=== PATIENT | female | born 1945 | race Caucasian/White ===

== ENCOUNTER 2018-11-18 11:56 | Inpatient (IN) | payer MEDICARE, BC ==
[~2018-11-18 11:56] MED LIST: ISOVUE-370 76%-LOCM 1 ML ONE
--- NOTE | 2018-11-18 12:52 | RAD ---
Chest one view HISTORY: Dyspnea. COMPARISON: 03/31/2007. FINDINGS: Cardiac silhouette is magnified by projection and upper limits of normal in size. Pulmonary vasculature also upper limits of normal. No lobar consolidation or evidence of pneumothorax. 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 IMPRESSION: No active cardiopulmonary abnormalities are demonstrated.
[2018-11-18 13:59] LABS: #Eosinphils 0.2 thou/uL (0.0-0.7); #Lymphocytes 1.1 thou/uL (1.20-3.40); #Monocytes 0.6 thou/uL (0.11-0.59); %Basophils 0.2 % (0.0-1.0); %Eosinophils 1.4 % (0.0-10.0); %Lymphocytes 9.9 % (21.0-51.0); %Monocytes 5.5 % (0.0-10.0); Hemoglobin 9.5 g/dL (12.0-16.0); Mean Corpuscular HGB CONC 31.9 g/dL (32.0-36.0); Mean Corpuscular Hemoglobin 31.8 pg (27.0-31.0); Mean Corpuscular Volume 99.4 fL (78.0-98.0); Mean Platelet Volume 6.8 fL (7.4-10.4); Platelet Count 244 thou/uL (130-400); Red Blood Cell (RBC) Count 2.99 mill/uL (4.20-5.40); White Blood Cell (WBC) Count 10.8 thou/uL (4.8-10.8)
[2018-11-18 14:16] LABS: ALT (SGPT) Less than 7 U/L (8-55); AST (SGOT) 9 U/L (5-34); Albumin 3.2 g/dL (3.4-4.8); Alkaline Phosphatase 128 U/L (40-150); Anion Gap 16 mmol/L (10-20); BUN (Urea Nitrogen) 53 mg/dL (9.8-20.1); Bilirubin, Total 0.6 mg/dL (0.2-1.2); Calc. Creatinine Clearance 0 mL/min (70-130); Calcium 8.3 mg/dL (7.8-10.44); Carbon Dioxide 21 mmol/L (23-31); Chloride 106 mmol/L (98-107); Estimated GFR-MDRD 7; Globulin 2.7 g/dL (2.4-3.5); Glucose 97 mg/dL (83-110); Lipase 45 U/L (8-78); Potassium 3.7 mmol/L (3.5-5.1); Protein, Total 5.9 g/dL (6.0-8.3); Sodium 139 mmol/L (136-145)
[2018-11-18] MEDS ORDERED: diphenhydrAMINE 50 MG/ML VIAL ONE (14:32)
[2018-11-18] MEDS ORDERED: Famotidine/PF 20 mg/2ml Vial ONE (14:32)
[2018-11-18] MEDS ORDERED: methylPREDNISolone Sod Succ/PF 125 MG/2 ML VIAL ONE (14:32)
--- NOTE | 2018-11-18 16:14 | CT ---
CT PULMONARY ANGIOGRAM WITH IV CONTRAST AND 3-D POSTPROCESSING: HISTORY:Shortness of breath, chest pain FINDINGS: There is good contrast opacification of the pulmonary arterial vasculature with filling defects in th e lower lobe branches, right greater than left consistent with pulmonary embolism.. The thoracic aorta is well opacified without aneurysm or dissection. No left pleural or pericardial effusions are seen. There is a small right pleural effusion. No pneumothoraces or lung nodules are noted. There are scattered patchy groundglass infiltrates bilat erally. There are degenerative changes in the spine. Upper abdominal tomograms demonstrate free fluid in the upper abdomen consistent with ascites. IMPRESSION: Pulmonary embolism. Discussed over the telephone with ER physician Dr. Neo Powers at 4:08 PM..
[2018-11-18] MEDS ORDERED: Heparin 1,000 UNITS/ML VIAL ONE ×2 (18:30→18:33)
[2018-11-18] MEDS ORDERED: Heparin 25,000 units/D5W 500 ML ONE (18:30)
[2018-11-18 19:21] LABS: Troponin I 0.018 ng/mL (< 0.028)
[2018-11-18 19:39] VITALS: BMI 39.0
[2018-11-18] MEDS ORDERED: Heparin 25,000 units/D5W 500 ML IV SCH (19:45)
[2018-11-18 20:47] LABS: Troponin I 0.016 ng/mL (< 0.028)
[2018-11-18] MEDS ORDERED: Ondansetron PF 4 MG/2 ML Vial IVP PRN (21:22)
[2018-11-18] MEDS ORDERED: Ondansetron ODT 4 MG TAB PO PRN (21:22)
[2018-11-18] MEDS ORDERED: Acetaminophen 650 MG Suppository PR PRN (21:22)
[2018-11-18] MEDS ORDERED: HYDROcodone/Acetaminophen 5/325 mg Tablet PO PRN (22:13)
[2018-11-18] MEDS ORDERED: Gabapentin 300 MG CAP PO SCH (22:15)
[2018-11-18] MEDS ORDERED: Zolpidem Tartrate 5 MG TAB PO SCH (22:15)
[2018-11-18] MEDS ORDERED: Carvedilol 3.125 MG TAB PO SCH (22:15)
[2018-11-18] MEDS ORDERED: HYDROcodone/Acetaminophen 10/325 mg Tablet PO SCH (23:00)
--- NOTE | 2018-11-19 00:20 | HP ---
PRIMARY CARE DOCTOR: Dr. Levi Quach CODE STATUS: Full code. TIME OF EVALUATION: 08:10 p.m. CHIEF COMPLAINT: Shortness of breath associated with chest pain. HISTORY OF PRESENT ILLNESS: This is a 73-year-old female patient with past medical history of hypertension, end-stage renal disease, who came to the hospital after having chest pain, shortness of breath, they were reported as moderate to severe with no clear triggers. No alleviating factors. The shortness of breath was exertional, improved with resting. The patient was found to have a pulmonary embolism, receiving treatment with heparin for it. REVIEW OF SYSTEMS: CONSTITUTIONAL: No fever, chills, or generalized weakness. RESPIRATORY: The patient has cough. No sputum production or shortness of breath. CARDIOVASCULAR: Chest pain. No palpitations. GASTROINTESTINAL: No nausea. No vomiting, diarrhea, or abdominal pain. TIPPLE BOSS: No dizziness, headache, or feeling lightheaded. GENITOURINARY: No burning on urination. EXTREMITIES: No leg swelling. All other systems were reviewed and negative except for the findings mentioned above. PAST MEDICAL HISTORY: As mentioned in the HPI. PAST SURGICAL HISTORY: Bypass surgery, bladder surgery, appendectomy, hysterectomy, fistula of the right upper arm, and peritoneal dialysis catheter in the left lower quadrant. PSYCH HISTORY: Anxiety and depression. SOCIAL HISTORY: No alcohol. No drugs. No smoking history. FAMILY HISTORY: Reviewed and noncontributory for current presentation. KNOWN ALLERGIES: IVP dye and codeine. REPORTED MEDICATIONS: 1. Calcium carbonate. 2. Coreg. 3. Gabapentin. 4. Zolpidem. 5. Crapo. 6. Duloxetine. 7. Magnesium oxide. 8. Docusate sodium. PHYSICAL EXAMINATION: VITAL SIGNS: On presentation; blood pressure 155/52 with heart rate 76, respiratory rate was 20, temperature 98.4. Pain was 5. Oxygen saturation 98% on room air. GENERAL APPEARANCE: The patient is alert, oriented, not in acute distress. HEENT: Eyes, normal conjunctivae. Moist oral mucosa. Anicteric. NECK: No JVD. RESPIRATORY: Bilateral air entry. No rales. No wheezes. Symmetric expansion. CARDIOVASCULAR: Normal rate, regular rhythm. No murmurs. No gallops. No edema. ABDOMEN: Soft. Normal bowel sounds. The patient has left lower quadrant peritoneal catheter. MUSCULOSKELETAL: Baseline range of motion and strength. No tenderness. SKIN: Warm and intact. No pallor. No rash. No redness. Peripheral pulses are present. Capillary refill seems to be intact. NEUROLOGIC: No evidence of any new focal weakness. Baseline speech. Cranial nerves seems to be intact. PSYCHIATRIC: The patient is in good mood. No anxiety. Optimal judgment. DIAGNOSTIC DATA: EKG was reviewed. The patient has normal sinus rhythm with a rate of 76, W[place] 176, QRS 118, QT corrected 443. Chest x-ray was reviewed. The patient has no active cardiopulmonary abnormalities. CT angio was reviewed. The patient has pulmonary embolism noted in the lower lobe branches. LABORATORY DATA: Labs were reviewed. The patient has white count 10.8, hemoglobin 9.5, MCV 99.4, and platelet count 244. PTT 36.7. Chemistry; sodium 139, potassium 3.7, chloride 106, carbon dioxide 21, anion gap 16, BUN 53, and creatinine 5.90, GFR , glucose 97, and calcium 9.3. LFTs were negative. Troponin was negative x3. Beta-natriuretic peptide was normal. Lipase 45. ASSESSMENT AND PLAN: The patient will be placed in the hospital with the following medical problems: 1. Pulmonary embolism. The patient receiving heparin, as of now, it has been stable. We will continue to monitor. 2. End-stage renal disease, on hemodialysis. The patient has been seen by Dr. Cam. The patient is to receive peritoneal dialysis overnight. 3. Chronic macrocytic anemia, uncontrolled hypertension, current blood pressure 155/52 up to we will reconcile home medications. We will monitor. 4. Deep venous thrombosis prophylaxis, the patient is on heparin. Job ID: [id number]
[2018-11-19 00:49] LABS: PTT 217.7 SEC (22.9-36.1)
[2018-11-19] MEDS ORDERED: Prevnar 13-Val Conj/PF 0.5 ML SYRINGE IM ONE (01:15)
[2018-11-19 03:25] LABS: #Eosinphils 0.1 thou/uL (0.0-0.7); #Lymphocytes 1.5 thou/uL (1.20-3.40); #Monocytes 0.6 thou/uL (0.11-0.59); %Basophils 0.4 % (0.0-1.0); %Eosinophils 1.3 % (0.0-10.0); %Lymphocytes 13.7 % (21.0-51.0); %Monocytes 5.1 % (0.0-10.0); %Neutrophils 79.6 % (42.0-75.0); Hemoglobin 9.4 g/dL (12.0-16.0); Mean Corpuscular Hemoglobin 31.9 pg (27.0-31.0); Mean Corpuscular Volume 99.7 fL (78.0-98.0); Mean Platelet Volume 6.8 fL (7.4-10.4); Platelet Count 249 thou/uL (130-400); RBC Distribution Width 12.1 % (11.5-14.5); Red Blood Cell (RBC) Count 2.93 mill/uL (4.20-5.40); White Blood Cell (WBC) Count 11.3 thou/uL (4.8-10.8)
[2018-11-19 03:46] LABS: Anion Gap 16 mmol/L (10-20); BUN (Urea Nitrogen) 44 mg/dL (9.8-20.1); Calc. Creatinine Clearance 14 mL/min (70-130); Calcium 8.7 mg/dL (7.8-10.44); Carbon Dioxide 21 mmol/L (23-31); Chloride 105 mmol/L (98-107); Estimated GFR-MDRD 7; Glucose 122 mg/dL (83-110); Potassium 3.5 mmol/L (3.5-5.1); Sodium 138 mmol/L (136-145)
[2018-11-19] MEDS ORDERED: Heparin 10,000 UNITS/ 10 ML VIAL SLOW IVP SCH (07:30)
[2018-11-19] MEDS ORDERED: Loratadine 10 MG TAB PO PRN (07:48)
[2018-11-19] MEDS ORDERED: Senokot S 8.6-50 MG TAB PO PRN (07:48)
[2018-11-19] MEDS ORDERED: hydrALAZINE 20 MG/ML VIAL SLOW IVP PRN (07:48)
[2018-11-19] MEDS ORDERED: Cepastat Lozenges 1 LOZ PO PRN (07:48)
[2018-11-19] MEDS ORDERED: Diabetic Tussin 200 MG/10 ML UDCUP PO PRN (07:48)
[2018-11-19] MEDS ORDERED: Eucerin (Mineral Oil/Petrolatum,White) 30 gm Jar TOP PRN (07:48)
[2018-11-19] MEDS ORDERED: Sodium Chloride 0.65% Nasal 44 ML BOT EA NARE PRN (07:48)
[2018-11-19] MEDS ORDERED: Loperamide HCl 2 MG CAP PO PRN (07:48)
[2018-11-19] MEDS ORDERED: Bisacodyl 10 MG SUPP PR PRN (07:48)
[2018-11-19] MEDS ORDERED: Artificial Tears 18 DROP/0.9 ML EA EYE PRN (07:48)
[2018-11-19 09:51] LABS: Hemoglobin 10.6 g/dL (12.0-16.0); Platelet Count 250 thou/uL (130-400)
[2018-11-19 09:52] LABS: INR-International Normal Ratio 1.3; Prothrombin Time 16.2 SEC (12.0-14.7)
[2018-11-19] MEDS: Docusate 100 MG CAP PO SCH (09:52)
[2018-11-19] MEDS: DULoxetine 30 MG CAP PO SCH (09:52)
[2018-11-19] MEDS: Carvedilol 3.125 MG TAB PO SCH ×2 (09:52→18:00)
[2018-11-19] MEDS: Cyanocobalamin (Vitamin B-12) 1,000 MCG TAB PO SCH (09:53)
[2018-11-19] MEDS: Acetaminophen 325 MG TAB PO PRN (09:53)
[2018-11-19 09:54] LABS: PTT 108.1 SEC (22.9-36.1)
--- NOTE | 2018-11-19 10:07 | ULT ---
EXAM: Bilateral lower extremity venous Doppler US HISTORY: Pulmonary embolism FINDINGS: Grayscale, color-flow, Doppler evaluation, spectral analysis of the bilateral lower extremities venou s structures is performed with 2-D imaging. The bilateral common femoral, superficial femoral, popliteal, posterior tibial, proximal greater saphenous and profunda femoral veins are imaged. There is normal luminal compressibility, flow, and augmentation in the visualized deep venous structu res of the bilateral lower extremities. IMPRESSION: No evidence of a deep vein thrombosis in either lower extremity.
--- NOTE | 2018-11-19 10:24 | PDOC.PN ---
- Subjective Encounter Start Date: 11/19/18 Encounter Start Time: 10:00 -: old records requested/rev Patient seen and examined. No new complaints. No overnight events - Objective Resuscitation Status - Order Detail: 11/18/18 21:22 Resuscitation Status Routine Resuscitation Status: FULL: Full Resuscitation MAR Reviewed: Yes Vital Signs & Weight: Vital Signs (12 hours) Temp 11/19/18 07:13 98.4 F 11/19/18 04:35 98.3 F 11/19/18 00:06 98.3 F Weight Weight 213 lb 8 oz Most Recent Monitor Data Heart Rate from ECG 80 NIBP 149/69 NIBP BP-Mean 95 Respiration from ECG 23 SpO2 97 I&O: 11/18/18 11/19/18 11/20/18 06:59 06:59 06:59 Intake Total 720 Output Total 750 Balance -30 Result Diagrams: 11/19/18 09:15 11/19/18 03:15 Radiology Reviewed by me: Yes (CTA, US leg reviewed) EKG Reviewed by me: Yes (NSR) Phys Exam - Physical Examination Constitutional: NAD HEENT: PERRLA, moist MMs, sclera anicteric Neck: no JVD, supple Respiratory: no wheezing, no rales, no rhonchi Cardiovascular: RRR, no significant murmur, no rub Gastrointestinal: soft, non-tender, no distention, positive bowel sounds obesity+, PD catheter+ Musculoskeletal: no edema, pulses present right UE clotted AVF Neurological: non-focal, normal sensation, moves all 4 limbs Psychiatric: normal affect, A&O x 3 Skin: no rash, normal turgor Dx/Plan (1) Pulmonary embolism Code(s): I26.99 - OTHER PULMONARY EMBOLISM WITHOUT ACUTE COR PULMONALE Status : Acute (2) Anemia of renal disease Code(s): N18.9 - CHRONIC KIDNEY DISEASE, UNSPECIFIED; D63.1 - ANEMIA IN CHRONIC KIDNEY DISEASE Status: Chronic Comment: with macrocytosis (3) Anxiety and depression Code(s): F41.9 - ANXIETY DISORDER, UNSPECIFIED; F32.9 - MAJOR DEPRESSIVE DISORDER, SINGLE EPISODE, UNSPECIFIED Status: Chronic (4) GERD (gastroesophageal reflux disease) Code(s): K21.9 - GASTRO-ESOPHAGEAL REFLUX DISEASE WITHOUT ESOPHAGITIS Status: Chronic (5) Hypertension Code(s): I10 - ESSENTIAL (PRIMARY) HYPERTENSION Status: Chronic (6) Obesity (BMI 30-39.9) Code(s): E66.9 - OBESITY, UNSPECIFIED Status: Chronic (7) ESRD on peritoneal dialysis Code(s): N18.6 - END STAGE RENAL DISEASE; Z99.2 - DEPENDENCE ON RENAL DIALYSIS Status: Chronic - Plan cont current plan of care, plan discussed w/ family * continue heparin drip as per protocol * warfarin added * will monitor INR daily * medication reviewed as below * symptomatic treatment * nephrology consulted for PD * discussed with * pulmonary recommendation appreciated. Review of Systems - Review of Systems ENT: negative: Ear Pain, Ear Discharge, Nose Pain, Nose Discharge, Nose Congestion, Mouth Pain, Mouth Swelling, Throat Pain, Throat Swelling, Other Respiratory: negative: Cough, Dry, Shortness of Breath, Hemoptysis, SOB with Excertion, Pleuritic Pain, Sputum, Wheezing Cardiovascular: negative: chest pain, palpitations, orthopnea, paroxysmal nocturnal dyspnea, edema, light headedness, other Gastrointestinal: negative: Nausea, Vomiting, Abdominal Pain, Diarrhea, Constipation, Melena, Hematochezia, Other Genitourinary: negative: Dysuria, Frequency, Incontinence, Hematuria, Retention , Other Musculoskeletal: negative: Neck Pain, Shoulder Pain, Arm Pain, Back Pain, Hand Pain, Leg Pain, Foot Pain, Other Skin: negative: Rash, Lesions, Chuy, Bruising, Other - Medications/Allergies Allergies/Adverse Reactions: Allergies Allergy/AdvReac Type Severity Reaction Status Date / Time IVP DYE Allergy Uncoded 05/04/14 17:19 Sensitive to Codeine Allergy Uncoded 05/04/14 17:19 Medications: Current Medications Acetaminophen (Tylenol) 650 mg PO Q4H PRN PRN Reason: Headache/Fever/Mild Pain (1-3) Last Admin: 11/19/18 09:53 Dose: 650 mg Hydrocodone Bitart/Acetaminophen ([place] 10/325) 1 tab PO HS PRN PRN Reason: Moderate Pain (4-6) Artificial Tears (Tears Naturale) 2 drop EA EYE PRN PRN PRN Reason: Dry Eyes Bisacodyl (Dulcolax) 10 mg [place] DAILYPRN PRN PRN Reason: Constipation Carvedilol (Coreg) 3.125 mg PO BID-[facility] Last Admin: 11/19/18 09:52 Dose: 3.125 mg Cholecalciferol (Vitamin D3) 4,000 units PO DAILY [facility] Last Admin: 11/19/18 09:52 Dose: 4,000 units Cyanocobalamin (Vitamin B-12) 1,000 mcg PO DAILY [facility] Last Admin: 11/19/18 09:53 Dose: 1,000 mcg Docusate Sodium (Colace) 100 mg PO DAILY [facility] Last Admin: 11/19/18 09:52 Dose: 100 mg Duloxetine HCl (Cymbalta) 30 mg PO DAILY [facility] Last Admin: 11/19/18 09:52 Dose: 30 mg Gabapentin (Neurontin) 300 mg PO HS [facility] Guaifenesin (Robitussin Sf) 200 mg PO Q4H PRN PRN Reason: Cough Heparin Sodium (Porcine) (Heparin 1,000 Units/Ml (10 Ml)) 0 units SLOW IVP ASDIR [facility]; Protocol Hydralazine HCl (Apresoline) 10 mg SLOW IVP Q4H PRN PRN Reason: SBP > 180 and HR < 70 Heparin Sodium/Dextrose (Heparin 25,000 Units/D5w 500 Ml) 500 mls @ 0 mls/hr IVPB INF [facility]; Protocol Loperamide HCl (Imodium) 2 mg PO PRN PRN PRN Reason: Diarrhea/Loose Stools Loratadine (Claritin) 10 mg PO DAILYPRN PRN PRN Reason: Sinus Symptoms Mineral Oil/White Petrolatum (Eucerin Cream) 0 gm TOP BIDPRN PRN PRN Reason: Dry Skin Ondansetron HCl (Zofran Odt) 4 mg PO Q6H PRN PRN Reason: Nausea/Vomiting Ondansetron HCl (Zofran) 4 mg IVP Q6H PRN PRN Reason: Nausea/Vomiting Senna/Docusate Sodium (Senokot S) 2 tab PO BID PRN PRN Reason: Constipation Sodium Chloride (Flush - Normal Saline) 10 ml IVF Q12HR [facility] Last Admin: 11/19/18 09:53 Dose: 10 ml Sodium Chloride (Flush - Normal Saline) 10 ml IVF PRN PRN PRN Reason: Saline Flush Sodium Chloride ([place] Nasal [place] 0.65%) 0 ml EA NARE QIDPRN PRN PRN Reason: Nasal Congestion Throat Lozenges (Cepastat Lozenges) 1 teresa PO Q2H PRN PRN Reason: Sore Throat Warfarin Sodium (Coumadin) 5 mg PO 1700 JUAN CARLOS Zolpidem Tartrate (Ambien) 10 mg PO HS PRN PRN Reason: Insomnia
--- NOTE | 2018-11-19 15:06 | CON ---
DATE OF CONSULTATION: 11/19/2018 CONSULTING PHYSICIAN: [facility]. REASON FOR CONSULTATION: Pulmonary emboli. HISTORY OF PRESENT ILLNESS: A pleasant 73-year-old female, who came in last night with chest pain and shortness of breath of one day duration. She was found to have small bilateral lower lobe pulmonary emboli on CT pulmonary angiogram. She has been started on heparin drip. Current time, she feels okay and has no acute complaints. PAST MEDICAL HISTORY: 1. End-stage renal disease, currently on peritoneal dialysis, but has previously been on hemodialysis. 2. Coronary artery disease. 3. Gastroesophageal reflux. 4. Anemia. 5. Arthritis. 6. Herniated disc. PAST SURGICAL HISTORY: Appendectomy, cholecystectomy, intestinal bypass, cholecystectomy, appendectomy, hysterectomy with unilateral salpingo-oophorectomy. FAMILY MEDICAL HISTORY: Father is , mother is , unknown cause. SOCIAL HISTORY: Remote history of smoking in the past, not currently. Does not consume alcohol. ALLERGIES: . MEDICATIONS: Prior to admission, 1. Hydrocodone 10/325 one tablet nightly. 2. Docusate 100 mg daily. 3. Magnesium 250 mg daily. 4. Vitamin B12 one tablet daily. 5. Duloxetine 30 mg daily. 6. Vitamin D3 two tablets daily. 7. Nexium 40 mg daily. 8. Coreg, unknown dose b.i.d. 9. Gabapentin, unknown dose nightly. 10. Ambien 10 mg at bedtime. REVIEW OF SYSTEMS: She has had no fever, chills, nausea, vomiting. No hematemesis. No hematochezia. No hematuria. No dysuria. Remaining 12-point review of systems negative. PHYSICAL EXAMINATION: VITAL SIGNS: Temperature 98.4, pulse 80, blood pressure 146/69, O2 saturation 97% on room air. GENERAL: She is awake and alert, and in no distress. HEENT: Pupils react. Sclerae anicteric. Oropharynx clear. NECK: No bruits. No JVD. LUNGS: Clear without wheezing. CARDIAC: S1, S2 regular without audible murmur. ABDOMEN: Soft, nontender. Dialysis catheter noted. EXTREMITIES: No clubbing, cyanosis, or edema. LABORATORY DATA: White blood cell count 11.3, hematocrit 29.2, and platelet count 249. PTT 98.6. Sodium 138, potassium 3.5, chloride 105, CO2 of 21, BUN 44, creatinine 5.7, glucose 122. I reviewed her CT films personally and agree with the radiologist's diagnosis. ASSESSMENT: 1. Pulmonary embolism. 2. End-stage renal disease, requiring peritoneal dialysis. RECOMMENDATION: With her history of renal failure, I would recommend anticoagulating her with heparin drip, bridging her until she had a therapeutic INR of 2.0 to 2.5 on warfarin therapy. Her warfarin can start tonight. The above encompassed 70 minutes time, of that time, greater 50% was spent with the patient and/or the patient's unit in the hospital. Job ID: [id number]
[2018-11-19] MEDS: Warfarin Sodium 5 MG TAB PO SCH (18:01)
[2018-11-19] MEDS ORDERED: Zolpidem Tartrate 5 MG TAB PO PRN (20:00)
[2018-11-19] MEDS: Gabapentin 300 MG CAP PO SCH (20:49)
[2018-11-19] MEDS: HYDROcodone/Acetaminophen 10/325 mg Tablet PO PRN (22:38)
[2018-11-19] MEDS: Zolpidem Tartrate 5 MG TAB PO PRN (22:39)
[2018-11-20 05:23] LABS: INR-International Normal Ratio 1.4; Prothrombin Time 16.9 SEC (12.0-14.7)
[2018-11-20 05:33] LABS: PTT 213.3 SEC (22.9-36.1)
--- NOTE | 2018-11-20 08:36 | PRG ---
DATE OF SERVICE: 11/20/2018 SUBJECTIVE: Ms. Tanner feels well, has no complaints. OBJECTIVE: VITAL SIGNS: Temperature 98.1, pulse 74, blood pressure 133/55, O2 saturation 98%. HEENT: Unremarkable. NECK: No JVD. CHEST: Clear. CARDIAC: S1 and S2. Regular. ABDOMEN: Soft. EXTREMITIES: Right upper arm dialysis fistula noted. LABORATORY DATA: INR is 1.4, PTT 213. ASSESSMENT: Small pulmonary embolism. It sounds like her AV fistula had been manipulated last week in an attempt to open it back up, and I wonder if some of the clot got dislodged and traveled into the pulmonary circulation. In any event, her ultrasound of the lower extremities and her echo are both negative. PLAN: She will be transferred out to the telemetry floor. She will continue with heparin drip. We are continuing the heparin drip until her warfarin achieves an INR of 2 to 2.5. Job ID: [id number]
[2018-11-20] MEDS: Heparin 25,000 units/D5W 500 ML IVPB SCH (08:48)
[2018-11-20] MEDS: DULoxetine 30 MG CAP PO SCH (09:01)
[2018-11-20] MEDS: Docusate 100 MG CAP PO SCH (09:01)
[2018-11-20] MEDS: Carvedilol 3.125 MG TAB PO SCH ×2 (09:01→17:58)
[2018-11-20] MEDS: Cyanocobalamin (Vitamin B-12) 1,000 MCG TAB PO SCH (09:01)
--- NOTE | 2018-11-20 13:06 | PDOC.PN ---
- Subjective Encounter Start Date: 11/20/18 Encounter Start Time: 10:45 Patient seen and examined. No new complaints. No overnight events - Objective Resuscitation Status - Order Detail: 11/18/18 21:22 Resuscitation Status Routine Resuscitation Status: FULL: Full Resuscitation MAR Reviewed: Yes Vital Signs & Weight: Vital Signs (12 hours) Temp Pulse Ox 11/20/18 11:03 97.7 F 11/20/18 07:52 98 11/20/18 07:39 98.1 F 11/20/18 03:37 98.4 F Weight Weight 213 lb 8 oz Most Recent Monitor Data Heart Rate from ECG 73 NIBP 129/77 NIBP BP-Mean 94 Respiration from ECG 14 SpO2 95 I&O: 11/19/18 11/20/18 11/21/18 06:59 06:59 06:59 Intake Total 720 578 Output Total 750 760 Balance -30 -182 Result Diagrams: 11/19/18 09:15 11/19/18 03:15 EKG Reviewed by me: Yes Phys Exam - Physical Examination Constitutional: NAD HEENT: PERRLA, moist MMs, sclera anicteric Neck: no JVD, supple Respiratory: no wheezing, no rales, no rhonchi Cardiovascular: RRR, no significant murmur, no rub Gastrointestinal: soft, non-tender, no distention, positive bowel sounds PD catheter+ Musculoskeletal: no edema Neurological: non-focal, normal sensation Lymphatic: no nodes Psychiatric: normal affect, A&O x 3 Skin: no rash, normal turgor Dx/Plan (1) Pulmonary embolism Code(s): I26.99 - OTHER PULMONARY EMBOLISM WITHOUT ACUTE COR PULMONALE Status : Acute (2) Anemia of renal disease Code(s): N18.9 - CHRONIC KIDNEY DISEASE, UNSPECIFIED; D63.1 - ANEMIA IN CHRONIC KIDNEY DISEASE Status: Chronic Comment: with macrocytosis (3) Anxiety and depression Code(s): F41.9 - ANXIETY DISORDER, UNSPECIFIED; F32.9 - MAJOR DEPRESSIVE DISORDER, SINGLE EPISODE, UNSPECIFIED Status: Chronic (4) GERD (gastroesophageal reflux disease) Code(s): K21.9 - GASTRO-ESOPHAGEAL REFLUX DISEASE WITHOUT ESOPHAGITIS Status: Chronic (5) Hypertension Code(s): I10 - ESSENTIAL (PRIMARY) HYPERTENSION Status: Chronic (6) Obesity (BMI 30-39.9) Code(s): E66.9 - OBESITY, UNSPECIFIED Status: Chronic (7) ESRD on peritoneal dialysis Code(s): N18.6 - END STAGE RENAL DISEASE; Z99.2 - DEPENDENCE ON RENAL DIALYSIS Status: Chronic - Plan cont current plan of care, plan discussed w/ family * continue heparin drip as per protocol * continue warfarin and monitor INR [facility] PD as per nephrology * medication reviewed as below * symptomatic treatment. Review of Systems - Review of Systems ENT: negative: Ear Pain, Ear Discharge, Nose Pain, Nose Discharge, Nose Congestion, Mouth Pain, Mouth Swelling, Throat Pain, Throat Swelling, Other Respiratory: negative: Cough, Dry, Shortness of Breath, Hemoptysis, SOB with Excertion, Pleuritic Pain, Sputum, Wheezing Cardiovascular: negative: chest pain, palpitations, orthopnea, paroxysmal nocturnal dyspnea, edema, light headedness, other Gastrointestinal: negative: Nausea, Vomiting, Abdominal Pain, Diarrhea, Constipation, Melena, Hematochezia, Other Genitourinary: negative: Dysuria, Frequency, Incontinence, Hematuria, Retention , Other Musculoskeletal: negative: Neck Pain, Shoulder Pain, Arm Pain, Back Pain, Hand Pain, Leg Pain, Foot Pain, Other - Medications/Allergies Allergies/Adverse Reactions: Allergies Allergy/AdvReac Type Severity Reaction Status Date / Time IVP DYE Allergy Uncoded 05/04/14 17:19 Sensitive to Codeine Allergy Uncoded 05/04/14 17:19 Medications: Current Medications Acetaminophen (Tylenol) 650 mg PO Q4H PRN PRN Reason: Headache/Fever/Mild Pain (1-3) Last Admin: 11/19/18 09:53 Dose: 650 mg Hydrocodone Bitart/Acetaminophen ([place] 10/325) 1 tab PO HS PRN PRN Reason: Moderate Pain (4-6) Last Admin: 11/19/18 22:38 Dose: 1 tab Artificial Tears (Tears Naturale) 2 drop EA EYE PRN PRN PRN Reason: Dry Eyes Bisacodyl (Dulcolax) 10 mg [place] DAILYPRN PRN PRN Reason: Constipation Carvedilol (Coreg) 3.125 mg PO BID-[facility] Last Admin: 11/20/18 09:01 Dose: 3.125 mg Cholecalciferol (Vitamin D3) 4,000 units PO DAILY [facility] Last Admin: 11/20/18 09:01 Dose: 4,000 units Cyanocobalamin (Vitamin B-12) 1,000 mcg PO DAILY [facility] Last Admin: 11/20/18 09:01 Dose: 1,000 mcg Docusate Sodium (Colace) 100 mg PO DAILY [facility] Last Admin: 11/20/18 09:01 Dose: 100 mg Duloxetine HCl (Cymbalta) 30 mg PO DAILY [facility] Last Admin: 11/20/18 09:01 Dose: 30 mg Gabapentin (Neurontin) 300 mg PO HS [facility] Last Admin: 11/19/18 20:49 Dose: 300 mg Guaifenesin (Robitussin Sf) 200 mg PO Q4H PRN PRN Reason: Cough Heparin Sodium (Porcine) (Heparin 1,000 Units/Ml (10 Ml)) 0 units SLOW IVP ASDIR [facility]; Protocol Hydralazine HCl (Apresoline) 10 mg SLOW IVP Q4H PRN PRN Reason: SBP > 180 and HR < 70 Heparin Sodium/Dextrose (Heparin 25,000 Units/D5w 500 Ml) 500 mls @ 0 mls/hr IVPB INF [facility]; Protocol Last Admin: 11/20/18 08:48 Dose: 500 mls Loperamide HCl (Imodium) 2 mg PO PRN PRN PRN Reason: Diarrhea/Loose Stools Loratadine (Claritin) 10 mg PO DAILYPRN PRN PRN Reason: Sinus Symptoms Mineral Oil/White Petrolatum (Eucerin Cream) 0 gm TOP BIDPRN PRN PRN Reason: Dry Skin Ondansetron HCl (Zofran Odt) 4 mg PO Q6H PRN PRN Reason: Nausea/Vomiting Last Admin: 11/19/18 11:02 Dose: 4 mg Ondansetron HCl (Zofran) 4 mg IVP Q6H PRN PRN Reason: Nausea/Vomiting Senna/Docusate Sodium (Senokot S) 2 tab PO BID PRN PRN Reason: Constipation Sodium Chloride (Flush - Normal Saline) 10 ml IVF Q12HR [facility] Last Admin: 11/20/18 09:01 Dose: 10 ml Sodium Chloride (Flush - Normal Saline) 10 ml IVF PRN PRN PRN Reason: Saline Flush Sodium Chloride ([place] Nasal [place] 0.65%) 0 ml EA NARE QIDPRN PRN PRN Reason: Nasal Congestion Throat Lozenges (Cepastat Lozenges) 1 teresa PO Q2H PRN PRN Reason: Sore Throat Warfarin Sodium (Coumadin) 5 mg PO 1700 JUAN CARLOS Last Admin: 11/19/18 18:01 Dose: 5 mg Zolpidem Tartrate (Ambien) 10 mg PO HS PRN PRN Reason: Insomnia Last Admin: 11/19/18 22:39 Dose: 10 mg
[2018-11-20] MEDS: Warfarin Sodium 5 MG TAB PO SCH (17:58)
[2018-11-20] MEDS: Zolpidem Tartrate 5 MG TAB PO PRN (21:21)
[2018-11-20] MEDS: HYDROcodone/Acetaminophen 10/325 mg Tablet PO PRN (21:21)
[2018-11-20] MEDS: Gabapentin 300 MG CAP PO SCH (21:21)
[2018-11-20 22:23] LABS: PTT 120.1 SEC (22.9-36.1)
[2018-11-21] MEDS: Heparin 25,000 units/D5W 500 ML IVPB SCH (05:33)
[2018-11-21 06:22] LABS: Hemoglobin 9.9 g/dL (12.0-16.0); Platelet Count 246 thou/uL (130-400)
[2018-11-21 06:28] LABS: INR-International Normal Ratio 2.2; Prothrombin Time 24.3 SEC (12.0-14.7)
[2018-11-21 06:44] LABS: PTT Greater than 250.0 SEC (22.9-36.1)
[2018-11-21] MEDS: DULoxetine 30 MG CAP PO SCH (08:50)
[2018-11-21] MEDS: Cyanocobalamin (Vitamin B-12) 1,000 MCG TAB PO SCH (08:50)
[2018-11-21] MEDS: Carvedilol 3.125 MG TAB PO SCH ×2 (08:50→17:00)
[2018-11-21] MEDS: Docusate 100 MG CAP PO SCH (08:51)
[2018-11-21 09:07] LABS: PTT 155.3 SEC (22.9-36.1)
--- NOTE | 2018-11-21 10:08 | PDOC.PN ---
- Subjective Encounter Start Date: 11/21/18 Encounter Start Time: 07:30 Patient seen and examined. No new complaints. No overnight events - Objective Resuscitation Status - Order Detail: 11/18/18 21:22 Resuscitation Status Routine Resuscitation Status: FULL: Full Resuscitation MAR Reviewed: Yes Vital Signs & Weight: Vital Signs (12 hours) Temp Pulse Resp BP Pulse Ox 11/21/18 03:55 97.6 F 68 22 H 155/67 H 93 L 11/20/18 23:20 75 132/60 Weight Weight 213 lb 8 oz Most Recent Monitor Data Heart Rate from ECG 77 NIBP 162/63 NIBP BP-Mean 96 Respiration from ECG 17 SpO2 95 I&O: 11/20/18 11/21/18 11/22/18 06:59 06:59 06:59 Intake Total 578 243 Output Total 760 100 Balance -182 143 Result Diagrams: 11/21/18 06:14 11/19/18 03:15 EKG Reviewed by me: Yes Phys Exam - Physical Examination Constitutional: NAD HEENT: PERRLA, moist MMs, sclera anicteric Neck: no JVD, supple Respiratory: no wheezing, no rales, no rhonchi Cardiovascular: RRR, no significant murmur, no rub Gastrointestinal: soft, non-tender, no distention, positive bowel sounds PD catheter+ Musculoskeletal: no edema, pulses present Neurological: non-focal, normal sensation, moves all 4 limbs Psychiatric: normal affect, A&O x 3 Skin: no rash, normal turgor Dx/Plan (1) Pulmonary embolism Code(s): I26.99 - OTHER PULMONARY EMBOLISM WITHOUT ACUTE COR PULMONALE Status : Acute (2) Anemia of renal disease Code(s): N18.9 - CHRONIC KIDNEY DISEASE, UNSPECIFIED; D63.1 - ANEMIA IN CHRONIC KIDNEY DISEASE Status: Chronic Comment: with macrocytosis (3) Anxiety and depression Code(s): F41.9 - ANXIETY DISORDER, UNSPECIFIED; F32.9 - MAJOR DEPRESSIVE DISORDER, SINGLE EPISODE, UNSPECIFIED Status: Chronic (4) GERD (gastroesophageal reflux disease) Code(s): K21.9 - GASTRO-ESOPHAGEAL REFLUX DISEASE WITHOUT ESOPHAGITIS Status: Chronic (5) Hypertension Code(s): I10 - ESSENTIAL (PRIMARY) HYPERTENSION Status: Chronic (6) Obesity (BMI 30-39.9) Code(s): E66.9 - OBESITY, UNSPECIFIED Status: Chronic (7) ESRD on peritoneal dialysis Code(s): N18.6 - END STAGE RENAL DISEASE; Z99.2 - DEPENDENCE ON RENAL DIALYSIS Status: Chronic - Plan cont current plan of care, PT/OT * Her INR is above 2, today will DC heparin drip * medication reviewed as below * symptomatic treatment * consult PT/OT. * continue warfarin * expecting discharge soon Review of Systems - Review of Systems ENT: negative: Ear Pain, Ear Discharge, Nose Pain, Nose Discharge, Nose Congestion, Mouth Pain, Mouth Swelling, Throat Pain, Throat Swelling, Other Respiratory: negative: Cough, Dry, Shortness of Breath, Hemoptysis, SOB with Excertion, Pleuritic Pain, Sputum, Wheezing Cardiovascular: negative: chest pain, palpitations, orthopnea, paroxysmal nocturnal dyspnea, edema, light headedness, other Gastrointestinal: negative: Nausea, Vomiting, Abdominal Pain, Diarrhea, Constipation, Melena, Hematochezia, Other Genitourinary: negative: Dysuria, Frequency, Incontinence, Hematuria, Retention , Other Musculoskeletal: negative: Neck Pain, Shoulder Pain, Arm Pain, Back Pain, Hand Pain, Leg Pain, Foot Pain, Other Skin: negative: Rash, Lesions, Chuy, Bruising, Other - Medications/Allergies Allergies/Adverse Reactions: Allergies Allergy/AdvReac Type Severity Reaction Status Date / Time IVP DYE Allergy Uncoded 05/04/14 17:19 Sensitive to Codeine Allergy Uncoded 05/04/14 17:19 Medications: Current Medications Acetaminophen (Tylenol) 650 mg PO Q4H PRN PRN Reason: Headache/Fever/Mild Pain (1-3) Last Admin: 11/19/18 09:53 Dose: 650 mg Hydrocodone Bitart/Acetaminophen ([place] 10/325) 1 tab PO HS PRN PRN Reason: Moderate Pain (4-6) Last Admin: 11/20/18 21:21 Dose: 1 tab Artificial Tears (Tears Naturale) 2 drop EA EYE PRN PRN PRN Reason: Dry Eyes Bisacodyl (Dulcolax) 10 mg [place] DAILYPRN PRN PRN Reason: Constipation Carvedilol (Coreg) 3.125 mg PO BID-[facility] Last Admin: 11/21/18 08:50 Dose: 3.125 mg Cholecalciferol (Vitamin D3) 4,000 units PO DAILY [facility] Last Admin: 11/21/18 08:50 Dose: 4,000 units Cyanocobalamin (Vitamin B-12) 1,000 mcg PO DAILY [facility] Last Admin: 11/21/18 08:50 Dose: 1,000 mcg Docusate Sodium (Colace) 100 mg PO DAILY [facility] Last Admin: 11/21/18 08:51 Dose: Not Given Duloxetine HCl (Cymbalta) 30 mg PO DAILY [facility] Last Admin: 11/21/18 08:50 Dose: 30 mg Gabapentin (Neurontin) 300 mg PO HS [facility] Last Admin: 11/20/18 21:21 Dose: 300 mg Guaifenesin (Robitussin Sf) 200 mg PO Q4H PRN PRN Reason: Cough Heparin Sodium (Porcine) (Heparin 1,000 Units/Ml (10 Ml)) 0 units SLOW IVP ASDIR [facility]; Protocol Hydralazine HCl (Apresoline) 10 mg SLOW IVP Q4H PRN PRN Reason: SBP > 180 and HR < 70 Loperamide HCl (Imodium) 2 mg PO PRN PRN PRN Reason: Diarrhea/Loose Stools Loratadine (Claritin) 10 mg PO DAILYPRN PRN PRN Reason: Sinus Symptoms Mineral Oil/White Petrolatum (Eucerin Cream) 0 gm TOP BIDPRN PRN PRN Reason: Dry Skin Ondansetron HCl (Zofran Odt) 4 mg PO Q6H PRN PRN Reason: Nausea/Vomiting Last Admin: 11/19/18 11:02 Dose: 4 mg Ondansetron HCl (Zofran) 4 mg IVP Q6H PRN PRN Reason: Nausea/Vomiting Senna/Docusate Sodium (Senokot S) 2 tab PO BID PRN PRN Reason: Constipation Sodium Chloride (Flush - Normal Saline) 10 ml IVF Q12HR [facility] Last Admin: 11/21/18 08:51 Dose: 10 ml Sodium Chloride (Flush - Normal Saline) 10 ml IVF PRN PRN PRN Reason: Saline Flush Sodium Chloride ([place] Nasal [place] 0.65%) 0 ml EA NARE QIDPRN PRN PRN Reason: Nasal Congestion Throat Lozenges (Cepastat Lozenges) 1 teresa PO Q2H PRN PRN Reason: Sore Throat Warfarin Sodium (Coumadin) 5 mg PO 1700 [facility] Last Admin: 11/20/18 17:58 Dose: 5 mg Zolpidem Tartrate (Ambien) 10 mg PO HS PRN PRN Reason: Insomnia Last Admin: 11/20/18 21:21 Dose: 10 mg
--- NOTE | 2018-11-21 16:50 | PRG ---
DATE OF SERVICE: 11/21/2018 SERVICE: Pulmonary Medicine. INTERVAL HISTORY: The patient is doing fine from respiratory standpoint. Breathing comfortably. She got up out of bed and walked to the bathroom back and had a little twinge of discomfort in her chest, but nothing like what brought her to the hospital. Denies any cough, sputum production, fevers, or chills. She has a very difficult stick. Otherwise, there has been no interval change to her condition. PHYSICAL EXAMINATION: VITAL SIGNS: Afebrile, pulse 79, blood pressure 135/63, respirations 18, and saturation 95% on room air. GENERAL: The patient is awake and alert, in no apparent distress. LUNGS: Decent air entry without any prolonged expiratory phase or wheezing present. HEART: Normal rate and regular. ABDOMEN: Soft, nontender, nondistended. Bowel sounds are positive. MUSCULOSKELETAL: No cyanosis or clubbing. No pitting in the bilateral lower extremities. NEUROLOGIC: Grossly nonfocal. LABORATORY DATA: Hemoglobin 9.5. PTT 155, creatinine 5.57. Basic metabolic profile is otherwise unremarkable. IMAGING: Echocardiogram previously showed normal ejection fraction, mild MR. ASSESSMENT: 1. Acute pulmonary embolism, small. 2. End-stage renal disease. DISCUSSION AND PLAN: We will continue her anticoagulation. She will remain in the hospital until the INR is stable off drips. If she is therapeutic tomorrow, she can be considered for transition out of the hospital provided that she has very close followup with the [facility]. Dose of Coumadin has been adjusted downward, which is perfectly reasonable. Job ID: [id number] MTDD
[2018-11-21] MEDS ORDERED: Warfarin Sodium 2.5 MG TAB PO SCH (17:00)
[2018-11-21] MEDS: HYDROcodone/Acetaminophen 10/325 mg Tablet PO PRN (20:59)
[2018-11-21] MEDS: Zolpidem Tartrate 5 MG TAB PO PRN (20:59)
[2018-11-21] MEDS: Gabapentin 300 MG CAP PO SCH (20:59)
[2018-11-22 05:33] LABS: INR-International Normal Ratio 3.6; Prothrombin Time 35.7 SEC (12.0-14.7)
[2018-11-22 08:43] LABS: #Eosinphils 0.2 thou/uL (0.0-0.7); #Lymphocytes 1.5 thou/uL (1.20-3.40); #Monocytes 0.4 thou/uL (0.11-0.59); #Neutrophils 7.4 thou/uL (1.40-6.50); %Basophils 0.5 % (0.0-1.0); %Eosinophils 1.9 % (0.0-10.0); %Lymphocytes 15.6 % (21.0-51.0); %Monocytes 3.9 % (0.0-10.0); %Neutrophils 78.1 % (42.0-75.0); Hemoglobin 9.8 g/dL (12.0-16.0); Mean Corpuscular HGB CONC 31.6 g/dL (32.0-36.0); Mean Corpuscular Hemoglobin 31.5 pg (27.0-31.0); Mean Corpuscular Volume 99.7 fL (78.0-98.0); Mean Platelet Volume 6.8 fL (7.4-10.4); Platelet Count 267 thou/uL (130-400); RBC Distribution Width 12.1 % (11.5-14.5); White Blood Cell (WBC) Count 9.5 thou/uL (4.8-10.8)
[2018-11-22 08:55] LABS: ALT (SGPT) Less than 7 U/L (8-55); AST (SGOT) 9 U/L (5-34); Albumin 2.9 g/dL (3.4-4.8); Alkaline Phosphatase 116 U/L (40-150); Anion Gap 15 mmol/L (10-20); BUN (Urea Nitrogen) 40 mg/dL (9.8-20.1); Bilirubin, Total 0.4 mg/dL (0.2-1.2); Calc. Creatinine Clearance 14 mL/min (70-130); Calcium 8.8 mg/dL (7.8-10.44); Carbon Dioxide 22 mmol/L (23-31); Chloride 106 mmol/L (98-107); Estimated GFR-MDRD 8; Globulin 3.6 g/dL (2.4-3.5); Glucose 131 mg/dL (83-110); Potassium 3.2 mmol/L (3.5-5.1); Protein, Total 6.5 g/dL (6.0-8.3); Sodium 140 mmol/L (136-145)
[2018-11-22] MEDS: Carvedilol 3.125 MG TAB PO SCH ×2 (08:59→17:17)
[2018-11-22] MEDS: DULoxetine 30 MG CAP PO SCH (09:00)
[2018-11-22] MEDS: Cyanocobalamin (Vitamin B-12) 1,000 MCG TAB PO SCH (09:01)
[2018-11-22] MEDS: Docusate 100 MG CAP PO SCH (09:01)
--- NOTE | 2018-11-22 09:46 | PDOC.PN ---
- Subjective Encounter Start Date: 11/22/18 Encounter Start Time: 07:20 today her INR is high, no new problem, Patient seen and examined. last night she was short of breath and after duoneb she felt better - Objective Resuscitation Status - Order Detail: 11/18/18 21:22 Resuscitation Status Routine Resuscitation Status: FULL: Full Resuscitation MAR Reviewed: Yes Vital Signs & Weight: Vital Signs (12 hours) Temp Pulse Resp BP Pulse Ox 11/22/18 04:00 92 L 11/22/18 03:56 72 16 99 11/22/18 03:14 97.4 F L 77 162/70 H 92 L Weight Weight 213 lb 8 oz Most Recent Monitor Data Heart Rate from ECG 77 NIBP 162/63 NIBP BP-Mean 96 Respiration from ECG 17 SpO2 95 I&O: 11/21/18 11/22/18 11/23/18 06:59 06:59 06:59 Intake Total 243 240 Output Total 100 500 Balance 143 -260 Result Diagrams: 11/22/18 08:25 11/22/18 08:25 EKG Reviewed by me: Yes Phys Exam - Physical Examination Constitutional: NAD HEENT: PERRLA, moist MMs, sclera anicteric Neck: no JVD, supple Respiratory: no wheezing, no rales, no rhonchi Cardiovascular: RRR, no significant murmur, no rub Gastrointestinal: soft, non-tender, no distention, positive bowel sounds obesity+ Musculoskeletal: no edema, pulses present Neurological: non-focal, normal sensation Dx/Plan (1) Pulmonary embolism Code(s): I26.99 - OTHER PULMONARY EMBOLISM WITHOUT ACUTE COR PULMONALE Status : Acute (2) Anemia of renal disease Code(s): N18.9 - CHRONIC KIDNEY DISEASE, UNSPECIFIED; D63.1 - ANEMIA IN CHRONIC KIDNEY DISEASE Status: Chronic Comment: with macrocytosis (3) Anxiety and depression Code(s): F41.9 - ANXIETY DISORDER, UNSPECIFIED; F32.9 - MAJOR DEPRESSIVE DISORDER, SINGLE EPISODE, UNSPECIFIED Status: Chronic (4) GERD (gastroesophageal reflux disease) Code(s): K21.9 - GASTRO-ESOPHAGEAL REFLUX DISEASE WITHOUT ESOPHAGITIS Status: Chronic (5) Hypertension Code(s): I10 - ESSENTIAL (PRIMARY) HYPERTENSION Status: Chronic (6) Obesity (BMI 30-39.9) Code(s): E66.9 - OBESITY, UNSPECIFIED Status: Chronic (7) ESRD on peritoneal dialysis Code(s): N18.6 - END STAGE RENAL DISEASE; Z99.2 - DEPENDENCE ON RENAL DIALYSIS Status: Chronic - Plan cont current plan of care, PT/OT * hold warfarin today * repeat labs tomorrow and adjust warfarin dose * dc tele * transfer to medical * continue PT/OT * expecting discharge tomorrow * continue PD. Review of Systems - Review of Systems ENT: negative: Ear Pain, Ear Discharge, Nose Pain, Nose Discharge, Nose Congestion, Mouth Pain, Mouth Swelling, Throat Pain, Throat Swelling, Other Respiratory: negative: Cough, Dry, Shortness of Breath, Hemoptysis, SOB with Excertion, Pleuritic Pain, Sputum, Wheezing Cardiovascular: negative: chest pain, palpitations, orthopnea, paroxysmal nocturnal dyspnea, edema, light headedness, other Gastrointestinal: negative: Nausea, Vomiting, Abdominal Pain, Diarrhea, Constipation, Melena, Hematochezia, Other Genitourinary: negative: Dysuria, Frequency, Incontinence, Hematuria, Retention , Other Musculoskeletal: negative: Neck Pain, Shoulder Pain, Arm Pain, Back Pain, Hand Pain, Leg Pain, Foot Pain, Other - Medications/Allergies Allergies/Adverse Reactions: Allergies Allergy/AdvReac Type Severity Reaction Status Date / Time IVP DYE Allergy Uncoded 05/04/14 17:19 Sensitive to Codeine Allergy Uncoded 05/04/14 17:19 Medications: Current Medications Acetaminophen (Tylenol) 650 mg PO Q4H PRN PRN Reason: Headache/Fever/Mild Pain (1-3) Last Admin: 11/19/18 09:53 Dose: 650 mg Hydrocodone Bitart/Acetaminophen ([place] 10/325) 1 tab PO HS PRN PRN Reason: Moderate Pain (4-6) Last Admin: 11/21/18 20:59 Dose: 1 tab Albuterol/Ipratropium (Duoneb) 3 ml NEB Q6H PRN PRN Reason: SOB &/or Wheezing Last Admin: 11/22/18 03:56 Dose: 3 ml Artificial Tears (Tears Naturale) 2 drop EA EYE PRN PRN PRN Reason: Dry Eyes Bisacodyl (Dulcolax) 10 mg [place] DAILYPRN PRN PRN Reason: Constipation Carvedilol (Coreg) 3.125 mg PO BID-[facility] Last Admin: 11/22/18 08:59 Dose: 3.125 mg Cholecalciferol (Vitamin D3) 4,000 units PO DAILY [facility] Last Admin: 11/22/18 09:01 Dose: 4,000 units Cyanocobalamin (Vitamin B-12) 1,000 mcg PO DAILY [facility] Last Admin: 11/22/18 09:01 Dose: 1,000 mcg Docusate Sodium (Colace) 100 mg PO DAILY [facility] Last Admin: 11/22/18 09:01 Dose: 100 mg Duloxetine HCl (Cymbalta) 30 mg PO DAILY [facility] Last Admin: 11/22/18 09:00 Dose: 30 mg Gabapentin (Neurontin) 300 mg PO [facility] Last Admin: 11/21/18 20:59 Dose: 300 mg Guaifenesin (Robitussin Sf) 200 mg PO Q4H PRN PRN Reason: Cough Hydralazine HCl (Apresoline) 10 mg SLOW IVP Q4H PRN PRN Reason: SBP > 180 and HR < 70 Loperamide HCl (Imodium) 2 mg PO PRN PRN PRN Reason: Diarrhea/Loose Stools Loratadine (Claritin) 10 mg PO DAILYPRN PRN PRN Reason: Sinus Symptoms Mineral Oil/White Petrolatum (Eucerin Cream) 0 gm TOP BIDPRN PRN PRN Reason: Dry Skin Ondansetron HCl (Zofran Odt) 4 mg PO Q6H PRN PRN Reason: Nausea/Vomiting Last Admin: 11/19/18 11:02 Dose: 4 mg Ondansetron HCl (Zofran) 4 mg IVP Q6H PRN PRN Reason: Nausea/Vomiting Senna/Docusate Sodium (Senokot S) 2 tab PO BID PRN PRN Reason: Constipation Sodium Chloride (Flush - Normal Saline) 10 ml IVF Q12HR [facility] Last Admin: 11/22/18 09:01 Dose: 10 ml Sodium Chloride (Flush - Normal Saline) 10 ml IVF PRN PRN PRN Reason: Saline Flush Sodium Chloride ([place] Nasal [place] 0.65%) 0 ml EA NARE QIDPRN PRN PRN Reason: Nasal Congestion Throat Lozenges (Cepastat Lozenges) 1 teresa PO Q2H PRN PRN Reason: Sore Throat Zolpidem Tartrate (Ambien) 10 mg PO HS PRN PRN Reason: Insomnia Last Admin: 11/21/18 20:59 Dose: 10 mg
--- NOTE | 2018-11-22 15:07 | PRG ---
DATE OF SERVICE: 11/22/2018 SERVICE: Pulmonary Medicine. INTERVAL HISTORY: The patient is doing fine from respiratory standpoint. She is breathing very comfortably. She has no complaints of chest pain, fevers, cough, nausea, or vomiting. Otherwise, she is in her usual state of health. She had one episode of wheezing in the middle of the night. She took nebulizer medication and took care of it. PHYSICAL EXAMINATION: VITAL SIGNS: Afebrile, pulse 80, blood pressure 177/69, respirations 16, and saturation 96% on room air. GENERAL: The patient is awake and alert, in no apparent distress. LUNGS: Decent air entry with no prolonged expiratory phase or wheezing. HEART: Normal rate and regular. ABDOMEN: Soft, nontender, and nondistended. Bowel sounds are positive. MUSCULOSKELETAL: No cyanosis or clubbing. No pitting in the bilateral lower extremities. NEUROLOGIC: Grossly nonfocal. LABORATORY DATA: WBC 9.5, hemoglobin 9.8 and stable, and platelets 267,000. INR is 3.6. Creatinine 5.44, BUN 40, and potassium 3.2. ASSESSMENT: 1. Acute pulmonary embolism, small. 2. End-stage renal disease, status post recent manipulation of clotted fistula. DISCUSSION AND PLAN: Once the patient's blood is at the right thinness, she will be stable for transition home. Agree with holding Coumadin for one night. We will likely need to restart a lower dose tomorrow if her INR is stable or slightly downtrending. Job ID: [id number]
[2018-11-22] MEDS: Potassium Chloride 20 MEQ TAB PO SCH ×2 (15:50→20:09)
[2018-11-22] MEDS: Gabapentin 300 MG CAP PO SCH (20:09)
[2018-11-22] MEDS: HYDROcodone/Acetaminophen 10/325 mg Tablet PO PRN (22:16)
[2018-11-22] MEDS: Zolpidem Tartrate 5 MG TAB PO PRN (22:17)
--- NOTE | 2018-11-23 01:07 | PRG ---
DATE OF SERVICE: 11/23/2018 IMPRESSION: 1. End-stage renal disease, on peritoneal dialysis. 2. Pulmonary embolism. 3. Coagulopathy. PLAN: We will continue with peritoneal dialysis Job ID: [id number]
[2018-11-23 06:14] LABS: Prothrombin Time 40.8 SEC (12.0-14.7)
[2018-11-23 06:17] LABS: INR-International Normal Ratio 4.3
[2018-11-23 08:12] LABS: Hemoglobin 10.3 g/dL (12.0-16.0); Platelet Count 311 thou/uL (130-400)
[2018-11-23] MEDS: Cyanocobalamin (Vitamin B-12) 1,000 MCG TAB PO SCH (08:41)
[2018-11-23] MEDS: DULoxetine 30 MG CAP PO SCH (08:41)
[2018-11-23] MEDS: Carvedilol 3.125 MG TAB PO SCH ×2 (08:41→16:17)
[2018-11-23] MEDS: Docusate 100 MG CAP PO SCH (08:41)
--- NOTE | 2018-11-23 11:46 | PRG ---
DATE OF SERVICE: 11/23/2018 SUBJECTIVE: This morning, she says she is feeling better. Less short of breath. No complaints. She is walking in the [place]. OBJECTIVE: VITAL SIGNS: Saturations are 98% on room air, respiratory rate 20, temperature 98, pulse 73, and blood pressure 138/72. CHEST: No wheezing or crackles. CARDIAC: Normal S1 and S2. No gallops. ABDOMEN: No masses. LABORATORY DATA: ASSESSMENT: Small pulmonary embolism, morbid obesity, prolonged PT and INR. PLAN: Adjust INR. Home in the next several days. Job ID: [id number]
--- NOTE | 2018-11-23 14:52 | PDOC.PN ---
- Subjective Encounter Start Date: 11/23/18 Encounter Start Time: 12:30 Subjective: pt up in bed no complains - Objective Resuscitation Status - Order Detail: 11/18/18 21:22 Resuscitation Status Routine Resuscitation Status: FULL: Full Resuscitation Vital Signs & Weight: Vital Signs (12 hours) Temp Pulse Resp BP BP Pulse Ox 11/23/18 11:24 98.4 F 73 20 138/72 95 11/23/18 08:38 95 11/23/18 07:35 98.5 F 76 20 128/76 93 L 11/23/18 05:00 98.8 F 79 18 127/69 95 Weight Weight 213 lb 8 oz Most Recent Monitor Data Heart Rate from ECG 77 NIBP 162/63 NIBP BP-Mean 96 Respiration from ECG 17 SpO2 95 I&O: 11/22/18 11/23/18 11/24/18 06:59 06:59 06:59 Intake Total 240 1600 Output Total 500 3 Balance -260 1597 Result Diagrams: 11/23/18 07:55 11/22/18 08:25 Phys Exam - Physical Examination Neck: no nodes, no JVD, supple, full ROM Respiratory: no wheezing, no rales, no rhonchi, wheezing present, clear to auscultation bilateral Cardiovascular: RRR, no significant murmur, no rub, gallop, irregular Gastrointestinal: soft, non-tender, no distention, positive bowel sounds Dx/Plan (1) Pulmonary embolism Code(s): I26.99 - OTHER PULMONARY EMBOLISM WITHOUT ACUTE COR PULMONALE Status : Acute (2) ESRD on peritoneal dialysis Code(s): N18.6 - END STAGE RENAL DISEASE; Z99.2 - DEPENDENCE ON RENAL DIALYSIS Status: Chronic (3) GERD (gastroesophageal reflux disease) Code(s): K21.9 - GASTRO-ESOPHAGEAL REFLUX DISEASE WITHOUT ESOPHAGITIS Status: Chronic (4) Hypertension Code(s): I10 - ESSENTIAL (PRIMARY) HYPERTENSION Status: Chronic (5) Obesity (BMI 30-39.9) Code(s): E66.9 - OBESITY, UNSPECIFIED Status: Chronic - Plan pt on coumadin, will hold today's dose due to elevated inr -: pharmacy consulted for coumadin. pt will need coumadin clinic set up -: possible discharge in am * . Review of Systems - Review of Systems Respiratory: negative: Cough, Dry, Shortness of Breath, Hemoptysis, SOB with Excertion, Pleuritic Pain, Sputum, Wheezing Cardiovascular: negative: chest pain, palpitations, orthopnea, paroxysmal nocturnal dyspnea, edema, light headedness, other Gastrointestinal: negative: Nausea, Vomiting, Abdominal Pain, Diarrhea, Constipation, Melena, Hematochezia, Other - Medications/Allergies Allergies/Adverse Reactions: Allergies Allergy/AdvReac Type Severity Reaction Status Date / Time IVP DYE Allergy Uncoded 05/04/14 17:19 Sensitive to Codeine Allergy Uncoded 05/04/14 17:19 Medications: Current Medications Acetaminophen (Tylenol) 650 mg PO Q4H PRN PRN Reason: Headache/Fever/Mild Pain (1-3) Last Admin: 11/19/18 09:53 Dose: 650 mg Hydrocodone Bitart/Acetaminophen ([place] 10/325) 1 tab PO HS PRN PRN Reason: Moderate Pain (4-6) Last Admin: 11/22/18 22:16 Dose: 1 tab Albuterol/Ipratropium (Duoneb) 3 ml NEB Q6H PRN PRN Reason: SOB &/or Wheezing Last Admin: 11/22/18 03:56 Dose: 3 ml Artificial Tears (Tears Naturale) 2 drop EA EYE PRN PRN PRN Reason: Dry Eyes Bisacodyl (Dulcolax) 10 mg [place] DAILYPRN PRN PRN Reason: Constipation Carvedilol (Coreg) 3.125 mg PO BID-[facility] Last Admin: 11/23/18 08:41 Dose: 3.125 mg Cholecalciferol (Vitamin D3) 4,000 units PO DAILY [facility] Last Admin: 11/23/18 08:42 Dose: 4,000 units Cyanocobalamin (Vitamin B-12) 1,000 mcg PO DAILY [facility] Last Admin: 11/23/18 08:41 Dose: 1,000 mcg Docusate Sodium (Colace) 100 mg PO DAILY [facility] Last Admin: 11/23/18 08:41 Dose: 100 mg Duloxetine HCl (Cymbalta) 30 mg PO DAILY [facility] Last Admin: 11/23/18 08:41 Dose: 30 mg Gabapentin (Neurontin) 300 mg PO [facility] Last Admin: 11/22/18 20:09 Dose: 300 mg Guaifenesin (Robitussin Sf) 200 mg PO Q4H PRN PRN Reason: Cough Hydralazine HCl (Apresoline) 10 mg SLOW IVP Q4H PRN PRN Reason: SBP > 180 and HR < 70 Loperamide HCl (Imodium) 2 mg PO PRN PRN PRN Reason: Diarrhea/Loose Stools Loratadine (Claritin) 10 mg PO DAILYPRN PRN PRN Reason: Sinus Symptoms Mineral Oil/White Petrolatum (Eucerin Cream) 0 gm TOP BIDPRN PRN PRN Reason: Dry Skin Miscellaneous Medication (Pharmacy To Dose) 1 each PO ONE PRN PRN Reason: Pharmacy to dose Ondansetron HCl (Zofran Odt) 4 mg PO Q6H PRN PRN Reason: Nausea/Vomiting Last Admin: 11/19/18 11:02 Dose: 4 mg Ondansetron HCl (Zofran) 4 mg IVP Q6H PRN PRN Reason: Nausea/Vomiting Pantoprazole Sodium (Protonix) 40 mg PO DAILY [facility] Last Admin: 11/23/18 08:41 Dose: 40 mg Senna/Docusate Sodium (Senokot S) 2 tab PO BID PRN PRN Reason: Constipation Sodium Chloride (Flush - Normal Saline) 10 ml IVF Q12HR [facility] Last Admin: 11/23/18 08:42 Dose: Not Given Sodium Chloride (Flush - Normal Saline) 10 ml IVF PRN PRN PRN Reason: Saline Flush Sodium Chloride ([place] Nasal [place] 0.65%) 0 ml EA NARE QIDPRN PRN PRN Reason: Nasal Congestion Throat Lozenges (Cepastat Lozenges) 1 teresa PO Q2H PRN PRN Reason: Sore Throat Zolpidem Tartrate (Ambien) 10 mg PO HS PRN PRN Reason: Insomnia Last Admin: 11/22/18 22:17 Dose: 10 mg
[2018-11-23] MEDS ORDERED: Warfarin Sodium 2.5 MG TAB PO SCH (17:00)
--- NOTE | 2018-11-23 18:56 | PRG ---
DATE OF SERVICE: 11/23/2018 SUBJECTIVE: The patient is seen and examined with no new complaint. Noted with the following vital signs. OBJECTIVE: VITAL SIGNS: Afebrile, temperature 98.3, pulse 77, respiratory rate of 20, O2 sat of 94%, and blood pressure 136/73. HEENT: Unremarkable. CARDIOVASCULAR: First and second heart sounds were heard. RESPIRATORY SYSTEM: Clear to auscultation. DIGESTIVE SYSTEM: Revealed a benign abdomen with positive bowel sounds. EXTREMITIES: No peripheral edema. SKIN: No new gross rash. LYMPHATICS: No peripheral lymphadenopathy. LABORATORY INVESTIGATION: Significant for INR of 4.3. IMPRESSION: 1. Pulmonary embolism/deep venous thrombosis. 2. Coagulopathy. INR in the context of sensitivity to Coumadin. 3. End-stage renal disease, on dialysis. PLAN: 1. The patient to continue with daily peritoneal dialysis. 2. Further management including this for planning by the primary team. Job ID: [id number]
[2018-11-23] MEDS ORDERED: Dicyclomine 10 MG CAP PO SCH (19:45)
[2018-11-23] MEDS: Gabapentin 300 MG CAP PO SCH (20:55)
[2018-11-23] MEDS: Zolpidem Tartrate 5 MG TAB PO PRN (22:11)
[2018-11-23] MEDS: HYDROcodone/Acetaminophen 10/325 mg Tablet PO PRN (22:11)
[2018-11-24 06:29] LABS: INR-International Normal Ratio 3.2; Prothrombin Time 32.5 SEC (12.0-14.7)
[2018-11-24 06:30] LABS: #Eosinphils 0.2 thou/uL (0.0-0.7); #Lymphocytes 2.4 thou/uL (1.20-3.40); #Monocytes 0.8 thou/uL (0.11-0.59); #Neutrophils 9.2 thou/uL (1.40-6.50); %Basophils 0.3 % (0.0-1.0); %Eosinophils 1.3 % (0.0-10.0); %Lymphocytes 19.2 % (21.0-51.0); %Monocytes 6.2 % (0.0-10.0); %Neutrophils 73.1 % (42.0-75.0); Hemoglobin 9.9 g/dL (12.0-16.0); Mean Corpuscular HGB CONC 31.8 g/dL (32.0-36.0); Mean Corpuscular Hemoglobin 31.9 pg (27.0-31.0); Mean Platelet Volume 7.7 fL (7.4-10.4); Platelet Count 253 thou/uL (130-400); RBC Distribution Width 12.2 % (11.5-14.5); White Blood Cell (WBC) Count 12.7 thou/uL (4.8-10.8)
[2018-11-24 06:57] LABS: Anion Gap 17 mmol/L (10-20); BUN (Urea Nitrogen) 47 mg/dL (9.8-20.1); Calc. Creatinine Clearance 15 mL/min (70-130); Calcium 8.8 mg/dL (7.8-10.44); Carbon Dioxide 17 mmol/L (23-31); Chloride 106 mmol/L (98-107); Estimated GFR-MDRD 8; Glucose 65 mg/dL (83-110); Potassium 4.3 mmol/L (3.5-5.1); Sodium 136 mmol/L (136-145)
[2018-11-24] MEDS: Carvedilol 3.125 MG TAB PO SCH (08:03)
[2018-11-24] MEDS: Docusate 100 MG CAP PO SCH (08:03)
[2018-11-24] MEDS: Cyanocobalamin (Vitamin B-12) 1,000 MCG TAB PO SCH (08:05)
[2018-11-24] MEDS: DULoxetine 30 MG CAP PO SCH (08:05)
[2018-11-24 08:07] VITALS: BP 148/76; TEMP 97.8
--- NOTE | 2018-11-24 09:18 | PRG ---
DATE OF SERVICE: 11/24/2018 SUBJECTIVE: The patient is doing relatively well. All things considered. OBJECTIVE: VITAL SIGNS: On exam, temperature is 97.8, pulse 82, respirations 20, O2 saturation 98%, and blood pressure 148/76. HEENT: Unremarkable. NECK: No JVD. LUNGS: Clear. CARDIAC: S1 and S2, regular. ABDOMEN: Soft. EXTREMITIES: No edema. LABORATORY DATA: White blood cell count 12.7, hematocrit 31, and platelet count 253. INR is 3.2. Sodium of 136, potassium 4.3, chloride 106, CO2 of 17, BUN 47, creatinine 5.3, and glucose 65. ASSESSMENT: 1. Pulmonary emboli. 2. Chronic renal failure. PLAN: The patient's Coumadin is being adjusted. She is probably at the point when she can go home, when she can get close followup for PT/INR. She is asked to see me in the office in the future regarding sleep apnea. Job ID: [id number]
--- NOTE | 2018-11-24 11:19 | PDOC.PN ---
- Subjective Encounter Start Date: 11/24/18 Encounter Start Time: 09:35 -: old records requested/rev Patient seen and examined. No new complaints. No overnight events - Objective Resuscitation Status - Order Detail: 11/18/18 21:22 Resuscitation Status Routine Resuscitation Status: FULL: Full Resuscitation MAR Reviewed: Yes Vital Signs & Weight: Vital Signs (12 hours) Temp Pulse Resp BP BP Pulse Ox 11/24/18 08:00 97.8 F 82 20 148/76 H 98 11/24/18 04:00 98.2 F 75 18 109/66 97 11/24/18 00:00 98.6 F 80 18 106/66 95 Weight Weight 213 lb 8 oz Most Recent Monitor Data Heart Rate from ECG 77 NIBP 162/63 NIBP BP-Mean 96 Respiration from ECG 17 SpO2 95 I&O: 11/23/18 11/24/18 11/25/18 06:59 06:59 06:59 Intake Total 1600 1700 Output Total 3 Balance 1597 1700 Result Diagrams: 11/24/18 05:28 11/24/18 05:28 Phys Exam - Physical Examination Constitutional: NAD HEENT: PERRLA, moist MMs, sclera anicteric Neck: no JVD, supple Respiratory: no wheezing, no rales, no rhonchi Cardiovascular: RRR, no significant murmur, no rub Gastrointestinal: soft, non-tender, no distention, positive bowel sounds Musculoskeletal: no edema, pulses present Neurological: non-focal, normal sensation Lymphatic: no nodes Psychiatric: normal affect, A&O x 3 Skin: no rash, normal turgor Dx/Plan (1) Pulmonary embolism Code(s): I26.99 - OTHER PULMONARY EMBOLISM WITHOUT ACUTE COR PULMONALE Status : Acute (2) Anemia of renal disease Code(s): N18.9 - CHRONIC KIDNEY DISEASE, UNSPECIFIED; D63.1 - ANEMIA IN CHRONIC KIDNEY DISEASE Status: Chronic Comment: with macrocytosis (3) Anxiety and depression Code(s): F41.9 - ANXIETY DISORDER, UNSPECIFIED; F32.9 - MAJOR DEPRESSIVE DISORDER, SINGLE EPISODE, UNSPECIFIED Status: Chronic (4) GERD (gastroesophageal reflux disease) Code(s): K21.9 - GASTRO-ESOPHAGEAL REFLUX DISEASE WITHOUT ESOPHAGITIS Status: Chronic (5) Hypertension Code(s): I10 - ESSENTIAL (PRIMARY) HYPERTENSION Status: Chronic (6) Obesity (BMI 30-39.9) Code(s): E66.9 - OBESITY, UNSPECIFIED Status: Chronic (7) ESRD on peritoneal dialysis Code(s): N18.6 - END STAGE RENAL DISEASE; Z99.2 - DEPENDENCE ON RENAL DIALYSIS Status: Chronic - Plan cont current plan of care * medication reviewed as below * symptomatic treatment * see discharge summery. Review of Systems - Review of Systems ENT: negative: Ear Pain, Ear Discharge, Nose Pain, Nose Discharge, Nose Congestion, Mouth Pain, Mouth Swelling, Throat Pain, Throat Swelling, Other Respiratory: negative: Cough, Dry, Shortness of Breath, Hemoptysis, SOB with Excertion, Pleuritic Pain, Sputum, Wheezing Cardiovascular: negative: chest pain, palpitations, orthopnea, paroxysmal nocturnal dyspnea, edema, light headedness, other Gastrointestinal: negative: Nausea, Vomiting, Abdominal Pain, Diarrhea, Constipation, Melena, Hematochezia, Other Genitourinary: negative: Dysuria, Frequency, Incontinence, Hematuria, Retention , Other Musculoskeletal: negative: Neck Pain, Shoulder Pain, Arm Pain, Back Pain, Hand Pain, Leg Pain, Foot Pain, Other - Medications/Allergies Allergies/Adverse Reactions: Allergies Allergy/AdvReac Type Severity Reaction Status Date / Time IVP DYE Allergy Uncoded 05/04/14 17:19 Sensitive to Codeine Allergy Uncoded 05/04/14 17:19 Medications: Current Medications Acetaminophen (Tylenol) 650 mg PO Q4H PRN PRN Reason: Headache/Fever/Mild Pain (1-3) Last Admin: 11/19/18 09:53 Dose: 650 mg Hydrocodone Bitart/Acetaminophen ([place] 10/325) 1 tab PO HS PRN PRN Reason: Moderate Pain (4-6) Last Admin: 11/23/18 22:11 Dose: 1 tab Albuterol/Ipratropium (Duoneb) 3 ml NEB Q6H PRN PRN Reason: SOB &/or Wheezing Last Admin: 11/22/18 03:56 Dose: 3 ml Artificial Tears (Tears Naturale) 2 drop EA EYE PRN PRN PRN Reason: Dry Eyes Bisacodyl (Dulcolax) 10 mg SD DAILYPRN PRN PRN Reason: Constipation Carvedilol (Coreg) 3.125 mg PO BID-[facility] Last Admin: 11/24/18 08:03 Dose: 3.125 mg Cholecalciferol (Vitamin D3) 4,000 units PO DAILY [facility] Last Admin: 11/24/18 08:03 Dose: 4,000 units Cyanocobalamin (Vitamin B-12) 1,000 mcg PO DAILY [facility] Last Admin: 11/24/18 08:05 Dose: 1,000 mcg Docusate Sodium (Colace) 100 mg PO DAILY [facility] Last Admin: 11/24/18 08:03 Dose: 100 mg Duloxetine HCl (Cymbalta) 30 mg PO DAILY [facility] Last Admin: 11/24/18 08:05 Dose: 30 mg Gabapentin (Neurontin) 300 mg PO [facility] Last Admin: 11/23/18 20:55 Dose: 300 mg Guaifenesin (Robitussin Sf) 200 mg PO Q4H PRN PRN Reason: Cough Hydralazine HCl (Apresoline) 10 mg SLOW IVP Q4H PRN PRN Reason: SBP > 180 and HR < 70 Loperamide HCl (Imodium) 2 mg PO PRN PRN PRN Reason: Diarrhea/Loose Stools Loratadine (Claritin) 10 mg PO DAILYPRN PRN PRN Reason: Sinus Symptoms Mineral Oil/White Petrolatum (Eucerin Cream) 0 gm TOP BIDPRN PRN PRN Reason: Dry Skin Miscellaneous Medication (Pharmacy To Dose) 1 each PO .COUMADIN PRN PRN Reason: LABS Ondansetron HCl (Zofran Odt) 4 mg PO Q6H PRN PRN Reason: Nausea/Vomiting Last Admin: 11/19/18 11:02 Dose: 4 mg Ondansetron HCl (Zofran) 4 mg IVP Q6H PRN PRN Reason: Nausea/Vomiting Pantoprazole Sodium (Protonix) 40 mg PO DAILY [facility] Last Admin: 11/24/18 08:05 Dose: 40 mg Senna/Docusate Sodium (Senokot S) 2 tab PO BID PRN PRN Reason: Constipation Sodium Chloride (Flush - Normal Saline) 10 ml IVF Q12HR [facility] Last Admin: 11/24/18 08:17 Dose: Not Given Sodium Chloride (Flush - Normal Saline) 10 ml IVF PRN PRN PRN Reason: Saline Flush Sodium Chloride ([place] Nasal [place] 0.65%) 0 ml EA NARE QIDPRN PRN PRN Reason: Nasal Congestion Throat Lozenges (Cepastat Lozenges) 1 teresa PO Q2H PRN PRN Reason: Sore Throat Warfarin Sodium (Coumadin) 2.5 mg PO 1700 JUAN CARLOS Zolpidem Tartrate (Ambien) 10 mg PO HS PRN PRN Reason: Insomnia Last Admin: 11/23/18 22:11 Dose: 10 mg
[2018-11-24] MEDS: Acetaminophen 325 MG TAB PO PRN (11:45)
--- NOTE | 2018-11-24 13:19 | DIS ---
DATE OF ADMISSION: 11/18/2018 DATE OF DISCHARGE: 11/24/2018 PRIMARY CARE PHYSICIAN: Dr. Levi Quach. DISCHARGE DISPOSITION: Home. PRIMARY DISCHARGE DIAGNOSIS: Pulmonary embolism. SECONDARY DISCHARGE DIAGNOSES: Obesity with BMI 39, hypertension, gastroesophageal reflux disease, end-stage renal disease on peritoneal dialysis, anxiety and depression, anemia of renal disease. PRIMARY PROCEDURE/OPERATION: Peritoneal dialysis. RADIOLOGICAL INVESTIGATION: Chest x-ray, CT angiography, ultrasound lower extremity, echocardiography. SIGNIFICANT LABORATORY DATA: Hemoglobin 9.9, INR 3.2, creatinine 5.26. DISCHARGE MEDICATIONS: 1. Coreg 3.125 mg b.i.d. 2. Vitamin D3 4000 units p.o. daily. 3. Vitamin B12 1000 mcg p.o. daily. 4. Colace 100 mg daily. 5. Cymbalta 30 mg daily. 6. Nexium 40 mg daily. 7. Gabapentin 300 mg p.o. at bedtime and 100 mg daily. 8. Henrietta 10 one tablet p.o. at bedtime. 9. Magnesium 250 mg p.o. daily. 10. Ambien 10 mg p.o. at bedtime. 11. Warfarin 1.25 mg p.o. daily. The patient is advised to start warfarin on November 26. CONTRAINDICATION: None. CODE STATUS: Full code. INPATIENT DIRECTOR INDUSTRIAL RELATIONS: Dr. Pena was following while in hospital. Dr. Cam was following while in hospital. TEST RESULT PENDING ON DISCHARGE: None. ALLERGIES: CODEINE. DISCHARGE PLAN: Posthospital, the patient will follow up with primary care physician in one week. The patient will follow up with the Coumadin Clinic. HOSPITAL COURSE: A 73-year-old female, who was admitted by Dr. Martinez. Please see his H and P for further details. The patient was admitted for bilateral pulmonary embolism, which was diagnosed based on CT angiography. The patient was treated with heparin drip as well as warfarin. The patient's INR became rapidly fast improvement and her maximum INR was 4.3 even with warfarin 5 mg p.o. daily, we reduced the dose of warfarin to 2.5 mg and on discharge, we reduced to 1.25 mg. When INR was therapeutic at that time, heparin drip was discontinued and the patient was kept on warfarin only. Necessary patient education about warfarin was given. Coumadin diet discussed with the patient. The patient is stable, ambulatory, tolerating p.o. well. We are providing Coumadin Clinic followup. She will follow up with Dr. Pena for rule out sleep apnea. She will continue her peritoneal dialysis. The patient is overall medically stable for discharge today. The patient is seen and examined at bedside today. Please see my progress note from today for further detail. Job ID: [id number]
--- NOTE | 2018-11-24 18:12 | PRG ---
DATE OF SERVICE: SUBJECTIVE: The patient is noted with the following vital signs. OBJECTIVE: VITAL SIGNS: Afebrile, temperature 97.8, pulse 82, respiratory rate of 20, O2 saturation of 98% with blood pressure of 148/76. HEENT: Unremarkable. CARDIOVASCULAR SYSTEM: First and second heart sounds were heard. RESPIRATORY SYSTEM: Clear to auscultation. DIGESTIVE SYSTEM: Benign abdomen. Positive bowel sounds. EXTREMITIES: No peripheral edema. SKIN: No new gross rash. LYMPHATICS: No peripheral lymphadenopathy. IMPRESSION: 1. End-stage renal disease, on peritoneal dialysis. 2. Hypertension. PLAN: 1. The patient is doing very well on current peritoneal dialysis regimen. 2. In terms of anticoagulation, the patient likely to need a very much lower dose of Coumadin because of how sensitive this patient is to this medication. Job ID: [id number]
== END 2018-11-24 17:19 | disposition home or self-care (01) | DRG 175 ==
LOC: ERS 11:56 → IMCU/EMU 19:31 → 2NO 11-20 18:32 → T4-A 11-22 13:22
PROVIDERS: ADMIT Internal Medicine; ATTEND Internal Medicine
PROC: 3E1M39Z Irrigation of Peritoneal Cavity using Dialysate, Percutaneous Approach (ICD-10-PCS; principal; 2018-11-21)
DX: I26.99 Other pulmonary embolism without acute cor pulmonale (principal); N18.6 End stage renal disease; D68.9 Coagulation defect, unspecified; I12.0 Hypertensive chronic kidney disease with stage 5 chronic kidney disease or end stage renal disease; F41.9 Anxiety disorder, unspecified; F32.9 Major depressive disorder, single episode, unspecified; D53.9 Nutritional anemia, unspecified; I25.10 Atherosclerotic heart disease of native coronary artery without angina pectoris; K21.9 Gastro-esophageal reflux disease without esophagitis; M19.90 Unspecified osteoarthritis, unspecified site; E66.01 Morbid (severe) obesity due to excess calories; D63.1 Anemia in chronic kidney disease; Z90.710 Acquired absence of both cervix and uterus; Z87.891 Personal history of nicotine dependence; Z90.49 Acquired absence of other specified parts of digestive tract; Z91.041 Radiographic dye allergy status; Z88.5 Allergy status to narcotic agent; Z99.2 Dependence on renal dialysis; Z68.39 Body mass index [BMI] 39.0-39.9, adult
CPT/HCPCS: 36415; 71045; 71275; 80048; 80053; 83690; 83880; 84484; 85014; 85018; 85025; 85049; 85610; 85730; 90945; 93005; 93306; 93970; 94640; 96374; 96375; G0257; J1200; J1644; J2930; J7620; Q0162; Q9966; S0028

== ENCOUNTER 2018-12-20 09:33 | Emergency (ER) | payer MEDICARE, BC ==
--- NOTE | 2018-12-20 10:08 | RAD ---
EXAM: Portable chest PROVIDED CLINICAL HISTORY: Chest pain COMPARISON: 11/18/2018 FINDINGS: Evaluation is limited by patient body habitus. Cardiac and mediastinal silhouette is within normal li mits. No focal consolidation, pleural fluid or pneumothorax evident. IMPRESSION: No evidence for an acute cardiopulmonary process.
[2018-12-20 10:11] LABS: #Basophils 0.1 thou/uL (0.0-0.2); #Eosinphils 0.3 thou/uL (0.0-0.7); #Lymphocytes 1.7 thou/uL (1.20-3.40); #Monocytes 0.4 thou/uL (0.11-0.59); #Neutrophils 8.3 thou/uL (1.40-6.50); %Basophils 0.7 % (0.0-1.0); %Eosinophils 2.8 % (0.0-10.0); %Lymphocytes 15.4 % (21.0-51.0); %Monocytes 3.6 % (0.0-10.0); %Neutrophils 77.5 % (42.0-75.0); Hemoglobin 9.8 g/dL (12.0-16.0); Mean Corpuscular HGB CONC 31.8 g/dL (32.0-36.0); Mean Corpuscular Hemoglobin 31.5 pg (27.0-31.0); Mean Corpuscular Volume 99.1 fL (78.0-98.0); Mean Platelet Volume 7.4 fL (7.4-10.4); Platelet Count 209 thou/uL (130-400); RBC Distribution Width 12.4 % (11.5-14.5); Red Blood Cell (RBC) Count 3.09 mill/uL (4.20-5.40); White Blood Cell (WBC) Count 10.7 thou/uL (4.8-10.8)
[2018-12-20 10:19] LABS: INR-International Normal Ratio 1.6; PTT 27.6 SEC (22.9-36.1); Prothrombin Time 18.7 SEC (12.0-14.7)
[2018-12-20 10:37] LABS: ALT (SGPT) 9 U/L (8-55); AST (SGOT) 16 U/L (5-34); Albumin 3.5 g/dL (3.4-4.8); Alkaline Phosphatase 168 U/L (40-150); Anion Gap 21 mmol/L (10-20); BUN (Urea Nitrogen) 43 mg/dL (9.8-20.1); Bilirubin, Total 0.6 mg/dL (0.2-1.2); Calc. Creatinine Clearance 0 mL/min (70-130); Calcium 8.3 mg/dL (7.8-10.44); Carbon Dioxide 17 mmol/L (23-31); Chloride 106 mmol/L (98-107); Estimated GFR-MDRD 8; Globulin 3.9 g/dL (2.4-3.5); Glucose 102 mg/dL (83-110); Protein, Total 7.4 g/dL (6.0-8.3); Sodium 140 mmol/L (136-145)
[2018-12-20] MEDS ORDERED: ISOVUE-370 76%-LOCM 1 ML ONE (10:51)
[2018-12-20 11:04] LABS: CKMB 1.4 ng/mL (0-6.6)
--- NOTE | 2018-12-20 11:17 | CT ---
CT ANGIOGRAM THORAX WITH IV CONTRAST AND 3-D RECONSTRUCTIONS CLINICAL INDICATION: Shortness of breath. COMPARISON: 11/18/2018 FINDINGS: Pulmonary arteries: A few very small filling defects are seen within distal right lower lobe segmenta l as well as involving subsegmental right lower lobe pulmonary arteries compatible with pulmonary emboli. No additional filling defects are seen.. The overall burden of pulmonary emboli in right lowe r lobe pulmonary arteries has improved from the prior exam. Aorta: Minimal vascular calcifications are seen. The thoracic aorta is normal in caliber without evid ence of an aortic dissection. Vascular calcifications are also seen in the coronary arteries. Lungs: Minimal scattered nonspecific groundglass densities are seen probably related to volume loss. No consolidation or pleural fluid is identified. There is a nodular parenchymal density at the medial right lung base measuring 11 mm. This was not seen on the prior exam, but there was focal patc hy density noted in this region in addition to a right pleural effusion. Findings could be related to residual volume loss, but a pulmonary nodule is not entirely excluded. There is also minimal patch y density at the posterior right lateral costophrenic angle. Calcified granuloma is seen in the left lower lobe. Mediastinum: Calcified mediastinal lymph nodes are seen. There are no enlarged lymph nodes seen by CT size criteria. Thyroid gland: A 1.7 cm hypodense lesion is seen in the right lobe of the thyroid gland in the region of the thyroid isthmus. A partially calcified nodule in the right lobe of thyroid gland is also present. Osseous structures: Degenerative changes are seen in the spine. Chest wall: No abnormality visualized. Upper abdomen: Small amount of intraperitoneal free fluid is again seen adjacent to the liver. The ga llbladder is not visualized likely related to prior cholecystectomy. Calcified granulomata are seen in the liver and spleen. IMPRESSION: 1. Small pulmonary emboli seen within a distal right lower lobe segmental pulmonary artery as well as a proximal right lower lobe subsegmental pulmonary artery. However, the overall burden of pulmonary emboli in the right lower lobe have improved from prior study. 2. Approximately 11 mm nodular density at the medial right lung base. A definite discrete nodule was not seen this region on prior CT exam, but there was evidence of a right pleural effusion which has since resolved, and patchy parenchymal densities were seen in this region on the prior exam. Follow-u p evaluation is recommended in 6 months. 3. Nodule right lobe of the thyroid gland. Nonemergent thyroid ultrasound is recommended. 4. Small amount of ascites. 5. Above findings discussed with Dr. Guerra in the emergency department on 12/20/2018 1113 hours.
--- NOTE | 2018-12-25 09:29 | EKG ---
Test Reason : SOB Blood Pressure : / mmHG Vent. Rate : 072 BPM Atrial Rate : 072 BPM P-R Int : 178 ms QRS Dur : 104 ms QT Int : 408 ms P-R-T Axes : 011 -23 054 degrees QTc Int : 446 ms Normal sinus rhythm Anterior infarct , age undetermined Abnormal ECG Confirmed by NATALIE COHN, AUTUMN ([id number]), acquisitions editor RAYA TEAGUE ([id number]) on 12/25/2018 9:29:15 AM Referred By: Confirmed By:AUTUMN ESTRADA MD
== END 2018-12-20 12:15 | disposition home or self-care (01) ==
LOC: ERS 09:33
DX: I26.99 Other pulmonary embolism without acute cor pulmonale (principal); I13.2 Hypertensive heart and chronic kidney disease with heart failure and with stage 5 chronic kidney disease, or end stage renal disease; N18.6 End stage renal disease; F41.9 Anxiety disorder, unspecified; F32.9 Major depressive disorder, single episode, unspecified; Z99.2 Dependence on renal dialysis; Z79.899 Other long term (current) drug therapy
CPT/HCPCS: 71045; 71275; 80053; 82553; 84484; 85025; 85610; 85730; 93005; 94760; Q9966

== ENCOUNTER 2019-01-13 12:51 | Observation (INO) | payer MEDICARE, BC ==
--- NOTE | 2019-01-13 14:14 | CT ---
CT OF THE BRAIN 01/13/19 COMPARISON: 01/11/17 HISTORY: Fall this morning and hit head on a wall. The patient is on Coumadin. TECHNIQUE: Multiple contiguous axial images were obtained in a CT of the brain without contrast. FINDINGS: There are scattered stable hypodensities in the subcortical and periventricular white matter likely s econdary to small vessel ischemic disease. No large confluent infarction is seen. There is no evidenc e of hydrocephalus, intracranial hemorrhage or extra-axial fluid collection. The calvarium and overlying soft tissues are unremarkable. The visualized paranasal sinuses and mast oid air cells are well aerated. IMPRESSION: No evidence of acute intracranial abnormality. POS: [facility]
[2019-01-13 14:56] LABS: #Basophils 0.1 thou/uL (0.0-0.2); #Eosinphils 0.2 thou/uL (0.0-0.7); #Lymphocytes 1.4 thou/uL (1.20-3.40); #Monocytes 0.4 thou/uL (0.11-0.59); #Neutrophils 6.1 thou/uL (1.40-6.50); %Eosinophils 2.8 % (0.0-10.0); %Lymphocytes 16.7 % (21.0-51.0); %Monocytes 5.2 % (0.0-10.0); %Neutrophils 74.3 % (42.0-75.0); Hemoglobin 9.9 g/dL (12.0-16.0); Mean Corpuscular HGB CONC 31.4 g/dL (32.0-36.0); Mean Corpuscular Hemoglobin 31.5 pg (27.0-31.0); Mean Platelet Volume 7.4 fL (7.4-10.4); Platelet Count 223 thou/uL (130-400); RBC Distribution Width 12.3 % (11.5-14.5); Red Blood Cell (RBC) Count 3.14 mill/uL (4.20-5.40); White Blood Cell (WBC) Count 8.2 thou/uL (4.8-10.8)
--- NOTE | 2019-01-13 15:12 | CT ---
CT Cervical Spine WO Con Indication: Fall with neck pain COMPARISON: None. FINDINGS: Acute fracture/subluxation: None. Spinal alignment: No acute malalignment. Craniocervical junction: Within normal limits. Vertebral body heights: Maintained. Cervical spine degenerative change: There is moderate disc degenerative and facet osteoarthritic aguilera ge. Lung apices: Clear. There is prominent heterogeneity of the thyroid gland. There is a large 1.9 cm hypodense nodule withi n the right thyroid isthmus. There is a calcified 1.2 cm nodule within the lower pole right thyroid gland. Given the patient's age thyroid ultrasound is recommended. IMPRESSION: 1. No acute fracture or subluxation is demonstrated. 2. Heterogeneous thyroid nodules. Given the patient's age, further evaluation with a nonemergent thyr oid ultrasound is recommended.
[2019-01-13 15:19] LABS: ALT (SGPT) 9 U/L (8-55); AST (SGOT) 17 U/L (5-34); Albumin 3.5 g/dL (3.4-4.8); Alkaline Phosphatase 180 U/L (40-150); Anion Gap 13 mmol/L (10-20); BUN (Urea Nitrogen) 45 mg/dL (9.8-20.1); Bilirubin, Total 0.6 mg/dL (0.2-1.2); Calc. Creatinine Clearance 0 mL/min (70-130); Calcium 8.5 mg/dL (7.8-10.44); Carbon Dioxide 21 mmol/L (23-31); Chloride 105 mmol/L (98-107); Estimated GFR-MDRD 8; Globulin 3.6 g/dL (2.4-3.5); Glucose 78 mg/dL (83-110); Potassium 4.2 mmol/L (3.5-5.1); Protein, Total 7.1 g/dL (6.0-8.3); Sodium 135 mmol/L (136-145)
[2019-01-13] MEDS ORDERED: Meclizine HCl 25 MG TAB ONE (17:03)
[2019-01-13 18:00] LABS: INR-International Normal Ratio 1.8; PTT 41.8 SEC (22.9-36.1); Prothrombin Time 20.8 SEC (12.0-14.7)
[2019-01-13 18:34] LABS: Thyroid Stimulating Hormone 1.3426 uIU/mL (0.35-4.94)
[2019-01-13 19:56] LABS: Free T4 (Free Thyroxine) 0.66 ng/dL (0.70-1.48)
[2019-01-13] MEDS ORDERED: Ondansetron ODT 4 MG TAB SL PRN (22:04)
[2019-01-13] MEDS ORDERED: Ondansetron PF 4 MG/2 ML Vial IVP PRN (22:04)
[2019-01-13] MEDS ORDERED: HYDROcodone/Acetaminophen 5/325 mg Tablet PO PRN ×2 (22:04)
[2019-01-13] MEDS ORDERED: Acetaminophen 325 MG TAB PO PRN (22:04)
[2019-01-13] MEDS ORDERED: Meclizine HCl 25 MG TAB PO PRN (22:05)
[2019-01-13 22:28] VITALS: BMI 40.1
[2019-01-13] MEDS ORDERED: hydrALAZINE 20 MG/ML VIAL SLOW IVP PRN (22:43)
[2019-01-13] MEDS ORDERED: Labetalol HCl 100 MG/20 ML VIAL SLOW IVP PRN (22:43)
[2019-01-13] MEDS ORDERED: Zolpidem Tartrate 5 MG TAB PO SCH (22:45)
[2019-01-13] MEDS ORDERED: Carvedilol 6.25 MG TAB PO SCH (22:45)
[2019-01-13] MEDS ORDERED: HYDROcodone/Acetaminophen 10/325 mg Tablet PO SCH (22:45)
[2019-01-13] MEDS ORDERED: Gabapentin 300 MG CAP PO SCH (22:45)
--- NOTE | 2019-01-13 23:21 | CT ---
Exam: CT brain PROVIDED CLINICAL HISTORY: Head injury COMPARISON: 01/13/2019 1:58 PM FINDINGS: The ventricular system is normal in size and morphology. No evidence for intracranial hemorrhage or mass effect. The extracranial soft tissues and osseous structures demonstrate no evidence for an acute abnormality. Chronic microvascular ischemic changes are redemonstrated. IMPRESSION: No evidence for intracranial hemorrhage or mass effect.
[2019-01-14] MEDS ORDERED: Labetalol HCl 100 MG/20 ML VIAL SLOW IVP PRN (01:18)
[2019-01-14] MEDS ORDERED: Acetaminophen 500 MG TAB PO PRN (01:18)
[2019-01-14] MEDS ORDERED: Ondansetron PF 4 MG/2 ML Vial IVP PRN (01:18)
[2019-01-14] MEDS ORDERED: Ondansetron ODT 4 MG TAB PO PRN (01:18)
[2019-01-14] MEDS ORDERED: hydrALAZINE 20 MG/ML VIAL SLOW IVP PRN (01:18)
--- NOTE | 2019-01-14 02:41 | HP ---
PRIMARY CARE PROVIDER: Dr. Levi Quach. PRIMARY METAL FURNITURE ASSEMBLY SUPERVISOR: Dorina Gomez MD CHIEF COMPLAINT: Fall. HISTORY OF PRESENT ILLNESS: This is a 73-year-old female, who initially presented to the emergency department after apparently sustaining a fall at home after getting off the toilet in her home. The patient states she stood up and lost her balance, striking her head on the wall next to the toilet. The patient did not lose consciousness or blackout. The patient initially thought she had a head laceration, however, no specific injury was noted. The patient was following up with her regular Coumadin clinic visit as she is on chronic Coumadin for recent diagnosis of pulmonary embolus. The patient told the nursing personnel that she had sustained a fall in the [place] hours on 01/13/2019, at which point, they directed her to seek medical attention in the emergency room. The patient denied any visual disturbance or unilateral weakness, difficulty with speech. The patient does admit to using a cane for ambulation at home. Initial evaluation in the emergency room including CT imaging of the brain showed no acute intracranial hemorrhage. CT of the cervical spine was also performed showing no evidence of acute fracture or dislocation. PAST MEDICAL HISTORY: 1. Pulmonary embolus on chronic anticoagulation with Coumadin. 2. End-stage renal disease with peritoneal dialysis. 3. Obesity. 4. Hypertension. 5. Gastroesophageal reflux disease. 6. Anemia secondary to chronic kidney disease. 7. Anxiety/depression. PAST SURGICAL HISTORY: 1. Status post coronary artery bypass grafting. 2. Status post bladder suspension. 3. Status post appendectomy. 4. Status post hysterectomy. 5. Status post right upper extremity AV fistula placement. 6. Status post peritoneal dialysis catheter placement in the left lower quadrant. CURRENT MEDICATIONS: 1. Carvedilol 6.25 mg p.o. b.i.d. 2. Docusate 100 mg p.o. daily. 3. Cymbalta 30 mg p.o. daily. 4. Nexium 40 mg p.o. daily. 5. Neurontin 300 mg p.o. at bedtime. 6. Gabapentin 100 mg p.o. daily. 7. Somers 10/325 mg one tablet p.o. at bedtime. 8. Magnesium 250 mg p.o. daily. 9. Ambien 10 mg p.o. at bedtime. 10. Coumadin 1.25 mg p.o. daily. ALLERGIES: TO CONTRAST DYE. FAMILY HISTORY: No inheritable diseases per patient report. SOCIAL HISTORY: Resides near [place], [place], with her . No current alcohol, tobacco, or illicit drug use. Ambulates with the use of a cane. REVIEW OF SYSTEMS: CONSTITUTIONAL: Negative for weight loss or gain, ability to conduct usual activities. SKIN: Negative for rash, itching. EYES: Negative for double vision, pain. ENT/MOUTH: Negative for nose bleeding, neck stiffness, pain, tenderness. CARDIOVASCULAR: Negative for palpitations, dyspnea on exertion, orthopnea. RESPIRATORY: Negative for shortness of breath, wheezing, cough, hemoptysis, fever or night sweats. GASTROINTESTINAL: Negative for poor appetite, abdominal pain, heartburn, nausea, vomiting, constipation, or diarrhea. GENITOURINARY: Negative for urgency, frequency, dysuria, nocturia. MUSCULOSKELETAL: Negative for pain, swelling. NEUROLOGIC/PSYCHIATRIC: Negative for anxiety, depression. ALLERGY/IMMUNOLOGIC: Negative for skin rash, bleeding tendency. Otherwise negative except as stated per HPI. PHYSICAL EXAMINATION: VITAL SIGNS: On admission, blood pressure 193/82, pulse 75, respiratory rate 20, temperature 97.8 degrees Fahrenheit, O2 saturation 94% on room air. GENERAL APPEARANCE: This is a 73-year-old female, alert and oriented x3, pleasant, responsive, in no acute distress. HEENT: Pupils are equal, round, reactive to light and accommodation. Extraocular muscles are intact. No scleral icterus. No conjunctival injection. Nares are patent. OP is clear. Scalp atraumatic. NECK: Supple. No cervical adenopathy. No thyromegaly. No carotid bruits. No JVD appreciated. Cervical spine with full active and passive range of motion. CHEST: Lungs are clear to auscultation bilaterally. CARDIOVASCULAR: S1-S2 without noted murmur, rub, or gallop. ABDOMEN: Obese, soft, nontender, and nondistended. Bowel sounds are positive in all 4 quadrants. No hepatosplenomegaly. No abdominal bruits. No rebound or guarding appreciated. EXTREMITIES: Warm and dry with fair turgor. No clubbing, cyanosis, or asymmetric edema appreciated. Pulses palpable distally at the dorsalis pedis, posterior tibial, and popliteal arteries bilaterally. Capillary refill less than 2 seconds. NEUROLOGIC: Cranial nerves 2 through 12 are grossly intact. No focal or lateralizing signs appreciated. PERTINENT LAB AND X-RAY FINDINGS: Sodium 135, potassium 4.2, chloride 105, CO2 of 21, BUN 45, creatinine 5.34, estimated GFR of 8, glucose 78, calcium 8.5, alkaline phosphatase 180. Troponin I negative x1. TSH 1.34, free T4 of 0.66. CBC showed a white blood cell count 8.2, hemoglobin 10, hematocrit 31, MCV 100, platelet count 223. PT 20.8, INR 1.8, PTT 41.8. CT of the brain without contrast dated 01/13/2019, showed no acute intracranial process. CT of the cervical spine dated 01/13/2019, showed no acute fracture dislocation. EKG dated 01/13/2019 by my interpretation shows sinus mechanism with heart rates in the 60s. Attenuated R-waves noted in the precordial leads. Left axis deviation noted. No acute ST-T wave changes appreciated. ASSESSMENT AND PLAN: 1. Closed head injury, status post mechanical fall. The patient will be observed on the telemetry unit. The patient with mechanical fall with scalp contusion. We will continue supportive management. No current evidence of acute intracranial process with CT of the brain negative x2. 2. Chronic anticoagulation, stable currently. Repeat PT/INR in the a.m. Resume Coumadin 1.25 mg p.o. daily. 3. End-stage renal disease with peritoneal dialysis. Continue regular maintenance peritoneal dialysis. No evidence of acute volume overload. 4. Pulmonary embolus with chronic anticoagulation with Coumadin, stable currently. No evidence of acute decompensation or hypoxemia. 5. Hypertension. Resume home blood pressure regimen and monitor clinical response. 6. Prophylaxis. SCDs while in bed. PT evaluation in the a.m. Pepcid 20 mg p.o. b.i.d. 7. Code status is full. Surrogate medical decision maker is the patient's spouse. Job ID: [id number]
[2019-01-14 05:22] LABS: INR-International Normal Ratio 1.8
[2019-01-14 05:38] LABS: Anion Gap 14 mmol/L (10-20); BUN (Urea Nitrogen) 46 mg/dL (9.8-20.1); Calc. Creatinine Clearance 15 mL/min (70-130); Calcium 8.5 mg/dL (7.8-10.44); Carbon Dioxide 21 mmol/L (23-31); Chloride 105 mmol/L (98-107); Estimated GFR-MDRD 8; Glucose 77 mg/dL (83-110); Potassium 3.9 mmol/L (3.5-5.1); Sodium 136 mmol/L (136-145)
[2019-01-14 05:51] LABS: Eosinophils 3 % (0-10); Hemoglobin 8.9 g/dL (12.0-16.0); Hypochromia SLIGHT = 6-15 cells (100X) (0-5/hpf); Lymphocytes 22 % (21-51); MDiff Complete? YES; Mean Corpuscular HGB CONC 30.2 g/dL (32.0-36.0); Mean Corpuscular Hemoglobin 30.6 pg (27.0-31.0); Mean Platelet Volume 7.3 fL (7.4-10.4); Monocytes 1 % (0-10); Neutrophil 74 % (42-75); Platelet Count 219 thou/uL (130-400); Platelet Morphology Comment Appears Adequate; Red Blood Cell (RBC) Count 2.89 mill/uL (4.20-5.40); White Blood Cell (WBC) Count 7.8 thou/uL (4.8-10.8)
[2019-01-14] MEDS ORDERED: Famotidine 20 MG TAB PO SCH ×2 (09:00)
[2019-01-14] MEDS ORDERED: Docusate 100 MG CAP PO SCH (09:00)
[2019-01-14] MEDS ORDERED: Gabapentin 100 MG CAP PO SCH (09:00)
[2019-01-14] MEDS ORDERED: Carvedilol 6.25 MG TAB PO SCH (09:00)
[2019-01-14] MEDS ORDERED: DULoxetine 30 MG CAP PO SCH (09:00)
[2019-01-14] MEDS ORDERED: Magnesium Oxide 250 MG TAB PO SCH (09:00)
[2019-01-14 12:42] VITALS: BP 149/69; TEMP 98.3
[2019-01-14] MEDS ORDERED: Warfarin Sodium 1.25 MG HALF.TAB PO SCH (17:00)
[2019-01-14] MEDS ORDERED: HYDROcodone/Acetaminophen 10/325 mg Tablet PO SCH (21:00)
[2019-01-14] MEDS ORDERED: Zolpidem Tartrate 5 MG TAB PO SCH (21:00)
[2019-01-14] MEDS ORDERED: Gabapentin 300 MG CAP PO SCH (21:00)
== END 2019-01-14 14:54 | disposition home or self-care (01) ==
LOC: ERS 12:51 → 2SW 18:16
PROVIDERS: ADMIT Internal Medicine; ATTEND Internal Medicine
DX: S09.8XXA Other specified injuries of head, initial encounter (principal); I12.0 Hypertensive chronic kidney disease with stage 5 chronic kidney disease or end stage renal disease; N18.6 End stage renal disease; D63.1 Anemia in chronic kidney disease; K21.9 Gastro-esophageal reflux disease without esophagitis; F41.9 Anxiety disorder, unspecified; F32.9 Major depressive disorder, single episode, unspecified; E04.2 Nontoxic multinodular goiter; E66.9 Obesity, unspecified; Z68.41 Body mass index [BMI] 40.0-44.9, adult; Z86.711 Personal history of pulmonary embolism; Z79.01 Long term (current) use of anticoagulants; Z79.899 Other long term (current) drug therapy; Z91.041 Radiographic dye allergy status; Z99.2 Dependence on renal dialysis; Z95.1 Presence of aortocoronary bypass graft; Z98.890 Other specified postprocedural states; W01.198A Fall on same level from slipping, tripping and stumbling with subsequent striking against other object, initial encounter; Y92.002 Bathroom of unspecified non-institutional (private) residence as the place of occurrence of the external cause
CPT/HCPCS: 70450; 72125; 80048; 84439; 84484; 85007; 85027; 85610 ×3; 85730; 93005; 97139; 99285; G0378; G0463; 36415; 80053; 84443; 85025; 99211; J8597

== ENCOUNTER 2019-02-18 17:09 | Emergency (ER) | payer MEDICARE, BC ==
--- NOTE | 2019-02-18 17:49 | RAD ---
Chest AP view INDICATION: Shortness of breath COMPARISON: November 18, 2018 FINDINGS: Lungs:The lungs are clear Cardiac silhouette:The cardiomediastinal silhouette appears within normal limits. Pulmonary vasculature:Normal Pleural spaces:No pleural effusion or pneumothorax is demonstrated. Upper abdomen:No abnormality seen. Osseous structures: No acute osseous abnormality. Additional findings:None. IMPRESSION: No acute cardiopulmonary abnormality.
[2019-02-18 17:50] LABS: Hemoglobin 10.9 g/dL (12.0-16.0); Mean Corpuscular HGB CONC 31.3 g/dL (32.0-36.0); Mean Corpuscular Hemoglobin 31.2 pg (27.0-31.0); Mean Corpuscular Volume 99.7 fL (78.0-98.0); Mean Platelet Volume 7.6 fL (7.4-10.4); Platelet Count 204 thou/uL (130-400); RBC Distribution Width 12.3 % (11.5-14.5); Red Blood Cell (RBC) Count 3.49 mill/uL (4.20-5.40); White Blood Cell (WBC) Count 7.9 thou/uL (4.8-10.8)
[2019-02-18 18:03] LABS: ALT (SGPT) 7 U/L (8-55); AST (SGOT) 8 U/L (5-34); Albumin 3.3 g/dL (3.4-4.8); Alkaline Phosphatase 154 U/L (40-150); Anion Gap 18 mmol/L (10-20); BUN (Urea Nitrogen) 57 mg/dL (9.8-20.1); Bilirubin, Total 0.5 mg/dL (0.2-1.2); Calc. Creatinine Clearance 0 mL/min (70-130); Carbon Dioxide 16 mmol/L (23-31); Chloride 109 mmol/L (98-107); Estimated GFR-MDRD 6; Globulin 3.2 g/dL (2.4-3.5); Glucose 72 mg/dL (83-110); Potassium 3.9 mmol/L (3.5-5.1); Protein, Total 6.5 g/dL (6.0-8.3); Sodium 139 mmol/L (136-145)
[2019-02-18 18:04] LABS: Band 3 % (5-11); Eosinophils 1 % (0-10); Lymphocytes 25 % (21-51); MDiff Complete? YES; Monocytes 1 % (0-10); Neutrophil 70 % (42-75); Platelet Morphology Comment Appears Adequate; Polychromasia SLIGHT = 2-3 cells (100X) (0-2/hpf)
[2019-02-18 21:18] LABS: D-Dimer Test 0.61 *mcg/mL (0.27-0.43)
[2019-02-18 21:22] LABS: PTT 23.4 SEC (22.9-36.1); Prothrombin Time 22.2 SEC (12.0-14.7)
--- NOTE | 2019-02-18 21:38 | CT ---
CTA Angio Chest W WO Con 02/18/2019 12:00 AM Indication: Shortness of breath with history of pulmonary embolus Technique: Multiple CTA images were obtained of the thorax with IV contrast. 3D reformatted images were constructed from the raw data. Comparison: Prior CT PE examination dated December 20, 2018 Findings: Pulmonary arteries: No central or segmental pulmonary embolus is evident. Heart and Great Vessels: Normal appearing. Lungs:There are hazy groundglass opacity seen throughout both lungs which are is similar to the prior exam. The sub-4 mm pulmonary nodule within the left upper lobe is stable. There is a calcified granuloma in the left lower lobe which is stable. The nodular opacity seen within the posterior media l right lower lobe on the prior examination was likely related to rounded atelectasis. Pleural space: Clear. Upper Abdomen: Calcified granuloma within the spleen. Adrenal glands are normal appearing. The gallb ladder surgically absent. Osseous Structures: There is scattered degenerative and osteoarthritic change present. No acute frac ture or subluxation demonstrated. Impression: 1. No central or segmental pulmonary embolus. Resolution of the partially occlusive thrombus seen wi thin the segmental pulmonary vasculature of the right lower lobe on the prior exam. 2. Nonspecific hazy groundglass opacity seen within both lungs can be related to subsegmental volume loss; however, entities such as a infectious or inflammatory pneumonitis cannot be entirely excluded. Pulmonary edema could have a similar appearance. 3. Small nodular density previously seen within the posterior medial right lower lobe likely reflect ed rounded atelectasis. 4. Findings of prior granulomatous disease
--- NOTE | 2019-02-20 11:07 | EKG ---
Test Reason : Blood Pressure : / mmHG Vent. Rate : 073 BPM Atrial Rate : 073 BPM P-R Int : 170 ms QRS Dur : 108 ms QT Int : 390 ms P-R-T Axes : 008 -26 050 degrees QTc Int : 429 ms Normal sinus rhythm Anterior infarct , age undetermined Abnormal ECG Confirmed by KALEY MCCARTY ([id number]), editor book RAYA TEAGUE ([id number]) on 02/20/2019 11:07:10 AM Referred By: Confirmed By:KALEY MCCARTY
== END 2019-02-18 23:24 | disposition home or self-care (01) ==
LOC: ERS 17:09
DX: R06.00 Dyspnea, unspecified (principal); I12.0 Hypertensive chronic kidney disease with stage 5 chronic kidney disease or end stage renal disease; N18.6 End stage renal disease; F32.9 Major depressive disorder, single episode, unspecified; F41.9 Anxiety disorder, unspecified; Z79.899 Other long term (current) drug therapy; Z79.01 Long term (current) use of anticoagulants; Z79.891 Long term (current) use of opiate analgesic
CPT/HCPCS: 36415; 71045; 71275; 80053; 83880; 84484; 85025; 85379; 85610; 85730; 93005; 94760; Q9966

== ENCOUNTER 2019-02-27 18:47 | Emergency (ER) | payer MEDICARE, BC ==
--- NOTE | 2019-02-27 19:31 | CT ---
BRAIN CT WITHOUT IV CONTRAST: 02/27/19 HISTORY: Injury following a mechanical fall. Patient on Coumadin. No focal mass or midline shift. No intra or extra-axial hemorrhage. Sinuses and mastoids are clear. IMPRESSION: No significant acute process. No mass or bleed. POS: RRE
--- NOTE | 2019-02-27 19:46 | CT ---
FACIAL BONE CT SCAN WITHOUT IV CONTRAST: 02/27/19 HISTORY: Pain of nasal bridge following a fall. FINDINGS: There is some cortical irregularity involving the right side of the anterior maxillary spine which co uld represent a fracture. The nasal bone appears intact. The remainder of the face appears intact. IMPRESSION: Minimal irregularity of the right side of the anterior maxillary spine, evidence for a minimal nondis placed chip type fracture. POS: RRE
--- NOTE | 2019-02-27 19:47 | CT ---
CT CERVICAL SPINE WITH CORONAL AND SAGITTAL REFORMATIONS AND NO IV CONTRAST: 02/27/19 HISTORY: Fall. Neck pain. COMPARISON: 01/13/19. FINDINGS/IMPRESSION: Multilevel degenerative changes are again seen. No acute fracture, subluxation or facet malalignment is identified. Heterogeneity of the thyroid gland with multiple lesions are again seen. POS: DISHA
[2019-02-27] MEDS ORDERED: HYDROcodone/Acetaminophen 10/325 mg Tablet ONE (20:17)
[2019-02-27] MEDS ORDERED: Adacel (T-DAP) 0.5 ML SYRINGE ONE (20:17)
== END 2019-02-27 20:51 | disposition home or self-care (01) ==
LOC: ERS 18:47
DX: S01.81XA Laceration without foreign body of other part of head, initial encounter (principal); I12.0 Hypertensive chronic kidney disease with stage 5 chronic kidney disease or end stage renal disease; N18.6 End stage renal disease; F41.9 Anxiety disorder, unspecified; F32.9 Major depressive disorder, single episode, unspecified; Z79.899 Other long term (current) drug therapy; W22.8XXA Striking against or struck by other objects, initial encounter
CPT/HCPCS: 12011; 70450; 70486; 72125; 90471; 90715

== ENCOUNTER 2019-03-07 10:25 | Inpatient (IN) | payer MEDICARE, BC ==
[2019-03-07 11:28] LABS: Bilirubin Negative (Negative); Blood, Urine 1+ (Negative); Clarity Clear (Clear); Glucose, Urine (Dipstick) Normal (Negative); Leukocyte Negative Leu/uL (Negative); Nitrite Negative (Negative); Protein, Urine (Dipstick) 70 mg/dL (Neg-Trace); RBC/HPF 0-3 HPF (0-3); Urobilinogen Normal mg/dL (Less than 2); WBC/HPF 0-3 HPF (0-3)
[2019-03-07 11:36] LABS: Bacteria/HPF None Seen HPF (None Seen)
--- NOTE | 2019-03-07 12:14 | RAD ---
CHEST 1 VIEW: HISTORY: Fever. COMPARISON: Radiograph 02/18/2019. FINDINGS: Heart size is enlarged. Moderate edema. Small effusions. No pneumothorax. No acute osseous abnorm ality. There appears to be a granuloma of the left lung base. IMPRESSION: Cardiomegaly and moderate volume overload. POS: HOME
[2019-03-07 12:27] LABS: ALT (SGPT) 7 U/L (8-55); AST (SGOT) 9 U/L (5-34); Alkaline Phosphatase 114 U/L (40-150); Anion Gap 15 mmol/L (10-20); BUN (Urea Nitrogen) 40 mg/dL (9.8-20.1); Bilirubin, Total 0.4 mg/dL (0.2-1.2); Calc. Creatinine Clearance 0 mL/min (70-130); Calcium 7.4 mg/dL (7.8-10.44); Carbon Dioxide 21 mmol/L (23-31); Chloride 106 mmol/L (98-107); Estimated GFR-MDRD 7; Globulin 3.4 g/dL (2.4-3.5); Glucose 102 mg/dL (83-110); Lipase 20 U/L (8-78); Potassium 3.6 mmol/L (3.5-5.1); Protein, Total 6.4 g/dL (6.0-8.3); Sodium 138 mmol/L (136-145)
[2019-03-07 12:28] LABS: #Eosinphils 0.1 thou/uL (0.0-0.7); #Monocytes 0.4 thou/uL (0.11-0.59); #Neutrophils 6.5 thou/uL (1.40-6.50); %Basophils 0.5 % (0.0-1.0); %Eosinophils 1.7 % (0.0-10.0); %Lymphocytes 12.6 % (21.0-51.0); %Monocytes 5.1 % (0.0-10.0); %Neutrophils 80.2 % (42.0-75.0); Hemoglobin 9.1 g/dL (12.0-16.0); Mean Corpuscular Hemoglobin 31.4 pg (27.0-31.0); Mean Corpuscular Volume 98.1 fL (78.0-98.0); Mean Platelet Volume 7.7 fL (7.4-10.4); Platelet Count 191 thou/uL (130-400); RBC Distribution Width 12.1 % (11.5-14.5); White Blood Cell (WBC) Count 8.1 thou/uL (4.8-10.8)
[2019-03-07] MEDS ORDERED: cefTRIAXone\\ROCEPHIN 2 GM VIAL ONE (13:38)
[2019-03-07] MEDS ORDERED: Sodium Chloride 0.9% 100 ML ONE (13:38)
[2019-03-07] MEDS ORDERED: Sodium Chloride 0.9% 1,000 ML IV SCH (16:11)
[2019-03-07] MEDS ORDERED: Ondansetron ODT 4 MG TAB SL PRN (16:11)
[2019-03-07] MEDS ORDERED: Ondansetron PF 4 MG/2 ML Vial IVP PRN (16:11)
[2019-03-07] MEDS ORDERED: Morphine 4 MG/ML VIAL SLOW IVP PRN (16:12)
[2019-03-07 16:23] VITALS: BMI 39.9
[2019-03-07] MEDS ORDERED: EPOETIN ALFA-EPBX (ESRD) 10,000 UNIT/ML VIAL SC SCH (18:00)
[2019-03-07] MEDS ORDERED: Acetaminophen 325 MG TAB PO PRN (18:22)
[2019-03-07] MEDS ORDERED: traMADol HCl 50 MG TAB PO PRN (18:22)
[2019-03-07] MEDS ORDERED: HYDROcodone/Acetaminophen 5/325 mg Tablet PO PRN (18:25)
[2019-03-07] MEDS ORDERED: Calcium Carbonate 500 MG ChewTAB PO PRN (18:26)
[2019-03-07] MEDS ORDERED: Labetalol HCl 100 MG/20 ML VIAL SLOW IVP PRN (18:28)
[2019-03-07] MEDS ORDERED: PERIT DIALYSIS NO 6 FS SCH (18:45)
[2019-03-07] MEDS ORDERED: DEX FS SCH (18:45)
[2019-03-07] MEDS ORDERED: HEPARIN FS SCH (18:45)
[2019-03-07] MEDS ORDERED: Vancomycin HCl 1 GM in Premix Bag 1 BAG IVPB SCH (19:15)
[2019-03-07] MEDS ORDERED: Cefepime 1 GM, Admixture Fee 1 EACH in Sodium Chloride 0.9% 100 ML IVPB SCH (19:15)
--- NOTE | 2019-03-07 20:26 | CON ---
DATE OF CONSULTATION: CONSULTING PHYSICIAN: Dorina Gomez MD REQUESTING PHYSICIAN: ER physician and Dr. Campos. REASON FOR CONSULTATION: 1. Need for maintenance renal replacement therapy. 2. Spontaneous bacterial peritonitis. PLAN: 1. The patient is to be dialyzed today with 1.5% dialysate using peritonitis protocol, vancomycin base. 2. Followup peritoneal fluid culture as well as the urine culture that was done at the Urgent Care sometime last Friday. 3. Further management will be dependent on the clinical course. HISTORY OF PRESENT ILLNESS: History is that of 73-year-old female patient with end-stage renal disease, on peritoneal dialysis, who presented here with cloudy peritoneal fluid as well as 3 to 4 days history of pelvic discomfort, which the patient was being treated for urinary tract infection in Urgent Care. The patient already received ceftriaxone at the Urgent Care. The patient, however, notices cloudy effluent today necessitating presentation to the ER. The patient described abdominal discomfort, more of pelvic discomfort. Temperature of slightly above 100 noted. PAST MEDICAL HISTORY: Significant for end-stage renal disease on peritoneal dialysis, hypertension, pulmonary embolism, reflux disease, anxiety disorder, depression, and anemia of chronic kidney disease. MEDICATIONS: Reviewed as documented on [employer]. ALLERGIES: CONTRAST DYE. FAMILY HISTORY: Not significantly related to present illness. SOCIAL HISTORY: . No alcohol. No tobacco. No illicit drug use. REVIEW OF SYSTEMS: As documented in the body of the history. All other systems were reviewed and found not to be significantly related to presenting illness. LABORATORY INVESTIGATION: Pretty much unremarkable except hemoglobin of 9.1. Chemistry showed a creatinine of 5.93. PHYSICAL EXAMINATION: GENERAL: The patient was found not to be in any obvious distress, noted with the following vital signs. VITAL SIGNS: Afebrile, temperature 97.3, pulse 74, respiratory rate of 17, and blood pressure of 174/77. HEENT: Unremarkable. CARDIOVASCULAR SYSTEM: First and second heart sounds were heard. RESPIRATORY: Clear to auscultation. DIGESTIVE SYSTEM: Revealed a benign abdomen with positive bowel sounds. EXTREMITIES: No peripheral edema. SKIN: No new gross rash. LYMPHATICS: No peripheral lymphadenopathy. SUMMARY: A 73-year-old female patient with end-stage renal disease, on peritoneal dialysis, who presented here with evidence of peritonitis. Thank you for this consultation. We will follow with you. Job ID: [id number]
[2019-03-07] MEDS ORDERED: Carvedilol 3.125 MG TAB PO SCH (21:00)
[2019-03-07] MEDS: Zolpidem Tartrate 5 MG TAB PO SCH (21:57)
[2019-03-07] MEDS: HYDROcodone/Acetaminophen 10/325 mg Tablet PO SCH (21:57)
[2019-03-07] MEDS: Gabapentin 300 MG CAP PO SCH (21:59)
--- NOTE | 2019-03-07 23:39 | HP ---
PRIMARY CARE PHYSICIAN: Dr. Levi Quach. PRIMARY INSURANCE CLAIM AUDITOR: Dr. Cam. CHIEF COMPLAINT: Fever with abdominal discomfort of 3 days' duration. HISTORY OF PRESENT ILLNESS: The patient is a 73-year-old female with end-stage renal disease, on peritoneal dialysis, presented to the emergency room with above complaints. Over the last 4 to 5 days, the patient developed gradual worsening abdominal discomfort, mainly in the lower quadrant, associated with fever. She felt nauseous, however, denies any vomiting. Her maximum temperature was up to 102 degree Fahrenheit. The pain was moderate in intensity, mainly in the lower quadrant without any diarrhea or constipation. She had urinary urgency without any gross hematuria. She also noticed that her peritoneal dialysate fluid was cloudy. She was seen at the Urgent Care three days ago and was diagnosed with suspected UTI. Urine culture was obtained. She received intramuscularly ceftriaxone and was discharged home. Her symptom continued to worsen, for which she presented to the emergency room. PAST MEDICAL HISTORY: 1. End-stage renal disease, on peritoneal dialysis. 2. History of pulmonary embolism, on chronic anticoagulation. 3. Obesity with a BMI of 39.9. 4. Hypertension. 5. Gastroesophageal reflux disease. 6. Anemia secondary to chronic kidney disease. 7. Anxiety. 8. Depression. 9. Coronary artery disease. PAST SURGICAL HISTORY: 1. Peritoneal dialysis catheter placement. 2. Coronary artery bypass grafting. 3. Bladder suspension. 4. Appendectomy. 5. Hysterectomy. 6. Dialysis access. ALLERGIES: NO KNOWN DRUG ALLERGIES. CURRENT HOME MEDICATIONS: 1. Carvedilol 6.25 mg b.i.d. 2. Colace 100 mg daily. 3. Cymbalta 30 mg daily. 4. Nexium 40 mg daily. 5. Iron sulfate 142 mg daily. 6. Gabapentin 300 mg at bedtime and 100 mg daily. 7. [place] as needed. 8. Magnesium 250 mg daily. 9. Ambien 10 mg at bedtime. 10. Coumadin 1.5 mg every day except for 2.5 mg once a week. SOCIAL HISTORY: The patient currently lives at home. She denies current use of tobacco, alcohol, or drug use. She is full code and makes her own decision with the help of her family. FAMILY HISTORY: Negative for heart disease. REVIEW OF SYSTEMS: All other review of systems reviewed and were found negative. PHYSICAL EXAMINATION: VITAL SIGNS: Showed temperature 97.6, pulse rate of 71, respirations of 18, blood pressure of 156/73, and O2 saturation 97% on room air. GENERAL: A 73-year-old female in no significant distress. HEENT: Head, atraumatic and normocephalic. Sclerae anicteric. Moist mucous membranes. No oral lesion. NECK: Supple. No JVD appreciated. No carotid bruit. LUNGS: Clear to auscultation bilaterally. No wheezing, rales, or rhonchi. HEART: S1 and S2 present. Regular rate and rhythm. No rubs or gallops appreciated. ABDOMEN: Soft. There is mild generalized tenderness mainly in the lower quadrant. No rebound or guarding. No costovertebral angle tenderness. EXTREMITIES: 1+ edema in bilateral lower extremities. No calf tenderness. SKIN: Warm and dry. LYMPH NODES: No palpable lymph nodes in the neck. PERIPHERAL VASCULAR: Radial pulses are palpable bilaterally. MUSCULOSKELETAL: No joint swelling or tenderness. LABORATORY FINDINGS: WBC 8.1 with 80.2% neutrophil, hemoglobin 9.1, and hematocrit 28.4. Sodium 138, potassium 3.6, chloride 106, bicarb 21, BUN 40, and creatinine 5.93. Urinalysis was negative for wbc and bacteria. Recent urine cultures were negative. Dialysate fluid; Gram stain was negative. Cultures are pending. IMAGING STUDIES: Chest x-ray by my review was negative for infiltrate. It showed moderate volume overload. IMPRESSION: 1. Peritoneal dialysis catheter associated peritonitis. 2. Recent urinary tract infection. Cultures are negative so far. 3. History of pulmonary embolism, on anticoagulation. 4. End-stage renal disease, on peritoneal dialysis. 5. Hypertension. 6. Coronary artery disease. 7. Obesity with a BMI of 39.9. 8. Chronic anemia secondary to renal insufficiency. 9. Chronic insomnia. 10. Chronic pain syndrome. 11. Suspected sleep apnea. 12. Anxiety. PLAN: The patient will be monitored on the medical floor. We will start her on gentamicin and vancomycin through the peritoneal dialysis catheter per protocol. We will resume her home medications including carvedilol, Cymbalta, gabapentin, ferrous sulfate, as well as pain medications. We will check PT/INR. Resume warfarin in a.m. based on the INR. We will recheck labs in a.m. Plan of care was discussed with the patient in detail. She stated understanding. Nephrology will be consulted. Job ID: [id number]
[2019-03-07 23:58] LABS: RBC Count-Automated (BF) 0 /cumm; WBC/Nucleated-Auto (BF) 576 uL
[2019-03-08] LABS: BF Color Colorless; Body Fluid Source Peritoneal Fluid; Clarity Clear (Clear); Tube # EDTA
[2019-03-08 00:24] LABS: BF Segmented Neutrophils 42 %; Cell Count Non Hematic 51 %; Lymphocytes 7 %
[2019-03-08 06:58] LABS: #Eosinphils 0.2 thou/uL (0.0-0.7); #Lymphocytes 1.7 thou/uL (1.20-3.40); #Monocytes 0.5 thou/uL (0.11-0.59); #Neutrophils 5.2 thou/uL (1.40-6.50); %Basophils 0.5 % (0.0-1.0); %Eosinophils 2.8 % (0.0-10.0); %Lymphocytes 22.6 % (21.0-51.0); %Monocytes 6.5 % (0.0-10.0); %Neutrophils 67.7 % (42.0-75.0); Hemoglobin 8.6 g/dL (12.0-16.0); Mean Corpuscular HGB CONC 31.5 g/dL (32.0-36.0); Mean Corpuscular Hemoglobin 30.8 pg (27.0-31.0); Mean Corpuscular Volume 97.7 fL (78.0-98.0); Mean Platelet Volume 7.4 fL (7.4-10.4); Platelet Count 208 thou/uL (130-400); RBC Distribution Width 12.3 % (11.5-14.5); Red Blood Cell (RBC) Count 2.79 mill/uL (4.20-5.40); White Blood Cell (WBC) Count 7.6 thou/uL (4.8-10.8)
[2019-03-08 07:18] LABS: Anion Gap 14 mmol/L (10-20); BUN (Urea Nitrogen) 39 mg/dL (9.8-20.1); Calc. Creatinine Clearance 14 mL/min (70-130); Calcium 7.5 mg/dL (7.8-10.44); Carbon Dioxide 21 mmol/L (23-31); Chloride 109 mmol/L (98-107); Estimated GFR-MDRD 8; Glucose 85 mg/dL (83-110); Potassium 3.3 mmol/L (3.5-5.1); Sodium 141 mmol/L (136-145)
[2019-03-08 07:22] LABS: INR-International Normal Ratio 2.8
[2019-03-08] MEDS ORDERED: Ferrous Sulfate 325 MG TAB PO SCH (09:00)
[2019-03-08] MEDS ORDERED: Cefepime 1 GM, Admixture Fee 1 EACH in Sodium Chloride 0.9% 100 ML IVPB SCH (09:00)
[2019-03-08] MEDS: Carvedilol 6.25 MG TAB PO SCH ×2 (09:58→16:05)
[2019-03-08] MEDS: Saccharomyces boulardii 250 MG CAP PO SCH (09:58)
[2019-03-08] MEDS: DULoxetine 30 MG CAP PO SCH (09:58)
[2019-03-08] MEDS: Magnesium Oxide 250 MG TAB PO SCH (09:58)
[2019-03-08] MEDS: Gabapentin 100 MG CAP PO SCH (09:59)
[2019-03-08] MEDS ORDERED: Vancomycin HCl 1 GM in Premix Bag 1 BAG IVPB SCH ×2 (10:00→20:00)
[2019-03-08] MEDS: Folic Acid 1 MG TAB PO SCH (10:00)
[2019-03-08] MEDS: Docusate 100 MG CAP PO SCH (10:00)
[2019-03-08] MEDS ORDERED: Potassium Chloride 10 MEQ TAB PO SCH (10:15)
--- NOTE | 2019-03-08 12:17 | RAD ---
Exam: Chest one view HISTORY:Shortness of breath Comparison: 02/18/2019, 03/07/2019 FINDINGS: Cardiac silhouette:Cardiomegaly Aorta: Unremarkable Pulmonary vessels: Normal Costophrenic angles: Clear LUNGS: No masses or consolidation. Pneumothorax: None Osseous abnormalities: None IMPRESSION: Cardiomegaly, without evidence of volume overload or congestive heart failure.
--- NOTE | 2019-03-08 15:24 | EKG ---
Test Reason : C/O SOB A7 CHEST SHAQ Blood Pressure : / mmHG Vent. Rate : 068 BPM Atrial Rate : 068 BPM P-R Int : 196 ms QRS Dur : 110 ms QT Int : 428 ms P-R-T Axes : 079 -16 059 degrees QTc Int : 455 ms Normal sinus rhythm Cannot rule out Anterior infarct (cited on or before 01-FEB-2014) Abnormal ECG When compared with ECG of 18-FEB-2019 17:17, Serial changes of Anterior infarct Present Confirmed by DR. Main ROCHA ([id number]) on 03/08/2019 3:23:58 PM Referred By: MENA Confirmed By:DR. Main ROCHA
[2019-03-08] MEDS ORDERED: Warfarin Sodium 1.25 MG HALF.TAB PO SCH (17:00)
--- NOTE | 2019-03-08 19:35 | PDOC.HOSPP ---
- Subjective Encounter Date: 03/08/19 Encounter Time: 11:15 Subjective: Patient seen and examined for Peritonitis. SOB +. No CP/palpitations or syncope. No new complaints. No overnight events - Objective Vital Signs & Weight: Vital Signs (12 hours) Temp Pulse Resp BP BP Pulse Ox 03/08/19 18:17 64 18 96 03/08/19 16:05 146/73 H 03/08/19 15:46 97.5 F L 70 18 146/73 H 100 03/08/19 11:45 97.9 F 67 17 146/73 H 98 03/08/19 09:58 136/53 L 03/08/19 08:00 99 03/08/19 07:43 97.6 F 73 18 136/63 97 Weight Admit Weight 218 lb Weight 218 lb Result Diagrams: 03/08/19 06:16 03/08/19 06:16 Additional Labs: Microbiology 03/07/19 11:52 Venous blood - Neck Blood Culture - Preliminary Specimen has been received and culture in progress. No Growth to date. 03/07/19 11:25 Venous blood - Neck Blood Culture - Preliminary Coagulase Neg Staphylococcus Radiology Reviewed by me: Yes (Stat CXR - no significant volume overload) Hospitalist ROS - Review of Systems Respiratory: reports: shortness of breath, SOB with excertion. denies: cough, dry, hemoptysis, pleuritic pain, sputum, wheezing, other Cardiovascular: denies: chest pain, palpitations, orthopnea, paroxysmal noc. dyspnea, edema, light headedness, other Gastrointestinal: denies: nausea, vomitting, abdominal pain, diarrhea, constipation, melena, hematochezia, other - Medication Medications: Active Medications Generic Name Dose Route Start Last Admin Trade Name Freq PRN Reason Stop Dose Admin Hydrocodone Bitart/Acetaminophen 2 tab 03/07/19 21:00 03/07/19 21:57 [place] 10/325 PO 2 tab HS JUAN CARLOS Administration Albuterol/Ipratropium 3 ml 03/08/19 14:30 03/08/19 18:17 Duoneb NEB 3 ml [id number] JUAN CARLOS Administration Carvedilol 6.25 mg 03/08/19 08:00 03/08/19 16:05 Coreg PO 6.25 mg [id number] JUAN CARLOS Administration Docusate Sodium 100 mg 03/08/19 09:00 03/08/19 10:00 Colace PO 100 mg DAILY JUAN CARLOS Administration Duloxetine HCl 30 mg 03/08/19 09:00 03/08/19 09:58 Cymbalta PO 30 mg DAILY JUAN CARLOS Administration Epoetin Ramon-epbx 10,000 unit 03/07/19 18:00 03/07/19 22:32 Retacrit SC 10,000 unit Q7D JUAN CARLOS Administration Ferrous Sulfate 325 mg 03/08/19 09:00 03/08/19 09:59 Feosol PO 325 mg DAILY JUAN CARLOS Administration Folic Acid 1 mg 03/08/19 09:00 03/08/19 10:00 Folvite PO 1 mg DAILY JUAN CARLOS Administration Gabapentin 100 mg 03/08/19 09:00 03/08/19 09:59 Neurontin PO 100 mg DAILY JUAN CARLOS Administration Gabapentin 300 mg 03/07/19 21:00 03/07/19 21:59 Neurontin PO 300 mg HS JUAN CARLOS Administration Magnesium Oxide 250 mg 03/08/19 09:00 03/08/19 09:58 Magnesium Oxide PO 250 mg DAILY JUAN CARLOS Administration Pantoprazole Sodium 40 mg 03/08/19 09:00 03/08/19 09:59 Protonix PO 40 mg DAILY JUAN CARLOS Administration Saccharomyces Boulardii 250 mg 03/08/19 09:00 03/08/19 09:58 Florastor PO 250 mg DAILY JUAN CARLOS Administration Warfarin Sodium 1.25 mg 03/08/19 17:00 03/08/19 16:05 Coumadin PO 1.25 mg 1700 JUAN CARLOS Administration Zolpidem Tartrate 10 mg 03/07/19 21:00 03/07/19 21:57 Ambien PO 10 mg HS JUAN CARLOS Administration - Exam General Appearance: awake alert (Minimal resp distress) Neck: supple, no JVD Heart: RRR, no murmur, no gallops, no rubs Respiratory: CTAB, no wheezes, no ronchi, rales (scatered at bases) Gastrointestinal: soft, non-tender, non-distended, normal bowel sounds Extremities: 1+ LE edema Neurological: no new deficit Psychiatric: normal affect, A&O x 3 Hosp A/P - Plan DVT proph w/SCDs IMPRESSION: 1. Peritoneal dialysis catheter associated peritonitis/GPC bacteremia 2. Recent urinary tract infection. Cultures are negative. 3. History of pulmonary embolism, on anticoagulation. INR 2.8 4. End-stage renal disease, on peritoneal dialysis. 5. Hypertension. 6. Coronary artery disease. 7. Obesity with a BMI of 39.9. 8. Chronic anemia secondary to renal insufficiency. 9. Chronic insomnia. 10. Chronic pain syndrome. 11. Suspected sleep apnea. 12. Anxiety. PLAN: Cont IV Vancomycin Monitor Vancomycin trough Add Nebs Stat CXR reviewed Add fluid restriction Cont other meds as above AM labs INR in AM
[2019-03-08] MEDS: Gabapentin 300 MG CAP PO SCH (20:49)
[2019-03-08] MEDS: HYDROcodone/Acetaminophen 10/325 mg Tablet PO SCH (20:53)
[2019-03-08] MEDS: Zolpidem Tartrate 5 MG TAB PO SCH (20:55)
[2019-03-09 05:15] LABS: #Basophils 0.1 thou/uL (0.0-0.2); #Eosinphils 0.3 thou/uL (0.0-0.7); #Lymphocytes 1.5 thou/uL (1.20-3.40); #Monocytes 0.5 thou/uL (0.11-0.59); #Neutrophils 4.6 thou/uL (1.40-6.50); %Basophils 0.8 % (0.0-1.0); %Lymphocytes 21.3 % (21.0-51.0); %Monocytes 7.1 % (0.0-10.0); %Neutrophils 66.8 % (42.0-75.0); Hemoglobin 9.3 g/dL (12.0-16.0); Mean Corpuscular HGB CONC 31.7 g/dL (32.0-36.0); Mean Corpuscular Hemoglobin 31.2 pg (27.0-31.0); Mean Corpuscular Volume 98.4 fL (78.0-98.0); Mean Platelet Volume 7.4 fL (7.4-10.4); Platelet Count 236 thou/uL (130-400); RBC Distribution Width 12.3 % (11.5-14.5); Red Blood Cell (RBC) Count 2.98 mill/uL (4.20-5.40); White Blood Cell (WBC) Count 6.9 thou/uL (4.8-10.8)
[2019-03-09 05:16] LABS: INR-International Normal Ratio 2.5; Prothrombin Time 26.4 SEC (12.0-14.7)
[2019-03-09 05:27] LABS: Anion Gap 15 mmol/L (10-20); BUN (Urea Nitrogen) 35 mg/dL (9.8-20.1); Calc. Creatinine Clearance 16 mL/min (70-130); Calcium 7.7 mg/dL (7.8-10.44); Carbon Dioxide 21 mmol/L (23-31); Chloride 107 mmol/L (98-107); Estimated GFR-MDRD 8; Glucose 85 mg/dL (83-110); Potassium 3.6 mmol/L (3.5-5.1); Sodium 139 mmol/L (136-145)
[2019-03-09] MEDS: Docusate 100 MG CAP PO SCH (08:34)
[2019-03-09] MEDS: DULoxetine 30 MG CAP PO SCH (08:34)
[2019-03-09] MEDS: Magnesium Oxide 250 MG TAB PO SCH (08:34)
[2019-03-09] MEDS: Carvedilol 6.25 MG TAB PO SCH (08:34)
[2019-03-09] MEDS: Saccharomyces boulardii 250 MG CAP PO SCH (08:34)
[2019-03-09] MEDS: Gabapentin 100 MG CAP PO SCH (08:35)
[2019-03-09] MEDS: Folic Acid 1 MG TAB PO SCH (08:35)
[2019-03-09 09:51] LABS: Vancomycin, Random 24.7 ug/mL (See Comment)
--- NOTE | 2019-03-09 09:55 | PRG ---
DATE OF SERVICE: 03/08/2019 SUBJECTIVE: The patient is seen and examined, some shortness of breath, noted with the following vital signs. OBJECTIVE: Vital Signs: Afebrile, temperature 97.5, pulse 70, blood pressure 146/73, respiratory rate of 18, O2 saturation 100%. HEENT: Unremarkable. CARDIOVASCULAR: First and second heart sounds were heard. RESPIRATORY: Revealed few crackles. DIGESTIVE: Revealed benign abdomen with positive bowel sounds. EXTREMITIES: No peripheral edema. SKIN: No new gross rash. LYMPHATICS: No peripheral lymphadenopathy. LABORATORY INVESTIGATION: Showed a white count of 7.6, hemoglobin 8.6, platelet count 208,000. Chemistry showed a potassium of 3.3, bicarb of 21, BUN of 39 with creatinine of 5.57. IMPRESSION: 1. End-stage renal disease, on peritoneal dialysis. 2. Possible spontaneous bacterial peritonitis. 3. Recent treatment for urinary tract infection. 4. Anemia of chronic kidney disease. PLAN: 1. Chest x-ray to be done to evaluate for potential pulmonary congestion. 2. Will carry out peritoneal dialysis exchange with a higher concentration of dialysate. 3. . 4. We will adjust peritoneal dialysis using 2.5% as opposed to 1.5% that was used . 5. Further management to be dependent on the clinical course. Job ID: [id number]
[2019-03-09] MEDS ORDERED: HOLD VANCOMYCIN FOR LEVEL >20 FS SCH (10:00)
[2019-03-09] MEDS ORDERED: Vancomycin HCl 1.25 GM in Sodium Chloride 0.9% 250 ML 250 ML IVPB SCH (10:00)
[2019-03-09] MEDS ORDERED: Vancomycin HCl 500 MG in Sodium Chloride 0.9% 100 ML IVPB SCH (10:00)
[2019-03-09] MEDS ORDERED: Vancomycin HCl 750 MG in Sodium Chloride 0.9% 250 ML 250 ML IVPB SCH (10:00)
[2019-03-09] MEDS ORDERED: Vancomycin HCl 1 GM in Premix Bag 1 BAG IVPB SCH (10:00)
[2019-03-09 15:09] VITALS: BP 137/83; TEMP 97.2
--- NOTE | 2019-03-10 08:35 | DIS ---
DATE OF ADMISSION: 03/07/2019 DATE OF DISCHARGE: 03/09/2019 DISCHARGE DISPOSITION: Home. FOLLOWUP: Follow up with [facility] in 1 week Follow up with Nephrology, Dr. Cam as scheduled. The patient was seen and examined on the day of discharge. Denies any new complaints. No chest pain, shortness of breath, palpitations, or abdominal discomfort reported. DISCHARGE MEDICATIONS: Same as admission medications. Antibiotics have been discontinued per Nephrology recommendation. BRIEF HOSPITAL COURSE: The patient is a 73-year-old female with end-stage renal disease, on peritoneal dialysis, presented to the hospital with fever along with abdominal discomfort of 3 days duration. The patient was seen at [facility] recently and underwent urine culture. Please refer to the history and physical for further details. The patient was admitted to the hospital with a diagnosis of suspected peritoneal dialysis catheter associated peritonitis. She was started on IV vancomycin. Peritoneal dialysis fluid culture has remained negative at 48 hours. Blood culture 1 of 2 showed coagulase-negative staphylococci MRSE, probably a contaminant per Nephrology. Antibiotics have been discontinued per Nephrology recommendation. Cultures from recent UTI has been negative. She has remained afebrile during this hospital stay. SIGNIFICANT LABORATORY DATA: INR 2.5 on the day of discharge. Potassium 3.3. Hemoglobin 9.3. FINAL DIAGNOSES: 1. Suspected peritoneal dialysis catheter associated peritonitis. Antibiotics discontinued per Nephrology recommendation. 2. One of two gram-positive cocci bacteremia (methicillin-resistant Staphylococcus epidermidis) probably contamination per Nephrology. 3. Recent urinary tract infection. Cultures have been negative. 4. History of pulmonary embolism, on anticoagulation. 5. End-stage renal disease, on peritoneal dialysis. 6. Hypertension. 7. Coronary artery disease. 8. Obesity with a body mass index of 39.9. 9. Chronic anemia secondary to renal insufficiency. 10. Chronic pain syndrome. 11. Suspected sleep apnea. A sleep study as outpatient is recommended. 12. Chronic insomnia. 13. Anxiety. Job ID: [id number]
--- NOTE | 2019-03-10 17:55 | PRG ---
DATE OF SERVICE: 03/09/2019 OBJECTIVE: VITAL SIGNS: The patient was seen and examined, noted with the following vital signs; afebrile, temperature 97.2, pulse 68, respiratory rate of 16, O2 saturation of 100%, with blood pressure 137/83. HEENT: Unremarkable. CARDIOVASCULAR: First and second sounds were heard. RESPIRATORY: Clear to auscultation. DIGESTIVE: Revealed a benign abdomen with positive bowel sounds. EXTREMITIES: No peripheral edema. SKIN: No new gross rash. LYMPHATICS: No peripheral lymphadenopathy. IMPRESSION: 1. End-stage renal disease, on peritoneal dialysis. 2. Possible urinary tract infection. 3. Query peritonitis, mostly unlikely. PLAN: 1. From the renal standpoint, the patient is due for discharge. 2. Further management to be dependent on the clinical course. Job ID: [id number]
== END 2019-03-09 15:45 | disposition home or self-care (01) | DRG 391 ==
LOC: ERS 10:25 → T4-A 14:28
PROVIDERS: ADMIT Internal Medicine; ATTEND Internal Medicine
PROC: 3E1M39Z Irrigation of Peritoneal Cavity using Dialysate, Percutaneous Approach (ICD-10-PCS; principal; 2019-03-07)
DX: R10.30 Lower abdominal pain, unspecified (principal); N18.6 End stage renal disease; I12.0 Hypertensive chronic kidney disease with stage 5 chronic kidney disease or end stage renal disease; E66.9 Obesity, unspecified; K21.9 Gastro-esophageal reflux disease without esophagitis; D63.1 Anemia in chronic kidney disease; F41.9 Anxiety disorder, unspecified; F32.9 Major depressive disorder, single episode, unspecified; I25.10 Atherosclerotic heart disease of native coronary artery without angina pectoris; G89.4 Chronic pain syndrome; R39.15 Urgency of urination; F51.04 Psychophysiologic insomnia; R50.9 Fever, unspecified; Z68.39 Body mass index [BMI] 39.0-39.9, adult; Z99.2 Dependence on renal dialysis; Z86.711 Personal history of pulmonary embolism; Z79.01 Long term (current) use of anticoagulants; Z90.49 Acquired absence of other specified parts of digestive tract; Z90.710 Acquired absence of both cervix and uterus; Z95.1 Presence of aortocoronary bypass graft; Z79.899 Other long term (current) drug therapy; Z87.440 Personal history of urinary (tract) infections
CPT/HCPCS: 36415; 51701; 71045; 80048; 80053; 80202; 81003; 81015; 83605; 83690; 85025; 85060; 85610; 87040; 87070; 87086; 87149; 87205; 89051; 90945; 93005; 93010; 94640; 96365; 96367; A4353; G0257; J0692; J0696; J1580; J3370; J3490; J7050; J7620; Q5105

== ENCOUNTER 2019-08-27 11:07 | Observation (INO) | payer MEDICARE, BC ==
--- NOTE | 2019-08-27 12:03 | RAD ---
Portable frontal chest radiograph: 08/27/2019 COMPARISON: 03/08/2019 HISTORY: Epigastric pain radiating to the left chest and left arm FINDINGS: No pneumothorax or pleural fluid. No focal consolidation or alveolar edema. Heart and media stinal contours are stable. IMPRESSION: Stable appearance of the chest.
[2019-08-27 12:10] LABS: ALT (SGPT) 8 U/L (8-55); AST (SGOT) 12 U/L (5-34); Alkaline Phosphatase 130 U/L (40-110); Anion Gap 17 mmol/L (10-20); BUN (Urea Nitrogen) 39 mg/dL (9.8-20.1); Bilirubin, Total 0.5 mg/dL (0.2-1.2); CK (CPK) 47 U/L (29-168); Calc. Creatinine Clearance 0 mL/min (70-130); Calcium 7.9 mg/dL (7.8-10.44); Carbon Dioxide 18 mmol/L (23-31); Chloride 111 mmol/L (98-107); Estimated GFR-MDRD 7; Globulin 3.1 g/dL (2.4-3.5); Glucose 117 mg/dL (83-110); Lipase 34 U/L (8-78); Protein, Total 6.1 g/dL (6.0-8.3); Sodium 142 mmol/L (136-145)
[2019-08-27 12:19] LABS: #Eosinphils 0.2 thou/uL (0.0-0.7); #Lymphocytes 1.4 thou/uL (1.20-3.40); #Monocytes 0.4 thou/uL (0.11-0.59); %Basophils 0.5 % (0.0-1.0); %Eosinophils 2.7 % (0.0-10.0); %Lymphocytes 19.8 % (21.0-51.0); %Monocytes 6.2 % (0.0-10.0); %Neutrophils 70.8 % (42.0-75.0); Hemoglobin 11.1 g/dL (12.0-16.0); Mean Corpuscular HGB CONC 31.8 g/dL (32.0-36.0); Mean Corpuscular Hemoglobin 31.8 pg (27.0-31.0); Mean Platelet Volume 7.5 fL (7.4-10.4); Platelet Count 168 thou/uL (130-400); RBC Distribution Width 14.2 % (11.5-14.5)
[2019-08-27] MEDS ORDERED: Nitroglycerin 0.4 MG TAB 1 EACH ONE (12:36)
[2019-08-27] MEDS ORDERED: Aspirin Chewable 81 MG TAB ONE (12:37)
[2019-08-27] MEDS ORDERED: Sodium Chloride 0.65% Nasal 44 ML BOT EA NARE PRN (14:16)
[2019-08-27] MEDS ORDERED: Zolpidem Tartrate 5 MG TAB PO PRN (14:16)
[2019-08-27] MEDS ORDERED: Senokot S 8.6-50 MG TAB PO PRN (14:16)
[2019-08-27] MEDS ORDERED: Loratadine 10 MG TAB PO PRN (14:16)
[2019-08-27] MEDS ORDERED: Ondansetron PF 4 MG/2 ML Vial IVP PRN (14:16)
[2019-08-27] MEDS ORDERED: Calcium Carbonate 500 MG ChewTAB PO PRN (14:16)
[2019-08-27] MEDS ORDERED: Artificial Tears 18 DROP/0.9 ML EA EYE PRN (14:16)
[2019-08-27] MEDS ORDERED: hydrALAZINE 20 MG/ML VIAL SLOW IVP PRN (14:16)
[2019-08-27] MEDS ORDERED: Diabetic Tussin 200 MG/10 ML UDCUP PO PRN (14:16)
[2019-08-27] MEDS ORDERED: Ondansetron ODT 4 MG TAB PO PRN (14:16)
[2019-08-27] MEDS ORDERED: Bisacodyl 10 MG SUPP PR PRN (14:16)
[2019-08-27] MEDS ORDERED: Acetaminophen 325 MG TAB PO PRN (14:16)
[2019-08-27] MEDS ORDERED: Cepastat Lozenges 1 LOZ PO PRN (14:16)
[2019-08-27] MEDS ORDERED: Loperamide HCl 2 MG CAP PO PRN (14:16)
[2019-08-27] MEDS ORDERED: HYDROcodone/Acetaminophen 5/325 mg Tablet PO PRN (14:16)
--- NOTE | 2019-08-27 14:16 | RAD ---
ABDOMEN ONE VIEW: 08/27/19 HISTORY: Epigastric pain. COMPARISON: None. FINDINGS: Catheter projects over the pelvis. No dilated air filled loops of large or small bowel. Mild dextrosc oliosis of the lumbar spine. Moderate degenerative disease both SI joints and pubic symphysis. IMPRESSION: No evidence for bowel obstruction. POS: TPC
[2019-08-27] MEDS ORDERED: Nitroglycerin 2% Ointment 1 INCH/1 GM Packet TOP SCH (14:30)
[2019-08-27 15:09] VITALS: BMI 38.7
--- NOTE | 2019-08-27 15:26 | HP ---
PRIMARY CARE PHYSICIAN: Dr. Levi Quach. REASON FOR ADMISSION: Chest pain. HISTORY OF PRESENT ILLNESS: A 74-year-old female, who has underlying history of morbid obesity as well as ESRD, on peritoneal dialysis, who presented to emergency room with complaint of chest discomfort. The patient reports that she gets chest discomfort underneath of left breast, which radiates across the chest, associated with some nausea. The patient reports that whenever she eats lot of food, at that time her pain gets worse. She also reports that pain also gets worse with climbing. She denies any associated diaphoresis or vomiting, but sometimes she feels nausea and mild dyspnea. The patient denies any orthopnea, PND, or leg swelling. The patient denies any recent travel or sick exposure. The patient denies any relation of chest pain with respiration, but she reports that whenever she moves her chest, at that time she gets discomfort. The patient is following Dr. Rodriguez at [facility] and the patient had several years ago stress test and cardiac catheterization, which was normal. Per patient, her pain is constant without any relief. There is no specific relieving factor. She did not have any syncope or palpitation. REVIEW OF SYSTEMS: CONSTITUTIONAL: Negative for weight loss or gain, ability to conduct usual activities. SKIN: Negative for rash, itching. EYES: Negative for double vision, pain. ENT/MOUTH: Negative for nose bleeding, neck stiffness, pain, tenderness. CARDIOVASCULAR: Negative for palpitations, dyspnea on exertion, orthopnea. RESPIRATORY: Negative for shortness of breath, wheezing, cough, hemoptysis, fever or night sweats. GASTROINTESTINAL: Negative for poor appetite, abdominal pain, heartburn, nausea, vomiting, constipation, or diarrhea. GENITOURINARY: Negative for urgency, frequency, dysuria, nocturia. MUSCULOSKELETAL: Negative for pain, swelling. NEUROLOGIC/PSYCHIATRIC: Negative for anxiety, depression. ALLERGY/IMMUNOLOGIC: Negative for skin rash, bleeding tendency. Please see my HPI for pertinent positives and negatives. All other review of systems reviewed and negative except as mentioned in HPI. PAST MEDICAL HISTORY: ESRD, on peritoneal dialysis; macrocytic anemia; morbid obesity with BMI 30 to 40; hypertension; chronic anticoagulation history; history of pulmonary embolism; history of AV fistula malfunction. PAST SURGICAL HISTORY: Cholecystectomy, intestinal bypass surgery, bladder surgery, appendicectomy, hysterectomy, fistula in right upper extremity, peritoneal dialysis. SOCIAL HISTORY: The patient is . Her is present at bedside in the emergency room. No history of tobacco, alcohol, or illicit drug abuse. FAMILY HISTORY: Brother from heart attack and father also had heart attack. EMERGENCY ROOM COURSE: The patient is given aspirin and nitroglycerin. CURRENT HOME MEDICATIONS: 1. Coreg 12.5 mg twice daily. 2. Calcium with vitamin D 1 tablet daily. 3. Gabapentin 300 mg at bedtime, 100 mg in the morning. 4. Ambien 10 mg at bedtime. 5. Cymbalta 30 mg daily. 6. Magnesium 250 mg three times daily. 7. Colace 100 mg daily. 8. Wendell p.r.n. basis. ALLERGIES: NO KNOWN DRUG ALLERGY. PHYSICAL EXAMINATION: VITAL SIGNS: Currently blood pressure 143/50, pulse 69, respiratory rate 18, temperature 98.6, saturation 97% on room air. Weight 96.2 kg. GENERAL: The patient is currently alert, awake, no obvious acute distress. HEENT: Head normocephalic, atraumatic. NECK: Supple. No JVD. No meningeal signs of irritation. LUNGS: Clear to auscultation without any rhonchi or rales. CARDIAC: S1 and S2 regular. Soft systolic murmur noted. No gallop. No rub. ABDOMEN: Morbid obesity limiting examination. Peritoneal dialysis catheter noted. No peritoneal sign. BACK: Unremarkable. No CVA tenderness. EXTREMITIES: Upper extremities, passive movement of all joints are normal. Lower extremities, no edema. Good distal pulsation. SKIN: No skin rash. HEMATOLOGIC: No lymphadenopathy. PSYCHIATRIC: Normal affect. SIGNIFICANT LABORATORY DATA: EKG showing normal sinus rhythm without any acute ischemic changes. Abdomen x-ray showing no evidence of bowel obstruction. WBC is 7.0, hemoglobin 11.1, platelet 168. BMP: Sodium 142, potassium 4.0, chloride 111, carbon dioxide 18, BUN 39, creatinine 6.14, glucose 117, calcium 7.9. LFT: AST 12, ALT 8, alkaline phosphatase 130, albumin 3.0. Lipase 34. Troponin 0.010. ASSESSMENT AND PLAN: 1. Chest pain. The patient's chest pain description is atypical. The patient has several risk factors for coronary artery disease. The patient will need serial cardiac enzyme to rule out acute coronary syndrome. We will perform pharmacological stress test tomorrow for diagnostic reason. Meanwhile continue with aspirin 81 mg p.o. daily, nitroglycerin patch q.8 hourly. We will check lipid profile for risk stratification tomorrow. 2. Endstage renal disease, on peritoneal dialysis. We will consult Nephrology for peritoneal dialysis while in hospital. 3. Macrocytic anemia/anemia of renal disease. Continue Nephro-Nikole one tablet p.o. daily. 4. Gastroesophageal reflux disease. We will continue Pepcid 20 mg p.o. daily. 5. Chronic low back pain. Continue gabapentin as per home dosage. 6. Anxiety and depression. Continue Cymbalta as per home dosage. 7. Deep venous thrombosis prophylaxis not needed because the patient is already on chronic anticoagulation therapy. 8. Gastrointestinal prophylaxis, Pepcid 20 mg p.o. daily. CODE STATUS: The patient is full code. The patient's is surrogate decision maker. DISPOSITION PLAN: Based on clinical course and stress test result likely within 24 hours. Plan of care discussed with the patient and her at bedside in the emergency room. Job ID: [id number]
[2019-08-27 16:01] LABS: Troponin I 0.016 ng/mL (< 0.028)
--- NOTE | 2019-08-27 17:07 | CON ---
DATE OF CONSULTATION: CONSULTING PHYSICIAN: Dorina Gomez MD REQUESTING PHYSICIAN: Meredith Abbott MD REASON FOR CONSULTATION: Need for maintenance of peritoneal dialysis. IMPRESSION: 1. End-stage renal disease, on peritoneal dialysis. 2. Chest pain, query cause. PLAN: The patient to be initiated on peritoneal dialysis tonight according to schedule and prescriptions. HISTORY OF PRESENT ILLNESS: History is that of 74-year-old female patient with end-stage renal disease and peritoneal dialysis dependent, who presented here with chest pain concerning for coronary syndrome. She has now been admitted and Renal consulted to participate in the management because of the need for maintenance renal replacement therapy. PAST MEDICAL HISTORY: Significant for end-stage renal disease, obesity, hypertension, and history of pulmonary embolism. MEDICATIONS: Reviewed as documented on [employer]. SOCIAL HISTORY: . No alcohol. No tobacco. No illicit drug use. REVIEW OF SYSTEMS: As documented in the body of the history. All the other systems were reviewed and found not to be significantly related to presenting illness. PHYSICAL EXAMINATION: GENERAL: The patient was found not to be in any obvious distress. Noted with the following vital signs. VITAL SIGNS: Afebrile, temperature 97.8, pulse 64, respiratory rate of 16, and O2 saturation of 98% with blood pressure 193/83. HEENT: Unremarkable. CARDIOVASCULAR SYSTEM: First and second heart sounds were heard. RESPIRATORY SYSTEM: Clear to auscultation. DIGESTIVE: Revealed a benign abdomen. Positive bowel sounds. EXTREMITIES: No peripheral edema. SKIN: No new gross rash. LYMPHATICS: No peripheral lymphadenopathy. SUMMARY: A 74-year-old female patient, who presented here with chest pain. Thank you for this consultation. We will follow with you. Job ID: [id number]
[2019-08-27 18:53] LABS: Troponin I 0.037 ng/mL (< 0.028)
[2019-08-27] MEDS: Nitroglycerin 2% Ointment 1 INCH/1 GM Packet TOP SCH (20:08)
[2019-08-27] MEDS: Carvedilol 3.125 MG TAB PO SCH (21:31)
[2019-08-27] MEDS: Zolpidem Tartrate 5 MG TAB PO SCH (21:32)
[2019-08-27] MEDS: HYDROcodone/Acetaminophen 10/325 mg Tablet PO SCH (21:32)
[2019-08-27] MEDS: Gabapentin 300 MG CAP PO SCH (21:32)
[2019-08-28 05:22] LABS: Anion Gap 16 mmol/L (10-20); BUN (Urea Nitrogen) 41 mg/dL (9.8-20.1); Calc. Creatinine Clearance 13 mL/min (70-130); Calcium 8.2 mg/dL (7.8-10.44); Carbon Dioxide 19 mmol/L (23-31); Cardiac Risk 3.2 (Less than 4.5); Chloride 110 mmol/L (98-107); Cholesterol 149 mg/dl (< 200 Desired); Estimated GFR-MDRD 7; Glucose 88 mg/dL (83-110); HDL Cholesterol 47 mg/dL (>60 Neg Risk); LDL Cholesterol, Calculated 82 mg/dL; Potassium 4.2 mmol/L (3.5-5.1); Sodium 141 mmol/L (136-145); Triglycerides 101 mg/dL (Less than 150)
[2019-08-28 05:25] LABS: Troponin I 0.016 ng/mL (< 0.028)
[2019-08-28] MEDS: Nitroglycerin 2% Ointment 1 INCH/1 GM Packet TOP SCH (05:36)
[2019-08-28 06:39] LABS: #Eosinphils 0.2 thou/uL (0.0-0.7); #Lymphocytes 1.6 thou/uL (1.20-3.40); #Monocytes 0.5 thou/uL (0.11-0.59); #Neutrophils 4.6 thou/uL (1.40-6.50); %Basophils 0.4 % (0.0-1.0); %Lymphocytes 22.6 % (21.0-51.0); %Monocytes 7.4 % (0.0-10.0); %Neutrophils 66.5 % (42.0-75.0); Band 1 % (5-11); Eosinophils 1 % (0-10); Hemoglobin 10.5 g/dL (12.0-16.0); Hypochromia SLIGHT = 6-15 cells (100X) (0-5/hpf); Lymphocytes 20 % (21-51); MDiff Complete? YES; Mean Corpuscular HGB CONC 31.5 g/dL (32.0-36.0); Mean Corpuscular Hemoglobin 31.1 pg (27.0-31.0); Mean Corpuscular Volume 98.6 fL (78.0-98.0); Mean Platelet Volume 8.7 fL (7.4-10.4); Monocytes 9 % (0-10); Neutrophil 68 % (42-75); Platelet Count 114 thou/uL (130-400); Platelet Morphology Comment Appears Decreased; RBC Distribution Width 14.1 % (11.5-14.5); Reactive Lymphocytes 1 % (0-10); Red Blood Cell (RBC) Count 3.38 mill/uL (4.20-5.40); White Blood Cell (WBC) Count 6.9 thou/uL (4.8-10.8)
[2019-08-28] MEDS ORDERED: Labetalol HCl 100 MG/20 ML VIAL SLOW IVP PRN ×2 (08:58→11:53)
[2019-08-28] MEDS ORDERED: ADENOSINE 60 MG/20 ML VIAL ONE (09:26)
[2019-08-28] MEDS: Aspirin Chewable 81 MG TAB PO SCH (11:11)
[2019-08-28] MEDS: Carvedilol 3.125 MG TAB PO SCH ×2 (11:12→16:27)
[2019-08-28] MEDS: Gabapentin 300 MG CAP PO SCH ×2 (11:12→20:53)
[2019-08-28] MEDS: Folic Acid/Vit B Comp W-C PO SCH (11:12)
[2019-08-28] MEDS: Famotidine 20 MG TAB PO SCH (11:12)
[2019-08-28] MEDS ORDERED: Carvedilol 3.125 MG TAB PO PRN (11:48)
[2019-08-28] MEDS ORDERED: Polyethylene Glycol 3350 17 GM Packet PO PRN (11:48)
--- NOTE | 2019-08-28 12:10 | PRG ---
DATE OF SERVICE: 08/28/2019 SUBJECTIVE: A 74-year-old female with end-stage renal disease on hemodialysis, morbid obesity, and hypertension, presented to the emergency room yesterday with chest discomfort. She denies any chest discomfort at this time. No nausea, vomiting, or shortness of breath reported. REVIEW OF SYSTEMS: All other review of systems reviewed and were found negative. MEDICATIONS: Current medications were reviewed. OBJECTIVE: VITAL SIGNS: Temperature 97.6, pulse of 69, respirations 20, blood pressure 158/70, O2 saturation 98% on room air. Telemetry monitoring by my review showed sinus rhythm. GENERAL: A 74-year-old female, in no apparent distress. LUNGS: Clear to auscultation bilaterally. No wheezing, rales, or rhonchi. HEART: S1 and S2 present. Regular rate and rhythm. No rubs or gallops. ABDOMEN: Soft, bowel sounds present. EXTREMITIES: No edema or calf tenderness. NEUROLOGIC: Grossly nonfocal. LABORATORY FINDINGS: Troponin of 0.037, repeat troponin 0.016. Creatinine 5.99 with BUN 41. Hemoglobin 10.5 with hematocrit 33.3. IMAGING STUDIES: Chest x-ray by my review was negative for infiltrate or edema. Telemetry monitoring by my review as discussed above. IMPRESSION: 1. Chest discomfort, rule out acute coronary syndrome. 2. Obesity with a BMI of 38.8. 3. Gastroesophageal reflux disease. 4. End-stage renal disease, on peritoneal dialysis. 5. Chronic anemia due to renal insufficiency. 6. Anxiety. 7. Depression, mild stable. 8. History of pulmonary embolism, completed anticoagulation. 9. Hypertension. 10. Coronary artery disease. 11. Suspected sleep apnea, sleep study as outpatient is recommended. PLAN: We will continue aspirin along with carvedilol for now. Stress test is pending at this time. Sleep study as outpatient is recommended. Blood pressure at this time is in 180s systolic. We will add p.r.n. antihypertensives as needed. Nephrology managing the peritoneal dialysis. DISPOSITION: The patient will need resting images for stress test tomorrow. The patient can be discharged if the stress test is negative in the a.m. Job ID: [id number]
[2019-08-28] MEDS ORDERED: Nitroglycerin 2% Ointment 1 INCH/1 GM Packet TOP SCH (18:15)
[2019-08-28] MEDS: Zolpidem Tartrate 5 MG TAB PO SCH (20:53)
[2019-08-28] MEDS: HYDROcodone/Acetaminophen 10/325 mg Tablet PO SCH (20:53)
--- NOTE | 2019-08-29 06:58 | PRG ---
DATE OF SERVICE: 08/29/2019 SUBJECTIVE: The patient was seen and examined, noted to be hemodynamically stable. OBJECTIVE: HEENT: Unremarkable. CARDIOVASCULAR SYSTEM: First and second heart sounds were heard. RESPIRATORY SYSTEM: Clear to auscultation. DIGESTIVE SYSTEM: Revealed a benign abdomen. IMPRESSION: 1. End-stage renal disease, on peritoneal dialysis. 2. . PLAN: 1. Continue with peritoneal dialysis. 2. Further management will be dependent on the clinical course. Job ID: [id number]
[2019-08-29 08:10] VITALS: TEMP 98.4
[2019-08-29] MEDS: Famotidine 20 MG TAB PO SCH (10:04)
[2019-08-29] MEDS: Aspirin Chewable 81 MG TAB PO SCH (10:04)
[2019-08-29] MEDS: Gabapentin 300 MG CAP PO SCH (10:04)
[2019-08-29] MEDS: Folic Acid/Vit B Comp W-C PO SCH (10:04)
[2019-08-29] MEDS: Carvedilol 3.125 MG TAB PO SCH (10:05)
--- NOTE | 2019-08-29 10:42 | NM ---
NM Cardiac Stress W EF WF History: Chest pain Comparison: Radiograph prior day for reference Findings: Stress and rest performed after the intravenous administration of 28.2 and 28.2 mCi technet ium 99m sestamibi, respectively. No reversible ischemia. Normal wall motion. The calculated ejection fraction is 61%. Impression: 1. No evidence for reversible ischemia. 2. Normal wall motion and ejection fraction.
[2019-08-29] MEDS ORDERED: Amlodipine 5 MG TAB PO SCH (11:00)
[2019-08-29 12:53] VITALS: BP 155/70
--- NOTE | 2019-08-29 14:55 | DIS ---
DATE OF ADMISSION: 08/27/2019 DATE OF DISCHARGE: 08/29/2019 DISCHARGE DISPOSITION: Home. FOLLOWUP: Follow up with primary care physician, Dr. Levi Quach in 1 week. ALLERGIES: NO KNOWN DRUG ALLERGIES. DISCHARGE MEDICATIONS: Amlodipine 5 mg daily. All other home medications were left unchanged. The patient was seen and examined on the day of discharge. The patient denies any new complaints. No new chest pain, shortness of breath, or palpitations reported. BRIEF HOSPITAL COURSE: The patient is a 74-year-old female with end-stage renal disease, on peritoneal dialysis, hypertension, presented to the emergency room with chest discomfort. Please refer to the history and physical for further details. The patient was admitted to the hospital with a diagnosis of chest discomfort, rule out acute coronary syndrome. Serial troponins were negative. She underwent a Cardiolite stress test that was negative for reversible ischemia. She is chest pain free at this time. Due to elevated blood pressure, amlodipine was added. She appears stable for discharge. FINAL DIAGNOSES: 1. Chest discomfort, acute coronary syndrome ruled out. 2. End-stage renal disease, on peritoneal dialysis. 3. Gastroesophageal reflux disease. 4. Obesity with a body mass index of 38.8. 5. Chronic anemia due to renal insufficiency. 6. Anxiety. 7. History of pulmonary embolism. Completed anticoagulation. 8. Depression, mild, stable. 9. Hypertension. 10. Suspected sleep apnea. A sleep study as outpatient is recommended. 11. Coronary artery disease. Job ID: [id number]
== END 2019-08-29 13:20 | disposition home or self-care (01) ==
LOC: ERS 11:07 → ERHOLD 13:07 → 2SW 15:03
PROVIDERS: ADMIT Internal Medicine; ATTEND Internal Medicine
DX: R07.89 Other chest pain (principal); I12.0 Hypertensive chronic kidney disease with stage 5 chronic kidney disease or end stage renal disease; N18.6 End stage renal disease; D63.1 Anemia in chronic kidney disease; K21.9 Gastro-esophageal reflux disease without esophagitis; G89.29 Other chronic pain; M54.5 Low back pain; F41.9 Anxiety disorder, unspecified; F32.9 Major depressive disorder, single episode, unspecified; I25.10 Atherosclerotic heart disease of native coronary artery without angina pectoris; E66.01 Morbid (severe) obesity due to excess calories; Z68.38 Body mass index [BMI] 38.0-38.9, adult; Z86.711 Personal history of pulmonary embolism; Z99.2 Dependence on renal dialysis; Z79.899 Other long term (current) drug therapy
CPT/HCPCS: 71045; 74018; 78452; 80048; 80053; 80061; 82550; 83690; 84484 ×3; 85025 ×2; 93005; 93017; 94760 ×2; 96374; 96375; 99285; A9500; G0378 ×4; 36415; 90945; G0257; J0153; J0360

== ENCOUNTER 2019-09-13 15:19 | Emergency (ER) | payer MEDICARE, BC ==
--- NOTE | 2019-09-13 16:27 | CT ---
CT BRAIN WITHOUT CONTRAST: History: Fall, hit head on coffee table. Patient has been on Eliquis for one month. No loss of consci ousness. Left supraorbital swelling. Comparison: 02-27-19 FINDINGS: No evidence of acute infarct, hemorrhage, midline shift, or abnormal extraaxial fluid collections are seen. The ventricular size is appropriate and the basilar cisterns patent. Changes of chronic small vessel ischemic disease are again seen. The bony calvarium is intact. The visualized paranasal sinuse s and mastoid air cells are well aerated. Soft tissue contusion is seen on the left frontal scalp. IMPRESSION: No CT evidence of acute intracranial process. POS: [facility]
--- NOTE | 2019-09-13 18:46 | RAD ---
LEFT SHOULDER THREE VIEWS: History: Fall FINDINGS: Deformity of the humeral head along the superior lateral margin may represent old Hill-Sachs deformit y. No evidence of dislocation. AC joint is normally aligned. IMPRESSION: Deformity of the humeral head, possibly old Hill-Sachs deformity. Acute fracture not excluded. POS: [facility]
== END 2019-09-13 19:15 | disposition home or self-care (01) ==
LOC: ERS 15:19
DX: S01.81XA Laceration without foreign body of other part of head, initial encounter (principal); I12.0 Hypertensive chronic kidney disease with stage 5 chronic kidney disease or end stage renal disease; N18.6 End stage renal disease; W18.30XA Fall on same level, unspecified, initial encounter
CPT/HCPCS: 70450

== ENCOUNTER 2020-07-03 12:29 | Emergency (ER) | payer MEDICARE, BC ==
[~2020-07-03 12:29] MED LIST changes: -ISOVUE-370 76%-LOCM 1 ML ONE; +Iopamidol 370 76% 100 ML VIAL ONE
[2020-07-03 15:19] LABS: #Basophils 0.1 thou/uL (0.0-0.2); #Eosinphils 0.1 thou/uL (0.0-0.7); #Lymphocytes 1.1 thou/uL (1.20-3.40); #Monocytes 0.3 thou/uL (0.11-0.59); #Neutrophils 5.4 thou/uL (1.40-6.50); %Basophils 0.8 % (0.0-1.0); %Eosinophils 1.1 % (0.0-10.0); %Lymphocytes 16.2 % (21.0-51.0); %Monocytes 4.9 % (0.0-10.0); Hemoglobin 9.3 g/dL (12.0-16.0); Mean Corpuscular HGB CONC 30.2 g/dL (32.0-36.0); Mean Corpuscular Hemoglobin 30.7 pg (27.0-31.0); Mean Platelet Volume 4.8 fL (7.4-10.4); Platelet Count 155 thou/uL (130-400); RBC Distribution Width 13.1 % (11.5-14.5); Red Blood Cell (RBC) Count 3.03 mill/uL (4.20-5.40); White Blood Cell (WBC) Count 6.9 thou/uL (4.8-10.8)
[2020-07-03 15:28] LABS: ALT (SGPT) 8 U/L (8-55); AST (SGOT) 10 U/L (5-34); Alkaline Phosphatase 124 U/L (40-110); Anion Gap 20 mmol/L (10-20); BUN (Urea Nitrogen) 63 mg/dL (9.8-20.1); Bilirubin, Total 0.6 mg/dL (0.2-1.2); Calc. Creatinine Clearance 0 mL/min (70-130); Calcium 7.8 mg/dL (7.8-10.44); Carbon Dioxide 18 mmol/L (23-31); Chloride 107 mmol/L (98-107); Glucose 99 mg/dL (83-110); Lipase 38 U/L (8-78); Potassium 4.6 mmol/L (3.5-5.1); Sodium 140 mmol/L (136-145)
[2020-07-03] MEDS ORDERED: Ondansetron PF 4 MG/2 ML Vial ONE (17:22)
[2020-07-03] MEDS ORDERED: Morphine 4 MG/ML VIAL ONE (17:23)
--- NOTE | 2020-07-03 18:25 | RAD ---
Exam: Chest one view HISTORY:Pain. Fall. Comparison: 08/27/2019 FINDINGS: Cardiac silhouette:Upper normal cardiac silhouette Aorta: Unremarkable Pulmonary vessels: Normal Costophrenic angles: Clear LUNGS: No masses or consolidation. Pneumothorax: None Osseous abnormalities: None IMPRESSION: No acute cardiopulmonary process.
[2020-07-03 18:36] LABS: Bacteria/HPF None Seen HPF (None Seen); Bilirubin Negative (Negative); Blood, Urine 1+ (Negative); Clarity Clear (Clear); Glucose, Urine (Dipstick) 30 mg/dL (Negative); Ketone, Urine Negative (Negative); Leukocyte Negative Leu/uL (Negative); Nitrite Negative (Negative); Protein, Urine (Dipstick) 30 mg/dL (Neg-Trace); RBC/HPF 0-3 HPF (0-3); Specific Gravity, Urine 1.009 (1.002-1.036); Squamous Epithelial 0-3 HPF (0-3); Urobilinogen Normal mg/dL (Less than 2); WBC/HPF 0-3 HPF (0-3); pH, Urine 6.5 (5.0-9.0)
--- NOTE | 2020-07-03 19:03 | CT ---
CT CERVICAL SPINE: Date: 07-03-2020 PROVIDED CLINICAL HISTORY: Compressive weakness. FINDINGS: Comparison 02-27-2019. There is no evidence for fracture or traumatic subluxation. Cervical degenerative changes are redemon strated, with calcified disc herniation at C5-6 producing stable central canal stenosis. Areas of for aminal narrowing are also noted, which do not appear significantly changed with respect to prior. No prevertebral soft tissue swelling apparent. The visualized lung apices appear clear. IMPRESSION: Cervical degenerative changes without evidence for fracture or traumatic subluxation. POS: [facility]
--- NOTE | 2020-07-03 19:11 | CT ---
CT ABDOMEN AND PELVIS WITH IV CONTRAST LIMITED CT LUMBAR SPINE: Date: 07-03-2020 PROVIDED CLINICAL HISTORY: Weakness, abdominal pain status post fall. FINDINGS: There is a small right sided pleural effusion. There is free intraperitoneal fluid presumably on the basis of peritoneal dialysis, with a peritoneal dialysis catheter noted coiled within the pelvis. The solid abdominal organs demonstrate no evidence for traumatic abnormality. There is no bowel dilat ation, inflammatory fat stranding, free air or lymph node enlargement apparent. Sagittal and coronal lumbar spine reconstructions demonstrates degenerative change with anterolisthes is of L4 on L5. There is no evidence for fracture. There is multilevel severe foraminal narrowing on the basis of broad disc bulges and bilateral facet arthritis. IMPRESSION: No evidence for traumatic abnormality. POS: [facility]
[2020-07-04 02:07] LABS: SARS-CoV-2 MS2 Positive; SARS-CoV-2 N Gene Negative; SARS-CoV-2 S Gene Negative; SARS-CoV-2 by NAA Not Detected (NotDetected); SARS-CoV-2 orf1ab Negative
== END 2020-07-03 20:21 | disposition home or self-care (01) ==
LOC: ERS 12:29
DX: I12.0 Hypertensive chronic kidney disease with stage 5 chronic kidney disease or end stage renal disease (principal); N18.6 End stage renal disease; N39.0 Urinary tract infection, site not specified; Z79.899 Other long term (current) drug therapy; Z20.822 Contact with and (suspected) exposure to COVID-19
CPT/HCPCS: 51701; 71045; 72125; 74177; 80053; 83690; 85025; 87086; 96374; 96375; 99285; U0003; 36415; 81003; 81015; 87635; J2270; J2405; Q9967

== ENCOUNTER 2020-07-05 09:29 | Inpatient (IN) | payer MEDICARE, BC ==
[2020-07-05] MEDS ORDERED: Norepinephrine 4 MG/4 ML VIAL ONE (10:39)
[2020-07-05] MEDS ORDERED: Cefepime 2 GM VIAL ONE (10:49)
[2020-07-05 11:00] LABS: Bilirubin Negative (Negative); Blood, Urine Negative (Negative); Clarity Turbid (Clear); Glucose, Urine (Dipstick) Normal (Negative); Ketone, Urine Negative (Negative); Leukocyte Negative Leu/uL (Negative); Nitrite Negative (Negative); Protein, Urine (Dipstick) 100 mg/dL (Neg-Trace); RBC/HPF 0-3 HPF (0-3); Specific Gravity, Urine 1.023 (1.002-1.036); Urobilinogen Normal mg/dL (Less than 2)
[2020-07-05 11:01] LABS: Bacteria/HPF 1+ HPF (None Seen)
[2020-07-05 11:04] LABS: Hemoglobin 9.6 g/dL (12.0-16.0); Mean Corpuscular HGB CONC 29.1 g/dL (32.0-36.0); Mean Corpuscular Hemoglobin 30.1 pg (27.0-31.0); Platelet Count 134 thou/uL (130-400); RBC Distribution Width 12.8 % (11.5-14.5); Red Blood Cell (RBC) Count 3.19 mill/uL (4.20-5.40); White Blood Cell (WBC) Count 7.4 thou/uL (4.8-10.8)
[2020-07-05 11:05] LABS: #Eosinphils 0.1 thou/uL (0.0-0.7); #Lymphocytes 0.5 thou/uL (1.20-3.40); #Monocytes 0.2 thou/uL (0.11-0.59); #Neutrophils 6.6 thou/uL (1.40-6.50); %Basophils 0.2 % (0.0-1.0); %Eosinophils 0.8 % (0.0-10.0); %Monocytes 3.3 % (0.0-10.0); %Neutrophils 88.7 % (42.0-75.0)
--- NOTE | 2020-07-05 11:10 | RAD ---
PORTABLE CHEST: HISTORY: Right-sided flank pain. Fell out of bed. Sepsis and COVID exposure. COMPARISON: 07/03/2020 study. FINDINGS: Heart size is enlarged. Mediastinal structures appear unremarkable. Lungs are clear of any infiltra tive process. No signs of failure. IMPRESSION: Mild cardiomegaly. POS: [facility]
[2020-07-05] MEDS ORDERED: Fentanyl 100 MCG/2 ML VIAL ONE (11:27)
[2020-07-05 11:34] LABS: Hypochromia SLIGHT = 6-15 cells (100X) (0-5/hpf); Polychromasia SLIGHT = 2-3 cells (100X) (0-2/hpf)
[2020-07-05 11:35] LABS: ALT (SGPT) Less than 7 U/L (8-55); AST (SGOT) 10 U/L (5-34); Albumin 2.9 g/dL (3.4-4.8); Alkaline Phosphatase 119 U/L (40-110); Anion Gap 19 mmol/L (10-20); BUN (Urea Nitrogen) 66 mg/dL (9.8-20.1); Bilirubin, Total 0.5 mg/dL (0.2-1.2); Calc. Creatinine Clearance 0 mL/min (70-130); Calcium 7.7 mg/dL (7.8-10.44); Carbon Dioxide 16 mmol/L (23-31); Chloride 108 mmol/L (98-107); Globulin 3.4 g/dL (2.4-3.5); Glucose 95 mg/dL (83-110); Potassium 5.4 mmol/L (3.5-5.1); Protein, Total 6.3 g/dL (6.0-8.3); Sodium 138 mmol/L (136-145)
[2020-07-05 11:47] LABS: CKMB 2.4 ng/mL (0-6.6)
[2020-07-05 13:37] LABS: SARS-CoV-2 NAA Rapid Test Not Detected (NotDetected)
[2020-07-05] MEDS ORDERED: Acetaminophen 325 MG/10.15 ML UDCUP PO PRN (14:40)
[2020-07-05] MEDS ORDERED: Norepinephrine 8 MG/0.9% NS 250 ML IVPB PRN (14:40)
[2020-07-05 14:46] LABS: Troponin I 0.153 ng/mL (< 0.028)
--- NOTE | 2020-07-05 15:44 | HP ---
CHIEF COMPLAINT: Generalized weakness. HISTORY OF PRESENT ILLNESS: The patient is a 75-year-old female with past medical history of end-stage renal disease, on peritoneal dialysis; hypertension; and pulmonary emboli; who was brought to the emergency department today by her family due to complaints of generalized weakness over the past 3 to 4 days. The patient was not able to eat or drink due to lack of appetite. She fell multiple times at home. In the ED, the patient was found to be in a state of shock, which did not respond to 2 L of IV fluids. She was subsequently placed on vasopressors. The patient is alert and oriented. She stated that she feels generally weak, but otherwise has no specific complaints. She denies fever, chills, nausea, vomiting, chest pain, cough, shortness of breath, abdominal pain, or change in her bowel habit. Her COVID-19 test in the ER was negative. PAST MEDICAL HISTORY: As noted above. SURGICAL HISTORY: Cholecystectomy, appendectomy, hysterectomy, and AV fistula placement. SOCIAL HISTORY: The patient lives at home with her family. Denies alcohol use, illicit drug use, or smoking. REVIEW OF SYSTEMS: Negative except as noted in HPI. FAMILY HISTORY: Noncontributory for the current presentation. PHYSICAL EXAMINATION: GENERAL: The patient is alert and oriented x3. HEENT: Head is normocephalic and atraumatic. Extraocular muscles are intact. NECK: Supple. CHEST: Auscultation reveals fine crackles bilaterally. CARDIOVASCULAR: Showed normal S1 and S2 with regular rate and rhythm. No murmurs, rubs, or gallops. ABDOMEN: Soft, nontender, nondistended. NEUROLOGIC: Nonfocal. PERTINENT LABORATORY DATA: CBC was largely unremarkable with the exception of hemoglobin of 9.6. BMP showed elevated BUN and creatinine as expected that the patient has history of end-stage renal disease. Potassium level was elevated at 5.4. Initial troponin was 0.135. ASSESSMENT: 1. Septic shock. 2. End-stage renal disease, on peritoneal dialysis. 3. Hyperkalemia. 4. Troponin leak. PLAN: The patient will be admitted to intensive care unit. We will start broad-spectrum antibiotics of vancomycin and Zosyn with pharmacy to dose and monitor. Cultures of the blood and peritoneal fluid were obtained. Consult the patient's third steel pourer. Continue Levophed and titrate for MAP greater than 65. Troponin elevation is likely due to history of renal failure in addition to demand ischemia from septic shock state. Job ID: [id number]
[2020-07-05 17:13] LABS: Troponin I 0.179 ng/mL (< 0.028)
[2020-07-05] MEDS ORDERED: Piperacillin/Tazobactam 3.375 GM in Sodium Chloride 0.9% 100 ML IVPB SCH (18:00)
--- NOTE | 2020-07-05 18:46 | CON ---
DATE OF CONSULTATION: REASON FOR CONSULTATION: Need for maintenance hemodialysis. IMPRESSION: 1. End-stage renal disease, on peritoneal dialysis. 2. Mild hyperkalemia. 3. Sepsis, possibly of urinary tract origin. PLAN: 1. The patient to be placed back on her regular maintenance peritoneal dialysis. 2. Renally adjust medication. Please reduce the heparin subcu to b.i.d. 3. Further management to be dependent on the clinical course. HISTORY OF PRESENT ILLNESS: History is that of 75-year-old female patient with end-stage renal disease, peritoneal dialysis dependent, who has not been feeling well for several days now, feeling weak and presented today and noted to be in septic shock, possibly of urinary source of origin. As a result of the need for maintenance dialysis, decision has been taken to involve Renal in the management of this case. PAST MEDICAL HISTORY: Significant for end-stage renal disease, hypertension, pulmonary embolism in the past, DVT. MEDICATIONS: Reviewed and as documented on [employer]. SOCIAL HISTORY: . No alcohol. No tobacco. No illicit drug use. FAMILY HISTORY: Nonsignificantly related to present illness. REVIEW OF SYSTEMS: As documented in the body of the history. All other systems were reviewed and found not to be significantly related to present illness. LABORATORY INVESTIGATION: Showed a hemoglobin of 9.6. Chemistry showed a potassium of 5.4, BUN of 63 with creatinine of 8.7. responded somewhat to IV fluid resuscitation with blood pressure systolic in the one teens. PHYSICAL EXAMINATION: HEENT EXAMINATION: Unremarkable. CARDIOVASCULAR SYSTEM: First and second heart sounds were heard. RESPIRATORY SYSTEM: Clear to auscultation. DIGESTIVE SYSTEM: Revealed a benign abdomen. Positive bowel sounds. EXTREMITIES: No peripheral edema. SKIN EXAMINATION: No new gross rash. LYMPHATICS: No peripheral lymphadenopathy. SUMMARY: A 75-year-old female patient with end-stage renal disease, peritoneal dialysis dependent, who presented with signs and symptoms suggestive of sepsis due to urinary source of origin. Thank you for this consultation. We will follow with you. Job ID: [id number]
[2020-07-05] MEDS ORDERED: HYDROmorphone 0.5 MG/0.5 ML SYRINGE SLOW IVP PRN (20:12)
[2020-07-05] MEDS ORDERED: Norepinephrine 8 MG in Dextrose 5% in Water 242 ML IVPB PRN (20:15)
[2020-07-05] MEDS: Heparin 5,000 UNITS/ML VIAL SC SCH (20:56)
[2020-07-05] MEDS ORDERED: HOLD VANCOMYCIN FOR LEVEL >20 IVP SCH (21:00)
[2020-07-05] MEDS ORDERED: Vancomycin HCl 750 MG in Sodium Chloride 0.9% 250 ML 250 ML IVPB SCH (21:00)
[2020-07-05] MEDS ORDERED: Vancomycin HCl 1.25 GM in Sodium Chloride 0.9% 250 ML 250 ML IVPB SCH (21:00)
[2020-07-05] MEDS ORDERED: Vancomycin 1 GM in Premix Bag 1 BAG IVPB SCH (21:00)
[2020-07-05] MEDS ORDERED: Vancomycin HCl 1.5 GM in Sodium Chloride 0.9% 250 ML 300 ML IVPB SCH (21:00)
[2020-07-05] MEDS ORDERED: Heparin 5,000 UNITS/ML VIAL SC SCH (21:00)
[2020-07-05] MEDS: Piperacillin/Tazobactam 2.25 GM in Sodium Chloride 0.9% 100 ML IVPB SCH (22:07)
[2020-07-06 04:56] LABS: Band 3 % (5-11); Eosinophils 3 % (0-10); Hemoglobin 8.8 g/dL (12.0-16.0); Lymphocytes 6 % (21-51); MDiff Complete? YES; Macrocytosis SLIGHT = 6-15 cells (100X) (0-5/hpf); Mean Corpuscular HGB CONC 30.9 g/dL (32.0-36.0); Mean Corpuscular Hemoglobin 31.9 pg (27.0-31.0); Mean Platelet Volume 7.6 fL (7.4-10.4); Metamyelocyte 1 % (0-0); Monocytes 7 % (0-10); Neutrophil 79 % (42-75); Platelet Count 186 thou/uL (130-400); RBC Distribution Width 12.8 % (11.5-14.5); Red Blood Cell (RBC) Count 2.74 mill/uL (4.20-5.40); White Blood Cell (WBC) Count 12.5 thou/uL (4.8-10.8)
[2020-07-06 05:23] LABS: HBSAg Index 0.17 S/CO (0-0.99); Hep B Surf Ag Non-Reactive S/CO (NonReactive)
[2020-07-06 05:46] LABS: Albumin 2.8 g/dL (3.4-4.8); Anion Gap 17 mmol/L (10-20); BUN (Urea Nitrogen) 69 mg/dL (9.8-20.1); BUN/Creatinine Ratio 7.57; Calc. Creatinine Clearance 9 mL/min (70-130); Carbon Dioxide 20 mmol/L (23-31); Chloride 106 mmol/L (98-107); Glucose 107 mg/dL (83-110); Potassium 4.8 mmol/L (3.5-5.1); Sodium 138 mmol/L (136-145)
[2020-07-06 05:53] LABS: Phosphorus 9.5 mg/dL (2.3-4.7)
--- NOTE | 2020-07-06 08:17 | CON ---
DATE OF CONSULTATION: 07/06/2020 This is 75 minutes of time. Of that time, greater than 50% spent with the patient and/or the patient's unit in the hospital. REASON FOR CONSULTATION: Hypotension. HISTORY OF PRESENT ILLNESS: Ms. Tanner is a 75-year-old female, who presented to the emergency room yesterday with generalized weakness. She is very weak at the current time, cannot give history reliably. She quickly falls back to sleep. Apparently, she has been sick for the last 3-4 days. She is a peritoneal dialysis patient. I am not quite sure what the source of her infection is at this time. She is currently on Levophed through a right femoral central line. PAST MEDICAL HISTORY: 1. End-stage renal disease, requiring peritoneal dialysis. 2. Coronary artery disease. 3. Gastroesophageal reflux. 4. Anemia. 5. Arthritis. 6. Herniated disk. 7. Pulmonary embolism. 8. DVT-currently not on anticoagulation therapy that I can find. PAST SURGICAL HISTORY: 1. Appendectomy. 2. Cholecystectomy. 3. Gastrointestinal bypass. 4. Cholecystectomy. 5. Hysterectomy. 6. Unilateral salpingo-oophorectomy. SOCIAL HISTORY: Nonsmoker. Does not consume alcohol. Does not use illicit drugs. FAMILY MEDICAL HISTORY: Unremarkable. MEDICATIONS: Prior to admission, 1. Calcium carbonate 600 mg t.i.d. 2. Neurontin 100 mg daily. 3. Coreg 12.5 mg b.i.d. 4. Docusate 100 mg daily. 5. Cymbalta 30 mg daily. 6. Hydrocodone 10/325 two tablets nightly. 7. Omeprazole 10 mg daily. 8. Magnesium 3 tablets daily. 9. Zolpidem 10 mg nightly. Of note, she was on no anticoagulation at the time of admission. Current inpatient medications were reviewed. She has been placed on, 1. Heparin 5000 units b.i.d. subcu. 2. Zosyn. 3. Vancomycin. 4. Norepinephrine. REVIEW OF SYSTEMS: Difficult to obtain because the patient is obtunded. PHYSICAL EXAMINATION: VITAL SIGNS: Heart rate 71, blood pressure 120/37, O2 saturation 98%, respiratory rate 16, and temperature 97. GENERAL: She is lying in bed quiet, in no distress. HEENT: Unremarkable. NECK: No adenopathy, JVD, or bruits. LUNGS: Clear to auscultation. No wheezing or rhonchi. CARDIOVASCULAR: S1 and S2 regular with a soft 2/6 holosystolic murmur. ABDOMEN: Mildly tender to deep palpation. Peritoneal dialysis catheter noted in the left-sided abdomen. EXTREMITIES: Right femoral central line noted. No clubbing, cyanosis, or edema. LABORATORY DATA: COVID test negative. White blood cell count 12.5, hemoglobin 8.8, hematocrit 28.3, platelet count 186, 79% neutrophils, 3% bands. Sodium 138, potassium 4.8, chloride 106, CO2 of 20, BUN 69, creatinine 9.1, glucose 7.57. 24-hour culture results were negative. Gram stain of the peritoneal fluid showed moderate white blood cells, but no organisms. ASSESSMENT: 1. Presumed septic shock. 2. Need to assess for other potential causes of hypotension since its adrenal insufficiency. 3. End-stage renal disease, requiring peritoneal hemodialysis. 4. History of pulmonary embolism/deep venous thrombosis. PLAN: 1. I will check procalcitonin level. 2. Check cortisol level. 3. Wean Levophed as tolerated. 4. Continue antibiotics. Job ID: [id number]
[2020-07-06] MEDS: Piperacillin/Tazobactam 2.25 GM in Sodium Chloride 0.9% 100 ML IVPB SCH ×2 (10:11→20:58)
[2020-07-06] MEDS: Heparin 5,000 UNITS/ML VIAL SC SCH ×2 (10:11→20:59)
[2020-07-06] MEDS: Pantoprazole 40 MG VIAL IVP SCH (11:12)
--- NOTE | 2020-07-06 16:36 | PDOC.HOSPP ---
- Subjective Encounter Date: 07/06/20 Subjective: Patient is generally nonverbal and appears to be somewhat encephalopathic. Unable to give me any history. - Objective Vital Signs & Weight: Vital Signs (12 hours) Temp Pulse Ox 07/06/20 11:00 99.1 F 07/06/20 07:45 96 07/06/20 07:00 97.4 F L Weight Weight 231 lb 0.711 oz Most Recent Monitor Data Heart Rate from ECG 80 NIBP 117/98 NIBP BP-Mean 104 Respiration from ECG 14 SpO2 97 I&O: 07/05/20 07/06/20 07/07/20 06:59 06:59 06:59 Intake Total 177 Balance 177 Result Diagrams: 07/06/20 04:18 07/06/20 04:18 Hospitalist ROS - Medication Medications: Active Medications Generic Name Dose Route Start Last Admin Trade Name Freq PRN Reason Stop Dose Admin Heparin Sodium (Porcine) 5,000 units 07/05/20 21:00 07/06/20 10:11 Heparin 5,000 Units/Ml Vial SC 5,000 units BID JUAN CARLOS Administration Hydromorphone HCl 0.25 mg 07/05/20 20:12 07/05/20 20:56 Hydromorphone 0.5 Mg/0.5 Ml Syringe SLOW IVP 07/06/20 20:13 0.25 mg ONE PRN Administration Pain Norepinephrine Bitartrate 8 mg 250 mls @ 0 mls/hr 07/05/20 20:15 07/05/20 20:41 / Dextrose/Water IVPB 250 mls INF PRN Administration TO MAINTAIN MAP > 65 Protocol Titrate Piperacillin Sod/Tazobactam 100 mls @ 200 mls/hr 07/05/20 21:00 07/06/20 10:11 Sod 2.25 gm/ Sodium Chloride IVPB 100 mls Q12HR JUAN CARLOS Administration Pantoprazole Sodium 40 mg 07/06/20 09:00 07/06/20 11:12 Pantoprazole 40 Mg Vial IVP 40 mg DAILY JUAN CARLOS Administration Sodium Chloride 10 ml 07/05/20 21:00 07/06/20 10:12 Flush - Normal Saline 10 Ml Syringe IVF 10 ml Q12HR JUAN CARLOS Administration - Exam General Appearance: ill appearing General - other findings: Encephalopathic. Morbidly obese. Heart: RRR, no murmur, no gallops, no rubs, normal peripheral pulses Respiratory: CTAB, no wheezes, no rales, no ronchi, normal chest expansion, no tachypnea, normal percussion Gastrointestinal: soft, non-tender, non-distended, normal bowel sounds, no palpable masses, no bruit Gastrointestinal - other findings: Obese abdomen. Peritoneal catheter in place. Appears healthy. Extremities: no cyanosis, no clubbing, no edema Skin: normal turgor Hosp A/P (1) Hypotension Status: Acute (2) History of pulmonary embolus (PE) Code(s): Z86.711 - PERSONAL HISTORY OF PULMONARY EMBOLISM Status: Acute (3) Morbid obesity with BMI of 40.0-44.9, adult Code(s): E66.01 - MORBID (SEVERE) OBESITY DUE TO EXCESS CALORIES; Z68.41 - BODY MASS INDEX [BMI]40.0-44.9, ADULT Status: Acute (4) Anemia of renal disease Code(s): N18.9 - CHRONIC KIDNEY DISEASE, UNSPECIFIED; D63.1 - ANEMIA IN CHRONIC KIDNEY DISEASE Status: Chronic (5) Anxiety and depression Code(s): F41.9 - ANXIETY DISORDER, UNSPECIFIED; F32.9 - MAJOR DEPRESSIVE DISORDER, SINGLE EPISODE, UNSPECIFIED Status: Chronic (6) ESRD on peritoneal dialysis Code(s): N18.6 - END STAGE RENAL DISEASE; Z99.2 - DEPENDENCE ON RENAL DIALYSIS Status: Chronic (7) Hypertension Code(s): I10 - ESSENTIAL (PRIMARY) HYPERTENSION Status: Chronic (8) Encephalopathy Code(s): G93.40 - ENCEPHALOPATHY, UNSPECIFIED Status: Acute (9) Myocardial infarction type 2 Code(s): I21.A1 - MYOCARDIAL INFARCTION TYPE 2 Status: Acute (10) Hyperkalemia Code(s): E87.5 - HYPERKALEMIA Status: Acute - Plan Patient is a 75-year-old female with a history of end-stage renal disease on peritoneal dialysis. She presented to the emergency department with several days of progressive weakness and falls. Apparently she had poor p.o. intake as well. She was found to be hypotensive. In the emergency department she received fluid resuscitation with some mild initial response but subsequent recurrent hypotension requiring pressors. Patient was started on Levophed and admitted to the ICU. Hypotension: Initially concerning for sepsis although there is no specific site of infection identified. Empirically started on IV antibiotics. Her procalcitonin is normal making sepsis less likely. Her cortisol level is normal. At this point the source of her hypotension is still somewhat unclear. Sepsis: Again patient initially felt to have septic shock. Today she does have mild leukocytosis. She was started empirically on vancomycin and Zosyn. Peritoneal fluid has been sent for culture. Does not appear to initially represent significant peritoneal infection based on Gram stain of the fluid. With a low procalcitonin sepsis is less likely. Continue antibiotics and follow-up on cultures to fruition. Encephalopathy: Patient is very encephalopathic on exam today. She is lethargic and not able to communicate. We will check an ammonia level. Obtain head CT. End-stage renal disease on peritoneal dialysis: Patient has been seen in consultation by her sports trainer. Continue peritoneal dialysis. NSTEMI type II: Secondary to hypotensive injury. 75-year-old with end-stage renal disease these numbers are not significantly concerning. Hyperkalemia: Resolved with fluid resuscitation given in the ER. DVT prophylaxis: Heparin twice daily. PUD prophylaxis: IV pantoprazole.
--- NOTE | 2020-07-06 17:39 | PRG ---
DATE OF SERVICE: 07/06/2020 OBJECTIVE: VITAL SIGNS: The patient has been noted with the following vital signs; blood pressure 170/98, pulse 80, respiratory rate of 14, O2 saturation 97%, afebrile. HEENT EXAMINATION: Unremarkable. CARDIOVASCULAR SYSTEM: First and second heart sounds were heard. RESPIRATORY SYSTEM: Clear to auscultation. DIGESTIVE SYSTEM: Benign abdomen. Positive bowel sounds. EXTREMITIES: No peripheral edema. SKIN EXAMINATION: No new gross rash. LYMPHATICS: No peripheral lymphadenopathy. LABORATORY INVESTIGATION: Showed a hemoglobin of 8.8, white count 2.5. Chemistry showed a creatinine of 9.11 with BUN of 69. IMPRESSION: 1. End-stage renal disease, on hemodialysis. 2. Sepsis in the context of possible urinary tract infection. 3. Obesity. 4. Anemia of chronic kidney disease. PLAN: 1. Continue current prescription using 1.5% of peritoneal fluid. 2. Antibiotic treatment for the infection. 3. Further management to be dependent on the clinical course. Job ID: [id number]
[2020-07-07 04:54] LABS: ALT (SGPT) Less than 7 U/L (8-55); AST (SGOT) 8 U/L (5-34); Albumin 2.5 g/dL (3.4-4.8); Alkaline Phosphatase 90 U/L (40-110); Anion Gap 18 mmol/L (10-20); BUN (Urea Nitrogen) 62 mg/dL (9.8-20.1); BUN/Creatinine Ratio 6.92; Bilirubin, Total 0.5 mg/dL (0.2-1.2); Calc. Creatinine Clearance 9 mL/min (70-130); Calcium 7.4 mg/dL (7.8-10.44); Carbon Dioxide 21 mmol/L (23-31); Chloride 106 mmol/L (98-107); Glucose 91 mg/dL (83-110); Phosphorus 8.5 mg/dL (2.3-4.7); Potassium 4.6 mmol/L (3.5-5.1); Protein, Total 5.5 g/dL (6.0-8.3); Sodium 140 mmol/L (136-145)
[2020-07-07 05:13] LABS: Band 2 % (5-11); Eosinophils 6 % (0-10); Hemoglobin 7.8 g/dL (12.0-16.0); Lymphocytes 9 % (21-51); MDiff Complete? YES; Mean Corpuscular HGB CONC 31.1 g/dL (32.0-36.0); Mean Corpuscular Hemoglobin 31.4 pg (27.0-31.0); Mean Platelet Volume 7.6 fL (7.4-10.4); Monocytes 3 % (0-10); Neutrophil 78 % (42-75); Platelet Count 139 thou/uL (130-400); Platelet Morphology Comment Appears Adequate; RBC Distribution Width 12.6 % (11.5-14.5); Red Blood Cell (RBC) Count 2.47 mill/uL (4.20-5.40); White Blood Cell (WBC) Count 8.7 thou/uL (4.8-10.8)
[2020-07-07] MEDS ORDERED: Cosyntropin 250 MCG VIAL SLOW IVP SCH (07:30)
--- NOTE | 2020-07-07 09:09 | PRG ---
DATE OF SERVICE: 07/07/2020 SUBJECTIVE: Ms. Tanner remains in the ICU. She was on a low-dose Levophed drip. We have just turned that off to see how she does. OBJECTIVE: VITAL SIGNS: Temperature 98.9, pulse 78, blood pressure currently 120/49, O2 saturation 97%. HEENT: Unremarkable. NECK: No adenopathy or JVD. LUNGS: Clear anteriorly. CARDIAC: S1, S2. Regular. ABDOMEN: Soft. EXTREMITIES: No edema. DIAGNOSTIC STUDIES: Cultures are growing out coag-negative staph out of one bottle, which I would probably consider a contaminant. LABORATORY DATA: White blood cell count 8.7, hematocrit 25, platelet count 139. Sodium 140, potassium 4.6, chloride 106, CO2 of 21, BUN 62, creatinine 8.9, glucose 91. Procalcitonin was 0.3. Cortisol 12.4. ASSESSMENT: Hypotension-etiology undetermined. Her procalcitonin and other labs do not really support a diagnosis of septic shock. Adrenal insufficiency is definitely in the differential as the patient would have an inappropriately low cortisol level if sepsis was truly present. The other considerations the patient could be volume depleted from peritoneal dialysis. The last explanation would be possible cardiac issues if nothing else would be found. RECOMMENDATIONS: 1. We will do an ACTH stim test today. 2. Start some midodrine in hopes of getting her off the Levophed. 3. If she can keep an appropriate blood pressure off the Levophed then she can be transferred to the floor later today. Job ID: [id number]
[2020-07-07] MEDS: Heparin 5,000 UNITS/ML VIAL SC SCH ×2 (09:43→21:31)
[2020-07-07] MEDS: Acetaminophen 500 MG TAB PO PRN (09:43)
[2020-07-07] MEDS: Piperacillin/Tazobactam 2.25 GM in Sodium Chloride 0.9% 100 ML IVPB SCH ×2 (09:44→21:31)
[2020-07-07] MEDS: Midodrine HCl 5 MG TAB PO SCH ×3 (09:44→21:30)
[2020-07-07] MEDS: Pantoprazole 40 MG VIAL IVP SCH (09:44)
--- NOTE | 2020-07-07 10:15 | CT ---
NONCONTRAST CT HEAD: Date: 07/07/2020 HISTORY: Encephalopathy. Follow-up evaluation. COMPARISON: 09/13/2019. FINDINGS: Low attenuation area in the inferior right basal ganglia is again seen, probably related to dilated p erivascular space or possibly related to remote lacunar infarction. There is no evidence of an acute cortical infarction, hemorrhage, mass effect, or midline shrift. Mild attenuation is seen in the darrin ventricular and subcortical white matter, which is overall nonspecific, likely attributable to mild c hronic small vessel ischemic changes. Ventricular system is normal in size, shape, and position. Visualized paranasal sinuses and mastoid air cells are clear. Calvarial structures have a normal appearance. There has been interval resolution of the left anterior frontal scalp hematoma. CT of the head is otherwise stable when compared to prior exam. IMPRESSION: No acute intracranial abnormality is demonstrated. POS: [facility]
[2020-07-07] MEDS ORDERED: Gabapentin 100 MG CAP PO SCH (12:00)
[2020-07-07] MEDS ORDERED: Morphine 2 MG/ML VIAL SLOW IVP SCH (13:45)
[2020-07-07 14:17] LABS: Vancomycin, Random 15.3 ug/mL (See Comment)
[2020-07-07] MEDS: rOPINIRole HCl 0.25 MG TAB PO SCH ×2 (14:54→21:30)
--- NOTE | 2020-07-07 15:54 | PDOC.HOSPP ---
- Subjective Encounter Date: 07/07/20 Subjective: She was much more awake today. She was reporting abdominal pain. Initially resumed her p.o. meds but on exam patient was reporting more significant lower abdominal pain. She indicated this had not been a problem prior to her admission. She was already weaned off the Levophed at the time of my exam. - Objective Vital Signs & Weight: Vital Signs (12 hours) Temp Pulse Ox 07/07/20 14:00 97 07/07/20 08:00 97 07/07/20 07:53 97 07/07/20 04:00 98.9 F Weight Weight 225 lb 1.471 oz Most Recent Monitor Data Heart Rate from ECG 72 NIBP 143/59 NIBP BP-Mean 87 Respiration from ECG 18 SpO2 96 I&O: 07/06/20 07/07/20 07/08/20 06:59 06:59 06:59 Intake Total 177 129.4 137.1 Output Total 250 1200 Balance 177 -120.6 -1062.9 Result Diagrams: 07/07/20 04:00 07/07/20 03:30 Hospitalist ROS - Medication Medications: Active Medications Generic Name Dose Route Start Last Admin Trade Name Freq PRN Reason Stop Dose Admin Acetaminophen 1,000 mg 07/05/20 20:13 07/07/20 09:43 Acetaminophen 500 Mg Tab PO 1,000 mg Q4H PRN Administration Headache/Fever or Pain Heparin Sodium (Porcine) 5,000 units 07/05/20 21:00 07/07/20 09:43 Heparin 5,000 Units/Ml Vial SC 5,000 units BID JUAN CARLOS Administration Norepinephrine Bitartrate 8 mg 250 mls @ 0 mls/hr 07/05/20 20:15 07/05/20 20:41 / Dextrose/Water IVPB 250 mls INF PRN Administration TO MAINTAIN MAP > 65 Protocol Titrate Piperacillin Sod/Tazobactam 100 mls @ 200 mls/hr 07/05/20 21:00 07/07/20 09:44 Sod 2.25 gm/ Sodium Chloride IVPB 100 mls Q12HR JUAN CARLOS Administration Vancomycin HCl 750 mg/ Sodium 250 mls @ 250 mls/hr 07/05/20 21:00 07/07/20 15:45 Chloride IVPB 250 mls WILLCALL JUAN CARLOS Administration Midodrine 5 mg 07/07/20 09:00 07/07/20 14:54 Midodrine Hcl 5 Mg Tab PO 5 mg TID JUAN CARLOS Administration Morphine Sulfate 1 mg 07/07/20 13:45 07/07/20 13:45 Morphine 2 Mg/Ml Vial SLOW IVP 07/07/20 16:00 1 mg NOW JUAN CARLOS Administration Ropinirole HCl 0.25 mg 07/07/20 15:00 07/07/20 14:54 Ropinirole Hcl 0.25 Mg Tab PO 0.25 mg TID JUAN CARLOS Administration Sodium Chloride 10 ml 07/05/20 21:00 07/07/20 10:02 Flush - Normal Saline 10 Ml Syringe IVF 10 ml Q12HR JUAN CARLOS Administration - Exam General Appearance: NAD, awake alert Heart: RRR, no murmur, no gallops, no rubs, normal peripheral pulses Respiratory: CTAB, no wheezes, no rales, no ronchi, normal chest expansion, no tachypnea, normal percussion Gastrointestinal: soft, non-distended, normal bowel sounds, tender to palpation (Across lower abdomen and pelvis) Gastrointestinal - other findings: Obese abdomen. Peritoneal dialysis catheter in place Extremities: no cyanosis, no clubbing, no edema Skin: normal turgor Musculoskeletal: normal tone Psychiatric: normal affect, normal behavior Hosp A/P (1) Hypotension Status: Acute (2) History of pulmonary embolus (PE) Code(s): Z86.711 - PERSONAL HISTORY OF PULMONARY EMBOLISM Status: Acute (3) Morbid obesity with BMI of 40.0-44.9, adult Code(s): E66.01 - MORBID (SEVERE) OBESITY DUE TO EXCESS CALORIES; Z68.41 - BODY MASS INDEX [BMI]40.0-44.9, ADULT Status: Acute (4) Anemia of renal disease Code(s): N18.9 - CHRONIC KIDNEY DISEASE, UNSPECIFIED; D63.1 - ANEMIA IN CHRONIC KIDNEY DISEASE Status: Chronic (5) Anxiety and depression Code(s): F41.9 - ANXIETY DISORDER, UNSPECIFIED; F32.9 - MAJOR DEPRESSIVE DISORDER, SINGLE EPISODE, UNSPECIFIED Status: Chronic (6) ESRD on peritoneal dialysis Code(s): N18.6 - END STAGE RENAL DISEASE; Z99.2 - DEPENDENCE ON RENAL DIALYSIS Status: Chronic (7) Hypertension Code(s): I10 - ESSENTIAL (PRIMARY) HYPERTENSION Status: Chronic (8) Encephalopathy Code(s): G93.40 - ENCEPHALOPATHY, UNSPECIFIED Status: Acute (9) Myocardial infarction type 2 Code(s): I21.A1 - MYOCARDIAL INFARCTION TYPE 2 Status: Acute (10) Hyperkalemia Code(s): E87.5 - HYPERKALEMIA Status: Acute (11) Abdominal pain Code(s): R10.9 - UNSPECIFIED ABDOMINAL PAIN Status: Acute (12) Urinary retention Code(s): R33.9 - RETENTION OF URINE, UNSPECIFIED Status: Acute - Plan Patient is a 75-year-old female with a history of end-stage renal disease on peritoneal dialysis. She presented to the emergency department with several days of progressive weakness and falls. Apparently she had poor p.o. intake as well. She was found to be hypotensive. In the emergency department she received fluid resuscitation with some mild initial response but subsequent recurrent hypotension requiring pressors. Patient was started on Levophed and admitted to the ICU. Hypotension: Initially concerning for sepsis although there is no specific site of infection identified. Empirically started on IV antibiotics. Her procalcitonin is normal making sepsis less likely. Her cortisol level is normal. At this point the source of her hypotension is still somewhat unclear. It has significantly improved as of 07/07/2020. She is off of the pressors. Sepsis: Again patient initially felt to have septic shock. Today she does have mild leukocytosis. She was started empirically on vancomycin and Zosyn. Peritoneal fluid has been sent for culture. Does not appear to initially represent significant peritoneal infection based on Gram stain of the fluid. With a low procalcitonin sepsis is less likely. Continue antibiotics and follow-up on cultures to fruition. Encephalopathy: Patient is very encephalopathic on exam today. She is lethargic and not able to communicate. Ammonia level was normal. CT head did not show any significant acute findings. Encephalopathy appeared to be substantially improved by 07/07/2020. Confirmed by the patient's . Abdominal pain: Lower abdomen and pelvis. Likely secondary to distended bladder. Continue to monitor after Bledsoe placed. Urinary retention: Bladder scans in light of her lower abdominal pain. Over 1 L found and 1200 cc evacuated with placement of Bledsoe catheter. We will leave the Bledsoe catheter in place for time. End-stage renal disease on peritoneal dialysis: Patient has been seen in consultation by her women's studies professor. Continue peritoneal dialysis. NSTEMI type II: Secondary to hypotensive injury. 75-year-old with end-stage renal disease these numbers are not significantly concerning. Hyperkalemia: Resolved with fluid resuscitation given in the ER. DVT prophylaxis: Heparin twice daily. PUD prophylaxis: IV pantoprazole.
[2020-07-07] MEDS: Gabapentin 300 MG CAP PO SCH (21:30)
[2020-07-08 06:14] LABS: Hemoglobin 7.5 g/dL (12.0-16.0); Mean Corpuscular HGB CONC 31.6 g/dL (32.0-36.0); Mean Corpuscular Hemoglobin 31.6 pg (27.0-31.0); Mean Corpuscular Volume 99.9 fL (78.0-98.0); Mean Platelet Volume 7.6 fL (7.4-10.4); Platelet Count 152 thou/uL (130-400); RBC Distribution Width 12.8 % (11.5-14.5); Red Blood Cell (RBC) Count 2.38 mill/uL (4.20-5.40); White Blood Cell (WBC) Count 9.1 thou/uL (4.8-10.8)
[2020-07-08 06:15] LABS: Eosinophils 9 % (0-10); Lymphocytes 10 % (21-51); MDiff Complete? YES; Monocytes 5 % (0-10); Neutrophil 76 % (42-75); Platelet Morphology Comment Appears Decreased; RBC Morphology Normal
[2020-07-08 06:18] LABS: Albumin 2.7 g/dL (3.4-4.8); Anion Gap 18 mmol/L (10-20); BUN (Urea Nitrogen) 60 mg/dL (9.8-20.1); BUN/Creatinine Ratio 6.66; Calc. Creatinine Clearance 9 mL/min (70-130); Carbon Dioxide 21 mmol/L (23-31); Chloride 106 mmol/L (98-107); Glucose 104 mg/dL (83-110); Phosphorus 8.1 mg/dL (2.3-4.7); Potassium 3.8 mmol/L (3.5-5.1); Sodium 141 mmol/L (136-145)
[2020-07-08] MEDS: Midodrine HCl 5 MG TAB PO SCH (09:00)
[2020-07-08] MEDS ORDERED: Pantoprazole 40 MG GRANULES PACKET PER TUBE SCH (09:00)
[2020-07-08] MEDS ORDERED: Gabapentin 100 MG CAP PO SCH (09:00)
[2020-07-08] MEDS: Piperacillin/Tazobactam 2.25 GM in Sodium Chloride 0.9% 100 ML IVPB SCH ×2 (10:20→20:21)
[2020-07-08] MEDS: rOPINIRole HCl 0.25 MG TAB PO SCH ×3 (10:21→20:21)
[2020-07-08] MEDS: Heparin 5,000 UNITS/ML VIAL SC SCH ×2 (10:21→20:21)
[2020-07-08] MEDS: Vancomycin HCl 25 MG/ML Oral PO SCH ×2 (14:15→22:37)
--- NOTE | 2020-07-08 19:12 | PDOC.HOSPP ---
- Subjective Encounter Date: 07/08/20 Encounter Time: 18:45 Subjective: f/u for sepsis/C. diff + receiving Zosyn/Vancomycin. Feels better overall. Ambulated in room today. - Objective Vital Signs & Weight: Vital Signs (12 hours) Temp Pulse Resp BP Pulse Ox 07/08/20 17:40 70 158/68 H 07/08/20 12:34 98.4 F 72 20 163/70 H 98 07/08/20 09:14 97.9 F 71 20 166/70 H 99 Weight Weight 228 lb 8 oz Most Recent Monitor Data Heart Rate from ECG 72 NIBP 143/59 NIBP BP-Mean 87 Respiration from ECG 18 SpO2 96 I&O: 07/07/20 07/08/20 07/09/20 06:59 06:59 06:59 Intake Total 129.4 727.1 Output Total 250 2300 Balance -120.6 -1572.9 Result Diagrams: 07/08/20 05:37 07/08/20 05:37 Additional Labs: Microbiology 07/07/20 23:40 Stool - Loose C. difficile GDH Antigen & Toxins - Final 07/07/20 23:40 Stool - Loose Clostridioides difficile Toxins A&B (PCR) - Final 07/05/20 10:49 Venous blood - Left Arm Blood Culture - Final Coagulase Neg Staphylococcus 07/05/20 10:15 Urine Straight Catheter Urine Culture - Final NO GROWTH AT 48 HOURS 07/05/20 12:26 Peritoneal Fluid Culture - Pending Body Fluid Culture - Preliminary 07/05/20 10:53 Venous blood - Left Hand Blood Culture - Preliminary NO GROWTH AT 48 HOURS Laboratory Tests 07/05/20 07/06/20 07/06/20 12:24 04:18 04:18 WBC 12.5 H Hgb 8.8 L Neutrophils % (Manual) 79 H Hep Bs Antigen Non-Reactive Influenza A RNA INAAT Not Detected Influenza B RNA INAAT Not Detected SARS-CoV-2 Rap RNA(RT-PCR) Not Detected 07/07/20 07/08/20 04:00 05:37 WBC 8.7 Hgb 7.8 L Neutrophils % (Manual) 78 H 76 H Hep Bs Antigen Influenza A RNA INAAT Influenza B RNA INAAT SARS-CoV-2 Rap RNA(RT-PCR) Radiology Reviewed by me: Yes (CT brain - no acute process) Hospitalist ROS - Medication Medications: Active Medications Generic Name Dose Route Start Last Admin Trade Name Freq PRN Reason Stop Dose Admin Acetaminophen 1,000 mg 07/05/20 20:13 07/07/20 09:43 Acetaminophen 500 Mg Tab PO 1,000 mg Q4H PRN Administration Headache/Fever or Pain Gabapentin 300 mg 07/07/20 21:00 07/07/20 21:30 Gabapentin 300 Mg Cap PO 300 mg HS JUAN CARLOS Administration Heparin Sodium (Porcine) 5,000 units 07/05/20 21:00 07/08/20 10:21 Heparin 5,000 Units/Ml Vial SC 5,000 units BID JUAN CARLOS Administration Norepinephrine Bitartrate 8 mg 250 mls @ 0 mls/hr 07/05/20 20:15 07/05/20 20:41 / Dextrose/Water IVPB 250 mls INF PRN Administration TO MAINTAIN MAP > 65 Protocol Titrate Piperacillin Sod/Tazobactam 100 mls @ 200 mls/hr 07/05/20 21:00 07/08/20 10:20 Sod 2.25 gm/ Sodium Chloride IVPB 100 mls Q12HR JUAN CARLOS Administration Vancomycin HCl 750 mg/ Sodium 250 mls @ 250 mls/hr 07/05/20 21:00 07/07/20 15:45 Chloride IVPB 250 mls WILLCALL JUAN CARLOS Administration Ropinirole HCl 0.25 mg 07/07/20 15:00 07/08/20 16:39 Ropinirole Hcl 0.25 Mg Tab PO 0.25 mg TID JUAN CARLOS Administration Sodium Chloride 10 ml 07/05/20 21:00 07/08/20 10:21 Flush - Normal Saline 10 Ml Syringe IVF 10 ml Q12HR JUAN CARLOS Administration Vancomycin HCl 125 mg 07/08/20 14:00 07/08/20 14:15 Vancomycin Hcl 25 Mg/Ml Oral PO 125 mg Q8HR JUAN CARLOS Administration - Exam General Appearance: NAD, awake alert Eye: PERRL, anicteric sclera ENT: normocephalic atraumatic, no oropharyngeal lesions Neck: supple, symmetric, no JVD, no thyromegaly, no lymphadenopathy Heart: RRR, no gallops, no rubs, normal peripheral pulses Heart - other findings: S1, S2 Respiratory: CTAB, no wheezes, no rales, no ronchi, normal chest expansion, no tachypnea Gastrointestinal: soft, non-distended, normal bowel sounds, no palpable masses Gastrointestinal - other findings: mild TTP in lower quadrants Extremities: no cyanosis, no clubbing, no edema Skin: normal turgor, no lesions Neurological: cranial nerve grossly intact, no new deficit Musculoskeletal: normal tone, generalized weakness Psychiatric: normal affect, A&O x 3 Hosp A/P (1) Sepsis Code(s): A41.9 - SEPSIS, UNSPECIFIED ORGANISM Status: Acute Plan: Likely due to C. difficile, start Vancomycin 125mg po q8h (2) Acute metabolic encephalopathy Code(s): G93.41 - METABOLIC ENCEPHALOPATHY Status: Acute Plan: Secondary to #1, resolving (3) Clostridium difficile diarrhea Code(s): A04.72 - ENTEROCOLITIS D/T CLOSTRIDIUM DIFFICILE, NOT SPCF RECUR Status: Acute Plan: Start Vancomycin 125m po TID, start Florastor 250mg daily (4) ESRD on peritoneal dialysis Code(s): N18.6 - END STAGE RENAL DISEASE; Z99.2 - DEPENDENCE ON RENAL DIALYSIS Status: Chronic Plan: PD per Renal service (5) Anemia of renal disease Code(s): N18.9 - CHRONIC KIDNEY DISEASE, UNSPECIFIED; D63.1 - ANEMIA IN CHRONIC KIDNEY DISEASE Status: Chronic Plan: Monitor H/H trend, no active blood loss noted, serial H/H - Plan plan discussed w/ family, continue antibiotics, PT/OT, social media intern, out of bed/ambulate, DVT proph w/SCDs Stable overall Continue Vancomycin/Zosyn another 24h then d/c Start Vancomycin 125mg po TID Start Florastor 250mg po daily OOB with PT PD per Nephrology AM lab: BMP, CBC Likely home in 24h
--- NOTE | 2020-07-08 19:48 | PRG ---
DATE OF SERVICE: 07/08/2020 SUBJECTIVE: The patient was seen, continued to maintain sustained clinical improvement. OBJECTIVE: VITAL SIGNS: Afebrile, temperature 98.4, pulse 72, respiratory rate of 20, O2 saturation are 98%, with blood pressure 163/70. HEENT: Unremarkable. CARDIOVASCULAR SYSTEM: First and second heart sounds were heard. RESPIRATORY SYSTEM: Clear to auscultation. DIGESTIVE SYSTEM: Revealed a benign abdomen with positive bowel sounds. EXTREMITIES: No peripheral edema. SKIN: No new gross rash. LYMPHATICS: No peripheral lymphadenopathy. IMPRESSION: 1. End-stage renal disease, on peritoneal dialysis. 2. Hypertension. 3. Sepsis, which is much improved. 4. Clostridium difficile colitis. 5. Obstructive uropathy of Bledsoe catheter. PLAN: 1. We will work towards removing the Bledsoe catheter in this patient, now the patient is much more ambulatory. I do believe that the patient will be able to control her bladder better and be able to empty her bladder. 2. Further management to be dependent on the clinical course. Job ID: [id number]
--- NOTE | 2020-07-08 19:55 | PRG ---
DATE OF SERVICE: 07/07/2020 SUBJECTIVE: The patient is much improved, transferred out of ICU, doing well on the floor, hemodynamically stable. OBJECTIVE: HEENT: Unremarkable. CARDIOVASCULAR: First and second heart sounds were heard. RESPIRATORY: Clear to auscultation. DIGESTIVE: Revealed a benign abdomen. EXTREMITIES: No peripheral edema. SKIN: No new gross rash. LYMPHATICS: No peripheral lymphadenopathy. IMPRESSION: 1. End-stage renal disease, on peritoneal dialysis. 2. Obstructive uropathy, now with Bledsoe catheter, query cause. 3. Sepsis in the context of urinary tract infection, much improved. PLAN: 1. We will continue with peritoneal dialysis, now under the hemodynamics improved. We will increase the concentration of the peritoneal fluid. 2. Further management will be dependent on the clinical course. Job ID: [id number]
[2020-07-08] MEDS: Gabapentin 300 MG CAP PO SCH (20:21)
[2020-07-08] MEDS ORDERED: Melatonin 3 MG TAB PO PRN (22:03)
[2020-07-08] MEDS: Ondansetron 2MG/ML MDV 4 MG in Sodium Chloride 0.9% 50 ML IVPB SCH (22:36)
[2020-07-08] MEDS ORDERED: HYDROcodone/Acetaminophen 10/325 mg Tablet PO SCH (22:45)
[2020-07-09] MEDS: Ondansetron 2MG/ML MDV 4 MG in Sodium Chloride 0.9% 50 ML IVPB SCH ×4 (04:59→20:08)
[2020-07-09] MEDS: Vancomycin HCl 25 MG/ML Oral PO SCH ×3 (05:48→20:11)
[2020-07-09 06:29] LABS: Band 2 % (5-11); Eosinophils 6 % (0-10); Hemoglobin 7.6 g/dL (12.0-16.0); Lymphocytes 7 % (21-51); MDiff Complete? YES; Mean Corpuscular HGB CONC 30.8 g/dL (32.0-36.0); Mean Corpuscular Hemoglobin 31.4 pg (27.0-31.0); Mean Platelet Volume 7.8 fL (7.4-10.4); Monocytes 3 % (0-10); Neutrophil 82 % (42-75); Platelet Count 143 thou/uL (130-400); Platelet Morphology Comment Appears Adequate; RBC Distribution Width 12.8 % (11.5-14.5); Red Blood Cell (RBC) Count 2.41 mill/uL (4.20-5.40); White Blood Cell (WBC) Count 8.8 thou/uL (4.8-10.8)
[2020-07-09 08:14] LABS: Anion Gap 18 mmol/L (10-20); BUN (Urea Nitrogen) 58 mg/dL (9.8-20.1); Calc. Creatinine Clearance 9 mL/min (70-130); Carbon Dioxide 22 mmol/L (23-31); Chloride 105 mmol/L (98-107); Glucose 109 mg/dL (83-110); Sodium 141 mmol/L (136-145)
[2020-07-09] MEDS: Saccharomyces boulardii 250 MG CAP PO SCH (09:50)
[2020-07-09] MEDS: Piperacillin/Tazobactam 2.25 GM in Sodium Chloride 0.9% 100 ML IVPB SCH ×2 (09:50→20:09)
[2020-07-09] MEDS: rOPINIRole HCl 0.25 MG TAB PO SCH ×3 (09:50→20:10)
[2020-07-09] MEDS: Heparin 5,000 UNITS/ML VIAL SC SCH ×2 (09:50→20:08)
--- NOTE | 2020-07-09 12:15 | PDOC.HOSPP ---
- Subjective Encounter Date: 07/09/20 Encounter Time: 12:00 Subjective: f/u for sepsis/C. diff+ on po Vancomycin. Had several episodes of emesis last pm requiring Zofran. Tolerating small amount of po intake today. Less diarrhea. - Objective Vital Signs & Weight: Vital Signs (12 hours) Temp Pulse Resp BP Pulse Ox 07/09/20 08:00 98 F 81 18 183/74 H 100 Weight Weight 235 lb 11.2 oz Most Recent Monitor Data Heart Rate from ECG 72 NIBP 143/59 NIBP BP-Mean 87 Respiration from ECG 18 SpO2 96 I&O: 07/08/20 07/09/20 07/10/20 06:59 06:59 06:59 Intake Total 727.1 750 Output Total 2300 600 Balance -1572.9 150 Result Diagrams: 07/09/20 05:50 07/09/20 07:39 Additional Labs: Microbiology 07/07/20 23:40 Stool - Loose C. difficile GDH Antigen & Toxins - Final 07/07/20 23:40 Stool - Loose Clostridioides difficile Toxins A&B (PCR) - Final 07/05/20 10:49 Venous blood - Left Arm Blood Culture - Final Coagulase Neg Staphylococcus 07/05/20 10:15 Urine Straight Catheter Urine Culture - Final NO GROWTH AT 48 HOURS 07/05/20 12:26 Peritoneal Fluid Culture - Pending Body Fluid Culture - Preliminary 07/05/20 10:53 Venous blood - Left Hand Blood Culture - Preliminary NO GROWTH AT 48 HOURS Laboratory Tests 07/05/20 07/06/20 07/06/20 12:24 04:18 04:18 WBC 12.5 H Hgb 8.8 L Neutrophils % (Manual) 79 H Hep Bs Antigen Non-Reactive Influenza A RNA INAAT Not Detected Influenza B RNA INAAT Not Detected SARS-CoV-2 Rap RNA(RT-PCR) Not Detected 07/07/20 07/08/20 04:00 05:37 WBC 8.7 Hgb 7.8 L 7.5 L Neutrophils % (Manual) 78 H 76 H Hep Bs Antigen Influenza A RNA INAAT Influenza B RNA INAAT SARS-CoV-2 Rap RNA(RT-PCR) Hospitalist ROS - Medication Medications: Active Medications Generic Name Dose Route Start Last Admin Trade Name Freq PRN Reason Stop Dose Admin Acetaminophen 1,000 mg 07/05/20 20:13 07/07/20 09:43 Acetaminophen 500 Mg Tab PO 1,000 mg Q4H PRN Administration Headache/Fever or Pain Gabapentin 300 mg 07/07/20 21:00 07/08/20 20:21 Gabapentin 300 Mg Cap PO 300 mg HS JUAN CARLOS Administration Heparin Sodium (Porcine) 5,000 units 07/05/20 21:00 07/09/20 09:50 Heparin 5,000 Units/Ml Vial SC 5,000 units BID JUAN CARLOS Administration Norepinephrine Bitartrate 8 mg 250 mls @ 0 mls/hr 07/05/20 20:15 07/05/20 20:41 / Dextrose/Water IVPB 250 mls INF PRN Administration TO MAINTAIN MAP > 65 Protocol Titrate Piperacillin Sod/Tazobactam 100 mls @ 200 mls/hr 07/05/20 21:00 07/09/20 09:50 Sod 2.25 gm/ Sodium Chloride IVPB 100 mls Q12HR JUAN CARLOS Administration Vancomycin HCl 750 mg/ Sodium 250 mls @ 250 mls/hr 07/05/20 21:00 07/07/20 15:45 Chloride IVPB 250 mls WILLCALL JUAN CARLOS Administration Ondansetron HCl 4 mg/ Sodium 52 mls @ 200 mls/hr 07/08/20 22:30 07/09/20 11:56 Chloride IVPB 52 mls Q6H JUAN CARLOS Administration Melatonin 3 mg 07/08/20 22:03 07/08/20 22:38 Melatonin 3 Mg Tab PO 3 mg HS PRN Administration Insomnia Pantoprazole Sodium 40 mg 07/09/20 09:00 07/09/20 09:50 Pantoprazole 40 Mg Tab PO 40 mg DAILY JUAN CARLOS Administration Saccharomyces Boulardii 250 mg 07/09/20 09:00 07/09/20 09:50 Saccharomyces Boulardii 250 Mg Cap PO 250 mg DAILY JUAN CARLOS Administration Sodium Chloride 10 ml 07/05/20 21:00 07/09/20 09:51 Flush - Normal Saline 10 Ml Syringe IVF 10 ml Q12HR JUAN CARLOS Administration Vancomycin HCl 125 mg 07/08/20 14:00 07/09/20 05:48 Vancomycin Hcl 25 Mg/Ml Oral PO 125 mg Q8HR JUAN CARLOS Administration - Exam General Appearance: NAD, awake alert Eye: PERRL, anicteric sclera ENT: normocephalic atraumatic, no oropharyngeal lesions Neck: supple, symmetric, no JVD, no thyromegaly, no lymphadenopathy Heart: RRR, no gallops, no rubs, normal peripheral pulses Heart - other findings: S1, S2 Respiratory: CTAB, no wheezes, no rales, no ronchi, normal chest expansion, no tachypnea Gastrointestinal: soft, non-tender, non-distended, normal bowel sounds, no palpable masses, no guarding, no rigidity Extremities: no cyanosis, no clubbing, no edema Skin: normal turgor, no lesions Neurological: cranial nerve grossly intact, no new deficit Musculoskeletal: normal tone, generalized weakness Psychiatric: normal affect, A&O x 3 Hosp A/P (1) Sepsis Code(s): A41.9 - SEPSIS, UNSPECIFIED ORGANISM Status: Acute Plan: Appears to be related to GI source and likely C. difficile, continue Vancomycin po and monitor clinical response (2) Acute metabolic encephalopathy Code(s): G93.41 - METABOLIC ENCEPHALOPATHY Status: Acute Plan: Improved, continue supportive mgmt as outlined above (3) Clostridium difficile diarrhea Code(s): A04.72 - ENTEROCOLITIS D/T CLOSTRIDIUM DIFFICILE, NOT SPCF RECUR Status: Acute Plan: Continue Vancomycin 125mg po q8h, Florastor 250mg po daily (4) ESRD on peritoneal dialysis Code(s): N18.6 - END STAGE RENAL DISEASE; Z99.2 - DEPENDENCE ON RENAL DIALYSIS Status: Chronic (5) Anemia of renal disease Code(s): N18.9 - CHRONIC KIDNEY DISEASE, UNSPECIFIED; D63.1 - ANEMIA IN CHRONIC KIDNEY DISEASE Status: Chronic Plan: Trending downward, check stool guaiac, serial H/H, may need PRBC's - Plan plan discussed w/ family, continue antibiotics, PT/OT, social security assessor, out of bed/ambulate, DVT proph w/SCDs Stable overall Continue Vancomycin/Zosyn another 24h then d/c Continue Vancomycin 125mg po TID Continue Florastor 250mg po daily OOB with PT PD per Nephrology Check stool guaiac AM lab: BMP, CBC Likely home in 24h
[2020-07-09 15:15] LABS: Hemoglobin 7.3 g/dL (12.0-16.0)
[2020-07-09] MEDS: Gabapentin 300 MG CAP PO SCH (20:10)
[2020-07-09] MEDS: HYDROcodone/Acetaminophen 10/325 mg Tablet PO SCH (20:10)
[2020-07-09] MEDS: Carvedilol 6.25 MG TAB PO SCH (20:10)
[2020-07-09] MEDS ORDERED: Non-Formulary Item 1 EACH (Carvedilol [Coreg] 12.5 MG Tab) PO SCH (21:00)
[2020-07-09] MEDS ORDERED: Zolpidem Tartrate 5 MG TAB PO SCH (21:00)
[2020-07-10] MEDS: Ondansetron 2MG/ML MDV 4 MG in Sodium Chloride 0.9% 50 ML IVPB SCH (04:48)
[2020-07-10] MEDS: Vancomycin HCl 25 MG/ML Oral PO SCH ×3 (04:51→21:04)
[2020-07-10 06:33] LABS: Anion Gap 17 mmol/L (10-20); BUN (Urea Nitrogen) 61 mg/dL (9.8-20.1); Calc. Creatinine Clearance 9 mL/min (70-130); Calcium 7.6 mg/dL (7.8-10.44); Carbon Dioxide 21 mmol/L (23-31); Chloride 105 mmol/L (98-107); Glucose 87 mg/dL (83-110); Potassium 4.1 mmol/L (3.5-5.1); Sodium 139 mmol/L (136-145)
[2020-07-10 06:44] LABS: Hemoglobin 6.4 g/dL (12.0-16.0); Mean Corpuscular HGB CONC 31.1 g/dL (32.0-36.0); Mean Corpuscular Hemoglobin 31.6 pg (27.0-31.0); Mean Platelet Volume 7.5 fL (7.4-10.4); Platelet Count 108 thou/uL (130-400); RBC Distribution Width 12.7 % (11.5-14.5); Red Blood Cell (RBC) Count 2.01 mill/uL (4.20-5.40)
[2020-07-10 06:45] LABS: Band 3 % (5-11); Eosinophils 1 % (0-10); Hypochromia SLIGHT = 6-15 cells (100X) (0-5/hpf); Lymphocytes 10 % (21-51); MDiff Complete? YES; Macrocytosis SLIGHT = 6-15 cells (100X) (0-5/hpf); Monocytes 15 % (0-10); Neutrophil 62 % (42-75); Platelet Morphology Comment Appears Decreased; Reactive Lymphocytes 9 % (0-10)
[2020-07-10] MEDS: rOPINIRole HCl 0.25 MG TAB PO SCH ×3 (09:09→19:54)
[2020-07-10] MEDS: DULoxetine 30 MG CAP PO SCH (09:09)
[2020-07-10] MEDS: Carvedilol 6.25 MG TAB PO SCH ×2 (09:09→19:55)
[2020-07-10] MEDS: Docusate 100 MG CAP PO SCH (09:09)
[2020-07-10] MEDS: Saccharomyces boulardii 250 MG CAP PO SCH (09:10)
[2020-07-10] MEDS: Heparin 5,000 UNITS/ML VIAL SC SCH (09:10)
[2020-07-10] MEDS: Piperacillin/Tazobactam 2.25 GM in Sodium Chloride 0.9% 100 ML IVPB SCH (09:10)
--- NOTE | 2020-07-10 09:43 | PDOC.HOSPP ---
- Subjective Encounter Date: 07/10/20 Encounter Time: 09:30 Subjective: f/u for ESRD on PD, C. diff diarrhea receiving po Vancomycin. Nursing reported low Hgb 6.4 down from 7.3 the day prior. No N/V and loose stool improved. - Objective Vital Signs & Weight: Vital Signs (12 hours) Temp Pulse Resp BP Pulse Ox 07/10/20 05:30 64 20 128/60 99 07/09/20 23:59 98.7 F Weight Weight 231 lb 11.2 oz Most Recent Monitor Data Heart Rate from ECG 72 NIBP 143/59 NIBP BP-Mean 87 Respiration from ECG 18 SpO2 96 I&O: 07/09/20 07/10/20 07/11/20 06:59 06:59 06:59 Intake Total 750 500 Output Total 600 900 Balance 150 -400 Result Diagrams: 07/10/20 06:01 07/10/20 06:01 Additional Labs: Microbiology 07/09/20 15:35 Stool - Loose - Final 07/07/20 23:40 Stool - Loose C. difficile GDH Antigen & Toxins - Final 07/07/20 23:40 Stool - Loose Clostridioides difficile Toxins A&B (PCR) - Fin al 07/05/20 10:49 Venous blood - Left Arm Blood Culture - Final Coagulase Neg Staphylococcus 07/05/20 10:15 Urine Straight Catheter Urine Culture - Final NO GROWTH AT 48 HOURS 07/05/20 12:26 Peritoneal Fluid Culture - Pending Body Fluid Culture - Preliminary 07/05/20 10:53 Venous blood - Left Hand Blood Culture - Preliminary NO GROWTH AT 48 HOURS Laboratory Tests 07/05/20 07/06/20 07/06/20 12:24 04:18 04:18 WBC 12.5 H Hgb 8.8 L Plt Count Neutrophils % (Manual) 79 H Hep Bs Antigen Non-Reactive Influenza A RNA INAAT Not Detected Influenza B RNA INAAT Not Detected SARS-CoV-2 Rap RNA(RT-PCR) Not Detected 07/07/20 07/08/20 07/09/20 04:00 05:37 05:50 WBC 8.7 Hgb 7.8 L 7.5 L Plt Count 143 Neutrophils % (Manual) 78 H 76 H Hep Bs Antigen Influenza A RNA INAAT Influenza B RNA INAAT SARS-CoV-2 Rap RNA(RT-PCR) 07/09/20 15:05 WBC Hgb 7.3 L Plt Count Neutrophils % (Manual) Hep Bs Antigen Influenza A RNA INAAT Influenza B RNA INAAT SARS-CoV-2 Rap RNA(RT-PCR) Hospitalist ROS - Medication Medications: Active Medications Generic Name Dose Route Start Last Admin Trade Name Freq PRN Reason Stop Dose Admin Acetaminophen 1,000 mg 07/05/20 20:13 07/07/20 09:43 Acetaminophen 500 Mg Tab PO 1,000 mg Q4H PRN Administration Headache/Fever or Pain Hydrocodone Bitart/Acetaminophen 2 tab 07/09/20 21:00 07/09/20 20:10 Hydrocodone/Acetaminophen 10/325 Mg Tablet PO Not Given HS JUAN CARLOS Carvedilol 12.5 mg 07/09/20 21:00 07/10/20 09:09 Carvedilol 6.25 Mg Tab PO 12.5 mg BID JUAN CARLOS Administration Docusate Sodium 100 mg 07/10/20 09:00 07/10/20 09:09 Docusate 100 Mg Cap PO 100 mg DAILY JUAN CARLOS Administration Duloxetine HCl 30 mg 07/10/20 09:00 07/10/20 09:09 Duloxetine 30 Mg Cap PO 30 mg DAILY JUAN CARLOS Administration Gabapentin 300 mg 07/07/20 21:00 07/09/20 20:10 Gabapentin 300 Mg Cap PO 300 mg HS JUAN CARLOS Administration Norepinephrine Bitartrate 8 mg 250 mls @ 0 mls/hr 07/05/20 20:15 07/05/20 20:41 / Dextrose/Water IVPB 250 mls INF PRN Administration TO MAINTAIN MAP > 65 Protocol Titrate Ondansetron HCl 4 mg/ Sodium 52 mls @ 200 mls/hr 07/08/20 22:30 07/10/20 04:48 Chloride IVPB 52 mls Q6H JUAN CARLOS Administration Melatonin 3 mg 07/08/20 22:03 07/08/20 22:38 Melatonin 3 Mg Tab PO 3 mg HS PRN Administration Insomnia Pantoprazole Sodium 40 mg 07/09/20 09:00 07/10/20 09:09 Pantoprazole 40 Mg Tab PO 40 mg DAILY JUAN CARLOS Administration Ropinirole HCl 0.25 mg 07/09/20 15:00 07/10/20 09:09 Ropinirole Hcl 0.25 Mg Tab PO 0.25 mg TID JUAN CARLOS Administration Saccharomyces Boulardii 250 mg 07/09/20 09:00 07/10/20 09:10 Saccharomyces Boulardii 250 Mg Cap PO 250 mg DAILY JUAN CARLOS Administration Sodium Chloride 10 ml 07/05/20 21:00 07/10/20 09:10 Flush - Normal Saline 10 Ml Syringe IVF 10 ml Q12HR JUAN CARLOS Administration Vancomycin HCl 125 mg 07/08/20 14:00 07/10/20 04:51 Vancomycin Hcl 25 Mg/Ml Oral PO 125 mg Q8HR JUAN CARLOS Administration - Exam General - other findings: somnolent, answers questions slowly Eye: PERRL, anicteric sclera ENT: normocephalic atraumatic, no oropharyngeal lesions Neck: supple, symmetric, no JVD, no thyromegaly Heart: RRR, no gallops, no rubs, normal peripheral pulses Heart - other findings: S1, S2 Respiratory: CTAB, no wheezes, no rales, no ronchi, normal chest expansion Gastrointestinal: soft, non-tender, non-distended, normal bowel sounds, no palpable masses Gastrointestinal - other findings: obese Extremities: no cyanosis, no clubbing, no edema Skin: normal turgor, no lesions Neurological: cranial nerve grossly intact, no new deficit Musculoskeletal: normal tone, generalized weakness Psychiatric: somnolent, lethargic Hosp A/P (1) Anemia of renal disease Code(s): N18.9 - CHRONIC KIDNEY DISEASE, UNSPECIFIED; D63.1 - ANEMIA IN CHRONIC KIDNEY DISEASE Status: Chronic Plan: Hemoglobin trending down, stool guaiac negative x 1, T&C for 1u PRBC's and transfuse today, continue Protonix, d/c Heparin SC, check Iron/B12/Folate levels (2) Acute metabolic encephalopathy Code(s): G93.41 - METABOLIC ENCEPHALOPATHY Status: Acute Plan: Suspect iatrogenic, limit sedation/narcotic medications (3) Clostridium difficile diarrhea Code(s): A04.72 - ENTEROCOLITIS D/T CLOSTRIDIUM DIFFICILE, NOT SPCF RECUR Status: Acute Plan: Continue Vancomycin po, Florastor (4) ESRD on peritoneal dialysis Code(s): N18.6 - END STAGE RENAL DISEASE; Z99.2 - DEPENDENCE ON RENAL DIALYSIS Status: Chronic Plan: PD per Nephrology (5) Sepsis Code(s): A41.9 - SEPSIS, UNSPECIFIED ORGANISM Status: Acute Plan: ? source, no identifiable organism, d/c Vanc/Zosyn - Plan PT/OT, social studies department chair, out of bed/ambulate, DVT proph w/SCDs Stable overall D/C Vanc/Zosyn Continue Vancomycin 125mg po TID Continue Florastor 250mg po daily OOB with PT PD per Nephrology T&C for 1u PRBC's D/C Heparin AM lab: BMP, CBC, Iron, B12/Folate/Ferritin/Retic count
[2020-07-10 10:15] LABS: Vancomycin, Random 15.4 ug/mL (See Comment)
--- NOTE | 2020-07-10 17:59 | PRG ---
DATE OF SERVICE: 07/10/2020 OBJECTIVE: VITAL SIGNS: The patient noted with the following vital signs. Afebrile, temperature 97.8, pulse , blood pressure 111/49. HEENT EXAMINATION: Unremarkable. CARDIOVASCULAR SYSTEM: First and second heart sounds were heard. RESPIRATORY SYSTEM: Clear to auscultation. DIGESTIVE SYSTEM: Revealed a benign abdomen with positive bowel sounds. EXTREMITIES: No peripheral edema. SKIN EXAMINATION: No new gross rash. LYMPHATICS: No peripheral lymphadenopathy. IMPRESSION: 1. End-stage renal disease, on peritoneal dialysis. 2. Sepsis in the context of urinary tract infection, much improved. 3. Anemia of chronic kidney disease. 4. Clostridium difficile colitis. PLAN: 1. We will initiate erythropoiesis stimulating agent. 2. We will continue with current peritoneal dialysis regimen. 3. Further management to be dependent on the clinical course. Job ID: [id number]
[2020-07-10] MEDS ORDERED: EPOETIN ALFA-EPBX (ESRD) 10,000 UNIT/ML VIAL SC SCH (18:00)
[2020-07-10] MEDS: Gabapentin 300 MG CAP PO SCH (19:53)
[2020-07-10] MEDS: HYDROcodone/Acetaminophen 10/325 mg Tablet PO SCH (19:53)
[2020-07-10] MEDS: Ondansetron PF 4 MG/2 ML Vial IVP PRN (19:55)
[2020-07-11] MEDS: Ondansetron PF 4 MG/2 ML Vial IVP PRN ×3 (05:05→19:57)
[2020-07-11] MEDS: Vancomycin HCl 25 MG/ML Oral PO SCH ×3 (05:57→21:38)
[2020-07-11 06:20] LABS: Reticulocyte Count 2.5 % (0.5-1.5)
[2020-07-11 06:31] LABS: Band 4 % (5-11); Eosinophils 3 % (0-10); Hemoglobin 8.2 g/dL (12.0-16.0); Hypochromia SLIGHT = 6-15 cells (100X) (0-5/hpf); Lymphocytes 9 % (21-51); MDiff Complete? YES; Mean Corpuscular HGB CONC 31.9 g/dL (32.0-36.0); Mean Corpuscular Hemoglobin 31.9 pg (27.0-31.0); Mean Corpuscular Volume 99.9 fL (78.0-98.0); Mean Platelet Volume 7.9 fL (7.4-10.4); Monocytes 10 % (0-10); Neutrophil 74 % (42-75); Platelet Count 104 thou/uL (130-400); Platelet Morphology Comment Appears Decreased; RBC Distribution Width 13.3 % (11.5-14.5); Red Blood Cell (RBC) Count 2.59 mill/uL (4.20-5.40); White Blood Cell (WBC) Count 6.3 thou/uL (4.8-10.8)
[2020-07-11 06:45] LABS: Anion Gap 16 mmol/L (10-20); BUN (Urea Nitrogen) 53 mg/dL (9.8-20.1); Calc. Creatinine Clearance 9 mL/min (70-130); Calcium 7.8 mg/dL (7.8-10.44); Carbon Dioxide 22 mmol/L (23-31); Chloride 101 mmol/L (98-107); Glucose 106 mg/dL (83-110); Iron 138 ug/dL (50-170); Potassium 3.7 mmol/L (3.5-5.1); Sodium 135 mmol/L (136-145)
[2020-07-11 07:03] LABS: Ferritin 1107.18 ng/mL (10-291)
[2020-07-11] MEDS: Docusate 100 MG CAP PO SCH (08:53)
[2020-07-11] MEDS: rOPINIRole HCl 0.25 MG TAB PO SCH ×3 (08:53→20:02)
[2020-07-11] MEDS: Saccharomyces boulardii 250 MG CAP PO SCH (08:53)
[2020-07-11] MEDS: DULoxetine 30 MG CAP PO SCH (08:53)
[2020-07-11] MEDS: Carvedilol 6.25 MG TAB PO SCH ×2 (08:53→19:57)
--- NOTE | 2020-07-11 15:45 | PDOC.HOSPP ---
- Subjective Encounter Date: 07/11/20 Encounter Time: 15:30 Subjective: f/u general weakness/C. diff +/ESRD on PD. Still remains sleepy but denies recurrent diarrhea. - Objective Vital Signs & Weight: Vital Signs (12 hours) Temp Pulse Resp BP Pulse Ox 07/11/20 09:00 96 07/11/20 08:51 97.6 F 63 18 106/55 L 96 07/11/20 04:48 100 Weight Weight 228 lb 8 oz Most Recent Monitor Data Heart Rate from ECG 72 NIBP 143/59 NIBP BP-Mean 87 Respiration from ECG 18 SpO2 96 I&O: 07/10/20 07/11/20 07/12/20 06:59 06:59 06:59 Intake Total 500 50 Output Total 900 126 Balance -400 -76 Result Diagrams: 07/11/20 06:03 07/11/20 06:03 Additional Labs: Microbiology 07/09/20 15:35 Stool - Loose - Final 07/07/20 23:40 Stool - Loose C. difficile GDH Antigen & Toxins - Final 07/07/20 23:40 Stool - Loose Clostridioides difficile Toxins A&B (PCR) - Final 07/05/20 10:49 Venous blood - Left Arm Blood Culture - Final Coagulase Neg Staphylococcus 07/05/20 10:15 Urine Straight Catheter Urine Culture - Final NO GROWTH AT 48 HOURS 07/05/20 12:26 Peritoneal Fluid Culture - Pending Body Fluid Culture - Preliminary 07/05/20 10:53 Venous blood - Left Hand Blood Culture - Preliminary NO GROWTH AT 48 HOURS Laboratory Tests 07/05/20 07/06/20 07/06/20 12:24 04:18 04:18 WBC 12.5 H Hgb 8.8 L Plt Count Neutrophils % (Manual) 79 H Retic Count Hep Bs Antigen Non-Reactive Influenza A RNA INAAT Not Detected Influenza B RNA INAAT Not Detected SARS-CoV-2 Rap RNA(RT-PCR) Not Detected 07/07/20 07/08/20 07/09/20 04:00 05:37 05:50 WBC 8.7 Hgb 7.8 L 7.5 L Plt Count 143 Neutrophils % (Manual) 78 H 76 H Retic Count Hep Bs Antigen Influenza A RNA INAAT Influenza B RNA INAAT SARS-CoV-2 Rap RNA(RT-PCR) 07/09/20 07/10/20 07/11/20 15:05 06:01 06:03 WBC Hgb 7.3 L 6.4 L Plt Count Neutrophils % (Manual) Retic Count 2.5 H Hep Bs Antigen Influenza A RNA INAAT Influenza B RNA INAAT SARS-CoV-2 Rap RNA(RT-PCR) Hospitalist ROS - Medication Medications: Active Medications Generic Name Dose Route Start Last Admin Trade Name Freq PRN Reason Stop Dose Admin Acetaminophen 1,000 mg 07/05/20 20:13 07/07/20 09:43 Acetaminophen 500 Mg Tab PO 1,000 mg Q4H PRN Administration Headache/Fever or Pain Hydrocodone Bitart/Acetaminophen 2 tab 07/09/20 21:00 07/10/20 19:53 Hydrocodone/Acetaminophen 10/325 Mg Tablet PO Not Given HS JUAN CARLOS Carvedilol 12.5 mg 07/09/20 21:00 07/11/20 08:53 Carvedilol 6.25 Mg Tab PO 12.5 mg BID JUAN CARLOS Administration Docusate Sodium 100 mg 07/10/20 09:00 07/11/20 08:53 Docusate 100 Mg Cap PO 100 mg DAILY JUAN CARLOS Administration Duloxetine HCl 30 mg 07/10/20 09:00 07/11/20 08:53 Duloxetine 30 Mg Cap PO 30 mg DAILY JUAN CARLOS Administration Epoetin Ramon-epbx 10,000 unit 07/10/20 18:00 07/10/20 18:25 Epoetin Ramon-Epbx (Esrd) 10,000 Unit/Ml Vial SC 10,000 unit Q7D JUAN CARLOS Administration Gabapentin 300 mg 07/07/20 21:00 07/10/20 19:53 Gabapentin 300 Mg Cap PO Not Given HS JUAN CARLOS Melatonin 3 mg 07/08/20 22:03 07/08/20 22:38 Melatonin 3 Mg Tab PO 3 mg HS PRN Administration Insomnia Ondansetron HCl 4 mg 07/10/20 09:48 07/11/20 12:55 Ondansetron Pf 4 Mg/2 Ml Vial IVP 4 mg Q6H PRN Administration Nausea/Vomiting Pantoprazole Sodium 40 mg 07/09/20 09:00 07/11/20 08:53 Pantoprazole 40 Mg Tab PO 40 mg DAILY JUAN CARLOS Administration Ropinirole HCl 0.25 mg 07/09/20 15:00 07/11/20 14:17 Ropinirole Hcl 0.25 Mg Tab PO 0.25 mg TID JUAN CARLOS Administration Saccharomyces Boulardii 250 mg 07/09/20 09:00 07/11/20 08:53 Saccharomyces Boulardii 250 Mg Cap PO 250 mg DAILY JUAN CARLOS Administration Sodium Chloride 10 ml 07/05/20 21:00 07/11/20 08:53 Flush - Normal Saline 10 Ml Syringe IVF 10 ml Q12HR JUAN CARLOS Administration Vancomycin HCl 125 mg 07/08/20 14:00 07/11/20 14:17 Vancomycin Hcl 25 Mg/Ml Oral PO 125 mg Q8HR JUAN CARLOS Administration - Exam General Appearance: NAD General - other findings: somnolent, answers questions slowly Eye: PERRL, anicteric sclera ENT: normocephalic atraumatic, no oropharyngeal lesions Neck: supple, symmetric, no JVD, no thyromegaly, no lymphadenopathy Heart: RRR, no gallops, no rubs, normal peripheral pulses Heart - other findings: S1, S2 Respiratory: CTAB, no wheezes, no rales, no ronchi, normal chest expansion Gastrointestinal: soft, non-tender, non-distended, normal bowel sounds, no palpable masses Extremities: no cyanosis, no clubbing, no edema Skin: normal turgor Neurological: cranial nerve grossly intact, no new deficit Musculoskeletal: normal tone, generalized weakness Psychiatric: A&O x 3, somnolent Hosp A/P (1) Anemia of renal disease Code(s): N18.9 - CHRONIC KIDNEY DISEASE, UNSPECIFIED; D63.1 - ANEMIA IN CHRONIC KIDNEY DISEASE Status: Chronic Plan: s/p 1u PRBC's, continue Epo, Folic acid 1mg daily (2) Acute metabolic encephalopathy Code(s): G93.41 - METABOLIC ENCEPHALOPATHY Status: Acute Plan: Likely multifactorial, limit sedation/narcotics, ?Uremia (3) Clostridium difficile diarrhea Code(s): A04.72 - ENTEROCOLITIS D/T CLOSTRIDIUM DIFFICILE, NOT SPCF RECUR Status: Acute Plan: Continue Vancomycin (4) ESRD on peritoneal dialysis Code(s): N18.6 - END STAGE RENAL DISEASE; Z99.2 - DEPENDENCE ON RENAL DIALYSIS Status: Chronic Plan: PD per Renal service (5) Sepsis Code(s): A41.9 - SEPSIS, UNSPECIFIED ORGANISM Status: Acute - Plan plan discussed w/ family, PT/OT, director social service, out of bed/ambulate, DVT proph w/SCDs Stable overall D/C Vanc/Zosyn Continue Vancomycin 125mg po TID Continue Florastor 250mg po daily OOB with PT PD per Nephrology, ? need for HD s/p 1u PRBC's D/C Heparin AM lab: CBC ? Home in 24h
--- NOTE | 2020-07-11 18:47 | PRG ---
DATE OF SERVICE: 07/11/2020 SUBJECTIVE: The patient noted with the following vital signs. OBJECTIVE: VITAL SIGNS: Afebrile, temperature 97.6, pulse 63, respiratory rate of 18, O2 saturations of 96%, and blood pressure 106/55. GENERAL: The patient seems to be feeling better. HEENT: Unremarkable. CARDIOVASCULAR SYSTEM: First and second heart sounds were heard. RESPIRATORY SYSTEM: Clear to auscultation. DIGESTIVE SYSTEM: Revealed a benign abdomen. EXTREMITIES: No peripheral edema. SKIN: No new gross rash. LYMPHATICS: No peripheral lymphadenopathy. IMPRESSION: 1. End-stage renal disease, on peritoneal dialysis. 2. Clostridium difficile colitis. 3. Urinary tract infection leading to sepsis, improved. PLAN: 1. The patient to continue with current renal replacement therapy. 2. Erythropoiesis-stimulating agent. 3. Further management will be dependent on the clinical course. Job ID: [id number]
[2020-07-11] MEDS: HYDROcodone/Acetaminophen 10/325 mg Tablet PO SCH (20:01)
[2020-07-11] MEDS: Gabapentin 300 MG CAP PO SCH (20:01)
[2020-07-12] MEDS: Ondansetron PF 4 MG/2 ML Vial IVP PRN ×2 (05:13→21:06)
[2020-07-12] MEDS: Vancomycin HCl 25 MG/ML Oral PO SCH ×3 (06:05→21:06)
[2020-07-12 06:09] LABS: Hemoglobin 8.4 g/dL (12.0-16.0); Mean Corpuscular HGB CONC 31.7 g/dL (32.0-36.0); Mean Corpuscular Hemoglobin 32.3 pg (27.0-31.0); Platelet Count 102 thou/uL (130-400); RBC Distribution Width 13.4 % (11.5-14.5); Red Blood Cell (RBC) Count 2.59 mill/uL (4.20-5.40); White Blood Cell (WBC) Count 7.3 thou/uL (4.8-10.8)
[2020-07-12 06:40] LABS: Band 4 % (5-11); Eosinophils 2 % (0-10); Hypochromia SLIGHT = 6-15 cells (100X) (0-5/hpf); Lymphocytes 14 % (21-51); MDiff Complete? YES; Macrocytosis SLIGHT = 6-15 cells (100X) (0-5/hpf); Monocytes 4 % (0-10); Neutrophil 76 % (42-75)
[2020-07-12] MEDS: Carvedilol 6.25 MG TAB PO SCH ×2 (11:50→21:06)
[2020-07-12] MEDS: Docusate 100 MG CAP PO SCH (11:50)
[2020-07-12] MEDS: DULoxetine 30 MG CAP PO SCH (11:51)
[2020-07-12] MEDS: Folic Acid 1 MG TAB PO SCH (11:51)
[2020-07-12] MEDS: Saccharomyces boulardii 250 MG CAP PO SCH (11:51)
[2020-07-12 12:28] LABS: Actual Bicarbonate (HCO3a) 22.6 mEq/L (22-28); Base Excess (BEa) -6.9 mEq/L (-2.0 to +3.0); Calcium, Ionized (arterial) 1.07 mmol/L (1.12-1.30); Hemoglobin (Hb) 8.4 g/dL (12.0-16.0); O2 Tension (PaO2), arterial 132.4 mmHg (> 70.0); Potassium - ABG Lab 3.83 mmol/L (3.70-5.30)
[2020-07-12 12:32] LABS: pH, Arterial 7.12 (7.35-7.45)
[2020-07-12 12:33] LABS: CO2 Tension 71.4 mmHg (35.0-45.0); Puncture Site LRA
--- NOTE | 2020-07-12 12:51 | PDOC.HOSPP ---
- Subjective Encounter Date: 07/12/20 Encounter Time: 12:30 Subjective: f/u AMS/gen weakness/C. diff diarrhea. Nursing reports somnolent this am and all sedating meds were held. Blood gas showing CO2 retention. - Objective Vital Signs & Weight: Vital Signs (12 hours) Temp Pulse Resp BP Pulse Ox 07/12/20 08:00 98.6 F 70 20 119/53 L 98 Weight Weight 7.958 oz Most Recent Monitor Data Heart Rate from ECG 72 NIBP 143/59 NIBP BP-Mean 87 Respiration from ECG 18 SpO2 96 I&O: 07/11/20 07/12/20 07/13/20 06:59 06:59 06:59 Intake Total 50 Output Total 126 125 Balance -76 -125 Result Diagrams: 07/12/20 05:03 07/11/20 06:03 Additional Labs: Microbiology 07/09/20 15:35 Stool - Loose - Final 07/07/20 23:40 Stool - Loose C. difficile GDH Antigen & Toxins - Final 07/07/20 23:40 Stool - Loose Clostridioides difficile Toxins A&B (PCR) - Final 07/05/20 10:49 Venous blood - Left Arm Blood Culture - Final Coagulase Neg Staphylococcus 07/05/20 10:15 Urine Straight Catheter Urine Culture - Final NO GROWTH AT 48 HOURS 07/05/20 12:26 Peritoneal Fluid Culture - Pending Body Fluid Culture - Preliminary 07/05/20 10:53 Venous blood - Left Hand Blood Culture - Preliminary NO GROWTH AT 48 HOURS Laboratory Tests 07/05/20 07/06/20 07/06/20 12:24 04:18 04:18 WBC 12.5 H Hgb 8.8 L Plt Count Neutrophils % (Manual) 79 H Retic Count Hep Bs Antigen Non-Reactive Influenza A RNA INAAT Not Detected Influenza B RNA INAAT Not Detected SARS-CoV-2 Rap RNA(RT-PCR) Not Detected 07/07/20 07/08/20 07/09/20 04:00 05:37 05:50 WBC 8.7 Hgb 7.8 L 7.5 L Plt Count 143 Neutrophils % (Manual) 78 H 76 H Retic Count Hep Bs Antigen Influenza A RNA INAAT Influenza B RNA INAAT SARS-CoV-2 Rap RNA(RT-PCR) 07/09/20 07/10/20 07/11/20 15:05 06:01 06:03 WBC Hgb 7.3 L 6.4 L Plt Count Neutrophils % (Manual) Retic Count 2.5 H Hep Bs Antigen Influenza A RNA INAAT Influenza B RNA INAAT SARS-CoV-2 Rap RNA(RT-PCR) Hospitalist ROS - Medication Medications: Active Medications Generic Name Dose Route Start Last Admin Trade Name Freq PRN Reason Stop Dose Admin Acetaminophen 1,000 mg 07/05/20 20:13 07/07/20 09:43 Acetaminophen 500 Mg Tab PO 1,000 mg Q4H PRN Administration Headache/Fever or Pain Carvedilol 12.5 mg 07/09/20 21:00 07/12/20 11:50 Carvedilol 6.25 Mg Tab PO Not Given BID [facility] Docusate Sodium 100 mg 07/10/20 09:00 07/12/20 11:50 Docusate 100 Mg Cap PO Not Given DAILY [facility] Duloxetine HCl 30 mg 07/10/20 09:00 07/12/20 11:51 Duloxetine 30 Mg Cap PO Not Given DAILY [facility] Epoetin Ramon-epbx 10,000 unit 07/10/20 18:00 07/10/20 18:25 Epoetin Ramon-Epbx (Esrd) 10,000 Unit/Ml Vial SC 10,000 unit Q7D JUAN CARLOS Administration Folic Acid 1 mg 07/12/20 09:00 07/12/20 11:51 Folic Acid 1 Mg Tab PO Not Given DAILY [facility] Ondansetron HCl 4 mg 07/10/20 09:48 07/12/20 05:13 Ondansetron Pf 4 Mg/2 Ml Vial IVP 4 mg Q6H PRN Administration Nausea/Vomiting Pantoprazole Sodium 40 mg 07/09/20 09:00 07/12/20 11:51 Pantoprazole 40 Mg Tab PO Not Given DAILY JUAN CARLOS Saccharomyces Boulardii 250 mg 07/09/20 09:00 07/12/20 11:51 Saccharomyces Boulardii 250 Mg Cap PO Not Given DAILY JUAN CARLOS Sodium Chloride 10 ml 07/05/20 21:00 07/11/20 20:01 Flush - Normal Saline 10 Ml Syringe IVF 10 ml Q12HR JUAN CARLOS Administration Vancomycin HCl 125 mg 07/08/20 14:00 07/12/20 06:05 Vancomycin Hcl 25 Mg/Ml Oral PO 125 mg Q8HR JUAN CARLOS Administration - Exam General - other findings: opens eyes to direct questions, falls asleep quickly Eye: PERRL, anicteric sclera ENT: normocephalic atraumatic, no oropharyngeal lesions Neck: supple, symmetric, no JVD, no thyromegaly, no lymphadenopathy Heart: RRR, no gallops, no rubs, normal peripheral pulses Heart - other findings: S1, S2 Respiratory: no wheezes, no rales, no ronchi Respiratory - other findings: diminished in bases Gastrointestinal: soft, non-tender, non-distended, normal bowel sounds, no palpable masses Extremities: no cyanosis, no clubbing, no edema Skin: normal turgor Neurological: cranial nerve grossly intact Musculoskeletal: generalized weakness Psychiatric: oriented to person, somnolent, lethargic Hosp A/P (1) Acute metabolic encephalopathy Code(s): G93.41 - METABOLIC ENCEPHALOPATHY Status: Acute Plan: Persistent, component of hypercapnia, start trial of BiPAP NIMV (2) Anemia of renal disease Code(s): N18.9 - CHRONIC KIDNEY DISEASE, UNSPECIFIED; D63.1 - ANEMIA IN CHRONIC KIDNEY DISEASE Status: Chronic Plan: s/p 1u PRBC's, serial H/H (3) Clostridium difficile diarrhea Code(s): A04.72 - ENTEROCOLITIS D/T CLOSTRIDIUM DIFFICILE, NOT SPCF RECUR Status: Acute Plan: Continue Vancomycin 125mg po TID, Florastor (4) ESRD on peritoneal dialysis Code(s): N18.6 - END STAGE RENAL DISEASE; Z99.2 - DEPENDENCE ON RENAL DIALYSIS Status: Chronic Plan: PD per Renal service (5) Sepsis Code(s): A41.9 - SEPSIS, UNSPECIFIED ORGANISM Status: Acute - Plan continue antibiotics, PT/OT, social secretary, respiratory therapy, DVT proph w/SCDs Continue Vancomycin 125mg po TID Continue Florastor 250mg po daily OOB with PT PD per Nephrology, ? need for HD s/p 1u PRBC's D/C Heparin CM for SNF/Rehab options AM lab: CBC, BMP, Mg++, PO3, Ammonia, TSH
--- NOTE | 2020-07-12 16:56 | PRG ---
DATE OF SERVICE: 07/12/2020 SUBJECTIVE: I spoke with the nurse after I was told the patient was being transferred to the [facility] for noninvasive ventilation. She has become progressively somnolent over the last 24 hours. ABG was drawn showing hypercapnia with pH of 7.12, pCO2 of 71, PO2 of 132, however, AA gradient is only 22. Some of her medications have been. She was taking [place]. This is in line with a baseline creatinine of about 9. OBJECTIVE: VITAL SIGNS: Currently, she is on BiPAP. She is awake. She is only taking tidal volumes of about 200 mL, temperature 98.6, respirations in the low 20s, O2 saturation 96%, blood pressure 119/53. GENERAL: She appears in no distress. HEENT: Unremarkable. NECK: No JVD. LUNGS: Clear. CARDIAC: S1 and S2. Regular. ABDOMEN: Slightly protuberant. EXTREMITIES: No edema. LABORATORY DATA: I reviewed her labs. ASSESSMENT: 1. Clostridium difficile colitis. 2. Hypoventilation, which I think is likely secondary to the use of narcotics, duloxetine, gabapentin and Requip in the face of chronic renal failure. 3. Chronic renal failure requiring peritoneal dialysis. PLAN: I will withhold any sedating medications. Noninvasive ventilation overnight, hopefully able to come off that by tomorrow. Job ID: [id number]
--- NOTE | 2020-07-12 17:54 | PRG ---
DATE OF SERVICE: 07/12/2020 SUBJECTIVE: The patient is noted to be in and out of somnolence. OBJECTIVE: VITAL SIGNS: Afebrile, temperature 98.6, pulse 70, respiratory rate of 22, O2 saturations of 99%, blood pressure 119/53. HEENT: Unremarkable. CARDIOVASCULAR SYSTEM: First and second heart sounds were heard. RESPIRATORY SYSTEM: Clear to auscultation. DIGESTIVE SYSTEM: Benign abdomen. EXTREMITIES: No peripheral edema. SKIN: No new gross rash. LYMPHATICS: No peripheral lymphadenopathy. IMPRESSION: 1. End-stage renal disease, on peritoneal dialysis. 2. Morbid obesity. 3. Altered mental status, query cause. 4. Rule out carbon dioxide narcosis. PLAN: 1. ABG to evaluate the pCO2 of this patient. 2. Discontinue all potentially sedative medications as these medications which compounded effect of body habitus this patient to sleep apnea resulting in carbon dioxide narcosis and this to be evaluated with ABG. 3. Further management to be dependent on the clinical course. Job ID: [id number]
[2020-07-12] MEDS: Acetaminophen 500 MG TAB PO PRN (21:05)
[2020-07-13 05:58] LABS: Hemoglobin 7.2 g/dL (12.0-16.0); Mean Corpuscular HGB CONC 31.5 g/dL (32.0-36.0); Mean Corpuscular Hemoglobin 31.7 pg (27.0-31.0); Mean Platelet Volume 8.3 fL (7.4-10.4); Platelet Count 105 thou/uL (130-400); RBC Distribution Width 13.2 % (11.5-14.5); Red Blood Cell (RBC) Count 2.26 mill/uL (4.20-5.40); White Blood Cell (WBC) Count 5.9 thou/uL (4.8-10.8)
[2020-07-13] MEDS: Ondansetron PF 4 MG/2 ML Vial IVP PRN ×3 (06:04→20:25)
[2020-07-13 06:05] LABS: Band 1 % (5-11); Eosinophils 4 % (0-10); Hypochromia SLIGHT = 6-15 cells (100X) (0-5/hpf); Lymphocytes 14 % (21-51); MDiff Complete? YES; Monocytes 7 % (0-10); Neutrophil 74 % (42-75); Platelet Morphology Comment Appears Decreased
[2020-07-13] MEDS: Vancomycin HCl 25 MG/ML Oral PO SCH ×3 (06:08→21:28)
[2020-07-13 06:22] LABS: Anion Gap 17 mmol/L (10-20); BUN (Urea Nitrogen) 53 mg/dL (9.8-20.1); Calc. Creatinine Clearance 0 mL/min (70-130); Calcium 7.4 mg/dL (7.8-10.44); Carbon Dioxide 21 mmol/L (23-31); Chloride 102 mmol/L (98-107); Glucose 106 mg/dL (83-110); Magnesium 1.8 mg/dL (1.6-2.6); Phosphorus 8.8 mg/dL (2.3-4.7); Potassium 3.3 mmol/L (3.5-5.1); Sodium 137 mmol/L (136-145)
[2020-07-13] MEDS: Carvedilol 6.25 MG TAB PO SCH ×2 (09:09→20:25)
[2020-07-13] MEDS: Folic Acid 1 MG TAB PO SCH (09:09)
[2020-07-13] MEDS: Docusate 100 MG CAP PO SCH (09:09)
[2020-07-13] MEDS: Saccharomyces boulardii 250 MG CAP PO SCH (09:09)
--- NOTE | 2020-07-13 09:17 | PRG ---
DATE OF SERVICE: 07/13/2020 SUBJECTIVE: The patient is doing very well. OBJECTIVE: GENERAL: She is awake, alert, in no distress. VITAL SIGNS: On exam, temperature 98.3, pulse 62, respirations 18, O2 saturation 100%. Blood pressure 104/46. HEENT: Unremarkable. NECK: No JVD. CHEST: Clear. CARDIAC: S1 and S2. Regular. ABDOMEN: Soft. EXTREMITIES: No edema. LABORATORY DATA: White blood cell count 5.9, hematocrit 22.8, and platelet count 105. Sodium 137, potassium 3.3, chloride 102, CO2 of 21, BUN 53, creatinine 10.3, and glucose 106. ASSESSMENT: 1. The patient was overmedicated and was having central hypoventilation. 2. Chronic renal failure, requiring peritoneal dialysis. 3. Clostridium difficile colitis. PLAN: She has requested the Bledsoe catheter be discontinued. She has been taken off the BiPAP. I do not see that she will likely need this again. Job ID: [id number]
--- NOTE | 2020-07-13 11:28 | PDOC.HOSPP ---
- Subjective Encounter Date: 07/13/20 Encounter Time: 11:10 Subjective: f/u for AMS/resp failure likely due to central hypoventilation secondary to over-sedation. Initially given BiPAP now on NC. Feels much better and mentally clear. - Objective Vital Signs & Weight: Vital Signs (12 hours) Temp Pulse Pulse Pulse Resp BP BP 07/13/20 08:41 69 70 134/53 L 123/46 L 07/13/20 08:00 98.6 F 70 17 07/13/20 04:00 98.3 F 62 18 07/13/20 02:57 20 07/13/20 00:00 98.3 F 66 18 BP Pulse Ox 07/13/20 08:41 07/13/20 08:00 123/46 L 100 07/13/20 04:00 104/46 L 100 07/13/20 02:57 96 07/13/20 00:00 118/58 L 99 Weight Weight 228 lb 5 oz Most Recent Monitor Data Heart Rate from ECG 72 NIBP 143/59 NIBP BP-Mean 87 Respiration from ECG 18 SpO2 96 I&O: 07/12/20 07/13/20 07/14/20 06:59 06:59 06:59 Intake Total 960 Output Total 125 300 50 Balance -125 660 -50 Result Diagrams: 07/13/20 05:43 07/13/20 05:43 Additional Labs: Accuchecks 07/13/20 10:54 POC Glucose 116 H Microbiology 07/09/20 15:35 Stool - Loose - Final 07/07/20 23:40 Stool - Loose C. difficile GDH Antigen & Toxins - Final 07/07/20 23:40 Stool - Loose Clostridioides difficile Toxins A&B (PCR) - Final 07/05/20 10:49 Venous blood - Left Arm Blood Culture - Final Coagulase Neg Staphylococcus 07/05/20 10:15 Urine Straight Catheter Urine Culture - Final NO GROWTH AT 48 HOURS 07/05/20 12:26 Peritoneal Fluid Culture - Pending Body Fluid Culture - Pre liminary 07/05/20 10:53 Venous blood - Left Hand Blood Culture - Preliminary NO GROWTH AT 48 HOURS Laboratory Tests 07/05/20 07/06/20 07/06/20 12:24 04:18 04:18 WBC 12.5 H Hgb 8.8 L Plt Count Neutrophils % (Manual) 79 H Retic Count Hep Bs Antigen Non-Reactive Influenza A RNA INAAT Not Detected Influenza B RNA INAAT Not Detected SARS-CoV-2 Rap RNA(RT-PCR) Not Detected 07/07/20 07/08/20 07/09/20 04:00 05:37 05:50 WBC 8.7 Hgb 7.8 L 7.5 L Plt Count 143 Neutrophils % (Manual) 78 H 76 H Retic Count Hep Bs Antigen Influenza A RNA INAAT Influenza B RNA INAAT SARS-CoV-2 Rap RNA(RT-PCR) 07/09/20 07/10/20 07/11/20 15:05 06:01 06:03 WBC Hgb 7.3 L 6.4 L Plt Count Neutrophils % (Manual) Retic Count 2.5 H Hep Bs Antigen Influenza A RNA INAAT Influenza B RNA INAAT SARS-CoV-2 Rap RNA(RT-PCR) EKG Reviewed by me: Yes (Tele - SR) Hospitalist ROS - Medication Medications: Active Medications Generic Name Dose Route Start Last Admin Trade Name Freq PRN Reason Stop Dose Admin Acetaminophen 1,000 mg 07/05/20 20:13 07/12/20 21:05 Acetaminophen 500 Mg Tab PO 1,000 mg Q4H PRN Administration Headache/Fever or Pain Carvedilol 12.5 mg 07/09/20 21:00 07/13/20 09:09 Carvedilol 6.25 Mg Tab PO 12.5 mg BID JUAN CARLOS Administration Docusate Sodium 100 mg 07/10/20 09:00 07/13/20 09:09 Docusate 100 Mg Cap PO Not Given DAILY JUAN CARLOS Epoetin Ramon-epbx 10,000 unit 07/10/20 18:00 07/10/20 18:25 Epoetin Ramon-Epbx (Esrd) 10,000 Unit/Ml Vial SC 10,000 unit Q7D JUAN CARLOS Administration Folic Acid 1 mg 07/12/20 09:00 07/13/20 09:09 Folic Acid 1 Mg Tab PO 1 mg DAILY JUAN CARLOS Administration Ondansetron HCl 4 mg 07/10/20 09:48 07/13/20 06:04 Ondansetron Pf 4 Mg/2 Ml Vial IVP 4 mg Q6H PRN Administration Nausea/Vomiting Pantoprazole Sodium 40 mg 07/09/20 09:00 07/13/20 09:09 Pantoprazole 40 Mg Tab PO 40 mg DAILY JUAN CARLOS Administration Saccharomyces Boulardii 250 mg 07/09/20 09:00 07/13/20 09:09 Saccharomyces Boulardii 250 Mg Cap PO 250 mg DAILY JUAN CARLOS Administration Sodium Chloride 10 ml 07/05/20 21:00 07/13/20 09:09 Flush - Normal Saline 10 Ml Syringe IVF 10 ml Q12HR JUAN CARLOS Administration Vancomycin HCl 125 mg 07/08/20 14:00 07/13/20 06:08 Vancomycin Hcl 25 Mg/Ml Oral PO 125 mg Q8HR JUAN CARLOS Administration - Exam General Appearance: NAD, awake alert Eye: PERRL, anicteric sclera ENT: normocephalic atraumatic, no oropharyngeal lesions Neck: supple, symmetric, no JVD, no thyromegaly, no lymphadenopathy Heart: RRR, no gallops, no rubs, normal peripheral pulses Respiratory: CTAB, no wheezes, no rales, no ronchi, normal chest expansion Gastrointestinal: soft, non-tender, non-distended, normal bowel sounds, no palpable masses Gastrointestinal - other findings: obese Extremities: no cyanosis, no clubbing, no edema Skin: normal turgor, no lesions Neurological: cranial nerve grossly intact, no new deficit Musculoskeletal: normal tone, generalized weakness Psychiatric: normal affect, A&O x 3 Hosp A/P (1) Acute metabolic encephalopathy Code(s): G93.41 - METABOLIC ENCEPHALOPATHY Status: Acute Plan: Likely iatrogenic influence with over-sedation in conjunction with hypercapnia, resolving currently (2) Anemia of renal disease Code(s): N18.9 - CHRONIC KIDNEY DISEASE, UNSPECIFIED; D63.1 - ANEMIA IN CHRONIC KIDNEY DISEASE Status: Chronic Plan: Continue Epo, s/p 1u PRBC's, serial H/H (3) Clostridium difficile diarrhea Code(s): A04.72 - ENTEROCOLITIS D/T CLOSTRIDIUM DIFFICILE, NOT SPCF RECUR Status: Acute Plan: Resolving, continue Vancomycin po another 2-3 days, Florastor (4) ESRD on peritoneal dialysis Code(s): N18.6 - END STAGE RENAL DISEASE; Z99.2 - DEPENDENCE ON RENAL DIALYSIS Status: Chronic Plan: PD per Nephrology (5) Sepsis Code(s): A41.9 - SEPSIS, UNSPECIFIED ORGANISM Status: Acute - Plan plan discussed w/ family, continue antibiotics, PT/OT, geriatric social worker, respiratory therapy, out of bed/ambulate, DVT proph w/SCDs Continue Vancomycin 125mg po TID another 2-3 days Continue Florastor 250mg po daily OOB with PT PD per Nephrology, ? need for HD s/p 1u PRBC's D/C Heparin CM for Rehab options Limit sedation meds AM lab: CBC, BMP Likely d/c to rehab in 24h
[2020-07-13 12:49] VITALS: BMI 41.7
--- NOTE | 2020-07-13 17:37 | PRG ---
DATE OF SERVICE: 07/13/2020 SUBJECTIVE: The patient was seen and noted with the following vital signs. Doing very well. OBJECTIVE: VITAL SIGNS: Afebrile, temperature 98.8, pulse 68, respiratory rate of 16, O2 saturations of 98%, and blood pressure 122/55. HEENT: Unremarkable. CARDIOVASCULAR SYSTEM: First and second heart sounds were heard. RESPIRATORY SYSTEM: Clear to auscultation. DIGESTIVE SYSTEM: Revealed a benign abdomen with positive bowel sounds. EXTREMITIES: No peripheral edema. SKIN: No new gross rash. LYMPHATICS: No peripheral lymphadenopathy. IMPRESSION: 1. End-stage renal disease, on peritoneal dialysis. 2. Hypercapnic respiratory failure with mental status change. 3. Obesity. 4. Clostridium difficile colitis. PLAN: 1. The patient seems to be doing well status post BiPAP for the treatment of the hypercapnic respiratory failure. 2. Continue with current peritoneal dialysis regimen. 3. Further management will be dependent on the clinical course. Job ID: [id number]
[2020-07-13] MEDS: Acetaminophen 500 MG TAB PO PRN (20:25)
[2020-07-14] MEDS: Ondansetron PF 4 MG/2 ML Vial IVP PRN ×2 (05:33→17:52)
[2020-07-14 05:39] LABS: Anion Gap 18 mmol/L (10-20); BUN (Urea Nitrogen) 52 mg/dL (9.8-20.1); Calc. Creatinine Clearance 8 mL/min (70-130); Calcium 7.6 mg/dL (7.8-10.44); Carbon Dioxide 22 mmol/L (23-31); Chloride 100 mmol/L (98-107); Glucose 91 mg/dL (83-110); Potassium 3.4 mmol/L (3.5-5.1); Sodium 137 mmol/L (136-145)
[2020-07-14 06:02] LABS: Band 7 % (5-11); Eosinophils 2 % (0-10); Hemoglobin 7.5 g/dL (12.0-16.0); Lymphocytes 21 % (21-51); MDiff Complete? YES; Mean Corpuscular HGB CONC 29.6 g/dL (32.0-36.0); Mean Corpuscular Hemoglobin 29.2 pg (27.0-31.0); Mean Corpuscular Volume 98.8 fL (78.0-98.0); Mean Platelet Volume 8.2 fL (7.4-10.4); Monocytes 3 % (0-10); Neutrophil 67 % (42-75); Platelet Count 132 thou/uL (130-400); RBC Distribution Width 13.1 % (11.5-14.5); RBC Morphology Normal; Red Blood Cell (RBC) Count 2.57 mill/uL (4.20-5.40); White Blood Cell (WBC) Count 6.1 thou/uL (4.8-10.8)
[2020-07-14] MEDS: Vancomycin HCl 25 MG/ML Oral PO SCH (06:06)
[2020-07-14] MEDS: Folic Acid 1 MG TAB PO SCH (09:54)
[2020-07-14] MEDS: Saccharomyces boulardii 250 MG CAP PO SCH (09:54)
[2020-07-14] MEDS: Carvedilol 6.25 MG TAB PO SCH ×2 (09:54→21:02)
[2020-07-14] MEDS: Docusate 100 MG CAP PO SCH (09:54)
--- NOTE | 2020-07-14 12:12 | PDOC.HOSPP ---
- Subjective Encounter Date: 07/14/20 Encounter Time: 12:10 Subjective: f/u for c.diff diarrhea/hypercapnia on prior BiPAP. Feels better overall but didn't sleep overnight. Also c/o nausea/reflux with po Vancomycin. - Objective Vital Signs & Weight: Vital Signs (12 hours) Temp Pulse Resp BP BP BP Pulse Ox 07/14/20 11:27 98.2 F 70 20 133/58 L 93 L 07/14/20 09:54 140/60 07/14/20 07:53 98.3 F 70 20 140/60 94 L 07/14/20 03:30 97.5 F L 63 20 125/53 L 97 Weight Admit Weight 228 lb 4.8 oz Weight 218 lb 14.704 oz Most Recent Monitor Data Heart Rate from ECG 72 NIBP 143/59 NIBP BP-Mean 87 Respiration from ECG 18 SpO2 96 I&O: 07/13/20 07/14/20 07/15/20 06:59 06:59 06:59 Intake Total 960 960 Output Total 300 456 Balance 660 504 Result Diagrams: 07/14/20 05:00 07/14/20 05:00 Additional Labs: Accuchecks 07/14/20 07/14/20 10:45 05:50 POC Glucose 114 H 84 Microbiology 07/09/20 15:35 Stool - Loose - Final 07/07/20 23:40 Stool - Loose C. difficile GDH Antigen & Toxins - Final 07/07/20 23:40 Stool - Loose Clostridioides difficile Toxins A&B (PCR) - Final 07/05/20 10:49 Venous blood - Left Arm Blood Culture - Final Coagulase Neg Staphylococcus 07/05/20 10:15 Urine Straight Catheter Urine Culture - Final NO GROWTH AT 48 HOURS 07/05/20 12:26 Peritoneal Fluid Culture - Pending Body Fluid Culture - Preliminary 07/05/20 10:53 Venous blood - Left Hand Blood Culture - Preliminary NO GROWTH AT 48 HOURS Laboratory Tests 07/05/20 07/06/20 07/06/20 12:24 04:18 04:18 WBC 12.5 H Hgb 8.8 L Plt Count Neutrophils % (Manual) 79 H Retic Count Hep Bs Antigen Non-Reactive Influenza A RNA INAAT Not Detected Influenza B RNA INAAT Not Detected SARS-CoV-2 Rap RNA(RT-PCR) Not Detected 07/07/20 07/08/20 07/09/20 04:00 05:37 05:50 WBC 8.7 Hgb 7.8 L 7.5 L Plt Count 143 Neutrophils % (Manual) 78 H 76 H Retic Count Hep Bs Antigen Influenza A RNA INAAT Influenza B RNA INAAT SARS-CoV-2 Rap RNA(RT-PCR) 07/09/20 07/10/20 07/11/20 15:05 06:01 06:03 WBC Hgb 7.3 L 6.4 L Plt Count Neutrophils % (Manual) Retic Count 2.5 H Hep Bs Antigen Influenza A RNA INAAT Influenza B RNA INAAT SARS-CoV-2 Rap RNA(RT-PCR) EKG Reviewed by me: Yes (Tele - SR) Hospitalist ROS - Medication Medications: Active Medications Generic Name Dose Route Start Last Admin Trade Name Freq PRN Reason Stop Dose Admin Acetaminophen 1,000 mg 07/05/20 20:13 07/13/20 20:25 Acetaminophen 500 Mg Tab PO 1,000 mg Q4H PRN Administration Headache/Fever or Pain Carvedilol 12.5 mg 07/09/20 21:00 07/14/20 09:54 Carvedilol 6.25 Mg Tab PO 12.5 mg BID JUAN CARLOS Administration Docusate Sodium 100 mg 07/10/20 09:00 07/14/20 09:54 Docusate 100 Mg Cap PO 100 mg DAILY JUAN CARLOS Administration Epoetin Ramon-epbx 10,000 unit 07/10/20 18:00 07/10/20 18:25 Epoetin Ramon-Epbx (Esrd) 10,000 Unit/Ml Vial SC 10,000 unit Q7D JUAN CARLOS Administration Folic Acid 1 mg 07/12/20 09:00 07/14/20 09:54 Folic Acid 1 Mg Tab PO 1 mg DAILY JUAN CARLOS Administration Ondansetron HCl 4 mg 07/10/20 09:48 07/14/20 05:33 Ondansetron Pf 4 Mg/2 Ml Vial IVP 4 mg Q6H PRN Administration Nausea/Vomiting Pantoprazole Sodium 40 mg 07/09/20 09:00 07/14/20 09:54 Pantoprazole 40 Mg Tab PO 40 mg DAILY JUAN CARLOS Administration Saccharomyces Boulardii 250 mg 07/09/20 09:00 07/14/20 09:54 Saccharomyces Boulardii 250 Mg Cap PO 250 mg DAILY JUAN CARLOS Administration Sodium Chloride 10 ml 07/05/20 21:00 07/14/20 09:55 Flush - Normal Saline 10 Ml Syringe IVF 10 ml Q12HR JUAN CARLOS Administration Vancomycin HCl 125 mg 07/08/20 14:00 07/14/20 06:06 Vancomycin Hcl 25 Mg/Ml Oral PO 125 mg Q8HR JUAN CARLOS Administration - Exam General Appearance: NAD, awake alert Eye: PERRL, anicteric sclera ENT: normocephalic atraumatic, no oropharyngeal lesions Neck: supple, symmetric, no JVD, no thyromegaly, no lymphadenopathy Heart: RRR, no gallops, no rubs, normal peripheral pulses Heart - other findings: S1, S2 Respiratory: CTAB, no wheezes, no rales, no ronchi, normal chest expansion, no tachypnea Gastrointestinal: soft, non-tender, non-distended, normal bowel sounds, no palpable masses Extremities: no cyanosis, no clubbing, no edema Skin: normal turgor, no lesions Neurological: cranial nerve grossly intact, no new deficit Musculoskeletal: normal tone, generalized weakness Psychiatric: normal affect, A&O x 3 Hosp A/P (1) Acute metabolic encephalopathy Code(s): G93.41 - METABOLIC ENCEPHALOPATHY Status: Acute Plan: Resolved, likely iatrogenic with over-sedation with medications (2) Anemia of renal disease Code(s): N18.9 - CHRONIC KIDNEY DISEASE, UNSPECIFIED; D63.1 - ANEMIA IN CHRONIC KIDNEY DISEASE Status: Chronic (3) Clostridium difficile diarrhea Code(s): A04.72 - ENTEROCOLITIS D/T CLOSTRIDIUM DIFFICILE, NOT SPCF RECUR Status: Acute Plan: Change to Flagyl 250mg TID, d/c Vancomycin, continue Florastor (4) ESRD on peritoneal dialysis Code(s): N18.6 - END STAGE RENAL DISEASE; Z99.2 - DEPENDENCE ON RENAL DIALYSIS Status: Chronic Plan: PD with Renal service (5) Sepsis Code(s): A41.9 - SEPSIS, UNSPECIFIED ORGANISM Status: Acute Plan: Resolved - Plan continue antibiotics, PT/OT, manager social work, out of bed/ambulate, DVT proph w/SCDs D/C Vancomycin Start Flagyl 250mg TID Continue Florastor 250mg po daily OOB with PT PD per Nephrology, ? need for HD s/p 1u PRBC's D/C Heparin CM for Rehab options, pending bed availability Limit sedation meds AM lab: CBC, BMP Likely d/c to rehab in 24h
--- NOTE | 2020-07-14 16:54 | PRG ---
DATE OF SERVICE: 07/14/2020 OBJECTIVE: VITAL SIGNS: The patient noted with the following vital signs. Afebrile, temperature 98.4, pulse 63, respiratory rate of 20, O2 saturation of 99%, with blood pressure 137/57. HEENT: Unremarkable. CARDIOVASCULAR SYSTEM: First and second heart sounds were heard. RESPIRATORY SYSTEM: Clear to auscultation. DIGESTIVE SYSTEM: Revealed a benign abdomen with positive bowel sounds. EXTREMITIES: No peripheral edema. SKIN: No new gross rash. LYMPHATICS: No peripheral lymphadenopathy. LABORATORY INVESTIGATION: Showed a hemoglobin of 7.5. Chemistry showed a creatinine of 10.1, BUN 52, potassium of 3.4. IMPRESSION: 1. End-stage renal disease, on peritoneal dialysis. 2. Anemia of chronic kidney disease. 3. Hypercapnic respiratory failure. 4. Clostridium difficile colitis. PLAN: 1. The patient to continue with erythropoiesis stimulating agent. 2. Continue with current peritoneal dialysis regimen. 3. Further management to be dependent on the clinical course. Job ID: [id number]
[2020-07-14] MEDS: metroNIDAZOLE 250 MG TAB PO SCH ×2 (17:52→21:02)
[2020-07-14] MEDS: Temazepam 15 MG CAP PO PRN (21:02)
[2020-07-15] MEDS: Acetaminophen 500 MG TAB PO PRN (00:42)
[2020-07-15 05:46] LABS: Hemoglobin 7.6 g/dL (12.0-16.0); Platelet Count 142 thou/uL (130-400)
[2020-07-15 06:13] LABS: Anion Gap 18 mmol/L (10-20); BUN (Urea Nitrogen) 48 mg/dL (9.8-20.1); Calc. Creatinine Clearance 7 mL/min (70-130); Calcium 7.6 mg/dL (7.8-10.44); Carbon Dioxide 20 mmol/L (23-31); Chloride 103 mmol/L (98-107); Glucose 101 mg/dL (83-110); Sodium 138 mmol/L (136-145)
[2020-07-15 06:17] LABS: Potassium 2.9 mmol/L (3.5-5.1)
[2020-07-15] MEDS: rOPINIRole HCl 0.25 MG TAB PO SCH (06:46)
[2020-07-15] MEDS ORDERED: Potassium Chloride 40 MEQ in Sodium Chloride 0.9% 250 ML 250 ML IVPB SCH (07:00)
[2020-07-15] MEDS: Carvedilol 6.25 MG TAB PO SCH ×2 (09:41→20:41)
[2020-07-15] MEDS: Saccharomyces boulardii 250 MG CAP PO SCH (09:41)
[2020-07-15] MEDS: metroNIDAZOLE 250 MG TAB PO SCH ×3 (09:41→20:41)
[2020-07-15] MEDS: Folic Acid 1 MG TAB PO SCH (09:41)
[2020-07-15] MEDS: Docusate 100 MG CAP PO SCH (09:42)
--- NOTE | 2020-07-15 13:58 | EKG ---
Test Reason : Blood Pressure : / mmHG Vent. Rate : 113 BPM Atrial Rate : 062 BPM P-R Int : 000 ms QRS Dur : 100 ms QT Int : 346 ms P-R-T Axes : 000 -41 109 degrees QTc Int : 474 ms Atrial fibrillation with rapid ventricular response Left axis deviation Low voltage QRS Cannot rule out Anteroseptal infarct , age undetermined Abnormal ECG Confirmed by KEO PENA DO ([id number]), graphics editor RAYA TEAGUE ([id number]) on 07/15/2020 1:58:36 PM Referred By: Confirmed By:KEO PENA DO
--- NOTE | 2020-07-15 15:03 | PDOC.HOSPP ---
- Subjective Encounter Date: 07/15/20 Encounter Time: 15:01 Subjective: Patient seen and examined today at the bedside. Her was present on my visit. Morbidly obese 75-year-old woman who has been hospitalized now for the past 10 days. She is a dialysis patient who presented to the hospital lethargic and hypotensive. Initially there was some concern that she has sepsis but there was never a source of infection found. It was felt that her lethargy was related to polypharmacy as the patient was on Ambien, narcotics and some sedatives. Since that has been held her mentation seems to be better. Although she is complaining about not sleeping at night due to her medicines being adj usted. She has been approved to go to rehab once a bed becomes available. At this point in time she has no other concerns. Other pertinent information includes being treated for C. difficile. - Objective Vital Signs & Weight: Vital Signs (12 hours) Temp Pulse Resp BP BP Pulse Ox 07/15/20 12:00 97.3 F L 69 16 122/57 L 99 07/15/20 09:41 100 07/15/20 09:40 65 07/15/20 07:59 97.4 F L 58 L 16 137/58 L 100 07/15/20 07:56 98 07/15/20 04:15 98.2 F 61 20 126/56 L 92 L Weight Admit Weight 228 lb 4.8 oz Weight 212 lb 1.355 oz Most Recent Monitor Data Heart Rate from ECG 72 NIBP 143/59 NIBP BP-Mean 87 Respiration from ECG 18 SpO2 96 I&O: 07/14/20 07/15/20 07/16/20 06:59 06:59 06:59 Intake Total 960 480 Output Total 456 200 Balance 504 280 Result Diagrams: 07/15/20 05:11 07/15/20 05:11 Radiology Reviewed by me: Yes EKG Reviewed by me: Yes Hospitalist ROS - Review of Systems Constitutional: reports: weakness Respiratory: reports: shortness of breath, SOB with excertion Gastrointestinal: reports: nausea Genitourinary: reports: dysuria Neurological: reports: weakness, numbness - Medication Medications: Active Medications Generic Name Dose Route Start Last Admin Trade Name Freq PRN Reason Stop Dose Admin Acetaminophen 1,000 mg 07/05/20 20:13 07/15/20 00:42 Acetaminophen 500 Mg Tab PO 1,000 mg Q4H PRN Administration Headache/Fever or Pain Carvedilol 12.5 mg 07/09/20 21:00 07/15/20 09:41 Carvedilol 6.25 Mg Tab PO 12.5 mg BID JUAN CARLOS Administration Docusate Sodium 100 mg 07/10/20 09:00 07/15/20 09:42 Docusate 100 Mg Cap PO 100 mg DAILY JUAN CARLOS Administration Epoetin Ramon-epbx 10,000 unit 07/10/20 18:00 07/10/20 18:25 Epoetin Ramon-Epbx (Esrd) 10,000 Unit/Ml Vial SC 10,000 unit Q7D JUAN CARLOS Administration Folic Acid 1 mg 07/12/20 09:00 07/15/20 09:41 Folic Acid 1 Mg Tab PO 1 mg DAILY JUAN CARLOS Administration Metronidazole 250 mg 07/14/20 15:00 07/15/20 09:41 Metronidazole 250 Mg Tab PO 250 mg TID JUAN CARLOS Administration Ondansetron HCl 4 mg 07/10/20 09:48 07/14/20 17:52 Ondansetron Pf 4 Mg/2 Ml Vial IVP 4 mg Q6H PRN Administration Nausea/Vomiting Pantoprazole Sodium 40 mg 07/09/20 09:00 07/15/20 09:41 Pantoprazole 40 Mg Tab PO 40 mg DAILY JUAN CARLOS Administration Saccharomyces Boulardii 250 mg 07/09/20 09:00 07/15/20 09:41 Saccharomyces Boulardii 250 Mg Cap PO 250 mg DAILY JUAN CARLOS Administration Sodium Chloride 10 ml 07/05/20 21:00 07/15/20 09:43 Flush - Normal Saline 10 Ml Syringe IVF 10 ml Q12HR JUAN CARLOS Administration Temazepam 15 mg 07/14/20 12:11 07/14/20 21:02 Temazepam 15 Mg Cap PO 15 mg HSPRN PRN Administration Insomnia - Exam General Appearance: awake alert, ill appearing Eye: PERRL, anicteric sclera ENT: normocephalic atraumatic, no oropharyngeal lesions Neck: supple, symmetric, no JVD, no thyromegaly Heart: RRR, no murmur, no gallops Respiratory: CTAB, no wheezes, no rales, no ronchi Gastrointestinal: soft, non-tender, non-distended Extremities: 1+ LE edema Neurological: cranial nerve grossly intact, normal sensation to touch Musculoskeletal: normal tone, normal strength, no muscle wasting Psychiatric: normal affect, normal behavior, A&O x 3 Hosp A/P (1) Acute metabolic encephalopathy Code(s): G93.41 - METABOLIC ENCEPHALOPATHY Status: Acute Plan: Likely from medication side effects. This has resolved. (2) Clostridium difficile diarrhea Code(s): A04.72 - ENTEROCOLITIS D/T CLOSTRIDIUM DIFFICILE, NOT SPCF RECUR Status: Acute Plan: Diarrhea has resolved and she is now having fairly solid bowel movements. (3) Morbid obesity with BMI of 40.0-44.9, adult Code(s): E66.01 - MORBID (SEVERE) OBESITY DUE TO EXCESS CALORIES; Z68.41 - BODY MASS INDEX [BMI]40.0-44.9, ADULT Status: Acute - Plan PT/OT, case management social worker, out of bed/ambulate 07/15/2020. The patient is pending transfer to rehab once a bed becomes available.
[2020-07-15] MEDS ORDERED: Melatonin 3 MG TAB PO PRN (15:04)
[2020-07-15] MEDS ORDERED: Potassium Chloride 20 MEQ TAB PO SCH (16:00)
--- NOTE | 2020-07-15 19:00 | PRG ---
DATE OF SERVICE: 07/15/2020 SUBJECTIVE: The patient noted with the following vital signs. OBJECTIVE: VITAL SIGNS: Temperature 97.5, pulse 78, respiratory rate of 16, O2 saturation of 98%, blood pressure 134/58. HEENT: Unremarkable. CARDIOVASCULAR SYSTEM: First and second heart sounds were heard. RESPIRATORY SYSTEM: Clear to auscultation. DIGESTIVE SYSTEM: Revealed a benign abdomen with positive bowel sounds. EXTREMITIES: No peripheral edema. SKIN: No new gross rash. LYMPHATICS: No peripheral lymphadenopathy. LABORATORY INVESTIGATION: Showed a hemoglobin of 7.6. Chemistry showed a potassium of 2.9, BUN of 48 with a creatinine of 10.6. IMPRESSION: 1. End-stage renal disease, on peritoneal dialysis. 2. Hypokalemia. 3. Anemia of chronic kidney disease. 4. Dysphagia, query cause. Patient is complaining of some difficulty with swallowing. PLAN: 1. Replete potassium. 2. If potassium persists, we will go ahead and check the magnesium level of this patient. 3. Continue current peritoneal dialysis prescription. 4. Further management to be dependent on the clinical course. 5. Defer the complaint of dysphagia to the primary team. Job ID: [id number]
[2020-07-15] MEDS: Temazepam 15 MG CAP PO PRN (20:41)
[2020-07-16] MEDS: Acetaminophen 500 MG TAB PO PRN (01:50)
[2020-07-16 05:46] LABS: Anion Gap 19 mmol/L (10-20); BUN (Urea Nitrogen) 47 mg/dL (9.8-20.1); Calc. Creatinine Clearance 7 mL/min (70-130); Calcium 7.6 mg/dL (7.8-10.44); Carbon Dioxide 18 mmol/L (23-31); Chloride 106 mmol/L (98-107); Glucose 94 mg/dL (83-110); Potassium 3.8 mmol/L (3.5-5.1); Sodium 139 mmol/L (136-145)
[2020-07-16 06:15] LABS: #Eosinphils 0.2 thou/uL (0.0-0.7); #Lymphocytes 1.3 thou/uL (1.20-3.40); #Monocytes 0.6 thou/uL (0.11-0.59); #Neutrophils 6.8 thou/uL (1.40-6.50); %Basophils 0.2 % (0.0-1.0); %Eosinophils 2.5 % (0.0-10.0); %Lymphocytes 14.5 % (21.0-51.0); %Neutrophils 75.8 % (42.0-75.0); Hemoglobin 7.9 g/dL (12.0-16.0); Mean Corpuscular HGB CONC 31.1 g/dL (32.0-36.0); Mean Corpuscular Hemoglobin 31.1 pg (27.0-31.0); Mean Platelet Volume 8.7 fL (7.4-10.4); Platelet Count 106 thou/uL (130-400); Platelet Morphology Comment Appears Decreased; RBC Distribution Width 13.1 % (11.5-14.5); Red Blood Cell (RBC) Count 2.53 mill/uL (4.20-5.40)
[2020-07-16] MEDS: Saccharomyces boulardii 250 MG CAP PO SCH (08:10)
[2020-07-16] MEDS: Carvedilol 6.25 MG TAB PO SCH ×2 (08:10→21:10)
[2020-07-16] MEDS: metroNIDAZOLE 250 MG TAB PO SCH ×3 (08:10→21:11)
[2020-07-16] MEDS: Folic Acid 1 MG TAB PO SCH (08:10)
[2020-07-16] MEDS: Docusate 100 MG CAP PO SCH (08:38)
[2020-07-16] MEDS ORDERED: HYDROcodone/Acetaminophen 10/325 mg Tablet PO PRN (10:38)
[2020-07-16] MEDS ORDERED: Zolpidem Tartrate 5 MG TAB PO PRN (10:39)
--- NOTE | 2020-07-16 12:33 | PDOC.DS.DS ---
Provider - Provider Date of Admission: 07/05/20 12:24 Date of Discharge: 07/16/20 Admitting Provider: Penny Mclean MD Consultations: Nephrology Primary Care Physician: Flor Rhoades MD Course - Hospital Course Hospital Course: This is a 75-year-old woman whose medical history appears to include end-stage renal disease on peritoneal dialysis at home who was admitted to the hospital with altered mental status. Initially there was some concern that she has some septicemia and she actually was placed on vasopressors and required ICU level of care. She did receive some empiric antibiotics and her cultures has remained negative however. She unfortunately developed C. difficile infection requiring initially p.o. vancomycin that was subsequently switched over to metronidazole. The etiology of her mental status changes was felt to be in relation to polypharmacy as the patient does take multiple medications that are sedatives. These were held and she has improved and recovered. Unfortunately she is now having sleepless nights I was asking to have this resumed. We discussed these and that the patient wanted them to be restarted. I think she can restart her Ambien but at a lower dose. She also continue her [place] but also at a lower dose. She does have an ongoing need for skilled therapy and she has been accepted today to go to rehab. We will go ahead and release her. She is discharged today in a stable condition. - Labs Lab Results: 07/16/20 05:10 07/16/20 05:10 Abnormal Lab Results - Last 48 hrs 07/15/20 05:11: Potassium 2.9 L*, Carbon Dioxide 20 L, BUN 48 H, Creatinine 10.60 H, Calcium 7.6 L 07/15/20 05:11: Hgb 7.6 L, Hct 23.6 L 07/16/20 05:10: Carbon Dioxide 18 L, BUN 47 H, Creatinine 10.61 H, Calcium 7.6 L 07/16/20 05:10: RBC 2.53 L, Hgb 7.9 L, Hct 25.3 L, MCV 100.0 H, MCH 31.1 H, MCHC 31.1 L, Plt Count 106 L, Neutrophils % 75.8 H, Lymphocytes % 14.5 L, Neutrophils # 6.8 H, Monocytes # 0.6 H, Plt Morphology Comment Appears Decreased L Microbiology - Entire Visit 07/05/20 10:53 Venous blood - Left Hand Blood Culture - Final NO GROWTH IN 5 DAYS 07/05/20 12:26 Peritoneal Fluid Culture - Pending Body Fluid Culture - Final 07/09/20 15:35 Stool - Loose - Final 07/07/20 23:40 Stool - Loose C. difficile GDH Antigen & Toxins - Final 07/07/20 23:40 Stool - Loose Clostridioides difficile Toxins A&B (PCR) - Final 07/05/20 10:49 Venous blood - Left Arm Blood Culture - Final Coagulase Neg Staphylococcus 07/05/20 10:15 Urine Straight Catheter Urine Culture - Final NO GROWTH AT 48 HOURS - Physical Exam Vitals: Vital Signs (12 hours) Temp Pulse Resp BP BP Pulse Ox 07/16/20 11:40 97.7 F 63 22 H 123/56 L 93 L 07/16/20 08:25 97.5 F L 71 21 H 168/70 H 99 07/16/20 03:38 98.6 F 66 20 110/46 L 95 Weight Admit Weight 228 lb 4.8 oz Weight 210 lb 8.917 oz Most Recent Monitor Data Heart Rate from ECG 72 NIBP 143/59 NIBP BP-Mean 87 Respiration from ECG 18 SpO2 96 Physical Exam: The patient was seen and examined on the day of discharge. Problem - Problem (1) Acute metabolic encephalopathy Code(s): G93.41 - METABOLIC ENCEPHALOPATHY Status: Resolved Plan: Likely related to polypharmacy. She is stable. (2) Clostridium difficile diarrhea Code(s): A04.72 - ENTEROCOLITIS D/T CLOSTRIDIUM DIFFICILE, NOT SPCF RECUR Status: Acute Plan: She will need to complete 5 more days of metronidazole. (3) Morbid obesity with BMI of 40.0-44.9, adult Code(s): E66.01 - MORBID (SEVERE) OBESITY DUE TO EXCESS CALORIES; Z68.41 - BODY MASS INDEX [BMI]40.0-44.9, ADULT Status: Acute - Time spent with Patient (mins): 30 Plan - Discharge Medications Prescriptions: metroNIDAZOLE [Flagyl] 250 mg PO TID #15 tab Saccharomyces boulardii [Florastor] 250 mg PO DAILY #10 cap Home Medications: Medication Instructions Recorded Confirmed Type Gabapentin [Neurontin] 300 mg PO HS 02/01/14 07/05/20 History Zolpidem Tartrate [Ambien] 10 mg PO HS 02/01/14 07/05/20 History DULoxetine [Cymbalta] 30 mg PO DAILY 11/18/18 07/05/20 History Docusate Sodium 100 mg PO DAILY 11/18/18 07/05/20 History HYDROcodone Bit/APAP 10/325 [[place]] 2 tab PO HS 11/18/18 07/05/20 History Magnesium 3 tab PO DAILY 11/18/18 07/05/20 History Omeprazole Magnesium [Prilosec] 10 mg PO DAILY 08/27/19 07/05/20 History Calcium Carbonate [Antacid] 600 mg PO TID 07/05/20 07/05/20 History Carvedilol [Coreg] 12.5 mg PO BID 07/05/20 07/05/20 History Gabapentin [Neurontin] 100 mg PO DAILY 07/05/20 07/05/20 History rOPINIRole HCl [Ropinirole HCl] 0.25 mg PO TID 07/07/20 07/07/20 History Epoetin Ramon-Epbx [Retacrit] 10,000 unit SC Q7D vial 07/16/20 Rx Folic Acid [Folvite] 1 mg PO DAILY tab 07/16/20 Rx HYDROcodone Bit/APAP 10/325 [[place]] 1 tab PO Q6HR PRN tab 07/16/20 Rx Saccharomyces boulardii [Florastor] 250 mg PO DAILY #10 cap 07/16/20 Rx metroNIDAZOLE [Flagyl] 250 mg PO TID #15 tab 07/16/20 Rx Allergies: codeine Allergy (Verified 07/05/20 17:19) iodine Allergy (Verified 07/05/20 17:17) - Discharge Instructions Activity:: Activity as Tolerated Nourishment:: Heart Healthy Diet Therapies:: Occupational Therapy, Physical Therapy IV Therapy:: Not Applicable - Follow up Plan Referrals: Flor Rhoades MD [Primary Care Provider] - Disposition: [facility]SISTED [facility]IVING Quality - Care Measures CORE MEASURES:: N/A
[2020-07-16] MEDS ORDERED: rOPINIRole HCl 0.25 MG TAB PO SCH (17:30)
--- NOTE | 2020-07-16 17:41 | PRG ---
DATE OF SERVICE: 07/16/2020 SUBJECTIVE: The patient is seen, complaining of restless leg. OBJECTIVE: VITAL SIGNS: Noted with the following vital signs; afebrile, temperature 98.1, pulse 69, respiratory rate of 20, O2 saturations of 96%, and blood pressure 140/65. HEENT: Unremarkable. CARDIOVASCULAR SYSTEM: First and second heart sounds were heard. RESPIRATORY SYSTEM: Clear to auscultation. DIGESTIVE SYSTEM: Benign abdomen. EXTREMITIES: No peripheral edema. SKIN: No new gross rash. LYMPHATICS: No peripheral lymphadenopathy. IMPRESSION: 1. End-stage renal disease, hemodialysis dependent. 2. Restless leg likely in the context of holding this patient's restless legs medications. 3. Clostridium difficile colitis, on treatment. PLAN: 1. We will begin to resume this patient's restless leg medications. 2. Further management will be dependent on the clinical course. Job ID: [id number]
[2020-07-16] MEDS ORDERED: Gabapentin 300 MG CAP PO SCH (21:00)
[2020-07-16] MEDS: rOPINIRole HCl 0.25 MG TAB PO SCH (21:11)
[2020-07-17 00:38] LABS: Anion Gap 20 mmol/L (10-20); Carbon Dioxide 19 mmol/L (23-31); Chloride 107 mmol/L (98-107); Magnesium 1.7 mg/dL (1.6-2.6); Sodium 142 mmol/L (136-145)
[2020-07-17] MEDS ORDERED: Magnesium Oxide 400 MG TAB PO SCH (01:00)
[2020-07-17] MEDS: rOPINIRole HCl 0.25 MG TAB PO SCH ×2 (09:22→15:07)
[2020-07-17] MEDS: metroNIDAZOLE 250 MG TAB PO SCH ×2 (09:22→15:07)
[2020-07-17] MEDS: Folic Acid 1 MG TAB PO SCH (09:23)
[2020-07-17] MEDS: Saccharomyces boulardii 250 MG CAP PO SCH (09:23)
[2020-07-17] MEDS: Carvedilol 6.25 MG TAB PO SCH (09:23)
[2020-07-17] MEDS: Docusate 100 MG CAP PO SCH (09:24)
--- NOTE | 2020-07-17 13:47 | PDOC.HOSPP ---
- Subjective Encounter Date: 07/17/20 Encounter Time: 13:45 Subjective: Patient was seen and evaluated. She was pretty sleepy but will arouse to voice stimulation and go right back to sleep. She did get her nighttime Ambien and it appeared that she slept well. She is pending discharge to rehab and she can transfer today if a bed becomes available. No other acute issues reported. - Objective Vital Signs & Weight: Vital Signs (12 hours) Temp Pulse Resp BP BP Pulse Ox 07/17/20 11:06 98 F 67 20 124/59 L 98 07/17/20 09:23 97 07/17/20 07:43 97.7 F 71 22 H 140/66 97 07/17/20 03:54 98.0 F 70 18 150/68 H 96 Weight Admit Weight 228 lb 4.8 oz Weight 211 lb 13.828 oz Most Recent Monitor Data Heart Rate from ECG 72 NIBP 143/59 NIBP BP-Mean 87 Respiration from ECG 18 SpO2 96 I&O: 07/16/20 07/17/20 07/18/20 06:59 06:59 06:59 Intake Total 1020 980 Balance 1020 980 Result Diagrams: 07/16/20 05:10 07/17/20 00:09 Radiology Reviewed by me: Yes EKG Reviewed by me: Yes Hospitalist ROS - Review of Systems Constitutional: reports: weakness, malaise Gastrointestinal: reports: nausea Neurological: reports: weakness - Medication Medications: Active Medications Generic Name Dose Route Start Last Admin Trade Name Freq PRN Reason Stop Dose Admin Acetaminophen 1,000 mg 07/05/20 20:13 07/16/20 01:50 Acetaminophen 500 Mg Tab PO 1,000 mg Q4H PRN Administration Headache/Fever or Pain Carvedilol 12.5 mg 07/09/20 21:00 07/17/20 09:23 Carvedilol 6.25 Mg Tab PO 12.5 mg BID JUAN CARLOS Administration Docusate Sodium 100 mg 07/10/20 09:00 07/17/20 09:24 Docusate 100 Mg Cap PO Not Given DAILY JUAN CARLOS Epoetin Ramon-epbx 10,000 unit 07/10/20 18:00 07/10/20 18:25 Epoetin Armon-Epbx (Esrd) 10,000 Unit/Ml Vial SC 10,000 unit Q7D JUAN CARLOS Administration Folic Acid 1 mg 07/12/20 09:00 07/17/20 09:23 Folic Acid 1 Mg Tab PO 1 mg DAILY JUAN CARLOS Administration Gabapentin 300 mg 07/16/20 21:00 07/16/20 21:11 Gabapentin 300 Mg Cap PO 300 mg HS JUAN CARLOS Administration Metronidazole 250 mg 07/14/20 15:00 07/17/20 09:22 Metronidazole 250 Mg Tab PO 250 mg TID JUAN CARLOS Administration Ondansetron HCl 4 mg 07/10/20 09:48 07/14/20 17:52 Ondansetron Pf 4 Mg/2 Ml Vial IVP 4 mg Q6H PRN Administration Nausea/Vomiting Pantoprazole Sodium 40 mg 07/09/20 09:00 07/17/20 09:23 Pantoprazole 40 Mg Tab PO 40 mg DAILY JUAN CARLOS Administration Ropinirole HCl 0.25 mg 07/16/20 21:00 07/17/20 09:22 Ropinirole Hcl 0.25 Mg Tab PO 0.25 mg TID JUAN CARLOS Administration Saccharomyces Boulardii 250 mg 07/09/20 09:00 07/17/20 09:23 Saccharomyces Boulardii 250 Mg Cap PO 250 mg DAILY JUAN CARLOS Administration Sodium Chloride 10 ml 07/05/20 21:00 07/17/20 09:25 Flush - Normal Saline 10 Ml Syringe IVF 10 ml Q12HR JUAN CARLOS Administration Zolpidem Tartrate 5 mg 07/16/20 10:39 07/16/20 21:11 Zolpidem Tartrate 5 Mg Tab PO 5 mg HSPRN PRN Administration Insomnia - Exam General Appearance: NAD, ill appearing ENT: normocephalic atraumatic, no oropharyngeal lesions Neck: supple, symmetric, no JVD, no thyromegaly Heart: RRR, no murmur, no gallops Respiratory: CTAB, no wheezes, no rales, no ronchi Gastrointestinal: soft, non-tender, non-distended, normal bowel sounds Neurological: cranial nerve grossly intact, normal sensation to touch, no weakness Psychiatric: normal affect, normal behavior, A&O x 3 Hosp A/P (1) Acute metabolic encephalopathy Code(s): G93.41 - METABOLIC ENCEPHALOPATHY Status: Resolved (2) Clostridium difficile diarrhea Code(s): A04.72 - ENTEROCOLITIS D/T CLOSTRIDIUM DIFFICILE, NOT SPCF RECUR Status: Acute (3) Morbid obesity with BMI of 40.0-44.9, adult Code(s): E66.01 - MORBID (SEVERE) OBESITY DUE TO EXCESS CALORIES; Z68.41 - BODY MASS INDEX [BMI]40.0-44.9, ADULT Status: Acute - Plan 07/15/2020. The patient is pending transfer to rehab once a bed becomes available. 07/17/2020. She is medically ready for rehab when she is approved. No other acute issues reported per nursing staff.
[2020-07-17 15:29] VITALS: BP 128/57; TEMP 97.4
--- NOTE | 2020-07-19 03:47 | PQF ---
Dear : Himanshu London Date 07/19/2020 Please exercise your independent, professional judgment in responding to the clarification form. Clinical indicators are provided on the bottom of this form for your review Can you please further clarify the diagnosis of the patient? Please check appropriate box(es): [ ] Sepsis [x ] Septic shock [ ] Localized infection without sepsis [ ] Other diagnosis [ ] Unable to determine Physician Signature: Date/Time: For continuity of documentation, please document condition throughout progress notes and discharge summary. Thank You. To be completed by CDI/Coding staff for physician review: Present Clinical Indicators - Signs / Symptoms / Labs Results and Location in Medical Record [ x ] VS: BP: 60/31m P: 98, RR: 20, T: 98.0 ED Provider pg.2 [ x ] Septic shock ED Provider pg.5 [ x ] Sepsis possibly of urinary origin Consult Dr. Gomez pg.1 [ x ] Hypotension Hospitalist PN pg.3 07/06 [ x ] Encephalopathy Hospitalist PN pg.4 07/06 [ x ] With a low prolactin, sepsis less likely Hospitalist PN pg.4 07/06 [ x ] Sepsis likely due to C. Difficile Hospitalist PN pg.4 07/18 [ x ] Sepsis in the context of UTI, much improved PN 07/10 pg.1 [ x ] Sepsis,resolved Hospitalist PN pg.5 07/14 [ x ] WBC: 1.4, 12.5H, 8.7, 9.1, 8.8, 6.0 Laboratory [ x ] Blood culture- Coagulase neg Staphyloccus Microbiology [ x ] Present Risk Factors Results and Location in Medical Record [ x ] 75 years old H and P pg.1 [ x ] Clostridium Difficile diarrhea Hospitalist PN pg.4 [ x ] UTI PN 07/10 pg.1 Present Treatments Results and Location in Medical Record [ x ] IV Fluids MAR [ x ] Vancomycin 2gm IV MAR [ x ] Blood culture Microbiology [ x ] Levophed 250mg IV MAR [ x ] Zosyn 3.375mg IV CDS/Neuropathologist Signature: Tramaine Mckenzie Phone #: ext [phone] Date 07/18/2020 This is a permanent part of the Medical Record [facility]
== END 2020-07-17 16:45 | DRG 871 ==
LOC: ERS 09:29 → CCU 12:24 → ONC 07-07 15:39 → 2SE 07-12 18:08
PROVIDERS: ADMIT Internal Medicine; ATTEND Hospitalist
PROC: 3E033XZ Introduction of Vasopressor into Peripheral Vein, Percutaneous Approach (ICD-10-PCS; principal; 2020-07-05)
PROC: 0T9B70Z Drainage of Bladder with Drainage Device, Via Natural or Artificial Opening (ICD-10-PCS; 2020-07-05)
PROC: 5A1D70Z Performance of Urinary Filtration, Intermittent, Less than 6 Hours Per Day (ICD-10-PCS; 2020-07-05)
PROC: 30233N1 Transfusion of Nonautologous Red Blood Cells into Peripheral Vein, Percutaneous Approach (ICD-10-PCS; 2020-07-10)
DX: A41.9 Sepsis, unspecified organism (principal); G92 Toxic encephalopathy; N18.6 End stage renal disease; R65.21 Severe sepsis with septic shock; I21.A1 Myocardial infarction type 2; J96.02 Acute respiratory failure with hypercapnia; A04.72 Enterocolitis due to Clostridium difficile, not specified as recurrent; Z68.41 Body mass index [BMI] 40.0-44.9, adult; I12.0 Hypertensive chronic kidney disease with stage 5 chronic kidney disease or end stage renal disease; N39.0 Urinary tract infection, site not specified; Z20.822 Contact with and (suspected) exposure to COVID-19; T50.915A Adverse effect of multiple unspecified drugs, medicaments and biological substances, initial encounter; E66.01 Morbid (severe) obesity due to excess calories; E87.5 Hyperkalemia; I48.91 Unspecified atrial fibrillation; G25.81 Restless legs syndrome; D63.1 Anemia in chronic kidney disease; F41.9 Anxiety disorder, unspecified; F32.9 Major depressive disorder, single episode, unspecified; Z88.5 Allergy status to narcotic agent; Z90.49 Acquired absence of other specified parts of digestive tract; Z90.710 Acquired absence of both cervix and uterus; Z91.041 Radiographic dye allergy status; Z79.899 Other long term (current) drug therapy; Z99.2 Dependence on renal dialysis; Z86.711 Personal history of pulmonary embolism; Z98.890 Other specified postprocedural states; N13.9 Obstructive and reflux uropathy, unspecified; T40.605A Adverse effect of unspecified narcotics, initial encounter; E87.6 Hypokalemia; R13.10 Dysphagia, unspecified
CPT/HCPCS: 0240U; 36415; 36416; 36430; 36556; 36600; 51701; 70450; 71045; 72125; 74177; 80048; 80053; 80069; 80202; 80400; 81003; 81015; 82140; 82270; 82533; 82553; 82607; 82728; 82746; 82805; 83540; 83605; 83690; 83735; 83880; 84100; 84145; 84443; 84484; 85007; 85014; 85018; 85025; 85027; 85046; 85049; 86850; 86900; 86901; 87040; 87070; 87086; 87149; 87205; 87324; 87340; 87449; 87493; 87635; 90945; 93005; 94660; 96365; 96366; 96367; 96374; 96375; 99292; C9113; G0257; J0692; J0834; J1170; J1644; J2270; J2405; J2543; J3010; J3370; J3480; J3490; J7030; J7050; J7070; P9016; Q5105; Q9967; U0003

== ENCOUNTER 2020-07-21 22:35 | Inpatient (IN) | payer MEDICARE, BC ==
[~2020-07-21 22:35] MED LIST changes: -Iopamidol 370 76% 100 ML VIAL ONE; +Iopamidol-370 76% 500 ML 1 ML ONE
[2020-07-21] MEDS ORDERED: methylPREDNISolone Sod Succ/PF 125 MG/2 ML VIAL ONE (22:45)
[2020-07-21] MEDS ORDERED: diphenhydrAMINE 50 MG/ML VIAL ONE (22:45)
[2020-07-21] MEDS ORDERED: Famotidine/PF 20 mg/2ml Vial ONE (22:46)
--- NOTE | 2020-07-21 23:06 | CT ---
CT head noncontrast HISTORY: Altered mental status. COMPARISON: 07/18/2020. FINDINGS: There is no evidence of acute intracranial hemorrhage or infarct. Lacunar infarct of the ri ght basal ganglia is stable. Very mild chronic ischemic small vessel disease throughout the periventricular white matter of each cerebral hemisphere. No mass effect or shift of midline structur es. Chronic partial opacification of the left mastoid air cells. IMPRESSION : No acute abnormalities are demonstrated.
--- NOTE | 2020-07-21 23:30 | CT ---
CT arteriogram neck with IV contrast and 3-D imaging CT arteriogram head with IV contrast and 3-D imaging HISTORY: Altered mental status. FINDINGS: There is good contrast opacification of the aortic arch with normal branching of the great vessels. Good flow into each vertebral and carotid system. Very mild arterial calcification. Internal carotid arteries are widely patent. [place] of [place] is intact. Good flow into each cerebral and cerebellar system. No enhancing brain le sions. Old right basal ganglia lacunar infarct again demonstrated. At the partially visualized lung apices, pleural fluid is present within the dependent portion of eac h side of the chest. Inferior images also demonstrate a lobular 2.1 cm low-density lesion in the right side of thyroid isthmus. IMPRESSION : No acute vascular abnormalities are demonstrated. Bilateral pleural fluid Low-density thyroid nodule. Please consider non-emergent dedicated thyroid sonogram for better charac terization. Findings were called to Dr. Coleman in the emergency department at 2324 hours. Code CR.
--- NOTE | 2020-07-21 23:31 | RAD ---
Chest one view HISTORY: Altered mental status. Dyspnea. COMPARISON: 07/05/2020. FINDINGS: Cardiac silhouette is magnified by projection. Pulmonary vasculature is engorged with wides pread reticulonodular interstitial prominence and patchy bilateral perihilar and bibasilar infiltrates. Hazy opacity projects over the inferior aspect of each hemithorax. No evidence of pneumothorax. IMPRESSION : Pulmonary vascular congestion with suspected edema and pleural fluid. No lobar consolidation or evide nce.
[2020-07-21 23:39] LABS: #Eosinphils 0.2 thou/uL (0.0-0.7); #Lymphocytes 1.1 thou/uL (1.20-3.40); #Monocytes 0.5 thou/uL (0.11-0.59); #Neutrophils 7.7 thou/uL (1.40-6.50); %Basophils 0.4 % (0.0-1.0); %Lymphocytes 11.7 % (21.0-51.0); %Monocytes 4.7 % (0.0-10.0); %Neutrophils 81.2 % (42.0-75.0); Hemoglobin 9.5 g/dL (12.0-16.0); Mean Corpuscular HGB CONC 30.7 g/dL (32.0-36.0); Mean Corpuscular Hemoglobin 32.1 pg (27.0-31.0); Platelet Count 167 thou/uL (130-400); Red Blood Cell (RBC) Count 2.95 mill/uL (4.20-5.40); White Blood Cell (WBC) Count 9.5 thou/uL (4.8-10.8)
[2020-07-21 23:42] LABS: ALT (SGPT) Less than 7 U/L (8-55); AST (SGOT) 8 U/L (5-34); Albumin 2.8 g/dL (3.4-4.8); Alkaline Phosphatase 87 U/L (40-110); Anion Gap 24 mmol/L (10-20); BUN (Urea Nitrogen) 48 mg/dL (9.8-20.1); Bilirubin, Total 0.3 mg/dL (0.2-1.2); Calc. Creatinine Clearance 0 mL/min (70-130); Calcium 8.5 mg/dL (7.8-10.44); Carbon Dioxide 18 mmol/L (23-31); Chloride 99 mmol/L (98-107); Globulin 4.6 g/dL (2.4-3.5); Glucose 120 mg/dL (83-110); Potassium 3.8 mmol/L (3.5-5.1); Protein, Total 7.4 g/dL (5.8-8.1); Sodium 137 mmol/L (136-145)
[2020-07-21] MEDS ORDERED: Vancomycin 1 GM/200 ML BAG ONE (23:43)
[2020-07-21 23:44] LABS: Magnesium 2.3 mg/dL (1.6-2.6)
[2020-07-21 23:51] LABS: CKMB 1.5 ng/mL (0-6.6)
[2020-07-21 23:54] LABS: INR-International Normal Ratio 1.3; Prothrombin Time 16.1 sec (12.0-14.7)
[2020-07-21 23:55] LABS: PTT 46.3 sec (22.9-36.1)
[2020-07-22 00:08] LABS: Bacteria/HPF None Seen HPF (None Seen); Bilirubin Negative (Negative); Blood, Urine 1+ (Negative); Clarity Turbid (Clear); Glucose, Urine (Dipstick) Normal (Negative); Ketone, Urine Negative (Negative); Leukocyte 500 Leu/uL (Negative); Nitrite Negative (Negative); Protein, Urine (Dipstick) 100 mg/dL (Neg-Trace); RBC/HPF 0-3 HPF (0-3); Specific Gravity, Urine 1.014 (1.002-1.036); Urobilinogen Normal mg/dL (Less than 2); WBC/HPF 21-50 HPF (0-3); Yeast-Budding 3+ HPF (None Seen); pH, Urine 5.5 (5.0-9.0)
[2020-07-22] MEDS ORDERED: cefTRIAXone\\ROCEPHIN 2 GM VIAL ONE (01:23)
[2020-07-22 02:01] LABS: Troponin I 0.057 ng/mL (< 0.028)
--- NOTE | 2020-07-22 02:40 | PDOC.HHP ---
Hospitalist HPI - History of Present Illness AMS History of Present Illness: This is a 75-year-old female patient with a history of hypertension, ESRD who was brought in from dialysis center after she was noted to become unresponsive. Of note, patient was recently discharged 6 days ago after being managed for septic shock and ESRD with C. difficile and was in rehab at [facility] while having dialysis. EMS was activated and she was brought in for further analysis. She was apparently A&O x3 prior to the event however at the time of EMS assessment she was generally unresponsive. At presentation her blood pressure was 114/51, respiratory rate 24, pulse 61, temperature 95.9 and saturation 91 on 2 L oxygen. Labs showed anemia of 9.5, WBC 9.5, platelets 167. Sodium was 137, potassium 3.8, anion gap 20, creatinine 12.23, glucose 120 troponin 0 0.061 and TSH 4.0. Urinalysis showed 500 leukocytes however squamous epithelial was 11-20. Chest x-ray showed pulmonary vascular congestion with edema however no comp lobar consolidation was evident. CT scan of the head showed no acute abnormality no evidence of significant vascular occlusion on CTA of the head. Patient was given Solu-Medrol 125 mg ceftriaxone vancomycin and 1 L normal saline. Hospitalist team was consulted for admission Hospitalist ROS - Review of Systems ROS unobtainable: due to mental status Hospitalist History - Past Medical History Other Medical History: hypertension, ESRD - Past Surgical History Other Surgical History: Cholecystectomy, intestinal bypass, appendectomy, hysterectomy, fistula right upper arm, - Family History Other Family History: Unable to get information - Social History Smoking Status: Never smoker Alcohol: reports: None Living Situation: Alf - Exam General - other findings: Patient in bed, sleeping however opens eyes only to noxious stimuli Eye: anicteric sclera Neck: supple, symmetric, no JVD Heart: RRR, no murmur, no gallops Respiratory: CTAB, no wheezes, no rales Gastrointestinal: soft, non-distended, normal bowel sounds Extremities: no cyanosis, no clubbing, no edema Neurological - other findings: Groans and withdraws to noxious stimuli Psychiatric - other findings: Unable to assess Hospitalist Results - Labs Result Diagrams: 07/22/20 05:05 07/22/20 05:05 Lab results: WBC 9.5 thou/uL (4.8-10.8) 07/21/20 23:33 Hgb 9.5 g/dL (12.0-16.0) L 07/21/20 23:33 Hct 30.9 % (36.0-47.0) L 07/21/20 23:33 MCV 105.0 fL (78.0-98.0) H 07/21/20 23:33 Plt Count 167 thou/uL (130-400) 07/21/20 23:33 Neutrophils % 81.2 % (42.0-75.0) H 07/21/20 23:33 Sodium 137 mmol/L (136-145) 07/21/20 22:58 Potassium 3.8 mmol/L (3.5-5.1) 07/21/20 22:58 Chloride 99 mmol/L (98-107) 07/21/20 22:58 Carbon Dioxide 18 mmol/L (23-31) L 07/21/20 22:58 BUN 48 mg/dL (9.8-20.1) H 07/21/20 22:58 Creatinine 12.23 mg/dL (0.6-1.1) H 07/21/20 22:58 Glucose 120 mg/dL (83-110) H 07/21/20 22:58 Lactic Acid 0.7 mmol/L (0.5-2.2) 07/21/20 23:33 Calcium 8.5 mg/dL (7.8-10.44) 07/21/20 22:58 Total Bilirubin 0.3 mg/dL (0.2-1.2) 07/21/20 22:58 AST 8 U/L (5-34) 07/21/20 22:58 ALT Less than 7 U/L (8-55) L 07/21/20 22:58 Alkaline Phosphatase 87 U/L (40-110) 07/21/20 22:58 Ammonia 28 umol/L (18-72) 07/22/20 00:00 CK-MB (CK-2) 1.5 ng/mL (0-6.6) 07/21/20 22:58 Troponin I 0.057 ng/mL (< 0.028) H 07/22/20 01:22 B-Natriuretic Peptide 289.1 pg/mL (0-100) H 07/21/20 22:58 Serum Total Protein 7.4 g/dL (5.8-8.1) 07/21/20 22:58 Albumin 2.8 g/dL (3.4-4.8) L 07/21/20 22:58 Urine Ketones Negative mg/dL (Negative) 07/21/20 23:38 Urine Blood 1+ (Negative) A 07/21/20 23:38 Urine Nitrite Negative (Negative) 07/21/20 23:38 Ur Leukocyte Esterase 500 Lou/uL (Negative) A 07/21/20 23:38 Urine RBC 0-3 HPF (0-3) 07/21/20 23:38 Urine WBC 21-50 HPF (0-3) A 07/21/20 23:38 Ur Squamous Epith Cells 11-20 HPF (0-3) A 07/21/20 23:38 Urine Bacteria None Seen HPF (None Seen) 07/21/20 23:38 Hospitalist H&P A/P - Plan Plan: This is a 75-year-old female patient with a history of hypertension and ESRD and recent C. difficile with sepsis here today on account of altered mental state of unclear etiology occurring during dialysis. Acute encephalopathy Unclear etiology CT negative. Likely stroke however cannot rule out. Possible medication related remotely meningitis. She is Negative and has no neck stiffness however. Covered on vancomycin and ceftriaxone. Lumbar drain acyclovir and will change ceftriaxone to cefepime for now. We will admit to stroke unit and monitor EEG/MRI/urine drug screen in a.m. Consider LP in a.m. Neurology consult ESRD Consult nephrology Dialysis to complete in a.m. Elevated troponin Unlikely ACSlikely poor renal function We will trend troponins. Next macrocytic Anemia Likely due to ESRD Monitor H&H. VT prophylaxisLovenox CODE STATUSto be discussed
[2020-07-22] MEDS ORDERED: Ondansetron PF 4 MG/2 ML Vial IVP PRN (03:30)
[2020-07-22] MEDS ORDERED: Ondansetron ODT 4 MG TAB SL PRN (03:30)
[2020-07-22] MEDS ORDERED: Acetaminophen 325 MG TAB PO PRN (03:30)
[2020-07-22] MEDS ORDERED: HOLD VANCOMYCIN FOR LEVEL >20 SLOW IVP SCH (05:15)
[2020-07-22] MEDS ORDERED: Vancomycin HCl 750 MG in Sodium Chloride 0.9% 250 ML 250 ML IVPB SCH (05:15)
[2020-07-22] MEDS ORDERED: Vancomycin 1 GM in Premix Bag 1 BAG IVPB SCH ×3 (05:15→09:00)
[2020-07-22] MEDS ORDERED: Vancomycin 1.5 GRAM/300 ML BAG 1.5 GM in Premix Bag 1 BAG IVPB SCH (05:15)
[2020-07-22] MEDS ORDERED: Vancomycin HCl 1.25 GM in Sodium Chloride 0.9% 250 ML 250 ML IVPB SCH (05:15)
[2020-07-22 05:23] LABS: #Basophils 0.1 thou/uL (0.0-0.2); #Lymphocytes 0.1 thou/uL (1.20-3.40); #Monocytes 0.1 thou/uL (0.11-0.59); #Neutrophils 6.3 thou/uL (1.40-6.50); %Basophils 1.7 % (0.0-1.0); %Eosinophils 0.5 % (0.0-10.0); %Lymphocytes 1.8 % (21.0-51.0); %Monocytes 1.5 % (0.0-10.0); %Neutrophils 94.5 % (42.0-75.0); Hemoglobin 7.8 g/dL (12.0-16.0); Mean Corpuscular HGB CONC 28.1 g/dL (32.0-36.0); Mean Corpuscular Hemoglobin 29.1 pg (27.0-31.0); Mean Platelet Volume 7.8 fL (7.4-10.4); Platelet Count 140 thou/uL (130-400); RBC Distribution Width 12.8 % (11.5-14.5); Red Blood Cell (RBC) Count 2.68 mill/uL (4.20-5.40); White Blood Cell (WBC) Count 6.6 thou/uL (4.8-10.8)
[2020-07-22] MEDS: ACYCLOVIR SODIUM IVPB SCH (05:39)
[2020-07-22] MEDS: SODIUM CHLORIDE 0.9% IVPB SCH (05:39)
[2020-07-22 05:49] LABS: Anion Gap 18 mmol/L (10-20); BUN (Urea Nitrogen) 47 mg/dL (9.8-20.1); Calc. Creatinine Clearance 7 mL/min (70-130); Calcium 8.5 mg/dL (7.8-10.44); Carbon Dioxide 20 mmol/L (23-31); Chloride 100 mmol/L (98-107); Glucose 131 mg/dL (83-110); Sodium 134 mmol/L (136-145)
[2020-07-22 05:51] LABS: Troponin I 0.052 ng/mL (< 0.028)
[2020-07-22] MEDS ORDERED: Sodium Chloride 0.9% 1,000 ML IV SCH (07:00)
[2020-07-22] MEDS: Cefepime 2 GM in Sodium Chloride 0.9% 100 ML IVPB SCH (07:53)
[2020-07-22] MEDS: Enoxaparin Sodium 30 MG/0.3 ML SYRINGE SC SCH (07:54)
[2020-07-22 08:36] LABS: Amphetamine Not Detected (NotDetected); Barbiturates Screen Not Detected (NotDetected); Benzodiazepine Screen Detected (NotDetected); Cocaine Metabolite Screen Not Detected (NotDetected); Medtox Control Line Valid? VALID (VALID); Medtox Reader # READER 4; Methadone Not Detected (NotDetected); Methamphetamine Not Detected (NotDetected); Opiate Screen Detected (NotDetected); Oxycodone Screen Not Detected (NotDetected); Phencyclidine (PCP) Not Detected (NotDetected); THC/Cannabinoid Screen Not Detected (NotDetected); Tricyclic Screen Not Detected (NotDetected)
[2020-07-22] MEDS ORDERED: Aspirin 300 MG Suppository PR SCH (09:00)
--- NOTE | 2020-07-22 10:20 | CON ---
DATE OF CONSULTATION: 07/22/2020 CONSULTING PHYSICIAN: Hospitalist Service. IMPRESSION: Subacute encephalopathy following Clostridium difficile infection. PLAN: 1. MRI of the brain to rule out an anatomic etiology. 2. Consider lumbar puncture. HISTORY OF PRESENT ILLNESS: Ms. Tanner is a 75-year-old woman with a past history of intestinal resection and recent hospitalization for C difficile infection with some secondary sepsis. She has a history of renal insufficiency as well. She was recently admitted and treated with antibiotics and transferred over to rehab. Her family reports that after transfer to rehab, she got progressively more lethargic. She was harder to arouse and less responsive to stimulation. She was subsequently readmitted here. She had a CT of the brain, which was unremarkable. CT angiogram showed no vascular occlusions. Her lab work showed some mild anemia with a hemoglobin of 9.5. Coags were in normal range. Her BUN was 47, creatinine was 11.22. Urine showed positive leukocytes as well as yeast. Tox screen was positive for opiates and benzodiazepine. Her vital signs have been stable. Since admission, she has not had a fever at this point. PAST MEDICAL HISTORY: As listed above. ALLERGIES: CODEINE, IODINE. SOCIAL HISTORY: No tobacco or alcohol use. FAMILY HISTORY: Noncontributory. REVIEW OF SYSTEMS: Not obtainable due to her lethargy. PHYSICAL EXAMINATION: GENERAL: She is an overweight, elderly lady on BiPAP. VITAL SIGNS: Blood pressure 117/50, pulse 78, respirations 20, temperature 99.2. HEENT: Pupils are equal. Conjunctivae are clear. Cranium, normocephalic and atraumatic. NECK: Supple. No lymphadenopathy noted. ABDOMEN: Soft and nontender. EXTREMITIES: No cyanosis or edema. SKIN: No rashes present. NEUROLOGIC: She would not awaken briefly and follows a few simple commands before drifting off again, could not get her to do charge gang weigher strength. I did not note any abnormal movements. Sensation seemed to be grossly symmetric. Her plantar response was downgoing on the right and upgoing on the left. Gait was not testable. SUMMARY: This is an elderly lady with renal insufficiency and recent Clostridium difficile infection. I suspect that this is a toxic metabolic encephalopathy. I agree with your workup. Job ID: [id number]
[2020-07-22 10:32] LABS: SARS-CoV-2 PCR by NAA Not Detected (NotDetected)
--- NOTE | 2020-07-22 11:35 | MRI ---
MRI of thebrain without contrast: 07/22/2020 COMPARISON:None available HISTORY:Altered mental status, unresponsive patient TECHNIQUE: Multiplanar multisequence MR imaging of thebrain without contrast Findings:On the diffusion weighted imaging there is a single punctate focus of increased signal inten sity suggesting acute infarction within the posterior left frontal deep white matter measuring 3-4 mm. The axial gradient echo imaging demonstrates no evidence for intracranial hemorrhage. The axial FLAIR imaging is limited by motion. Nonspecific bilateral mastoid effusions are noted, left more prominent than right. Regional bone marrow signal intensity appears grossly unremarkable. IMPRESSION:Detailed assessment is limited by motion. Punctate acute infarction in the deep white tino er of the posterior left frontal lobe.
[2020-07-22 13:53] LABS: Actual Bicarbonate (HCO3a) 23.3 mEq/L (22-28); Base Excess (BEa) -6.8 mEq/L (-2.0 to +3.0); Calcium, Ionized (arterial) 1.16 mmol/L (1.12-1.30); Carboxyhemoglobin (COHb) 0.7 gm% (0.0-3.0); Hemoglobin (Hb) 7.7 g/dL (12.0-16.0); O2 Tension (PaO2), arterial 162.8 mmHg (> 70.0); Potassium - ABG Lab 3.95 mmol/L (3.70-5.30)
[2020-07-22] MEDS ORDERED: Electrolyte Replacement Protocol 1 EACH IVPB ONE (14:20)
[2020-07-22] MEDS ORDERED: Propofol 1,000 MG/100 ML VIAL IV ONE (14:35)
[2020-07-22 14:49] LABS: pH, Arterial 7.07 (7.35-7.45)
[2020-07-22 14:50] LABS: CO2 Tension 81.8 mmHg (35.0-45.0)
--- NOTE | 2020-07-22 14:55 | RAD ---
Frontal radiograph chest: 07/22/2020 COMPARISON: 07/21/2020 HISTORY: Intubation FINDINGS: There is an endotracheal tube and nasogastric tube in proper position. There is no pneumoth orax evident. There is pulmonary vascular congestion with perihilar and bibasilar interstitial prominence. There is hazy airspace disease in the lung bases with enlarging bilateral pleural effusio ns. IMPRESSION: Findings suggesting worsening pulmonary edema. Superimposed infectious pneumonitis or asp iration cannot be excluded. Follow-up imaging advised to document resolution.
[2020-07-22] MEDS ORDERED: Fentanyl BOLUS 250 ML IVPB PRN (16:45)
[2020-07-22] MEDS ORDERED: Propofol BOLUS 1,000 MG/100 ML VIAL IV PRN (16:45)
[2020-07-22] MEDS ORDERED: Lorazepam 2 MG/ML VIAL SLOW IVP PRN (16:45)
[2020-07-22] MEDS ORDERED: DISCONTINUE PREVIOUS NARCOTIC PAIN MEDICATIONS AND BENZODIAZEPINES FS SCH (16:45)
[2020-07-22] MEDS ORDERED: Fentanyl CADD 100 ML IV SCH (16:45)
[2020-07-22] MEDS ORDERED: Morphine 2 MG/ML VIAL SLOW IVP PRN (16:45)
--- NOTE | 2020-07-22 17:13 | PDOC.HOSPP ---
- Subjective Encounter Date: 07/22/20 Encounter Time: 09:00 Subjective: Patient obtunded unable to follow commands - Objective Vital Signs & Weight: Vital Signs (12 hours) Temp Pulse Resp BP BP Pulse Ox 07/22/20 16:00 100 07/22/20 14:44 63 07/22/20 14:20 100 07/22/20 12:10 98.1 F 82 20 121/57 L 98 07/22/20 09:40 71 17 100 07/22/20 08:13 99.2 F 78 20 117/50 L 96 07/22/20 05:44 95.6 F L Weight Weight 221 lb Most Recent Monitor Data Heart Rate from ECG 61 NIBP 96/43 NIBP BP-Mean 60 Respiration from ECG 16 SpO2 100 I&O: 07/21/20 07/22/20 07/23/20 06:59 06:59 06:59 Intake Total 10 Balance 10 Result Diagrams: 07/22/20 05:05 07/22/20 05:05 Additional Labs: Accuchecks 07/21/20 22:49 POC Glucose 119 H Hospitalist ROS - Review of Systems Other: Unable to obtain - Medication Medications: Active Medications Generic Name Dose Route Start Last Admin Trade Name Freq PRN Reason Stop Dose Admin Aspirin 300 mg 07/22/20 09:00 07/22/20 07:55 Aspirin 300 Mg Suppository MO 07/22/20 23:59 Not Given DAILY JUAN CARLOS Enoxaparin Sodium 30 mg 07/22/20 09:00 07/22/20 07:54 Enoxaparin Sodium 30 Mg/0.3 Ml Syringe SC 30 mg 0900 JUAN CARLOS Administration Acyclovir Sodium 240 mg/ 104.8 mls @ 104.8 mls/hr 07/22/20 05:00 07/22/20 05:39 Sodium Chloride IVPB 104.8 mls Q24HR@0500 JUAN CARLOS Administration Cefepime HCl 2 gm/ Sodium 100 mls @ 200 mls/hr 07/22/20 06:00 07/22/20 07:53 Chloride IVPB 100 mls Q2D JUAN CARLOS Administration Sodium Chloride 10 ml 07/22/20 09:00 07/22/20 07:55 Flush - Normal Saline 10 Ml Syringe IVF 10 ml Q12HR JUAN CARLOS Administration Sodium Chloride 10 ml 07/22/20 04:30 07/22/20 05:39 Flush - Normal Saline 10 Ml Syringe IVF 10 ml PRN PRN Administration Saline Flush - Exam Neck: negative: supple, symmetric, no JVD, no thyromegaly, no lymphadenopathy, no carotid bruit, JVD Heart: negative: RRR, no murmur, no gallops, no rubs, normal peripheral pulses, irregular, diminshed peripheral pulses, murmur present, II/IV, III/IV Respiratory: negative: CTAB, no wheezes, no rales, no ronchi, normal chest expansion, no tachypnea, normal percussion, rales, rhonchi, tachypneic, wheezes Gastrointestinal: negative: soft, non-tender, non-distended, normal bowel sounds, no palpable masses, no hepatomegaly, no splenomegaly, no bruit, no guarding, no rigidity, tender to palpation, distended, diminished bowl sounds, voluntary guarding Neurological - other findings: Patient opens her eyes on sternal rub however does not follow commands Hosp A/P (1) Acute on chronic respiratory failure with hypoxia and hypercapnia Code(s): J96.21 - ACUTE AND CHRONIC RESPIRATORY FAILURE WITH HYPOXIA; J96.22 - ACUTE AND CHRONIC RESPIRATORY FAILURE WITH HYPERCAPNIA Status: Acute (2) Acute metabolic encephalopathy Code(s): G93.41 - METABOLIC ENCEPHALOPATHY Status: Acute (3) ESRD on peritoneal dialysis Code(s): N18.6 - END STAGE RENAL DISEASE; Z99.2 - DEPENDENCE ON RENAL DIALYSIS Status: Chronic (4) GERD (gastroesophageal reflux disease) Code(s): K21.9 - GASTRO-ESOPHAGEAL REFLUX DISEASE WITHOUT ESOPHAGITIS Status: Chronic (5) Hypertension Code(s): I10 - ESSENTIAL (PRIMARY) HYPERTENSION Status: Chronic (6) Obesity (BMI 30-39.9) Code(s): E66.9 - OBESITY, UNSPECIFIED Status: Chronic (7) Stroke Code(s): I63.9 - CEREBRAL INFARCTION, UNSPECIFIED Status: Acute - Plan Patient continues to be obtunded this morning. Placed on BiPAP 06/04 she was able to open her eyes. Her MRI indicates stroke. However the stroke would not make this patient so obtunded. We got a blood gas which indicated a pH of 7.0 with a PCO2 of 81. At this time spoke with pulmonary and went ahead and intub ated this patient. I did call the patient's Mr. Munoz and updated him with what we did. Patient has meningitis. He does not have an elevated white count. She was recently discharged from the hospital for C. difficile. She is end-stage renal disease on PD dialysis. She is on DVT prophylaxis and on aspirin. We will add statin. Will order an echocardiogram.
[2020-07-22] MEDS: Propofol 1,000 MG/100 ML VIAL IV PRN ×2 (18:23→22:47)
[2020-07-22] MEDS ORDERED: Vecuronium 10 MG VIAL ONE (19:18)
[2020-07-22] MEDS ORDERED: Vecuronium 10 MG VIAL IV SCH (19:45)
[2020-07-22] MEDS ORDERED: Sterile Water 10 ML VIAL IVP SCH (19:45)
--- NOTE | 2020-07-22 20:07 | RAD ---
Chest one view HISTORY: Central line placement. COMPARISON: Earlier exam on the same date. FINDINGS: Cardiac silhouette is magnified by projection. Tip of a right internal jugular central veno us catheter projects over the superior vena cava. Other lines and tubes are unchanged in position. Hazy opacity over the inferior aspect of each hemithorax has increased. Pulmonary vascular congestion and edema again demonstrated. IMPRESSION : Right internal jugular central venous catheter in good radiographic position. Increasing bilateral pleural fluid.
[2020-07-22] MEDS: Atorvastatin Calcium 40 MG TAB PO SCH (20:23)
[2020-07-22] MEDS: Famotidine/PF 20 mg/2ml Vial SLOW IVP SCH (20:23)
[2020-07-22] MEDS ORDERED: FLU VACC QS2020-21(65YR UP)/PF 240 MCG/0.7 ML SYRINGE IM ONE (21:00)
[2020-07-22 21:05] LABS: Actual Bicarbonate (HCO3a) 20.8 mEq/L (22-28); Base Excess (BEa) -2.8 mEq/L (-2.0 to +3.0); CO2 Tension 31.1 mmHg (35.0-45.0); Calcium, Ionized (arterial) 1.09 mmol/L (1.12-1.30); Carboxyhemoglobin (COHb) 0.7 gm% (0.0-3.0); Hemoglobin (Hb) 7.9 g/dL (12.0-16.0); O2 Tension (PaO2), arterial 75.2 mmHg (> 70.0); pH, Arterial 7.44 (7.35-7.45)
[2020-07-22 21:07] LABS: ALV-art Gradient 171.125 mmHg (0-20); Puncture Site RRA
--- NOTE | 2020-07-22 21:10 | PDOC.CNTRL ---
Central Line Procedure Note - Procedure Date: 07/22/20 - Description Focused site: internal jugular: Right Ultrasound guidance: Yes Patient tolerated procedure: well Procedure in Details: INDICATION: Hypotension and IV access PROCEDURE SUPERVISOR ROLLER SHOP: Tammy Spencer MD ATTENDING PHYSICIAN: Dr Kevin Santiago In Attendance Y CONSENT: Consent was obtained from patient's prior to the procedure. Indications, risks, and benefits were explained at length. PROCEDURE SUMMARY: The [facility] Central Line Insertion Practices form was completed by an independent observer starting with the first handwash prior to starting sterile technique. A time out was performed. My hands were washed immediately prior to the procedure. I wore a surgical cap, mask with protective eyewear, full gown and sterile glov es throughout the procedure. RIGHT neck/chest region was prepped using chlorhexidine scrub and draped in sterile fashion using a full drape and sterile probe cover employed. The medial and lateral heads of the sternocleidomastoid muscle were identified as was the carotid pulse. The Internal Jugular vein was identified using the ultrasound. Anesthesia was achieved over the vein using 1% lidocaine. Using real-time out of plane guidance, the introducer needle was inserted into the Internal Jugular vein under direct ultrasound visualization. Venous blood was withdrawn. The syringe was removed and a guidewire was advanced into the introducer needle. The guidewire was visualized in the Internal Jugular Vein by ultrasound. A small incision was made at the skin surface with a scalpel and the introducer needle was exchanged for a dilator over the guidewire. After appropriate dilation was obtained, the dilator was exchanged over the wire for a triple lumen central venous catheter. The wire was removed and the catheter was sutured in place at 15 cm. A sterile sorbaview shield was placed over the catheter at the insertion site. The patient tolerated the procedure without any hemodynamic compromise. At time of procedure completion, all ports aspirated and flushed properly. Post-procedure chest x-ray is pending at this time. Estimated blood loss is 5mL.
[2020-07-23 03:51] LABS: #Eosinphils 0.1 thou/uL (0.0-0.7); #Lymphocytes 0.6 thou/uL (1.20-3.40); #Monocytes 0.5 thou/uL (0.11-0.59); #Neutrophils 7.5 thou/uL (1.40-6.50); %Basophils 0.4 % (0.0-1.0); %Eosinophils 1.3 % (0.0-10.0); %Lymphocytes 7.2 % (21.0-51.0); %Monocytes 5.1 % (0.0-10.0); %Neutrophils 85.9 % (42.0-75.0); Hemoglobin 7.6 g/dL (12.0-16.0); Mean Corpuscular HGB CONC 31.8 g/dL (32.0-36.0); Mean Corpuscular Hemoglobin 31.7 pg (27.0-31.0); Mean Corpuscular Volume 99.6 fL (78.0-98.0); Mean Platelet Volume 7.9 fL (7.4-10.4); Platelet Count 181 thou/uL (130-400); RBC Distribution Width 12.9 % (11.5-14.5); White Blood Cell (WBC) Count 8.8 thou/uL (4.8-10.8)
[2020-07-23 04:08] LABS: ALT (SGPT) Less than 7 U/L (8-55); AST (SGOT) 5 U/L (5-34); Albumin 2.5 g/dL (3.4-4.8); Alkaline Phosphatase 68 U/L (40-110); Anion Gap 18 mmol/L (10-20); BUN (Urea Nitrogen) 48 mg/dL (9.8-20.1); Bilirubin, Total 0.2 mg/dL (0.2-1.2); Calc. Creatinine Clearance 7 mL/min (70-130); Calcium 8.4 mg/dL (7.8-10.44); Carbon Dioxide 20 mmol/L (23-31); Chloride 101 mmol/L (98-107); Globulin 3.9 g/dL (2.4-3.5); Glucose 122 mg/dL (83-110); Protein, Total 6.4 g/dL (5.8-8.1); Sodium 136 mmol/L (136-145)
[2020-07-23 04:12] LABS: Potassium 2.5 mmol/L (3.5-5.1)
[2020-07-23] MEDS: SODIUM CHLORIDE 0.9% IVPB SCH (05:10)
[2020-07-23] MEDS: ACYCLOVIR SODIUM IVPB SCH (05:10)
[2020-07-23] MEDS ORDERED: Potassium Bicarbonate/Cit Ac 20 MEQ TAB PER TUBE SCH ×2 (06:45→22:15)
[2020-07-23] MEDS: Famotidine/PF 20 mg/2ml Vial SLOW IVP SCH ×2 (08:58→20:44)
[2020-07-23] MEDS: Propofol 1,000 MG/100 ML VIAL IV PRN ×2 (08:58→18:19)
[2020-07-23] MEDS: Potassium Chloride 20 MEQ in Premix Bag 1 BAG IVPB SCH ×2 (08:59→09:00)
[2020-07-23] MEDS: Enoxaparin Sodium 30 MG/0.3 ML SYRINGE SC SCH (08:59)
[2020-07-23 12:49] LABS: Magnesium 2.2 mg/dL (1.6-2.6); Phosphorus 5.6 mg/dL (2.3-4.7)
--- NOTE | 2020-07-23 13:48 | PDOC.HOSPP ---
- Subjective Encounter Date: 07/23/20 Encounter Time: 10:45 Subjective: pt intubated - Objective Vital Signs & Weight: Vital Signs (12 hours) Temp Pulse 07/23/20 10:22 67 07/23/20 07:25 61 07/23/20 04:00 98.0 F 07/23/20 03:34 53 L Weight Weight 209 lb 14.081 oz Most Recent Monitor Data Heart Rate from ECG 62 NIBP 107/68 NIBP BP-Mean 81 Respiration from ECG 23 SpO2 100 I&O: 07/22/20 07/23/20 07/24/20 06:59 06:59 06:59 Intake Total 10 333 Output Total 1 Balance 10 332 Result Diagrams: 07/23/20 03:35 07/23/20 03:35 Hospitalist ROS - Review of Systems Other: intubated - Medication Medications: Active Medications Generic Name Dose Route Start Last Admin Trade Name Freq PRN Reason Stop Dose Admin Atorvastatin Calcium 40 mg 07/22/20 21:00 07/22/20 20:23 Atorvastatin Calcium 40 Mg Tab PO 40 mg HS JUAN CARLOS Administration Enoxaparin Sodium 30 mg 07/22/20 09:00 07/23/20 08:59 Enoxaparin Sodium 30 Mg/0.3 Ml Syringe SC 30 mg 0900 JUAN CARLOS Administration Famotidine 20 mg 07/22/20 21:00 07/23/20 08:58 Famotidine/Pf 20 Mg/2ml Vial SLOW IVP 20 mg Q12HR JUAN CARLOS Administration Cefepime HCl 2 gm/ Sodium 100 mls @ 200 mls/hr 07/22/20 06:00 07/22/20 07:53 Chloride IVPB 100 mls Q2D JUAN CARLOS Administration Propofol 1,000 mg 07/22/20 16:45 07/23/20 08:58 Propofol 1,000 Mg/100 Ml Vial IV 08/21/20 16:45 1,000 mg INF PRN Administration TO ACHIEVE GOAL RASS Protocol Sodium Chloride 10 ml 07/22/20 09:00 07/23/20 08:58 Flush - Normal Saline 10 Ml Syringe IVF 10 ml Q12HR JUAN CARLOS Administration Sodium Chloride 10 ml 07/22/20 04:30 07/22/20 05:39 Flush - Normal Saline 10 Ml Syringe IVF 10 ml PRN PRN Administration Saline Flush - Exam Heart: negative: RRR, no murmur, no gallops, no rubs, normal peripheral pulses, irregular, diminshed peripheral pulses, murmur present, II/IV, III/IV Respiratory: negative: CTAB, no wheezes, no rales, no ronchi, normal chest expansion, no tachypnea, normal percussion, rales, rhonchi, tachypneic, wheezes Gastrointestinal: negative: soft, non-tender, non-distended, normal bowel sounds, no palpable masses, no hepatomegaly, no splenomegaly, no bruit, no guarding, no rigidity, tender to palpation, distended, diminished bowl sounds, voluntary guarding Extremities: 1+ LE edema Hosp A/P (1) Acute on chronic respiratory failure with hypoxia and hypercapnia Code(s): J96.21 - ACUTE AND CHRONIC RESPIRATORY FAILURE WITH HYPOXIA; J96.22 - ACUTE AND CHRONIC RESPIRATORY FAILURE WITH HYPERCAPNIA Status: Acute (2) Acute metabolic encephalopathy Code(s): G93.41 - METABOLIC ENCEPHALOPATHY Status: Acute (3) ESRD on peritoneal dialysis Code(s): N18.6 - END STAGE RENAL DISEASE; Z99.2 - DEPENDENCE ON RENAL DIALYSIS Status: Chronic (4) GERD (gastroesophageal reflux disease) Code(s): K21.9 - GASTRO-ESOPHAGEAL REFLUX DISEASE WITHOUT ESOPHAGITIS Status: Chronic (5) Hypertension Code(s): I10 - ESSENTIAL (PRIMARY) HYPERTENSION Status: Chronic (6) Obesity (BMI 30-39.9) Code(s): E66.9 - OBESITY, UNSPECIFIED Status: Chronic (7) Stroke Code(s): I63.9 - CEREBRAL INFARCTION, UNSPECIFIED Status: Acute (8) Hyperkalemia Code(s): E87.5 - HYPERKALEMIA Status: Acute - Plan Patient continues to be obtunded this morning. Placed on BiPAP / she was able to open her eyes. Her MRI indicates stroke. However the stroke would not make this patient so obtunded. We got a blood gas which indicated a pH of 7.0 with a PCO2 of 81. At this time spoke with pulmonary and went ahead and intubated this patient. I did call the patient's Mr. Munoz and updated him with what we did. Patient has meningitis. He does not have an elevated white count. She was recently discharged from the hospital for C. difficile. She is end-stage renal disease on PD dialysis. She is on DVT prophylaxis and on aspirin. We will add statin. Will order an echocardiogram. 07/23 pt on fio2 of 35% and peep of 5. She has no diarrhea. will stop vancomycin given her hx of diarrhea. I do not think this pt has meningitis. will also stop acyclovir. If her cx remain negative may stop cefepime. updated. pt on asa/statin. will replace Ten.
[2020-07-23] MEDS ORDERED: Scopolamine 1.5 mg/72 hour Patch TD SCH (14:00)
--- NOTE | 2020-07-23 18:31 | PRG ---
DATE OF SERVICE: 07/23/2020 OBJECTIVE: VITAL SIGNS: The patient noted with the following vital signs. Afebrile, blood pressure 134/54, heart rate of 76, O2 saturation 100%, respiratory rate of 14. HEENT: Unremarkable except endotracheal tube in place. CARDIOVASCULAR SYSTEM: First and second heart sounds were heard. RESPIRATORY SYSTEM: Revealed vented sounds. DIGESTIVE SYSTEM: Revealed a benign abdomen. EXTREMITIES: No peripheral edema. SKIN: No new gross rash. LYMPHATICS: No peripheral lymphadenopathy. IMPRESSION: 1. End-stage renal disease, on dialysis. 2. Severe hypokalemia. 3. Hypercapnic respiratory failure. PLAN: 1. The patient's dialysis prescription to be altered tonight. 2. Replete potassium later this evening and replete accordingly. 3. Check the magnesium level tomorrow. Most likely the low potassium is from do with dialysis of last night with ultrafiltration of about 2.1 L. 4. I do believe that the major cause of this patient's mental status change is carbon dioxide narcosis. 5. Further management to be dependent on the clinical course. Job ID: [id number]
--- NOTE | 2020-07-23 19:04 | CON ---
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 Apparently, her tells me she takes Ambien, hydrocodone, and gabapentin when she goes to bed. She actually tolerates it fairly well unless she takes two hydrocodone. She apparently was brought in, poorly responsive from the dialysis center. She was admitted and underwent a neurological workup. Yesterday afternoon, her pH was 7.07 with CO2 of 81 and PO2 of 162, so she was transferred and intubated by Anesthesia. She awakens now and nods to questions. Her is at the bedside. PAST MEDICAL HISTORY: Remarkable for; 1. End-stage renal disease. 2. Hypertension. 3. History of cholecystectomy. 4. History of intestinal bypass surgery for weight loss. 5. History of appendectomy. 6. Status post hysterectomy. 7. History of multiple vascular access procedures. FAMILY HISTORY: Negative for lung disease in early age. REVIEW OF SYSTEMS: Not obtainable. As mentioned, she awakens, nods that she is comfortable. PHYSICAL EXAMINATION: VITAL SIGNS: Heart rates in the 70s, blood pressure 149/59, respiratory rates in the teens. HEAD AND NECK: Unremarkable other than obesity. LUNGS: Clear. HEART: Regular rhythm. ABDOMEN: Soft and nontender. EXTREMITIES: Without clubbing, cyanosis, or edema. IMAGING STUDIES: Chest radiograph shows bilateral effusions. LABORATORY DATA: White count is 8.8, hemoglobin 7.6, platelets 181. Sodium 136, potassium 2.5, chloride 101, bicarb 20, BUN 48, creatinine 10, glucose 122. IMPRESSION: Respiratory failure secondary predominantly to obesity hypoventilation, perhaps combined with home medications plus deconditioning, weakness, and her renal failure. Her tells me she has had CPAP in the past, maybe as long as 20 years ago, but never could get the mask to fit correctly, so she would not wear it, and she would not also go back to the medical equipment provider to try to find a mask that fits. I suspect she will after another day of sleep be weanable and we can extubate her in the morning, assuming her radiograph gas exchange does not deteriorate. She did really have an acid-base disorder that led to intubation. She was unresponsive and just purely hypoventilating, so I suspect she will be fine tomorrow . They may have to buy or rent a BiPAP device to hold her over until she had a sleep study. She had a sleep study scheduled at [facility] last week, but apparently he had to cancel this for some reason. CRITICAL CARE TIME: 30 minutes. Job ID: [id number] MTDD
[2020-07-23 19:34] LABS: Potassium 3.2 mmol/L (3.5-5.1)
[2020-07-23] MEDS: Atorvastatin Calcium 40 MG TAB PO SCH (20:44)
[2020-07-24] MEDS: Propofol 1,000 MG/100 ML VIAL IV PRN (02:30)
[2020-07-24 05:03] LABS: Band 3 % (5-11); Eosinophils 2 % (0-10); Lymphocytes 11 % (21-51); MDiff Complete? YES; Mean Corpuscular HGB CONC 31.6 g/dL (32.0-36.0); Mean Corpuscular Hemoglobin 31.4 pg (27.0-31.0); Mean Corpuscular Volume 99.2 fL (78.0-98.0); Mean Platelet Volume 7.7 fL (7.4-10.4); Monocytes 6 % (0-10); Neutrophil 78 % (42-75); Platelet Count 177 thou/uL (130-400); Platelet Morphology Comment Appears Adequate; RBC Distribution Width 13.1 % (11.5-14.5); Red Blood Cell (RBC) Count 2.55 mill/uL (4.20-5.40); White Blood Cell (WBC) Count 10.2 thou/uL (4.8-10.8)
[2020-07-24 05:11] LABS: ALT (SGPT) Less than 7 U/L (8-55); AST (SGOT) 7 U/L (5-34); Albumin 2.5 g/dL (3.4-4.8); Alkaline Phosphatase 70 U/L (40-110); Anion Gap 17 mmol/L (10-20); BUN (Urea Nitrogen) 44 mg/dL (9.8-20.1); Bilirubin, Total 0.3 mg/dL (0.2-1.2); Calc. Creatinine Clearance 7 mL/min (70-130); Calcium 8.3 mg/dL (7.8-10.44); Carbon Dioxide 24 mmol/L (23-31); Chloride 103 mmol/L (98-107); Glucose 107 mg/dL (83-110); Potassium 3.4 mmol/L (3.5-5.1); Protein, Total 6.5 g/dL (5.8-8.1); Sodium 141 mmol/L (136-145)
[2020-07-24] MEDS: Cefepime 2 GM in Sodium Chloride 0.9% 100 ML IVPB SCH (05:31)
--- NOTE | 2020-07-24 08:25 | RAD ---
Portable frontal chest radiograph: 07/24/2020 COMPARISON: 07/22/2020 HISTORY: Ventilated patient FINDINGS: Stable endotracheal tube, nasogastric tube, and right-sided vascular catheter. Stable dense opacity in both lung bases with probable small/moderate bilateral pleural effusions. Fin dings suggest stable edema. Infectious pneumonitis or aspiration cannot be excluded. No discrete pneumothorax. IMPRESSION: No significant interval change.
[2020-07-24] MEDS ORDERED: DC Sedation Protocol FS ONE (08:49)
--- NOTE | 2020-07-24 09:12 | PRG ---
DATE OF SERVICE: 07/24/2020 A 35 minutes of critical care time. SUBJECTIVE: The patient remains intubated on mechanical ventilation. She will wake up and follow commands. She is sedated with small amount of propofol. OBJECTIVE: VITAL SIGNS: Her temperature is 98.0, pulse 78, blood pressure 126/53, and O2 saturation 100%. A 24-hour intake not quantitated very well. HEENT: Unremarkable. NECK: No adenopathy or JVD. LUNGS: Clear. CARDIAC: S1 and S2. Regular. ABDOMEN: Soft. EXTREMITIES: No edema. IMAGING DATA: Her chest x-ray shows fairly clear lung harding. ET tube in good position. LABORATORY DATA: White blood cell count 10.2, hematocrit 25.3, and platelet count 177. Sodium 141, potassium 3.4, chloride 103, CO2 of 24, BUN 44, creatinine 10.7, and glucose 107. ASSESSMENT: 1. Acute respiratory failure requiring mechanical ventilation - probably secondary to hypoventilation from narcotic use in the face of chronic renal failure. 2. Chronic renal failure, requiring dialysis. PLAN: 1. Hold sedation and extubate. 2. BiPAP as a bridge if needed. 3. Need to withhold all narcotic medication on this patient going forward. Job ID: [id number]
--- NOTE | 2020-07-24 09:14 | PDOC.HOSPP ---
- Subjective Encounter Date: 07/24/20 Encounter Time: 11:00 Subjective: Patient remains lightly sedated on the vent. She does open her eyes and shake head yes or no to questions. No events overnight. - Objective Vital Signs & Weight: Vital Signs (12 hours) Temp Pulse Resp BP 07/24/20 07:04 76 110/50 L 07/24/20 06:00 20 07/24/20 04:00 98.0 F 25 H 07/24/20 02:00 22 H 07/24/20 00:00 23 H 07/23/20 23:00 98.2 F 07/23/20 22:00 23 H Weight Weight 205 lb 11.06 oz Most Recent Monitor Data Heart Rate from ECG 78 NIBP 126/53 NIBP BP-Mean 77 Respiration from ECG 25 SpO2 100 I&O: 07/23/20 07/24/20 07/25/20 06:59 06:59 06:59 Intake Total 333 227 Output Total 1 0 Balance 332 227 Result Diagrams: 07/24/20 04:25 07/24/20 04:25 Hospitalist ROS - Review of Systems ROS unobtainable: due to endotracheal tube - Medication Medications: Active Medications Generic Name Dose Route Start Last Admin Trade Name Freq PRN Reason Stop Dose Admin Atorvastatin Calcium 40 mg 07/22/20 21:00 07/23/20 20:44 Atorvastatin Calcium 40 Mg Tab PO 40 mg HS JUAN CARLOS Administration Enoxaparin Sodium 30 mg 07/22/20 09:00 07/23/20 08:59 Enoxaparin Sodium 30 Mg/0.3 Ml Syringe SC 30 mg 0900 JUAN CARLOS Administration Cefepime HCl 2 gm/ Sodium 100 mls @ 200 mls/hr 07/22/20 06:00 07/24/20 05:31 Chloride IVPB 100 mls Q2D JUAN CARLOS Administration Sodium Chloride 10 ml 07/22/20 09:00 07/23/20 20:44 Flush - Normal Saline 10 Ml Syringe IVF 10 ml Q12HR JUAN CARLOS Administration Sodium Chloride 10 ml 07/22/20 04:30 07/22/20 05:39 Flush - Normal Saline 10 Ml Syringe IVF 10 ml PRN PRN Administration Saline Flush - Exam General Appearance: NAD, awake alert ENT: moist mucosa Heart: RRR, no murmur, no gallops, no rubs Respiratory: CTAB, no wheezes, no rales, no ronchi Respiratory - other findings: Good air movement throughout Gastrointestinal: soft, non-tender, non-distended, normal bowel sounds Extremities: no edema Psychiatric - other findings: Lightly sedated on the vent Hosp A/P - Plan (1) Acute on chronic respiratory failure with hypoxia and hypercapnia Code(s): J96.21 - ACUTE AND CHRONIC RESPIRATORY FAILURE WITH HYPOXIA; J96.22 - ACUTE AND CHRONIC RESPIRATORY FAILURE WITH HYPERCAPNIA Status: Acute (2) Acute metabolic encephalopathy Code(s): G93.41 - METABOLIC ENCEPHALOPATHY Status: Acute (3) ESRD on peritoneal dialysis Code(s): N18.6 - END STAGE RENAL DISEASE; Z99.2 - DEPENDENCE ON RENAL DIALYSIS Status: Chronic (4) GERD (gastroesophageal reflux disease) Code(s): K21.9 - GASTRO-ESOPHAGEAL REFLUX DISEASE WITHOUT ESOPHAGITIS Status: Chronic (5) Hypertension Code(s): I10 - ESSENTIAL (PRIMARY) HYPERTENSION Status: Chronic (6) Obesity (BMI 30-39.9) Code(s): E66.9 - OBESITY, UNSPECIFIED Status: Chronic (7) Stroke Code(s): I63.9 - CEREBRAL INFARCTION, UNSPECIFIED Status: Acute (8) Hyperkalemia Code(s): E87.5 - HYPERKALEMIA Status: Acute 07/22 Patient continues to be obtunded this morning. Placed on BiPAP 06/04 she was able to open her eyes. Her MRI indicates stroke. However the stroke would not make this patient so obtunded. We got a blood gas which indicated a pH of 7.0 with a PCO2 of 81. At this time spoke with pulmonary and went ahead and intubated this patient. I did call the patient's Mr. Munoz and updated him with what we did. Patient has meningitis. He does not have an elevated white count. She was recently discharged from the hospital for C. difficile. She is end-stage renal disease on PD dialysis. She is on DVT prophylaxis and on aspirin. We will add statin. Will order an echocardiogram. 07/23 pt on fio2 of 35% and peep of 5. She has no diarrhea. will stop vancomycin given her hx of diarrhea. I do not think this pt has meningitis. will also stop acyclovir. If her cx remain negative may stop cefepime. updated. pt on asa/statin. will replace K. 07/24 Patient intubated for obesity hypoventilation with CO2 narcosis. Possibly extubate tomorrow. All cultures negative so can d/c Cefepime as well.
[2020-07-24] MEDS: Enoxaparin Sodium 30 MG/0.3 ML SYRINGE SC SCH (09:31)
--- NOTE | 2020-07-24 13:16 | CT ---
CT arteriogram neck with IV contrast and 3-D imaging CT arteriogram head with IV contrast and 3-D imaging HISTORY: Altered mental status. FINDINGS: There is good contrast opacification of the aortic arch with normal branching of the great vessels. Good flow into each vertebral and carotid system. Very mild arterial calcification. Internal carotid arteries are widely patent. [place] of [place] is intact. Good flow into each cerebral and cerebellar system. No enhancing brain le sions. Old right basal ganglia lacunar infarct again demonstrated. At the partially visualized lung apices, pleural fluid is present within the dependent portion of eac h side of the chest. Inferior images also demonstrate a lobular 2.1 cm low-density lesion in the right side of thyroid isthmus. IMPRESSION : No acute vascular abnormalities are demonstrated. Bilateral pleural fluid Low-density thyroid nodule. Please consider non-emergent dedicated thyroid sonogram for better charac terization. Findings were called to Dr. Coleman in the emergency department at 2324 hours. Code CR. Transcribed Date/Time: 07/24/2020 1:16 PM
--- NOTE | 2020-07-24 17:19 | PRG ---
DATE OF SERVICE: 07/24/2020 SUBJECTIVE: The patient was seen, still on life support. Noted with the following vital signs. OBJECTIVE: VITAL SIGNS: Afebrile, blood pressure 163/67, pulse of 81, respiratory rate of 24, O2 saturation 100%. HEENT: Remarkable for endotracheal tube in place. CARDIOVASCULAR SYSTEM: First and second heart sounds were heard. RESPIRATORY SYSTEM: Clear to auscultation. DIGESTIVE SYSTEM: Revealed a benign abdomen. Positive bowel sounds. EXTREMITIES: No peripheral edema. SKIN: No new gross rash. LYMPHATIC: No peripheral lymphadenopathy. IMPRESSION: 1. End-stage renal disease, peritoneal dialysis dependent. 2. Respiratory failure in the context of hypercapnic respiratory failure. 3. Obesity. PLAN: 1. The patient may be extubated today, but we will continue with peritoneal dialysis regimen. 2. The patient's sedative medication is likely to be deescalated to avoid recurrence of this. We will defer to the Pulmonary Team in terms of whether this patient will need any assistive breathing device. 3. Further management to be dependent on the clinical course. Job ID: [id number]
[2020-07-24] MEDS: Atorvastatin Calcium 40 MG TAB PO SCH (21:31)
[2020-07-24] MEDS: Famotidine/PF 20 mg/2ml Vial SLOW IVP SCH (21:34)
[2020-07-25 04:51] LABS: Band 5 % (5-11); Eosinophils 2 % (0-10); Hemoglobin 7.7 g/dL (12.0-16.0); Hypochromia SLIGHT = 6-15 cells (100X) (0-5/hpf); Lymphocytes 10 % (21-51); MDiff Complete? YES; Macrocytosis SLIGHT = 6-15 cells (100X) (0-5/hpf); Mean Corpuscular HGB CONC 31.8 g/dL (32.0-36.0); Mean Platelet Volume 7.6 fL (7.4-10.4); Monocytes 6 % (0-10); Neutrophil 77 % (42-75); Platelet Count 150 thou/uL (130-400); Platelet Morphology Comment Appears Adequate; RBC Distribution Width 13.1 % (11.5-14.5); Red Blood Cell (RBC) Count 2.39 mill/uL (4.20-5.40); White Blood Cell (WBC) Count 8.3 thou/uL (4.8-10.8)
[2020-07-25 05:18] LABS: ALT (SGPT) Less than 7 U/L (8-55); AST (SGOT) 7 U/L (5-34); Albumin 2.4 g/dL (3.4-4.8); Alkaline Phosphatase 70 U/L (40-110); Anion Gap 17 mmol/L (10-20); BUN (Urea Nitrogen) 43 mg/dL (9.8-20.1); Bilirubin, Total 0.3 mg/dL (0.2-1.2); Calc. Creatinine Clearance 7 mL/min (70-130); Calcium 8.8 mg/dL (7.8-10.44); Carbon Dioxide 25 mmol/L (23-31); Chloride 103 mmol/L (98-107); Glucose 90 mg/dL (83-110); Potassium 3.2 mmol/L (3.5-5.1); Protein, Total 6.4 g/dL (5.8-8.1); Sodium 142 mmol/L (136-145)
[2020-07-25] MEDS: Enoxaparin Sodium 30 MG/0.3 ML SYRINGE SC SCH (08:07)
[2020-07-25 08:53] LABS: Actual Bicarbonate (HCO3a) 24.6 mEq/L (22-28); Base Excess (BEa) -0.9 mEq/L (-2.0 to +3.0); CO2 Tension 44.3 mmHg (35.0-45.0); Calcium, Ionized (arterial) 1.14 mmol/L (1.12-1.30); Carboxyhemoglobin (COHb) 0.3 gm% (0.0-3.0); Hemoglobin (Hb) 8.3 g/dL (12.0-16.0); O2 Tension (PaO2), arterial 103.1 mmHg (> 70.0); Potassium - ABG Lab 3.19 mmol/L (3.70-5.30); pH, Arterial 7.36 (7.35-7.45)
--- NOTE | 2020-07-25 08:53 | RAD ---
CHEST 1 VIEW PORTABLE: HISTORY: Respiratory insufficiency. FINDINGS: Monitor leads overlie and somewhat obscure the chest. Right central line in place. Previously noted NG tube and endotracheal tubes have been removed. Stable bilateral perihilar and infrahilar patchy parenchymal changes. IMPRESSION: Persistent but overall stable mostly alveolar bilateral perihilar and lower lung zone parenchymal afshan nges. Removal of the NG tube and endotracheal tubes. Continue short-term followup. POS: OFF
[2020-07-25 08:58] LABS: ALV-art Gradient 41.165 mmHg (0-20); Puncture Site LRA
--- NOTE | 2020-07-25 09:02 | PRG ---
DATE OF SERVICE: 07/25/2020 SUBJECTIVE: Ms. Tanner appears confused. She wore BiPAP all night last night. I looked at her MAR and she has been taken off all the medications, but some may take a lot to wear off that she was using while she was intubated. OBJECTIVE: VITAL SIGNS: Temperature 97.6, pulse 77, blood pressure 176/76, O2 saturation 100%. HEENT: Unremarkable. NECK: No JVD. LUNGS: Clear. CARDIAC: S1 and S2. Regular. ABDOMEN: Soft. EXTREMITIES: No edema. IMAGING STUDIES: Chest x-ray is clear. LABORATORY DATA: Sodium 142, potassium 3.2, chloride 103, CO2 of 25, BUN 43, creatinine 10, glucose 90. White blood cell count 8.3, hematocrit 24, and platelet count 150. ASSESSMENT: 1. Metabolic encephalopathy, which I think is secondary to use of hydrocodone and other substances at home. I think this is exacerbated by the sedation she was using while in the ICU. 2. Probable obstructive sleep apnea/obesity hypoventilation. PLAN: I will recheck a blood gas today. If it is better, then she could probably be sent to the floor. I will go ahead and stop her daily x-rays. Job ID: [id number]
--- NOTE | 2020-07-25 09:02 | PDOC.HOSPP ---
- Subjective Encounter Date: 07/25/20 Encounter Time: 11:40 Subjective: Patient extubated yesterday. Mildly confused this morning but not bad when I talked to her. She denies chest pain or trouble breathing. - Objective Vital Signs & Weight: Vital Signs (12 hours) Temp Pulse Pulse Ox 07/25/20 08:00 97.6 F 100 07/25/20 04:00 98.1 F 07/25/20 02:25 74 07/25/20 00:00 97.8 F 07/24/20 22:22 76 Weight Admit Weight 205 lb Weight 201 lb 11.567 oz Most Recent Monitor Data Heart Rate from ECG 77 NIBP 176/76 NIBP BP-Mean 109 Respiration from ECG 21 SpO2 100 I&O: 07/24/20 07/25/20 07/26/20 06:59 06:59 06:59 Intake Total 227 39.7 Output Total 0 0 Balance 227 39.7 Result Diagrams: 07/25/20 04:20 07/25/20 04:20 Additional Labs: Accuchecks 07/24/20 21:23 POC Glucose 96 Hospitalist ROS - Review of Systems Constitutional: denies: fever, chills Respiratory: denies: cough, shortness of breath Cardiovascular: denies: chest pain, palpitations Gastrointestinal: denies: nausea, vomiting - Medication Medications: Active Medications Generic Name Dose Route Start Last Admin Trade Name Freq PRN Reason Stop Dose Admin Atorvastatin Calcium 40 mg 07/22/20 21:00 07/24/20 21:31 Atorvastatin Calcium 40 Mg Tab PO Not Given HS JUAN CARLOS Enoxaparin Sodium 30 mg 07/22/20 09:00 07/25/20 08:07 Enoxaparin Sodium 30 Mg/0.3 Ml Syringe SC 30 mg 0900 JUAN CARLOS Administration Famotidine 20 mg 07/24/20 21:00 07/24/20 21:34 Famotidine/Pf 20 Mg/2ml Vial SLOW IVP 20 mg 2100 JUAN CARLOS Administration Sodium Chloride 10 ml 07/22/20 09:00 07/25/20 08:07 Flush - Normal Saline 10 Ml Syringe IVF 10 ml Q12HR JUAN CARLOS Administration Sodium Chloride 10 ml 07/22/20 04:30 07/22/20 05:39 Flush - Normal Saline 10 Ml Syringe IVF 10 ml PRN PRN Administration Saline Flush Hospitalist Exam Vitals: Vital Signs (12 hours) Temp Pulse Pulse Ox 07/25/20 08:00 97.6 F 100 07/25/20 04:00 98.1 F 07/25/20 02:25 74 07/25/20 00:00 97.8 F 07/24/20 22:22 76 Weight Admit Weight 205 lb Weight 201 lb 11.567 oz Most Recent Monitor Data Heart Rate from ECG 77 NIBP 176/76 NIBP BP-Mean 109 Respiration from ECG 21 SpO2 100 General Appearance: NAD, awake alert ENT: moist mucosa Heart: RRR, no murmur, no gallops, no rubs Respiratory: CTAB, no wheezes, no rales, no ronchi Gastrointestinal: soft, non-tender, non-distended, normal bowel sounds Gastrointestinal - other findings: Obese Extremities: no edema Psychiatric: normal affect, normal behavior, oriented to person Hosp A/P - Plan (1) Acute on chronic respiratory failure with hypoxia and hypercapnia Code(s): J96.21 - ACUTE AND CHRONIC RESPIRATORY FAILURE WITH HYPOXIA; J96.22 - ACUTE AND CHRONIC RESPIRATORY FAILURE WITH HYPERCAPNIA Status: Acute (2) Acute metabolic encephalopathy Code(s): G93.41 - METABOLIC ENCEPHALOPATHY Status: Acute (3) ESRD on peritoneal dialysis Code(s): N18.6 - END STAGE RENAL DISEASE; Z99.2 - DEPENDENCE ON RENAL DIALYSIS Status: Chronic (4) GERD (gastroesophageal reflux disease) Code(s): K21.9 - GASTRO-ESOPHAGEAL REFLUX DISEASE WITHOUT ESOPHAGITIS Status: Chronic (5) Hypertension Code(s): I10 - ESSENTIAL (PRIMARY) HYPERTENSION Status: Chronic (6) Obesity (BMI 30-39.9) Code(s): E66.9 - OBESITY, UNSPECIFIED Status: Chronic (7) Stroke Code(s): I63.9 - CEREBRAL INFARCTION, UNSPECIFIED Status: Acute (8) Hypokalemia 07/22 Patient continues to be obtunded this morning. Placed on BiPAP 06/04 she was able to open her eyes. Her MRI indicates stroke. However the stroke would not make this patient so obtunded. We got a blood gas which indicated a pH of 7.0 with a PCO2 of 81. At this time spoke with pulmonary and went ahead and intubated this patient. I did call the patient's Mr. Munoz and updated him with what we did. Patient has meningitis. He does not have an elevated white count. She was recently discharged from the hospital for C. difficile. She is end-stage renal disease on PD dialysis. She is on DVT prophylaxis and on aspirin. We will add statin. Will order an echocardiogram. 07/23 pt on fio2 of 35% and peep of 5. She has no diarrhea. will stop vancomycin given her hx of diarrhea. I do not think this pt has meningitis. will also stop acyclovir. If her cx remain negative may stop cefepime. updated. pt on asa/statin. will replace K. 07/24 Patient intubated for obesity hypoventilation with CO2 narcosis. Possibly extubate tomorrow. All cultures negative so can d/c Cefepime as well. 07/25 Patient successfully extubated, sating well on 2L NC. Likely needs home CPAP/BIPAP. Replete potassium as needed.
[2020-07-25] MEDS ORDERED: Potassium Bicarbonate/Cit Ac 20 MEQ TAB PO SCH (15:00)
--- NOTE | 2020-07-25 16:46 | PRG ---
DATE OF SERVICE: 07/25/2020 SUBJECTIVE: Flor Tanner was seen and examined. The patient is already extubated. Noted with the following vital signs. OBJECTIVE: VITAL SIGNS: Heart rate of 76, blood pressure 152/73, respiratory rate of 22, O2 saturation of 100%. HEENT: Unremarkable. CARDIOVASCULAR SYSTEM: First and second heart sounds were heard. RESPIRATORY SYSTEM: Clear to auscultation. DIGESTIVE SYSTEM: Revealed a benign abdomen. EXTREMITIES: No peripheral edema. SKIN: No new gross rash. LYMPHATICS: No peripheral lymphadenopathy. LABORATORY STUDIES: Hemoglobin of 7.7. Chemistry showed a creatinine of 7.74, BUN of 43, potassium of 3.2. IMPRESSION: 1. End-stage renal disease, peritoneal dialysis dependent. 2. Respiratory failure in the context of #3. 3. Hypercapnic respiratory failure. 4. Obesity. PLAN: 1. The patient to continue with peritoneal dialysis. 2. Scanning this patient's bladder has been also reported as this patient has not made much of urine. 3. We will avoid very sedative medications. 4. Further management to be dependent on the clinical course. Job ID: [id number]
[2020-07-25] MEDS: Atorvastatin Calcium 40 MG TAB PO SCH (21:32)
[2020-07-25] MEDS: Famotidine/PF 20 mg/2ml Vial SLOW IVP SCH (21:32)
[2020-07-26 05:00] LABS: Hemoglobin 8.3 g/dL (12.0-16.0); Mean Corpuscular HGB CONC 30.5 g/dL (32.0-36.0); Mean Corpuscular Hemoglobin 30.8 pg (27.0-31.0); Mean Platelet Volume 7.6 fL (7.4-10.4); Platelet Count 165 thou/uL (130-400); RBC Distribution Width 13.6 % (11.5-14.5); Red Blood Cell (RBC) Count 2.68 mill/uL (4.20-5.40)
[2020-07-26 05:01] LABS: Band 6 % (5-11); Eosinophils 3 % (0-10); Lymphocytes 8 % (21-51); MDiff Complete? YES; Monocytes 2 % (0-10); Neutrophil 81 % (42-75); Platelet Morphology Comment Appears Adequate
[2020-07-26 05:11] LABS: ALT (SGPT) Less than 7 U/L (8-55); AST (SGOT) 8 U/L (5-34); Albumin 2.5 g/dL (3.4-4.8); Alkaline Phosphatase 76 U/L (40-110); Anion Gap 17 mmol/L (10-20); BUN (Urea Nitrogen) 42 mg/dL (9.8-20.1); Bilirubin, Total 0.4 mg/dL (0.2-1.2); Calc. Creatinine Clearance 7 mL/min (70-130); Carbon Dioxide 25 mmol/L (23-31); Chloride 105 mmol/L (98-107); Globulin 4.3 g/dL (2.4-3.5); Glucose 123 mg/dL (83-110); Potassium 3.3 mmol/L (3.5-5.1); Protein, Total 6.8 g/dL (5.8-8.1); Sodium 144 mmol/L (136-145)
--- NOTE | 2020-07-26 08:47 | RAD ---
Exam: Chest one view HISTORY:Ventilated patient. Respiratory distress. Comparison: 07/25/2020 FINDINGS: Cardiac silhouette: Normal Aorta: Unremarkable Pulmonary vessels: Normal Costophrenic angles: Clear LUNGS: Improved aeration of the lung parenchyma. There is noted bilateral perihilar infiltrates have significantly reduced. Minimal bibasilar opacities do remain Lines and tubes: Stable right-sided vascular catheter Pneumothorax: None Osseous abnormalities: None IMPRESSION: No acute cardiopulmonary process.
[2020-07-26] MEDS: Enoxaparin Sodium 30 MG/0.3 ML SYRINGE SC SCH (09:12)
[2020-07-26] MEDS ORDERED: Potassium Chloride 20 MEQ TAB PO SCH (09:15)
--- NOTE | 2020-07-26 09:59 | PDOC.HOSPP ---
- Subjective Encounter Date: 07/26/20 Encounter Time: 11:34 Subjective: Ms. Tanner was seen this morning in follow up of respiratory failure. She was on a Bipap machine when I examined her. She was alert and responsive. Her heading machine operator was at her bedside. She said her mental status has been "in and out" but she is aware of where she is. Sitter at bedside. Patient has apnea issues and hence pulmonary recommended to have a sitter at bedside. - Objective Vital Signs & Weight: Vital Signs (12 hours) Temp Pulse Resp BP Pulse Ox 07/26/20 07:10 98.6 F 74 17 131/86 100 07/26/20 03:53 98.9 F 75 20 151/67 H 100 07/25/20 23:00 78 179/73 H 100 Weight Admit Weight 205 lb Weight 184 lb 8.43 oz Most Recent Monitor Data Heart Rate from ECG 76 NIBP 152/73 NIBP BP-Mean 99 Respiration from ECG 22 SpO2 100 I&O: 07/25/20 07/26/20 07/27/20 06:59 06:59 06:59 Intake Total 39.7 240 Output Total 0 800 Balance 39.7 -560 Result Diagrams: 07/26/20 04:35 07/26/20 04:35 Hospitalist ROS - Review of Systems Respiratory: denies: cough Cardiovascular: denies: chest pain, palpitations Gastrointestinal: denies: nausea, vomiting, abdominal pain - Medication Medications: Active Medications Generic Name Dose Route Start Last Admin Trade Name Freq PRN Reason Stop Dose Admin Atorvastatin Calcium 40 mg 07/22/20 21:00 07/25/20 21:32 Atorvastatin Calcium 40 Mg Tab PO 40 mg HS JUAN CARLOS Administration Enoxaparin Sodium 30 mg 07/22/20 09:00 07/26/20 09:12 Enoxaparin Sodium 30 Mg/0.3 Ml Syringe SC 30 mg 0900 JUAN CARLOS Administration Famotidine 20 mg 07/24/20 21:00 07/25/20 21:32 Famotidine/Pf 20 Mg/2ml Vial SLOW IVP 20 mg 2100 JUAN CARLOS Administration Potassium Chloride 40 meq 07/26/20 09:15 07/26/20 09:14 Potassium Chloride 20 Meq Tab PO 07/26/20 12:00 40 meq NOW JUAN CARLOS Administration Sodium Chloride 10 ml 07/22/20 09:00 07/26/20 09:13 Flush - Normal Saline 10 Ml Syringe IVF 10 ml Q12HR JUAN CARLOS Administration Sodium Chloride 10 ml 07/22/20 04:30 07/22/20 05:39 Flush - Normal Saline 10 Ml Syringe IVF 10 ml PRN PRN Administration Saline Flush Hospitalist Exam Vitals: Vital Signs (12 hours) Temp Pulse Resp BP Pulse Ox 07/26/20 07:10 98.6 F 74 17 131/86 100 07/26/20 03:53 98.9 F 75 20 151/67 H 100 07/25/20 23:00 78 179/73 H 100 Weight Admit Weight 205 lb Weight 184 lb 8.43 oz Most Recent Monitor Data Heart Rate from ECG 76 NIBP 152/73 NIBP BP-Mean 99 Respiration from ECG 22 SpO2 100 Eye: PERRL Neck: no JVD Heart: RRR Respiratory: CTAB, normal chest expansion Gastrointestinal: soft, non-tender, non-distended, normal bowel sounds Extremities: no cyanosis, no edema Neurological: cranial nerve grossly intact Hosp A/P - Plan Hypercapnic Respiratory Failure likely due to hydrocodone and gabapentin use with pre-existing obesity hypoventilation syndrome. Status post intubation and extubated on Currently on Bipap low urine output. CXR shows reduction in the bilateral perihilar infiltrates. Avoid sedative medications. Off antibiotics ESRD currently on peritoneal dialysis. BUN/CR level at 42/10.73 Low albumin Urine analysis significant for proteinuria, elevated Leukocyte esterase, WBC, squamous epithelial cells, and yeast. Dr. Cam following with us. probable JOSE and/or obesity hypoventilation syndrome -She is on CPAP and not sure that she has a CPAP at home. Echo showed EF of 60% with a normal right ventricular size and function Metabolic Encephalopathy possibly associated with hydrocodone and gabapentin use at home. -Mentation cleared seems to be at baseline with a mild degree of confusion. Hypokalemia -Replaced Will make sure that patient is not on any sedatives including analgesic like hydrocodone and gabapentin. We will arrange for home health for nursing to make sure she is on appropriate medications and does not have any strong sedatives. Outpatient sleep study is recommended. Patient seen and examined individually and care discussed with the student and agree with her plan for today
--- NOTE | 2020-07-26 10:17 | PRG ---
DATE OF SERVICE: 07/26/2020 SUBJECTIVE: The patient is still somewhat disoriented, but her speech is more clear. OBJECTIVE: VITAL SIGNS: Temperature 98.6, pulse 74, blood pressure 131/86, and O2 saturation 100%. HEENT: Unremarkable. NECK: No JVD. LUNGS: Clear. CARDIAC: S1 and S2. Regular. ABDOMEN: Soft. EXTREMITIES: Trace edema. LABORATORY DATA: White blood cell count 10, hematocrit 27, and platelet count 165. Sodium 144, potassium 3.3, chloride 105, CO2 of 25, BUN 42, creatinine 10.7, and glucose 123. ASSESSMENT: 1. Status post respiratory failure, requiring mechanical ventilation. 2. The underlying cause for repeated respiratory failure is substance use. I think the hydrocodone and gabapentin were probably not a good idea going forward on this patient. RECOMMENDATIONS: I really do not have any further recommendations regarding her current care; other than at some point in the future, she will need a sleep study. She needs to have some type of home health intervention to make sure that she has no more hydrocodone, gabapentin, etc. in the house that could be affecting her mental status. Please recall if further assistance needed. Job ID: [id number]
[2020-07-26] MEDS ORDERED: EPOETIN ALFA-EPBX (ESRD) 10,000 UNIT/ML VIAL SC SCH (14:00)
[2020-07-26] MEDS: Calcium Carbonate 500 MG ChewTAB PO SCH ×2 (14:29→20:51)
[2020-07-26] MEDS: rOPINIRole HCl 0.25 MG TAB PO SCH ×2 (14:35→20:51)
--- NOTE | 2020-07-26 16:10 | PRG ---
DATE OF SERVICE: 07/26/2020 SUBJECTIVE: The patient is seen today, seems to be doing okay, noted with the following vital signs. OBJECTIVE: VITAL SIGNS: Afebrile, temperature 98.4, pulse 81, respiratory rate of 17, O2 saturation of 100%, with a blood pressure of 148/65. HEENT: Unremarkable. CARDIOVASCULAR SYSTEM: First and second heart sounds were heard. RESPIRATORY SYSTEM: Clear to auscultation. DIGESTIVE SYSTEM: Revealed a benign abdomen with positive bowel sounds. EXTREMITIES: No peripheral edema. SKIN: No new gross rash. LYMPHATICS: No peripheral lymphadenopathy. LABORATORY INVESTIGATION: Showed a hemoglobin of 8.3. Chemistry showed a potassium of 3.3 with a creatinine of 10.73. IMPRESSION: 1. End-stage renal disease, on peritoneal dialysis. 2. Mild hypokalemia. 3. Respiratory failure in the context of hypercapnic respiratory failure. PLAN: 1. Continue with current peritoneal dialysis regimen. 2. Replete potassium. 3. Further management to be dependent on the clinical course. Job ID: [id number]
[2020-07-26] MEDS: Carvedilol 6.25 MG TAB PO SCH (20:52)
[2020-07-26] MEDS: Atorvastatin Calcium 40 MG TAB PO SCH (20:52)
[2020-07-26] MEDS: Famotidine/PF 20 mg/2ml Vial SLOW IVP SCH (20:52)
[2020-07-26] MEDS ORDERED: Acetaminophen 500 MG TAB PO SCH (22:30)
[2020-07-27 04:18] LABS: Anion Gap 19 mmol/L (10-20); BUN (Urea Nitrogen) 43 mg/dL (9.8-20.1); Calc. Creatinine Clearance 6 mL/min (70-130); Calcium 8.7 mg/dL (7.8-10.44); Carbon Dioxide 23 mmol/L (23-31); Chloride 106 mmol/L (98-107); Glucose 122 mg/dL (83-110); Potassium 3.9 mmol/L (3.5-5.1); Sodium 144 mmol/L (136-145)
[2020-07-27 05:35] LABS: Band 3 % (5-11); Eosinophils 4 % (0-10); Hemoglobin 7.6 g/dL (12.0-16.0); Hypochromia SLIGHT = 6-15 cells (100X) (0-5/hpf); Lymphocytes 16 % (21-51); MDiff Complete? YES; Mean Corpuscular HGB CONC 30.5 g/dL (32.0-36.0); Mean Corpuscular Hemoglobin 31.1 pg (27.0-31.0); Mean Platelet Volume 7.5 fL (7.4-10.4); Neutrophil 77 % (42-75); Platelet Count 144 thou/uL (130-400); Platelet Morphology Comment Appears Adequate; RBC Distribution Width 13.5 % (11.5-14.5); Red Blood Cell (RBC) Count 2.43 mill/uL (4.20-5.40); White Blood Cell (WBC) Count 7.1 thou/uL (4.8-10.8)
[2020-07-27] MEDS: Enoxaparin Sodium 30 MG/0.3 ML SYRINGE SC SCH (08:05)
[2020-07-27] MEDS: Carvedilol 6.25 MG TAB PO SCH ×2 (08:05→21:10)
[2020-07-27] MEDS: DULoxetine 30 MG CAP PO SCH (08:05)
[2020-07-27] MEDS: Folic Acid 1 MG TAB PO SCH (08:06)
[2020-07-27] MEDS: Potassium Chloride 20 MEQ TAB PO SCH (08:06)
[2020-07-27] MEDS: Docusate 100 MG CAP PO SCH (08:06)
[2020-07-27] MEDS: Calcium Carbonate 500 MG ChewTAB PO SCH ×3 (08:06→21:11)
[2020-07-27] MEDS: rOPINIRole HCl 0.25 MG TAB PO SCH ×4 (08:06→21:10)
[2020-07-27] MEDS: Magnesium Oxide 250 MG TAB PO SCH (08:10)
[2020-07-27] MEDS ORDERED: Digoxin 0.5 MG/2 ML AMP SLOW IVP PRN (09:46)
--- NOTE | 2020-07-27 10:34 | PDOC.HOSPP ---
- Subjective Encounter Date: 07/27/20 Encounter Time: 10:48 Subjective: Ms. Tanner was seen this morning in follow up of acute respiratory failure. She says she feels tired today. I saw her as she was working on standing up with the therapist. She was able to do so for a minute before getting dizzy. She is better oriented today. She is little hypotensive and tachycardic. - Objective Vital Signs & Weight: Vital Signs (12 hours) Temp Pulse Resp BP BP Pulse Ox 07/27/20 10:06 75 07/27/20 08:01 98.0 F 75 20 117/56 L 100 07/27/20 03:38 98.1 F 80 25 H 97/54 L 100 07/27/20 03:09 99 Weight Admit Weight 221 lb Weight 187 lb 13.341 oz Most Recent Monitor Data Heart Rate from ECG 76 NIBP 152/73 NIBP BP-Mean 99 Respiration from ECG 22 SpO2 100 I&O: 07/26/20 07/27/20 07/28/20 06:59 06:59 06:59 Intake Total 240 530 Output Total 800 325 Balance -560 205 Result Diagrams: 07/27/20 05:03 07/27/20 03:51 Hospitalist ROS - Review of Systems Respiratory: denies: cough, shortness of breath Cardiovascular: denies: chest pain, palpitations Gastrointestinal: denies: nausea, vomiting, abdominal pain, diarrhea, constipation - Medication Medications: Active Medications Generic Name Dose Route Start Last Admin Trade Name Freq PRN Reason Stop Dose Admin Atorvastatin Calcium 40 mg 07/22/20 21:00 07/26/20 20:52 Atorvastatin Calcium 40 Mg Tab PO 40 mg HS JUAN CARLOS Administration Calcium Carbonate 500 mg 07/26/20 15:00 07/27/20 08:06 Calcium Carbonate 500 Mg Chewtab PO 500 mg TID JUAN CARLOS Administration Carvedilol 12.5 mg 07/26/20 21:00 07/27/20 08:05 Carvedilol 6.25 Mg Tab PO 12.5 mg BID JUAN CARLOS Administration Digoxin 0.125 mg 07/27/20 09:46 07/27/20 10:06 Digoxin 0.5 Mg/2 Ml Amp SLOW IVP 0.125 mg Q8H PRN Administration HR OVER 100 Docusate Sodium 100 mg 07/27/20 09:00 07/27/20 08:06 Docusate 100 Mg Cap PO 100 mg DAILY JUAN CARLOS Administration Duloxetine HCl 30 mg 07/27/20 09:00 07/27/20 08:05 Duloxetine 30 Mg Cap PO 30 mg DAILY JUAN CARLOS Administration Enoxaparin Sodium 30 mg 07/22/20 09:00 07/27/20 08:05 Enoxaparin Sodium 30 Mg/0.3 Ml Syringe SC 30 mg 0900 JUAN CARLOS Administration Epoetin Ramon-epbx 10,000 unit 07/26/20 14:00 07/26/20 14:29 Epoetin Ramon-Epbx (Esrd) 10,000 Unit/Ml Vial SC 10,000 unit Q7D JUAN CARLOS Administration Famotidine 20 mg 07/24/20 21:00 07/26/20 20:52 Famotidine/Pf 20 Mg/2ml Vial SLOW IVP 20 mg 2100 JUAN CARLOS Administration Folic Acid 1 mg 07/27/20 09:00 07/27/20 08:06 Folic Acid 1 Mg Tab PO 1 mg DAILY JUAN CARLOS Administration Magnesium Oxide 750 mg 07/27/20 09:00 07/27/20 08:10 Magnesium Oxide 250 Mg Tab PO 750 mg DAILY JUAN CARLOS Administration Potassium Chloride 20 meq 07/27/20 08:00 07/27/20 08:06 Potassium Chloride 20 Meq Tab PO 20 meq QAM-WM JUAN CARLOS Administration Ropinirole HCl 0.25 mg 07/26/20 15:00 07/27/20 08:06 Ropinirole Hcl 0.25 Mg Tab PO 0.25 mg TID JUAN CARLOS Administration Sodium Chloride 10 ml 07/22/20 09:00 07/27/20 08:06 Flush - Normal Saline 10 Ml Syringe IVF 10 ml Q12HR JUAN CARLOS Administration Sodium Chloride 10 ml 07/22/20 04:30 07/22/20 05:39 Flush - Normal Saline 10 Ml Syringe IVF 10 ml PRN PRN Administration Saline Flush Hospitalist Exam Vitals: Vital Signs (12 hours) Temp Pulse Resp BP BP Pulse Ox 07/27/20 10:06 75 07/27/20 08:01 98.0 F 75 20 117/56 L 100 07/27/20 03:38 98.1 F 80 25 H 97/54 L 100 07/27/20 03:09 99 Weight Admit Weight 221 lb Weight 187 lb 13.341 oz Most Recent Monitor Data Heart Rate from ECG 76 NIBP 152/73 NIBP BP-Mean 99 Respiration from ECG 22 SpO2 100 Eye: PERRL, anicteric sclera Neck: no JVD Heart: RRR, normal peripheral pulses Respiratory: CTAB, normal chest expansion Gastrointestinal: soft, non-tender, non-distended, normal bowel sounds Extremities: no edema Neurological: cranial nerve grossly intact Psychiatric: A&O x 3 Hosp A/P - Plan Hypercapnic Respiratory Failure likely due to hydrocodone and gabapentin use with pre-existing obesity hypoventilation syndrome. Status post intubation and extubated on 26 Currently on Bipap low urine output. CXR shows reduction in the bilateral perihilar infiltrates. Avoid sedative medications. Off antibiotics ESRD currently on peritoneal dialysis. BUN/CR level at 42/10.73 Low albumin Urine analysis significant for proteinuria, elevated Leukocyte esterase, WBC, squamous epithelial cells, and yeast. Dr. Cam following with us. probable JOSE and/or obesity hypoventilation syndrome -She is on CPAP and not sure that she has a CPAP at home. Echo showed EF of 60% with a normal right ventricular size and function Metabolic Encephalopathy possibly associated with hydrocodone and gabapentin use at home. -Mentation cleared seems to be at baseline with a mild degree of confusion. Hypokalemia -Replaced Will make sure that patient is not on any sedatives including analgesic like hydrocodone and gabapentin. We will arrange for home health for nursing to make sure she is on appropriate medications and does not have any strong sedatives. Outpatient sleep study is recommended. Patient seen and examined individually and care discussed with the student and agree with her plan for today BP on the lower side--117/56mmHg macrocytic anemia--check B12 and folate levels. BUN/Cr level stable Hypokalemia-resolved. Potassium at 3.9. Continue to supplement. Her mentation is clear today. Tachycardia and normotensive -Possibly with agitation and anxiety--physical therapy was seen her this morning. -She is on Coreg which will continue and added digoxin as needed to keep her heart rate below 100 -She is getting daily peritoneal dialysis -Possible rehab placement Will make sure that patient is not on any sedatives including analgesic like hydrocodone and gabapentin. We will arrange for home health for nursing to make sure she is on appropriate medications and does not have any strong sedatives. Outpatient sleep study is recommended. Plan discussed with the student and agree with the above plan for today.
--- NOTE | 2020-07-27 18:09 | PRG ---
DATE OF SERVICE: 07/27/2020 SUBJECTIVE: The patient noted with the following vital signs. OBJECTIVE: VITAL SIGNS: Afebrile, temperature 98, pulse 75, respiratory rate of 20, O2 saturations of 96%, and blood pressure 115/56. HEENT: Unremarkable. CARDIOVASCULAR SYSTEM: First and second heart sounds were heard. RESPIRATORY SYSTEM: Clear to auscultation. DIGESTIVE SYSTEM: Revealed a benign abdomen with positive bowel sounds. EXTREMITIES: No peripheral edema. SKIN: No new gross rash. LYMPHATICS: No peripheral lymphadenopathy. IMPRESSION: 1. End-stage renal disease, on peritoneal dialysis. 2. Hypercapnic respiratory failure. 3. Obesity. 4. Anemia of chronic disease. PLAN: 1. Please deescalate blood draws to avoid iatrogenic anemia. Meanwhile, continue erythropoiesis stimulating agent. 2. Renally dose all medications. 3. Further management will be dependent on the clinical course. Job ID: [id number]
[2020-07-27] MEDS: Famotidine/PF 20 mg/2ml Vial SLOW IVP SCH (21:10)
[2020-07-27] MEDS: Atorvastatin Calcium 40 MG TAB PO SCH (21:11)
[2020-07-28] MEDS: Enoxaparin Sodium 30 MG/0.3 ML SYRINGE SC SCH (09:21)
[2020-07-28] MEDS: Magnesium Oxide 250 MG TAB PO SCH (09:21)
[2020-07-28] MEDS: Calcium Carbonate 500 MG ChewTAB PO SCH ×3 (09:21→21:36)
[2020-07-28] MEDS: Docusate 100 MG CAP PO SCH (09:22)
[2020-07-28] MEDS: Carvedilol 6.25 MG TAB PO SCH ×2 (09:22→21:35)
[2020-07-28] MEDS: Potassium Chloride 20 MEQ TAB PO SCH (09:22)
[2020-07-28] MEDS: Folic Acid 1 MG TAB PO SCH (09:22)
[2020-07-28] MEDS: rOPINIRole HCl 0.25 MG TAB PO SCH ×3 (09:24→21:42)
[2020-07-28] MEDS: DULoxetine 30 MG CAP PO SCH (09:34)
--- NOTE | 2020-07-28 11:54 | PDOC.HOSPP ---
- Subjective Encounter Date: 07/28/20 Encounter Time: 10:30 Subjective: Ms. Tanner was seen this morning in follow-up of acute respiratory failure. She is fully oriented with minimal ataxia. She has a cough that has been going on for a month. She complains of feeling sore over her entire body, especially when being touched by the nurses, and she attributes this to being in the hospital for the last month. She sleeps with the Bipap machine. She anticipates going home. She has a PSHx of a gastric bypass at 20 years old which is causing her chronic diarrhea. - Objective Vital Signs & Weight: Vital Signs (12 hours) Temp Pulse Pulse Resp BP BP Pulse Ox 07/28/20 11:49 97.8 F 68 24 H 126/61 100 07/28/20 09:34 71 120/58 L 07/28/20 08:00 97 07/28/20 07:40 96.1 F L 68 22 H 113/57 L 100 07/28/20 04:00 99.1 F 61 20 109/55 L 100 07/28/20 00:38 74 Pulse Ox Pulse Ox 07/28/20 11:49 07/28/20 09:34 97 100 07/28/20 08:00 07/28/20 07:40 07/28/20 04:00 07/28/20 00:38 Weight Admit Weight 221 lb Weight 191 lb 9.307 oz Most Recent Monitor Data Heart Rate from ECG 76 NIBP 152/73 NIBP BP-Mean 99 Respiration from ECG 22 SpO2 100 I&O: 07/27/20 07/28/20 07/29/20 06:59 06:59 06:59 Intake Total 530 1200 Output Total 325 839 Balance 205 361 Result Diagrams: 07/27/20 05:03 07/27/20 03:51 Hospitalist ROS - Review of Systems Respiratory: reports: cough. denies: shortness of breath Cardiovascular: denies: chest pain, palpitations Gastrointestinal: reports: diarrhea. denies: nausea, vomiting, abdominal pain, constipation - Medication Medications: Active Medications Generic Name Dose Route Start Last Admin Trade Name Freq PRN Reason Stop Dose Admin Atorvastatin Calcium 40 mg 07/22/20 21:00 07/27/20 21:11 Atorvastatin Calcium 40 Mg Tab PO 40 mg HS JUAN CARLOS Administration Calcium Carbonate 500 mg 07/26/20 15:00 07/28/20 09:21 Calcium Carbonate 500 Mg Chewtab PO 500 mg TID JUAN CARLOS Administration Carvedilol 12.5 mg 07/26/20 21:00 07/28/20 09:22 Carvedilol 6.25 Mg Tab PO 12.5 mg BID JUAN CARLOS Administration Digoxin 0.125 mg 07/27/20 09:46 07/27/20 10:06 Digoxin 0.5 Mg/2 Ml Amp SLOW IVP 0.125 mg Q8H PRN Administration HR OVER 100 Docusate Sodium 100 mg 07/27/20 09:00 07/28/20 09:22 Docusate 100 Mg Cap PO Not Given DAILY JUAN CARLOS Duloxetine HCl 30 mg 07/27/20 09:00 07/28/20 09:34 Duloxetine 30 Mg Cap PO Not Given DAILY JUAN CARLOS Enoxaparin Sodium 30 mg 07/22/20 09:00 07/28/20 09:21 Enoxaparin Sodium 30 Mg/0.3 Ml Syringe SC 30 mg 0900 JUAN CARLOS Administration Epoetin Ramon-epbx 10,000 unit 07/26/20 14:00 07/26/20 14:29 Epoetin Ramon-Epbx (Esrd) 10,000 Unit/Ml Vial SC 10,000 unit Q7D JUAN CARLOS Administration Famotidine 20 mg 07/24/20 21:00 07/27/20 21:10 Famotidine/Pf 20 Mg/2ml Vial SLOW IVP 20 mg 2100 JUAN CARLOS Administration Folic Acid 1 mg 07/27/20 09:00 07/28/20 09:22 Folic Acid 1 Mg Tab PO 1 mg DAILY JUAN CARLOS Administration Magnesium Oxide 750 mg 07/27/20 09:00 07/28/20 09:21 Magnesium Oxide 250 Mg Tab PO 750 mg DAILY JUAN CARLOS Administration Potassium Chloride 20 meq 07/27/20 08:00 07/28/20 09:22 Potassium Chloride 20 Meq Tab PO 20 meq QAM-WM JUAN CARLOS Administration Ropinirole HCl 0.25 mg 07/26/20 15:00 07/28/20 09:24 Ropinirole Hcl 0.25 Mg Tab PO 0.25 mg TID JUAN CARLOS Administration Sodium Chloride 10 ml 07/22/20 09:00 07/28/20 09:25 Flush - Normal Saline 10 Ml Syringe IVF 10 ml Q12HR JUAN CARLOS Administration Sodium Chloride 10 ml 07/22/20 04:30 07/22/20 05:39 Flush - Normal Saline 10 Ml Syringe IVF 10 ml PRN PRN Administration Saline Flush Hospitalist Exam Vitals: Vital Signs (12 hours) Temp Pulse Pulse Resp BP BP Pulse Ox 07/28/20 11:49 97.8 F 68 24 H 126/61 100 07/28/20 09:34 71 120/58 L 07/28/20 08:00 97 07/28/20 07:40 96.1 F L 68 22 H 113/57 L 100 07/28/20 04:00 99.1 F 61 20 109/55 L 100 07/28/20 00:38 74 Pulse Ox Pulse Ox 07/28/20 11:49 07/28/20 09:34 97 100 07/28/20 08:00 07/28/20 07:40 07/28/20 04:00 07/28/20 00:38 Weight Admit Weight 221 lb Weight 191 lb 9.307 oz Most Recent Monitor Data Heart Rate from ECG 76 NIBP 152/73 NIBP BP-Mean 99 Respiration from ECG 22 SpO2 100 Eye: PERRL Neck: no JVD Heart: RRR Respiratory: CTAB Gastrointestinal: soft, non-tender, non-distended, normal bowel sounds Extremities: no edema Psychiatric: A&O x 3 Hosp A/P - Plan Hypercapnic Respiratory Failure likely due to hydrocodone and gabapentin use with pre-existing obesity hypoventilation syndrome. Status post intubation and extubated on 26 Currently on Bipap low urine output. CXR shows reduction in the bilateral perihilar infiltrates. Avoid sedative medications. Off antibiotics ESRD currently on peritoneal dialysis. BUN/CR level at 42/10.73 Low albumin Urine analysis significant for proteinuria, elevated Leukocyte esterase, WBC, squamous epithelial cells, and yeast. Dr. Cam following with us. probable JOSE and/or obesity hypoventilation syndrome -She is on CPAP and not sure that she has a CPAP at home. Echo showed EF of 60% with a normal right ventricular size and function Metabolic Encephalopathy possibly associated with hydrocodone and gabapentin use at home. -Mentation cleared seems to be at baseline with a mild degree of confusion. Hypokalemia -Replaced She is fully oriented today with minimal ataxia. Chronic diarrhea- Probable dumping syndrome --likely due to gastric bypass surgery at 20 years old. Continues to use BiPap machine. She came from the rehab facility and possibly discharge her back to the rehab on Friday. Outpatient sleep study is recommended. Care discussed with the student and agree with the above plan for today.
[2020-07-28 14:21] VITALS: BMI 36.1
--- NOTE | 2020-07-28 14:53 | PRG ---
DATE OF SERVICE: SUBJECTIVE: She still appears fairly confused at baseline. The nursing staff tells me she is much better and has requested that the sitter be able to leave. OBJECTIVE: VITAL SIGNS: Temperature is 97.8, pulse 68, blood pressure 126/61, O2 sat 100%. HEENT: Unremarkable. NECK: No JVD. LUNGS: Fairly clear. CARDIAC: S1 and S2, regular. ABDOMEN: Soft. EXTREMITIES: No edema. ASSESSMENT: Status post respiratory failure secondary to underlying substance use-I suspect hydrocodone and gabapentin. RECOMMENDATIONS: I would recommend home health or someone else to investigate to the house as she is very likely to return home and start using again and have repeated admissions for respiratory failure. No further recommendations this time. We will be available as needed. Job ID: [id number]
--- NOTE | 2020-07-28 14:56 | PRG ---
DATE OF SERVICE: 07/28/2020 SUBJECTIVE: The patient seems to be doing much better today, noted with the following vital signs. OBJECTIVE: VITAL SIGNS: Afebrile, temperature 97.8, pulse 68, respiratory rate of 24, O2 saturation of 100%, with blood pressure 126/61. HEENT: Unremarkable. CARDIOVASCULAR SYSTEM: First and second heart sounds were heard. RESPIRATORY SYSTEM: Clear to auscultation. DIGESTIVE SYSTEM: Revealed a benign abdomen with positive bowel sounds. EXTREMITIES: No peripheral edema. SKIN: No new gross rash. LYMPHATICS: No peripheral lymphadenopathy. IMPRESSION: 1. End-stage renal disease, on peritoneal dialysis. 2. Hypercapnic respiratory failure. 3. Obesity. PLAN: 1. The patient to continue with current peritoneal dialysis regimen. 2. Further management to be dependent on the clinical course. Job ID: [id number]
[2020-07-28] MEDS ORDERED: Gabapentin 300 MG CAP PO SCH (21:00)
[2020-07-28] MEDS: Calcium Carbonate 600 MG + Vit D TAB PO SCH (21:35)
[2020-07-28] MEDS: Apixaban 2.5 MG TAB PO SCH (21:36)
[2020-07-28] MEDS: Atorvastatin Calcium 40 MG TAB PO SCH (21:36)
[2020-07-28] MEDS: Famotidine/PF 20 mg/2ml Vial SLOW IVP SCH (21:38)
[2020-07-29] MEDS ORDERED: DULoxetine 30 MG CAP PO SCH (09:00)
[2020-07-29] MEDS ORDERED: Docusate 100 MG CAP PO SCH (09:00)
[2020-07-29] MEDS ORDERED: Folic Acid 1 MG TAB PO SCH (09:00)
[2020-07-29] MEDS ORDERED: Magnesium Oxide 400 MG TAB PO SCH (09:00)
[2020-07-29 09:47] VITALS: TEMP 98.1
[2020-07-29] MEDS: Calcium Carbonate 600 MG + Vit D TAB PO SCH (09:51)
[2020-07-29] MEDS: Carvedilol 6.25 MG TAB PO SCH (09:51)
[2020-07-29] MEDS: Potassium Chloride 20 MEQ TAB PO SCH (09:51)
[2020-07-29] MEDS: Apixaban 2.5 MG TAB PO SCH (09:51)
[2020-07-29] MEDS: rOPINIRole HCl 0.25 MG TAB PO SCH ×2 (09:51→15:27)
[2020-07-29] MEDS: Calcium Carbonate 500 MG ChewTAB PO SCH ×2 (09:52→15:27)
[2020-07-29 15:08] VITALS: BP 136/84
--- NOTE | 2020-07-29 19:05 | DIS ---
DATE OF ADMISSION: 07/22/2020 DATE OF DISCHARGE: 07/29/2020 DISCHARGE DISPOSITION: To inpatient rehab. PRIMARY DISCHARGE DIAGNOSES: Acute respiratory failure with hypoxia and hypercapnea with suspected medication overdose with contributions from obstructive sleep apnea and likely obesity hypoventilation syndrome as well, acute metabolic encephalopathy secondary to above. SECONDARY DISCHARGE DIAGNOSES: End-stage renal disease, on peritoneal dialysis; recent C difficile, which is resolving with the patient having stool one time a day now; dyslipidemia; paroxysmal atrial fibrillation; history of CVA, peripheral neuropathy likely, chronic pain syndrome. PROCEDURES DONE DURING HOSPITALIZATION: CT angio of brain done showed no acute vascular abnormalities were seen. MRI brain showed findings of possible punctate acute infarct in the deep white matter of the posterior left frontal lobe. Again, these images were distorted due to motion artifact. Echo with 2D Doppler done showed ejection fraction of 55% to 60%. LABORATORY DATA: Blood cultures x2, no growth. H and H of 7.6 and 24, platelet count 144 with 77% neutrophils, white count of 7.1, MCV 102. PT/INR of 16 and 1.3, PTT 446. On admission, the patient had a blood gas with pH of 7.07, pCO2 of 81, pO2 of 162. Discharge BUN and creatinine are 43 and 10.3. Serum bicarb 23 on the 28th. Albumin 2.5. BNP 289. Ammonia levels on admission were 28. LFTs were within normal limits. Urine tox screen was positive for opiates and benzodiazepines. COVID-19 PCR was not detected on 07/22/2020. INPATIENT CONSULTS: 1. Dr. Joiner for Pulmonology. 2. Dr. Bain for Neurology. 3. Dr. Cam for Nephrology. DISCHARGE MEDICATIONS: 1. Calcium with vitamin D one tab twice daily. 2. Colace 100 mg daily. 3. Carvedilol 12.5 mg twice daily. 4. Cymbalta 30 mg p.o. daily. 5. Epogen 10,000 units subcu once weekly. 6. Folic acid 1 mg p.o. daily. 7. Magnesium oxide 400 mg p.o. daily. 8. Neurontin 300 mg p.o. at bedtime. 9. Omeprazole 20 mg p.o. daily. 10. Ropinirole 0.25 mg 3 times daily. 11. Eliquis 2.5 mg twice daily for paroxysmal atrial fibrillation/. 12. Florastor 250 mg p.o. daily. 13. Atorvastatin 40 mg p.o. at bedtime. ALLERGIES: ALLERGIC TO CODEINE AND IODINE. BRIEF COURSE DURING HOSPITALIZATION: The patient initially was sent over from inpatient rehab on the for altered mental state. On arrival, the patient had a blood gas with pH of 7.0 with acute respiratory acidosis and acute respiratory failure with hypoxia and hypercapnea. The patient was intubated on arrival. She was successfully extubated on the . The patient later was downgraded to telemetry. The patient is on multiple psychotropic medications and sleep aids, most of which were held. At the time of discharge, the patient is alert, awake, and oriented. She uses a CPAP at night. She is tolerating oral solid diet. She is working with Physical Therapy for severe deconditioning. Previously, she has had history of C difficile, which is resolving with the patient barely having 1 stool a day now. A total of 35 minutes was spent on discharge plan. Please note, I have seen and examined the patient on the day of discharge. During her stay here, she has had daily peritoneal dialysis, which was directed by Dr. Cam. Medications were reconciled to prevent further respiratory failure and respiratory depression and most of her psychotropic medications were held or reduced in dosage. I have given complete updates to the patient and her at bedside. Job ID: [id number] MTDD
--- NOTE | 2020-07-29 23:07 | PRG ---
DATE OF SERVICE: 07/29/2020 SUBJECTIVE: The patient is seen and examined, without any complaints, hemodynamically stable. OBJECTIVE: HEENT: Unremarkable. CARDIOVASCULAR SYSTEM: First and second heart sounds were heard. RESPIRATORY SYSTEM: Clear to auscultation. DIGESTIVE SYSTEM: Revealed a benign abdomen. EXTREMITIES: No peripheral edema. SKIN: No new gross rash. LYMPHATICS: No peripheral lymphadenopathy. IMPRESSION: End-stage renal disease, on peritoneal dialysis. PLAN: 1. Continue current regimen of peritoneal dialysis. 2. Further management to be dependent on the clinical course. Job ID: [id number]
--- NOTE | 2020-08-04 07:42 | CON ---
DATE OF CONSULTATION: REASON FOR CONSULTATION: Possible IMPRESSION: 1. End-stage renal disease, on peritoneal dialysis. 2. Altered mental status. This is likely in the context carbon dioxide narcosis. PLAN: 1. The patient, given the chest x-ray that shows evidence of congestion, will be dialyzed tonight with 4.25% Dianeal alternating with 2.5% peritoneal dialysis. 2. ABG which has been resulted confirming the suspicion of carbon dioxide narcosis. 3. Further management to be dependent on the clinical course. HISTORY: History is that of a 75-year-old female patient recently discharged to rehab status post management of sepsis in the context of urinary tract infection and C diff colitis. The patient did have evidence of mental status change one time during the previous hospitalization, which was blamed on carbon dioxide narcosis. The patient got transferred back to the ER from the rehab due to mental status change. As a result of this, decision has been taken to involve [facility] in the management of this case and the need for continued maintenance of dialysis. Past medical history, family history, social history remains the same. Please for the details refer to the recent consult on this patient. REVIEW OF SYSTEMS: GENERAL: Could not be obtained as patient is currently on life support. On examination, patient is noted to be hemodynamically stable, afebrile HEENT: Remarkable for endotracheal tube in place. CARDIOVASCULAR SYSTEM: First and second heart sounds were heard. RESPIRATORY SYSTEM: Through vented sounds. DIGESTIVE SYSTEM: Revealed a benign abdomen. Positive bowel sounds. EXTREMITIES: No peripheral edema. SKIN: No new gross rash. LYMPHATICS: No peripheral lymphadenopathy. SUMMARY: A 75-year-old female patient with end-stage renal disease, peritoneal dialysis dependent, who got transferred from rehab for mental status change, most likely in the context of carbon dioxide narcosis. Thank you for this consultation. We will follow with you. Job ID: [id number]
== END 2020-07-29 16:24 | DRG 917 ==
LOC: ERS 22:35 → 2SE 07-22 00:56 → OBSVTOIN 07-22 12:47 → CCU 07-22 14:29 → 2NO 07-25 17:38
PROVIDERS: ADMIT Student in an Organized Health Care Education/Training Program; ATTEND Internal Medicine
PROC: 5A1945Z Respiratory Ventilation, 24-96 Consecutive Hours (ICD-10-PCS; principal; 2020-07-22)
PROC: 0BH17EZ Insertion of Endotracheal Airway into Trachea, Via Natural or Artificial Opening (ICD-10-PCS; 2020-07-22)
PROC: 02HV33Z Insertion of Infusion Device into Superior Vena Cava, Percutaneous Approach (ICD-10-PCS; 2020-07-22)
PROC: 3E1M39Z Irrigation of Peritoneal Cavity using Dialysate, Percutaneous Approach (ICD-10-PCS; 2020-07-22)
PROC: B548ZZA Ultrasonography of Superior Vena Cava, Guidance (ICD-10-PCS; 2020-07-22)
DX: T42.6X1A Poisoning by other antiepileptic and sedative-hypnotic drugs, accidental (unintentional), initial encounter (principal); N18.6 End stage renal disease; J96.21 Acute and chronic respiratory failure with hypoxia; J96.22 Acute and chronic respiratory failure with hypercapnia; I63.9 Cerebral infarction, unspecified; G92 Toxic encephalopathy; I12.0 Hypertensive chronic kidney disease with stage 5 chronic kidney disease or end stage renal disease; E66.2 Morbid (severe) obesity with alveolar hypoventilation; D63.1 Anemia in chronic kidney disease; T40.2X1A Poisoning by other opioids, accidental (unintentional), initial encounter; D53.9 Nutritional anemia, unspecified; R77.8 Other specified abnormalities of plasma proteins; K21.9 Gastro-esophageal reflux disease without esophagitis; K52.9 Noninfective gastroenteritis and colitis, unspecified; B96.89 Other specified bacterial agents as the cause of diseases classified elsewhere; G62.9 Polyneuropathy, unspecified; G89.4 Chronic pain syndrome; R01.1 Cardiac murmur, unspecified; I48.0 Paroxysmal atrial fibrillation; Z20.822 Contact with and (suspected) exposure to COVID-19; R29.720 NIHSS score 20; E87.5 Hyperkalemia; E87.6 Hypokalemia; Z99.2 Dependence on renal dialysis; Z68.35 Body mass index [BMI] 35.0-35.9, adult; Z86.73 Personal history of transient ischemic attack (TIA), and cerebral infarction without residual deficits; Z88.6 Allergy status to analgesic agent; Z90.49 Acquired absence of other specified parts of digestive tract; Z90.710 Acquired absence of both cervix and uterus; Z98.890 Other specified postprocedural states; Z86.711 Personal history of pulmonary embolism; Z88.5 Allergy status to narcotic agent; Z91.041 Radiographic dye allergy status; Z98.84 Bariatric surgery status; Y92.89 Other specified places as the place of occurrence of the external cause
CPT/HCPCS: 36415; 36416; 36600; 51701; 70450; 70496; 70498; 70551; 71045; 80048; 80053; 80306; 81003; 81015; 82140; 82553; 82805; 83605; 83735; 83880; 84100; 84443; 84484; 85007; 85025; 85027; 85610; 85730; 86850; 86900; 86901; 87040; 87077; 87086; 87635; 90945; 93005; 93306; 94002; 94003; 94660; 96365; 96367; 96372; 96375; 99292; G0257; G0378; J0133; J0692; J0696; J1160; J1200; J1650; J2704; J2930; J3370; J3480; J3490; Q5105; Q9967; S0028; U0003; U0005

== ENCOUNTER 2020-08-11 16:30 | Outpatient (CLI) | payer MEDICARE, BC | END 2020-08-11 16:31 | disposition home or self-care (01) | LOC: SLEEPLAB 16:30 | PROVIDERS: ATTEND Family Medicine | DX: G47.33 Obstructive sleep apnea (adult) (pediatric) (principal); K21.9 Gastro-esophageal reflux disease without esophagitis; I12.0 Hypertensive chronic kidney disease with stage 5 chronic kidney disease or end stage renal disease; N18.6 End stage renal disease; I25.10 Atherosclerotic heart disease of native coronary artery without angina pectoris; F32.9 Major depressive disorder, single episode, unspecified; G47.00 Insomnia, unspecified; R09.02 Hypoxemia | CPT/HCPCS: 95806 ==

== ENCOUNTER 2020-08-24 14:14 | Emergency (ER) | payer MEDICARE, BC ==
[2020-08-24 14:48] LABS: #Monocytes 0.7 thou/uL (0.11-0.59); #Neutrophils 7.1 thou/uL (1.40-6.50); %Basophils 0.1 % (0.0-1.0); %Eosinophils 0.6 % (0.0-10.0); %Lymphocytes 11.4 % (21.0-51.0); %Monocytes 7.9 % (0.0-10.0); %Neutrophils 80.1 % (42.0-75.0); Mean Corpuscular HGB CONC 31.5 g/dL (32.0-36.0); Mean Corpuscular Hemoglobin 29.7 pg (27.0-31.0); Mean Corpuscular Volume 94.4 fL (78.0-98.0); Mean Platelet Volume 7.8 fL (7.4-10.4); Platelet Count 204 thou/uL (130-400); RBC Distribution Width 13.3 % (11.5-14.5); Red Blood Cell (RBC) Count 3.36 mill/uL (4.20-5.40); White Blood Cell (WBC) Count 8.9 thou/uL (4.8-10.8)
--- NOTE | 2020-08-24 15:00 | RAD ---
Exam: Single view of the pelvis HISTORY: Fall with pelvic pain COMPARISON: None FINDINGS: A single view the pelvis shows no evidence of acute fracture or dislocation. No degenerativ e changes seen in either hip. A peritoneal dialysis catheter seen in the pelvis. Moderate diffuse soft tissue swelling is seen. Degenerative changes are seen in the lumbar spine. IMPRESSION: No evidence of acute osseous abnormality.
[2020-08-24 15:06] LABS: ALT (SGPT) 8 U/L (8-55); AST (SGOT) 9 U/L (5-34); Albumin 2.4 g/dL (3.4-4.8); Alkaline Phosphatase 120 U/L (40-110); Anion Gap 19 mmol/L (10-20); BUN (Urea Nitrogen) 45 mg/dL (9.8-20.1); Bilirubin, Total 0.7 mg/dL (0.2-1.2); Calc. Creatinine Clearance 0 mL/min (70-130); Calcium 7.2 mg/dL (7.8-10.44); Carbon Dioxide 19 mmol/L (23-31); Chloride 103 mmol/L (98-107); Globulin 4.8 g/dL (2.4-3.5); Glucose 114 mg/dL (83-110); Protein, Total 7.2 g/dL (5.8-8.1); Sodium 138 mmol/L (136-145)
[2020-08-24 15:12] LABS: Potassium 2.6 mmol/L (3.5-5.1)
--- NOTE | 2020-08-24 15:15 | RAD ---
EXAM: 2 views of the left hip HISTORY: Left hip pain COMPARISON: None FINDINGS: 2 views of the left hip shows no evidence of acute fracture or dislocation. No degenerative changes are seen. Moderate lateral soft tissue swelling is present. Vascular calcifications are seen. A peritoneal dialysis catheter seen in the pelvis. IMPRESSION: No evidence of acute osseous abnormality.
--- NOTE | 2020-08-24 15:17 | RAD ---
EXAM: Single view of the chest HISTORY: Fall with chest pain COMPARISON: 07/26/2020 FINDINGS: Single view of the chest shows an enlarged but stable cardiomediastinal silhouette. There i s no evidence of consolidation, mass, or pleural effusion. No acute osseous abnormality. IMPRESSION: No evidence of acute cardiopulmonary disease
[2020-08-24] MEDS ORDERED: Potassium Chloride 20 MEQ TAB ONE (15:41)
[2020-08-24] MEDS ORDERED: Potassium Chloride 20 MEQ/100 ML PREMIX BAG ONE (15:41)
--- NOTE | 2020-08-24 15:41 | CT ---
CT BRAIN WITHOUT CONTRAST: HISTORY:Fall, loss of consciousness COMPARISON:07/21/2020 FINDINGS: There are changes of mild chronic small vessel ischemic disease. Old lacunar infarction in the right basal ganglia is again seen. No evidence of acute infarct, hemorrhage, midline shift or abnormal extra-axial fluid collections is seen. The ventricular size is appropriate and the basilar cisterns are patent. The bony calvarium is intact. The visualized paranasal sinuses and mastoid air cells are well aerated. IMPRESSION: No CT evidence of acute intracranial process.
== END 2020-08-24 16:55 | disposition home or self-care (01) ==
LOC: ERS 14:14
DX: E87.6 Hypokalemia (principal); I12.0 Hypertensive chronic kidney disease with stage 5 chronic kidney disease or end stage renal disease; N18.6 End stage renal disease; Z79.899 Other long term (current) drug therapy; W01.0XXA Fall on same level from slipping, tripping and stumbling without subsequent striking against object, initial encounter
CPT/HCPCS: 36415; 70450; 71045; 72170; 80053; 85025; 93005; J3480

== ENCOUNTER 2020-09-09 09:28 | Emergency (ER) | payer MEDICARE, BC ==
[2020-09-09 10:09] LABS: #Eosinphils 0.1 thou/uL (0.0-0.7); #Lymphocytes 1.5 thou/uL (1.20-3.40); #Monocytes 0.4 thou/uL (0.11-0.59); #Neutrophils 8.7 thou/uL (1.40-6.50); %Basophils 0.1 % (0.0-1.0); %Eosinophils 0.6 % (0.0-10.0); %Monocytes 3.6 % (0.0-10.0); %Neutrophils 81.8 % (42.0-75.0); Hemoglobin 8.2 g/dL (12.0-16.0); Mean Corpuscular HGB CONC 31.3 g/dL (32.0-36.0); Mean Corpuscular Hemoglobin 29.3 pg (27.0-31.0); Mean Corpuscular Volume 93.9 fL (78.0-98.0); Platelet Count 228 thou/uL (130-400); RBC Distribution Width 13.8 % (11.5-14.5); White Blood Cell (WBC) Count 10.7 thou/uL (4.8-10.8)
[2020-09-09 10:35] LABS: ALT (SGPT) Less than 7 U/L (8-55); AST (SGOT) 9 U/L (5-34); Albumin 2.4 g/dL (3.4-4.8); Alkaline Phosphatase 141 U/L (40-110); Anion Gap 21 mmol/L (10-20); BUN (Urea Nitrogen) 69 mg/dL (9.8-20.1); Bilirubin, Total 0.7 mg/dL (0.2-1.2); Calc. Creatinine Clearance 0 mL/min (70-130); Calcium 8.4 mg/dL (7.8-10.44); Carbon Dioxide 16 mmol/L (23-31); Chloride 98 mmol/L (98-107); Globulin 4.6 g/dL (2.4-3.5); Glucose 88 mg/dL (83-110); Potassium 5.2 mmol/L (3.5-5.1); Sodium 130 mmol/L (136-145)
[2020-09-09] MEDS ORDERED: Ondansetron PF 4 MG/2 ML Vial ONE (10:52)
[2020-09-09] MEDS ORDERED: Morphine 4 MG/ML VIAL ONE ×2 (10:52→13:13)
[2020-09-09] MEDS ORDERED: Ondansetron ODT 4 MG TAB ONE (10:55)
[2020-09-09 13:10] LABS: Bilirubin Negative (Negative); Blood, Urine Trace (Negative); Clarity Turbid (Clear); Glucose, Urine (Dipstick) Normal (Negative); Ketone, Urine Negative (Negative); Leukocyte 500 Leu/uL (Negative); Nitrite Negative (Negative); Protein, Urine (Dipstick) 70 mg/dL (Neg-Trace); Specific Gravity, Urine 1.011 (1.002-1.036)
[2020-09-09 13:18] LABS: Bacteria/HPF 4+ HPF (None Seen); RBC/HPF 0-3 HPF (0-3); WBC/HPF Greater Than 50 HPF (0-3); Yeast-Budding 2+ HPF (None Seen)
[2020-09-09 13:22] LABS: Amphetamine Not Detected (NotDetected); Barbiturates Screen Not Detected (NotDetected); Benzodiazepine Screen Not Detected (NotDetected); Cocaine Metabolite Screen Not Detected (NotDetected); Medtox Control Line Valid? VALID (VALID); Medtox Reader # READER 4; Methadone Not Detected (NotDetected); Methamphetamine Not Detected (NotDetected); Opiate Screen Detected (NotDetected); Oxycodone Screen Not Detected (NotDetected); Phencyclidine (PCP) Not Detected (NotDetected); THC/Cannabinoid Screen Not Detected (NotDetected); Tricyclic Screen Not Detected (NotDetected)
== END 2020-09-09 14:10 | disposition home or self-care (01) ==
LOC: ERS 09:28
DX: M79.81 Nontraumatic hematoma of soft tissue (principal); I12.0 Hypertensive chronic kidney disease with stage 5 chronic kidney disease or end stage renal disease; N18.6 End stage renal disease
CPT/HCPCS: 36415; 80053; 80306; 81003; 81015; 85025; 87077; 87086; 87186; 93970; 96372; J2270; J2405; Q0162

== ENCOUNTER 2020-09-19 18:33 | Inpatient (IN) | payer MEDICARE, BC ==
[2020-09-19 19:44] LABS: #Eosinphils 0.1 thou/uL (0.0-0.7); #Lymphocytes 1.2 thou/uL (1.20-3.40); #Monocytes 0.6 thou/uL (0.11-0.59); #Neutrophils 7.5 thou/uL (1.40-6.50); %Basophils 0.1 % (0.0-1.0); %Eosinophils 0.9 % (0.0-10.0); %Lymphocytes 12.7 % (21.0-51.0); %Monocytes 6.1 % (0.0-10.0); %Neutrophils 80.2 % (42.0-75.0); Hemoglobin 6.7 g/dL (12.0-16.0); Mean Corpuscular HGB CONC 31.6 g/dL (32.0-36.0); Mean Corpuscular Hemoglobin 29.8 pg (27.0-31.0); Mean Corpuscular Volume 94.1 fL (78.0-98.0); Mean Platelet Volume 7.5 fL (7.4-10.4); Platelet Count 191 thou/uL (130-400); RBC Distribution Width 13.7 % (11.5-14.5); Red Blood Cell (RBC) Count 2.24 mill/uL (4.20-5.40); White Blood Cell (WBC) Count 9.4 thou/uL (4.8-10.8)
[2020-09-19 20:16] LABS: ALT (SGPT) 8 U/L (8-55); AST (SGOT) 10 U/L (5-34); Albumin 2.2 g/dL (3.4-4.8); Alkaline Phosphatase 157 U/L (40-110); Anion Gap 18 mmol/L (10-20); BUN (Urea Nitrogen) 49 mg/dL (9.8-20.1); Bilirubin, Total 0.6 mg/dL (0.2-1.2); CK (CPK) 44 U/L (29-168); Calc. Creatinine Clearance 0 mL/min (70-130); Calcium 8.2 mg/dL (7.8-10.44); Carbon Dioxide 20 mmol/L (23-31); Chloride 100 mmol/L (98-107); Globulin 4.4 g/dL (2.4-3.5); Glucose 88 mg/dL (83-110); Lipase 56 U/L (8-78); Potassium 4.6 mmol/L (3.5-5.1); Protein, Total 6.6 g/dL (5.8-8.1); Sodium 133 mmol/L (136-145)
[2020-09-19 20:40] LABS: CKMB 4.1 ng/mL (0-6.6)
[2020-09-19] MEDS ORDERED: Pantoprazole 40 MG VIAL ONE (21:35)
[2020-09-19 21:52] LABS: INR-International Normal Ratio 1.2; PTT 44.1 sec (22.9-36.1)
[2020-09-19] MEDS ORDERED: Gabapentin 300 MG CAP PO SCH (22:45)
[2020-09-19 23:04] LABS: Troponin I 0.082 ng/mL (< 0.028)
[2020-09-19] MEDS ORDERED: Acetaminophen 325 MG TAB PO PRN (23:09)
[2020-09-19] MEDS ORDERED: Pantoprazole 80 MG in Sodium Chloride 0.9% 100 ML IVPB SCH (23:12)
[2020-09-19] MEDS ORDERED: Sodium Chloride 0.9% (PF) 10 ML VIAL FS PRN (23:45)
[2020-09-20] MEDS ORDERED: HYDROcodone/Acetaminophen 5/325 mg Tablet ONE (00:34)
[2020-09-20] MEDS: rOPINIRole HCl 0.25 MG TAB PO SCH ×3 (01:15→20:54)
[2020-09-20] MEDS: HYDROcodone/Acetaminophen 5/325 mg Tablet PO PRN ×2 (01:15→18:14)
[2020-09-20 02:06] LABS: Troponin I 0.082 ng/mL (< 0.028)
[2020-09-20] MEDS: Pantoprazole 40 MG VIAL IVP SCH ×2 (08:26→20:55)
[2020-09-20 09:27] LABS: #Monocytes 0.3 thou/uL (0.11-0.59); #Neutrophils 5.5 thou/uL (1.40-6.50); %Basophils 0.1 % (0.0-1.0); %Eosinophils 0.5 % (0.0-10.0); %Lymphocytes 14.7 % (21.0-51.0); %Monocytes 4.7 % (0.0-10.0); Hemoglobin 7.4 g/dL (12.0-16.0); Mean Corpuscular HGB CONC 33.1 g/dL (32.0-36.0); Mean Corpuscular Hemoglobin 30.5 pg (27.0-31.0); Mean Corpuscular Volume 92.4 fL (78.0-98.0); Mean Platelet Volume 7.3 fL (7.4-10.4); Platelet Count 157 thou/uL (130-400); RBC Distribution Width 13.2 % (11.5-14.5); Red Blood Cell (RBC) Count 2.43 mill/uL (4.20-5.40); White Blood Cell (WBC) Count 6.8 thou/uL (4.8-10.8)
[2020-09-20 09:32] LABS: Hemoglobin A1c 4.5 % (4.0-6.0)
[2020-09-20 09:46] LABS: Anion Gap 16 mmol/L (10-20); BUN (Urea Nitrogen) 53 mg/dL (9.8-20.1); Calc. Creatinine Clearance 10 mL/min (70-130); Calcium 7.8 mg/dL (7.8-10.44); Carbon Dioxide 22 mmol/L (23-31); Chloride 100 mmol/L (98-107); Glucose 77 mg/dL (83-110); Potassium 5.2 mmol/L (3.5-5.1); Sodium 133 mmol/L (136-145)
[2020-09-20 09:47] LABS: Cardiac Risk 2.3 (Less than 4.5); Magnesium 1.9 mg/dL (1.6-2.6)
[2020-09-20] MEDS: Ondansetron PF 4 MG/2 ML Vial IVP PRN (14:09)
[2020-09-20 14:26] LABS: Hemoglobin 9.5 g/dL (12.0-16.0)
[2020-09-20 14:36] LABS: SARS-CoV-2 PCR by NAA Not Detected (NotDetected)
[2020-09-20] MEDS: Carvedilol 6.25 MG TAB PO SCH (20:54)
[2020-09-20] MEDS: Gabapentin 300 MG CAP PO SCH (20:54)
[2020-09-20] MEDS: Diclofenac 1% 100 GM GEL TP SCH (20:55)
[2020-09-20] MEDS ORDERED: Calcium Carbonate 600 MG + Vit D TAB PO SCH (21:00)
[2020-09-20] MEDS ORDERED: Non-Formulary Item 1 EACH (Calcium Carb, Citrate/Vit D3 [Calcium + D3 Er Tablet] 1 TABLET PO SCH (21:00)
[2020-09-21 04:59] LABS: #Eosinphils 0.1 thou/uL (0.0-0.7); #Lymphocytes 1.2 thou/uL (1.20-3.40); #Monocytes 0.4 thou/uL (0.11-0.59); #Neutrophils 4.8 thou/uL (1.40-6.50); %Basophils 0.4 % (0.0-1.0); %Eosinophils 1.3 % (0.0-10.0); %Lymphocytes 17.9 % (21.0-51.0); %Monocytes 5.5 % (0.0-10.0); Hemoglobin 9.1 g/dL (12.0-16.0); Mean Corpuscular HGB CONC 32.6 g/dL (32.0-36.0); Mean Corpuscular Volume 92.2 fL (78.0-98.0); Mean Platelet Volume 7.7 fL (7.4-10.4); Platelet Count 154 thou/uL (130-400); RBC Distribution Width 14.9 % (11.5-14.5); Red Blood Cell (RBC) Count 3.04 mill/uL (4.20-5.40); White Blood Cell (WBC) Count 6.4 thou/uL (4.8-10.8)
[2020-09-21 05:22] LABS: Anion Gap 16 mmol/L (10-20); BUN (Urea Nitrogen) 51 mg/dL (9.8-20.1); Calc. Creatinine Clearance 11 mL/min (70-130); Calcium 8.3 mg/dL (7.8-10.44); Carbon Dioxide 23 mmol/L (23-31); Chloride 100 mmol/L (98-107); Glucose 112 mg/dL (83-110); Iron 33 ug/dL (50-170); Iron Binding Capacity, Total 90 mcg/dL (265-497); Iron Binding Capacity, Total 93 mcg/dL (265-497); Phosphorus 7.5 mg/dL (2.3-4.7); Potassium 4.6 mmol/L (3.5-5.1); Sodium 134 mmol/L (136-145)
[2020-09-21] MEDS: Cinacalcet HCl 30 MG TAB PO SCH (08:43)
[2020-09-21] MEDS: Sevelamer Carbonate 800 MG TAB PO SCH ×3 (08:43→16:45)
[2020-09-21] MEDS: Carvedilol 6.25 MG TAB PO SCH ×2 (08:44→20:33)
[2020-09-21] MEDS: Diclofenac 1% 100 GM GEL TP SCH ×3 (08:48→16:45)
[2020-09-21] MEDS: Docusate 100 MG CAP PO SCH (08:48)
[2020-09-21] MEDS: DULoxetine 30 MG CAP PO SCH (08:49)
[2020-09-21] MEDS: Pantoprazole 40 MG VIAL IVP SCH ×2 (08:50→20:33)
[2020-09-21] MEDS: Magnesium Oxide 250 MG TAB PO SCH (08:50)
[2020-09-21] MEDS: rOPINIRole HCl 0.25 MG TAB PO SCH ×2 (08:50→20:32)
[2020-09-21] MEDS: Folic Acid 1 MG TAB PO SCH (08:50)
[2020-09-21] MEDS ORDERED: Non-Formulary Item 1 EACH (Folic Acid [Folic Acid] 0.8 MG Tablet) PO SCH (09:00)
[2020-09-21] MEDS ORDERED: Calcitriol 0.25 MCG CAP PO SCH (09:00)
[2020-09-21] MEDS ORDERED: Non-Formulary Item 1 EACH (Magnesium [Magnesium] 250 MG Tablet) PO SCH (09:00)
[2020-09-21] MEDS ORDERED: Non-Formulary Item 1 EACH (Calcitriol [Calcitriol] 0.5 MCG Capsule) PO SCH (09:00)
[2020-09-21] MEDS: Ondansetron PF 4 MG/2 ML Vial IVP PRN (10:00)
[2020-09-21] MEDS: Gabapentin 300 MG CAP PO SCH (20:32)
[2020-09-21] MEDS: HYDROcodone/Acetaminophen 5/325 mg Tablet PO PRN (23:50)
[2020-09-22] MEDS ORDERED: traMADol HCl 50 MG TAB PO SCH (00:30)
[2020-09-22 07:00] LABS: #Basophils 0.1 thou/uL (0.0-0.2); #Eosinphils 0.1 thou/uL (0.0-0.7); #Lymphocytes 1.5 thou/uL (1.20-3.40); #Monocytes 0.4 thou/uL (0.11-0.59); #Neutrophils 6.9 thou/uL (1.40-6.50); %Eosinophils 0.9 % (0.0-10.0); %Lymphocytes 16.2 % (21.0-51.0); %Monocytes 4.6 % (0.0-10.0); %Neutrophils 77.2 % (42.0-75.0); Hemoglobin 9.2 g/dL (12.0-16.0); Mean Corpuscular HGB CONC 31.4 g/dL (32.0-36.0); Mean Corpuscular Hemoglobin 28.7 pg (27.0-31.0); Mean Corpuscular Volume 91.5 fL (78.0-98.0); Mean Platelet Volume 7.6 fL (7.4-10.4); Platelet Count 166 thou/uL (130-400); RBC Distribution Width 15.1 % (11.5-14.5)
[2020-09-22 07:18] LABS: Albumin 1.7 g/dL (3.4-4.8); Anion Gap 25 mmol/L (10-20); BUN (Urea Nitrogen) 46 mg/dL (9.8-20.1); Calc. Creatinine Clearance 10 mL/min (70-130); Calcium 7.6 mg/dL (7.8-10.44); Carbon Dioxide 18 mmol/L (23-31); Chloride 99 mmol/L (98-107); Glucose 88 mg/dL (83-110); Phosphorus 6.7 mg/dL (2.3-4.7); Potassium 4.4 mmol/L (3.5-5.1); Sodium 138 mmol/L (136-145)
[2020-09-22] MEDS: Cinacalcet HCl 30 MG TAB PO SCH (08:53)
[2020-09-22] MEDS: Sevelamer Carbonate 800 MG TAB PO SCH ×3 (08:53→17:18)
[2020-09-22] MEDS: DULoxetine 30 MG CAP PO SCH (08:54)
[2020-09-22] MEDS: rOPINIRole HCl 0.25 MG TAB PO SCH ×2 (08:54→21:09)
[2020-09-22] MEDS: Pantoprazole 40 MG VIAL IVP SCH ×2 (08:54→21:00)
[2020-09-22] MEDS: Magnesium Oxide 250 MG TAB PO SCH (08:54)
[2020-09-22] MEDS: Carvedilol 6.25 MG TAB PO SCH ×2 (08:54→21:08)
[2020-09-22] MEDS: Docusate 100 MG CAP PO SCH (08:54)
[2020-09-22] MEDS: Folic Acid 1 MG TAB PO SCH (08:54)
[2020-09-22] MEDS ORDERED: PROPOFOL 200 MG/20 ML VIAL ONE (08:58)
[2020-09-22] MEDS: Diclofenac 1% 100 GM GEL TP SCH ×2 (12:49→17:18)
[2020-09-22] MEDS: Acetaminophen 325 MG TAB PO PRN (17:17)
[2020-09-22] MEDS: Ondansetron PF 4 MG/2 ML Vial IVP PRN (21:06)
[2020-09-22] MEDS: Metoprolol Tartrate 25 MG TAB PO SCH (21:09)
[2020-09-22] MEDS: Gabapentin 300 MG CAP PO SCH (21:09)
[2020-09-23] MEDS: Diclofenac 1% 100 GM GEL TP SCH ×5 (01:53→19:59)
[2020-09-23] MEDS: Sevelamer Carbonate 800 MG TAB PO SCH ×3 (08:58→17:31)
[2020-09-23] MEDS: rOPINIRole HCl 0.25 MG TAB PO SCH ×2 (08:58→20:20)
[2020-09-23] MEDS: Magnesium Oxide 250 MG TAB PO SCH (08:58)
[2020-09-23] MEDS: Docusate 100 MG CAP PO SCH (08:58)
[2020-09-23] MEDS: Folic Acid 1 MG TAB PO SCH (08:59)
[2020-09-23] MEDS: Cinacalcet HCl 30 MG TAB PO SCH (08:59)
[2020-09-23] MEDS: DULoxetine 30 MG CAP PO SCH (08:59)
[2020-09-23] MEDS: Pantoprazole 40 MG VIAL IVP SCH ×2 (09:01→20:13)
[2020-09-23] MEDS: Carvedilol 6.25 MG TAB PO SCH (09:35)
[2020-09-23] MEDS: Metoprolol Tartrate 25 MG TAB PO SCH ×2 (09:36→21:19)
[2020-09-23 12:51] LABS: Albumin 1.8 g/dL (3.4-4.8); BUN (Urea Nitrogen) 48 mg/dL (9.8-20.1); BUN/Creatinine Ratio 7.05; Calc. Creatinine Clearance 4 mL/min (70-130); Calcium 8.3 mg/dL (7.8-10.44); Carbon Dioxide Less than 8 mmol/L (23-31); Chloride 104 mmol/L (98-107); Glucose 76 mg/dL (83-110); Phosphorus 8.6 mg/dL (2.3-4.7); Potassium 7.1 mmol/L (3.5-5.1); Sodium 146 mmol/L (136-145)
[2020-09-23] MEDS ORDERED: Sodium Bicarb 50 MEQ/50 ML Abboject 8.4% SYRINGE IVP SCH (13:15)
[2020-09-23] MEDS ORDERED: Dextrose 50% Abboject 50 ML SYRINGE SLOW IVP SCH ×2 (13:45→17:30)
[2020-09-23] MEDS ORDERED: Insulin Regular 300 UNITS/3 ML VIAL IVP SCH (13:45)
[2020-09-23 15:32] VITALS: BP 92/47
[2020-09-23] MEDS ORDERED: Dextrose 50% Abboject 50 ML SYRINGE ONE (17:19)
[2020-09-23 17:24] LABS: Actual Bicarbonate (HCO3a) 16.3 mEq/L (22-28); Base Excess (BEa) -12.6 mEq/L (-2.0 to +3.0); CO2 Tension 51.5 mmHg (35.0-45.0); Calcium, Ionized (arterial) 1.12 mmol/L (1.12-1.30); Carboxyhemoglobin (COHb) 0.9 gm% (0.0-3.0); Hemoglobin (Hb) 10.1 g/dL (12.0-16.0); O2 Tension (PaO2), arterial 72.5 mmHg (> 70.0); Potassium - ABG Lab 4.14 mmol/L (3.70-5.30)
[2020-09-23 17:29] LABS: ALV-art Gradient 12.855 mmHg (0-20); Puncture Site LRA; pH, Arterial 7.12 (7.35-7.45)
[2020-09-23 19:36] LABS: Anion Gap 38 mmol/L (10-20); BUN (Urea Nitrogen) 47 mg/dL (9.8-20.1); Calc. Creatinine Clearance 9 mL/min (70-130); Calcium 7.9 mg/dL (7.8-10.44); Carbon Dioxide 16 mmol/L (23-31); Chloride 95 mmol/L (98-107); Glucose 81 mg/dL (83-110); Potassium 4.6 mmol/L (3.5-5.1); Sodium 144 mmol/L (136-145)
[2020-09-23 20:00] LABS: #Eosinphils 0.1 thou/uL (0.0-0.7); #Lymphocytes 1.5 thou/uL (1.20-3.40); #Monocytes 0.5 thou/uL (0.11-0.59); #Neutrophils 7.9 thou/uL (1.40-6.50); %Basophils 0.3 % (0.0-1.0); %Eosinophils 0.8 % (0.0-10.0); %Lymphocytes 14.9 % (21.0-51.0); %Monocytes 4.5 % (0.0-10.0); %Neutrophils 79.5 % (42.0-75.0); Hemoglobin 9.2 g/dL (12.0-16.0); Mean Corpuscular HGB CONC 32.3 g/dL (32.0-36.0); Mean Corpuscular Hemoglobin 29.7 pg (27.0-31.0); Mean Corpuscular Volume 91.9 fL (78.0-98.0); Mean Platelet Volume 7.5 fL (7.4-10.4); Platelet Count 156 thou/uL (130-400); RBC Distribution Width 15.3 % (11.5-14.5); Red Blood Cell (RBC) Count 3.09 mill/uL (4.20-5.40)
[2020-09-23] MEDS ORDERED: Sodium Chloride 0.9% 250 ML IVPB SCH (20:00)
[2020-09-23] MEDS: Gabapentin 300 MG CAP PO SCH (20:12)
[2020-09-23] MEDS ORDERED: Carvedilol 3.125 MG TAB PO SCH (21:00)
[2020-09-23] MEDS ORDERED: Metoprolol Tartrate 25 MG TAB PO SCH (21:00)
[2020-09-23 21:28] LABS: Actual Bicarbonate (HCO3a) 17.7 mEq/L (22-28); Base Excess (BEa) -11.1 mEq/L (-2.0 to +3.0); CO2 Tension 54.4 mmHg (35.0-45.0); Calcium, Ionized (arterial) 1.07 mmol/L (1.12-1.30); Carboxyhemoglobin (COHb) 0.4 gm% (0.0-3.0); Hemoglobin (Hb) 9.5 g/dL (12.0-16.0); O2 Tension (PaO2), arterial 219.3 mmHg (> 70.0); Potassium - ABG Lab 4.35 mmol/L (3.70-5.30)
[2020-09-23 21:34] LABS: pH, Arterial 7.13 (7.35-7.45)
[2020-09-23 21:35] LABS: Puncture Site LRA
[2020-09-23] MEDS: HYDROcodone/Acetaminophen 5/325 mg Tablet PO PRN (21:45)
[2020-09-23 22:12] LABS: Lactic Acid 0.7 mmol/L (0.5-2.2)
[2020-09-23] MEDS ORDERED: Sodium Chloride 0.9% 500 ML IVPB SCH (22:15)
[2020-09-23] MEDS ORDERED: Norepinephrine 8 MG/0.9% NS 250 ML ONE (22:20)
[2020-09-23] MEDS ORDERED: Norepinephrine 8 MG/0.9% NS 250 ML IVPB SCH (22:30)
[2020-09-24 00:59] LABS: Actual Bicarbonate (HCO3a) 17.3 mEq/L (22-28); Base Excess (BEa) -11.5 mEq/L (-2.0 to +3.0); CO2 Tension 52.2 mmHg (35.0-45.0); Calcium, Ionized (arterial) 1.07 mmol/L (1.12-1.30); Carboxyhemoglobin (COHb) 0.3 gm% (0.0-3.0); Hemoglobin (Hb) 10.4 g/dL (12.0-16.0); O2 Tension (PaO2), arterial 153.6 mmHg (> 70.0); Potassium - ABG Lab 4.13 mmol/L (3.70-5.30)
[2020-09-24 01:00] LABS: Puncture Site LRA; pH, Arterial 7.14 (7.35-7.45)
[2020-09-24] MEDS ORDERED: Sodium Bicarb 50 MEQ/50 ML Abboject 8.4% SYRINGE IVP SCH ×2 (01:30→11:45)
[2020-09-24 05:12] LABS: Albumin 1.9 g/dL (3.4-4.8); Anion Gap 34 mmol/L (10-20); BUN (Urea Nitrogen) 42 mg/dL (9.8-20.1); BUN/Creatinine Ratio 6.53; Calc. Creatinine Clearance 10 mL/min (70-130); Carbon Dioxide 22 mmol/L (23-31); Chloride 94 mmol/L (98-107); Glucose 117 mg/dL (83-110); Phosphorus 7.1 mg/dL (2.3-4.7); Potassium 3.8 mmol/L (3.5-5.1); Sodium 146 mmol/L (136-145)
[2020-09-24] MEDS: Sevelamer Carbonate 800 MG TAB PO SCH ×3 (08:00→18:24)
[2020-09-24] MEDS: Cinacalcet HCl 30 MG TAB PO SCH (08:30)
[2020-09-24 08:59] LABS: Actual Bicarbonate (HCO3a) 22.1 mEq/L (22-28); Base Excess (BEa) -5.4 mEq/L (-2.0 to +3.0); CO2 Tension 53.3 mmHg (35.0-45.0); Calcium, Ionized (arterial) 1.04 mmol/L (1.12-1.30); Carboxyhemoglobin (COHb) 0.1 gm% (0.0-3.0); Hemoglobin (Hb) 10.2 g/dL (12.0-16.0); O2 Tension (PaO2), arterial 177.2 mmHg (> 70.0)
[2020-09-24] MEDS: Docusate 100 MG CAP PO SCH (09:00)
[2020-09-24] MEDS: Folic Acid 1 MG TAB PO SCH (09:00)
[2020-09-24] MEDS: Metoprolol Tartrate 25 MG TAB PO SCH (09:00)
[2020-09-24] MEDS: DULoxetine 30 MG CAP PO SCH (09:00)
[2020-09-24 09:01] LABS: ALV-art Gradient 41.375 mmHg (0-20); Puncture Site LRA; pH, Arterial 7.24 (7.35-7.45)
[2020-09-24] MEDS: Pantoprazole 40 MG VIAL IVP SCH (09:30)
[2020-09-24] MEDS: Diclofenac 1% 100 GM GEL TP SCH ×4 (10:00→21:25)
[2020-09-24] MEDS: rOPINIRole HCl 0.25 MG TAB PO SCH ×2 (11:32→21:53)
[2020-09-24] MEDS: Magnesium Oxide 250 MG TAB PO SCH (11:32)
[2020-09-24] MEDS ORDERED: D5 1/2 NS w/40 mEq KCL 1,000 ML IV SCH (15:00)
[2020-09-24 16:36] LABS: Actual Bicarbonate (HCO3a) 25.3 mEq/L (22-28); Base Excess (BEa) -1.6 mEq/L (-2.0 to +3.0); CO2 Tension 53.9 mmHg (35.0-45.0); Calcium, Ionized (arterial) 0.99 mmol/L (1.12-1.30); Carboxyhemoglobin (COHb) 0.5 gm% (0.0-3.0); Hemoglobin (Hb) 9.6 g/dL (12.0-16.0); O2 Tension (PaO2), arterial 159.8 mmHg (> 70.0); pH, Arterial 7.29 (7.35-7.45)
[2020-09-24 16:39] LABS: ALV-art Gradient 58.025 mmHg (0-20); Puncture Site LRA
[2020-09-24 23:35] LABS: Glucose 122 mg/dL (83-110)
[2020-09-25] MEDS ORDERED: Dextrose 50% Abboject 50 ML SYRINGE ONE (01:01)
[2020-09-25 04:02] LABS: Albumin 1.9 g/dL (3.4-4.8); Anion Gap 31 mmol/L (10-20); BUN (Urea Nitrogen) 40 mg/dL (9.8-20.1); Calc. Creatinine Clearance 9 mL/min (70-130); Calcium 7.6 mg/dL (7.8-10.44); Carbon Dioxide 25 mmol/L (23-31); Chloride 91 mmol/L (98-107); Glucose 110 mg/dL (83-110); Phosphorus 6.2 mg/dL (2.3-4.7); Potassium 3.2 mmol/L (3.5-5.1); Sodium 144 mmol/L (136-145)
[2020-09-25 04:22] LABS: Band 11 % (5-11); Eosinophils 1 % (0-10); Hemoglobin 9.1 g/dL (12.0-16.0); Lymphocytes 18 % (21-51); MDiff Complete? YES; Mean Corpuscular HGB CONC 32.7 g/dL (32.0-36.0); Mean Corpuscular Hemoglobin 29.9 pg (27.0-31.0); Mean Corpuscular Volume 91.5 fL (78.0-98.0); Mean Platelet Volume 7.9 fL (7.4-10.4); Monocytes 2 % (0-10); Neutrophil 68 % (42-75); Platelet Count 138 thou/uL (130-400); RBC Distribution Width 15.1 % (11.5-14.5); Red Blood Cell (RBC) Count 3.03 mill/uL (4.20-5.40); White Blood Cell (WBC) Count 7.6 thou/uL (4.8-10.8)
[2020-09-25] MEDS: Acetaminophen 325 MG TAB PO PRN (04:23)
[2020-09-25] MEDS: rOPINIRole HCl 0.25 MG TAB PO SCH ×2 (09:18→20:32)
[2020-09-25] MEDS: DULoxetine 30 MG CAP PO SCH (09:18)
[2020-09-25] MEDS: Docusate 100 MG CAP PO SCH (09:18)
[2020-09-25] MEDS: Folic Acid 1 MG TAB PO SCH (09:19)
[2020-09-25] MEDS: Cinacalcet HCl 30 MG TAB PO SCH (09:19)
[2020-09-25] MEDS: Sevelamer Carbonate 800 MG TAB PO SCH ×3 (09:19→17:59)
[2020-09-25] MEDS: Magnesium Oxide 250 MG TAB PO SCH (09:19)
[2020-09-25] MEDS: Diclofenac 1% 100 GM GEL TP SCH ×3 (09:20→18:03)
[2020-09-25 11:52] LABS: Base Excess (BEa) -0.2 mEq/L (-2.0 to +3.0); CO2 Tension 43.8 mmHg (35.0-45.0); Calcium, Ionized (arterial) 0.97 mmol/L (1.12-1.30); Carboxyhemoglobin (COHb) 1.3 gm% (0.0-3.0); Hemoglobin (Hb) 9.3 g/dL (12.0-16.0); O2 Tension (PaO2), arterial 64.6 mmHg (> 70.0); Potassium - ABG Lab 3.06 mmol/L (3.70-5.30); pH, Arterial 7.38 (7.35-7.45)
[2020-09-25 11:53] LABS: Puncture Site LRA
[2020-09-25] MEDS: Carvedilol 3.125 MG TAB PO SCH (15:56)
[2020-09-25] MEDS: Ondansetron PF 4 MG/2 ML Vial IVP PRN (17:59)
[2020-09-25] MEDS ORDERED: Melatonin 3 MG TAB PO SCH (23:59)
[2020-09-26] MEDS: Diclofenac 1% 100 GM GEL TP SCH ×3 (00:09→13:42)
[2020-09-26 04:41] LABS: Hemoglobin 9.2 g/dL (12.0-16.0); Mean Corpuscular HGB CONC 32.4 g/dL (32.0-36.0); Mean Corpuscular Hemoglobin 29.5 pg (27.0-31.0); Mean Platelet Volume 7.9 fL (7.4-10.4); Platelet Count 128 thou/uL (130-400); White Blood Cell (WBC) Count 11.2 thou/uL (4.8-10.8)
[2020-09-26 04:47] LABS: Albumin 1.8 g/dL (3.4-4.8); Anion Gap 26 mmol/L (10-20); BUN (Urea Nitrogen) 40 mg/dL (9.8-20.1); BUN/Creatinine Ratio 5.91; Calc. Creatinine Clearance 10 mL/min (70-130); Calcium 7.7 mg/dL (7.8-10.44); Carbon Dioxide 26 mmol/L (23-31); Chloride 90 mmol/L (98-107); Glucose 133 mg/dL (83-110); Phosphorus 5.7 mg/dL (2.3-4.7); Potassium 3.2 mmol/L (3.5-5.1); Sodium 139 mmol/L (136-145)
[2020-09-26 05:27] LABS: Band 7 % (5-11); Lymphocytes 14 % (21-51); MDiff Complete? YES; Monocytes 2 % (0-10); Neutrophil 77 % (42-75)
[2020-09-26] MEDS: Docusate 100 MG CAP PO SCH (09:34)
[2020-09-26] MEDS: DULoxetine 30 MG CAP PO SCH (09:34)
[2020-09-26] MEDS: rOPINIRole HCl 0.25 MG TAB PO SCH (09:34)
[2020-09-26] MEDS: Cinacalcet HCl 30 MG TAB PO SCH (09:34)
[2020-09-26] MEDS: Folic Acid 1 MG TAB PO SCH (09:34)
[2020-09-26] MEDS: Carvedilol 3.125 MG TAB PO SCH (09:34)
[2020-09-26] MEDS: Magnesium Oxide 250 MG TAB PO SCH (09:34)
[2020-09-26 10:43] VITALS: BMI 32.8
[2020-09-26] MEDS: Sevelamer Carbonate 800 MG TAB PO SCH (10:55)
[2020-09-26] MEDS ORDERED: Lanthanum Carbonate 500 mg Tablet PO SCH (12:00)
[2020-09-26 15:19] VITALS: TEMP 97.1
== END 2020-09-26 17:30 | disposition home health service (06) | DRG 377 ==
LOC: ERS 18:33 → OBSVTOIN 21:14 → ERHOLD 21:14 → 2NO 09-20 04:55 → CCU 09-23 18:18 → IMCU/EMU 09-25 17:37
PROVIDERS: ADMIT Internal Medicine; ATTEND Internal Medicine
PROC: 30233N1 Transfusion of Nonautologous Red Blood Cells into Peripheral Vein, Percutaneous Approach (ICD-10-PCS; principal; 2020-09-19)
PROC: 3E1M39Z Irrigation of Peritoneal Cavity using Dialysate, Percutaneous Approach (ICD-10-PCS; 2020-09-19)
PROC: 0D758ZZ Dilation of Esophagus, Via Natural or Artificial Opening Endoscopic (ICD-10-PCS; 2020-09-22)
DX: K92.2 Gastrointestinal hemorrhage, unspecified (principal); N18.6 End stage renal disease; I21.A1 Myocardial infarction type 2; R09.2 Respiratory arrest; G93.41 Metabolic encephalopathy; I12.0 Hypertensive chronic kidney disease with stage 5 chronic kidney disease or end stage renal disease; E87.2 Acidosis; E87.0 Hyperosmolality and hypernatremia; E87.3 Alkalosis; N25.81 Secondary hyperparathyroidism of renal origin; I47.1 Supraventricular tachycardia; I48.0 Paroxysmal atrial fibrillation; K21.9 Gastro-esophageal reflux disease without esophagitis; G47.33 Obstructive sleep apnea (adult) (pediatric); K44.9 Diaphragmatic hernia without obstruction or gangrene; Z86.73 Personal history of transient ischemic attack (TIA), and cerebral infarction without residual deficits; Z99.2 Dependence on renal dialysis; G89.29 Other chronic pain; Z88.5 Allergy status to narcotic agent; Z91.041 Radiographic dye allergy status; Z79.01 Long term (current) use of anticoagulants; Z90.49 Acquired absence of other specified parts of digestive tract; Z82.49 Family history of ischemic heart disease and other diseases of the circulatory system; R77.8 Other specified abnormalities of plasma proteins; E66.9 Obesity, unspecified; R13.10 Dysphagia, unspecified; Z68.32 Body mass index [BMI] 32.0-32.9, adult; I08.2 Rheumatic disorders of both aortic and tricuspid valves; E83.59 Other disorders of calcium metabolism; K22.2 Esophageal obstruction; I95.9 Hypotension, unspecified; E87.5 Hyperkalemia; D64.9 Anemia, unspecified; Z86.711 Personal history of pulmonary embolism; Z98.84 Bariatric surgery status; E83.39 Other disorders of phosphorus metabolism; E87.6 Hypokalemia
CPT/HCPCS: 36415; 36416; 36430; 36556; 36600; 71045; 80048; 80053; 80061; 80069; 82274; 82550; 82553; 82728; 82805; 83036; 83540; 83550; 83605; 83690; 83735; 83880; 83970; 84443; 84484; 85007; 85025; 85027; 85610; 85730; 86850; 86900; 86901; 87635; 90935; 90945; 93005; 93010; 93306; 94660; 96374; C9113; G0257; J1815; J2405; J2704; J3480; J3490; J7030; P9016; U0003; U0005

== ENCOUNTER 2020-10-02 13:48 | Inpatient (IN) | payer MEDICARE, BC ==
[2020-10-02] MEDS ORDERED: cefTRIAXone\\ROCEPHIN 2 GM VIAL ONE (14:18)
[2020-10-02 14:39] LABS: Bilirubin Negative (Negative); Blood, Urine Large (Negative); Glucose, Urine (Dipstick) Negative (Negative); Ketone, Urine Negative (Negative); Leukocyte Large (Negative); Nitrite Negative (Negative); Protein, Urine (Dipstick) 100 mg/dL (Neg-Trace); Urobilinogen 0.2 mg/dL (Less than 2); pH, Urine 6.5 (5.0-9.0)
[2020-10-02 14:41] LABS: Clarity Cloudy (Clear)
[2020-10-02 14:54] LABS: Bacteria/HPF 4+ HPF (None Seen); RBC/HPF 21-50 HPF (0-3); WBC/HPF Greater than 50 HPF (0-3)
[2020-10-02 14:58] LABS: #Lymphocytes 1.2 thou/uL (1.20-3.40); #Monocytes 0.7 thou/uL (0.11-0.59); #Neutrophils 15.9 thou/uL (1.40-6.50); %Basophils 0.2 % (0.0-1.0); %Eosinophils 0.3 % (0.0-10.0); %Lymphocytes 6.8 % (21.0-51.0); %Monocytes 3.9 % (0.0-10.0); %Neutrophils 88.9 % (42.0-75.0); Hemoglobin 9.5 g/dL (12.0-16.0); Mean Corpuscular HGB CONC 30.6 g/dL (32.0-36.0); Mean Corpuscular Hemoglobin 29.1 pg (27.0-31.0); Mean Corpuscular Volume 95.2 fL (78.0-98.0); Mean Platelet Volume 8.6 fL (7.4-10.4); Platelet Count 150 thou/uL (130-400); RBC Distribution Width 14.9 % (11.5-14.5); Red Blood Cell (RBC) Count 3.26 mill/uL (4.20-5.40); White Blood Cell (WBC) Count 17.9 thou/uL (4.8-10.8)
[2020-10-02 15:06] LABS: PTT 24.4 sec (22.9-36.1)
[2020-10-02 15:07] LABS: INR-International Normal Ratio 1.1; Prothrombin Time 14.1 sec (12.0-14.7)
[2020-10-02 15:22] LABS: ALT (SGPT) Less than 7 U/L (8-55); AST (SGOT) 12 U/L (5-34); Albumin 1.8 g/dL (3.4-4.8); Alkaline Phosphatase 138 U/L (40-110); Anion Gap 24 mmol/L (10-20); BUN (Urea Nitrogen) 37 mg/dL (9.8-20.1); Bilirubin, Total 0.5 mg/dL (0.2-1.2); CK (CPK) 39 U/L (29-168); Calc. Creatinine Clearance 0 mL/min (70-130); Calcium 8.4 mg/dL (7.8-10.44); Carbon Dioxide 23 mmol/L (23-31); Chloride 92 mmol/L (98-107); Globulin 4.2 g/dL (2.4-3.5); Glucose 110 mg/dL (83-110); Potassium 3.3 mmol/L (3.5-5.1); Sodium 136 mmol/L (136-145)
[2020-10-02] MEDS ORDERED: Vancomycin 1 GM/200 ML BAG ONE (15:23)
[2020-10-02] MEDS ORDERED: Norepinephrine 8 MG/0.9% NS 250 ML ONE (15:28)
[2020-10-02 15:45] LABS: CKMB 4.9 ng/mL (0-6.6)
[2020-10-02 16:09] LABS: SARS-CoV-2 NAA Rapid Test Not Detected (NotDetected)
[2020-10-02 17:53] LABS: Lactic Acid 1.4 mmol/L (0.5-2.2)
[2020-10-02 18:00] LABS: Troponin I 0.048 ng/mL (< 0.028)
[2020-10-02] MEDS ORDERED: Ondansetron ODT 4 MG TAB SL PRN (18:15)
[2020-10-02] MEDS ORDERED: Acetaminophen 325 MG TAB PO PRN (18:15)
[2020-10-02] MEDS ORDERED: Ondansetron PF 4 MG/2 ML Vial IVP PRN (18:15)
[2020-10-02] MEDS: Sodium Chloride 0.9% 1,000 ML IV SCH (18:24)
[2020-10-02] MEDS ORDERED: Acetaminophen 650 MG Suppository PR PRN (18:41)
[2020-10-02] MEDS ORDERED: Vancomycin 1 GM in Premix Bag 1 BAG IVPB SCH (19:15)
[2020-10-02] MEDS ORDERED: Vancomycin HCl 500 MG in Sodium Chloride 0.9% 100 ML IVPB SCH (19:15)
[2020-10-02] MEDS ORDERED: Vancomycin HCl 1.25 GM in Sodium Chloride 0.9% 250 ML 250 ML IVPB SCH (19:15)
[2020-10-02] MEDS ORDERED: Vancomycin HCl 750 MG in Sodium Chloride 0.9% 250 ML 250 ML IVPB SCH (19:15)
[2020-10-02] MEDS ORDERED: HOLD VANCOMYCIN FOR LEVEL >20 IVP SCH (19:30)
[2020-10-02] MEDS ORDERED: Vancomycin Sliding Scale FS SCH (19:30)
[2020-10-02 20:52] LABS: Troponin I 0.048 ng/mL (< 0.028)
[2020-10-02] MEDS: Heparin 5,000 UNITS/ML VIAL SC SCH (22:23)
[2020-10-02] MEDS: Piperacillin/Tazobactam 2.25 GM in Sodium Chloride 0.9% 100 ML IVPB SCH (22:23)
[2020-10-03] MEDS: Sodium Chloride 0.9% 1,000 ML IV SCH (02:57)
[2020-10-03 04:44] LABS: ALT (SGPT) 8 U/L (8-55); AST (SGOT) 10 U/L (5-34); Albumin 1.6 g/dL (3.4-4.8); Alkaline Phosphatase 136 U/L (40-110); Anion Gap 21 mmol/L (10-20); BUN (Urea Nitrogen) 34 mg/dL (9.8-20.1); Bilirubin, Total 0.5 mg/dL (0.2-1.2); Calc. Creatinine Clearance 11 mL/min (70-130); Carbon Dioxide 21 mmol/L (23-31); Chloride 98 mmol/L (98-107); Globulin 4.2 g/dL (2.4-3.5); Glucose 111 mg/dL (83-110); Protein, Total 5.8 g/dL (5.8-8.1); Sodium 137 mmol/L (136-145)
[2020-10-03 04:50] LABS: Potassium 2.8 mmol/L (3.5-5.1)
[2020-10-03 05:08] LABS: Band 1 % (5-11); Lymphocytes 5 % (21-51); MDiff Complete? YES; Mean Corpuscular HGB CONC 29.3 g/dL (32.0-36.0); Mean Corpuscular Hemoglobin 28.3 pg (27.0-31.0); Mean Corpuscular Volume 96.5 fL (78.0-98.0); Mean Platelet Volume 8.4 fL (7.4-10.4); Monocytes 4 % (0-10); Neutrophil 90 % (42-75); Platelet Count 184 thou/uL (130-400); Platelet Morphology Comment Appears Adequate
[2020-10-03] MEDS ORDERED: Potassium Chloride 40 MEQ in Premix Bag 1 BAG IVPB SCH ×2 (05:15→10:00)
[2020-10-03] MEDS: Piperacillin/Tazobactam 2.25 GM in Sodium Chloride 0.9% 100 ML IVPB SCH ×3 (05:35→21:30)
[2020-10-03 08:23] LABS: Actual Bicarbonate (HCO3a) 21.3 mEq/L (22-28); Base Excess (BEa) -7.8 mEq/L (-2.0 to +3.0); Calcium, Ionized (arterial) 1.11 mmol/L (1.12-1.30); Carboxyhemoglobin (COHb) 1.3 gm% (0.0-3.0); Hemoglobin (Hb) 9.8 g/dL (12.0-16.0); O2 Tension (PaO2), arterial 108.7 mmHg (> 70.0); Potassium - ABG Lab 3.57 mmol/L (3.70-5.30)
[2020-10-03 08:24] LABS: ALV-art Gradient 12.565 mmHg (0-20); CO2 Tension 62.7 mmHg (35.0-45.0); Puncture Site LRA; pH, Arterial 7.15 (7.35-7.45)
[2020-10-03] MEDS: Heparin 5,000 UNITS/ML VIAL SC SCH ×2 (08:59→21:30)
[2020-10-03] MEDS: Pantoprazole 40 MG VIAL IVP SCH (08:59)
[2020-10-03] MEDS ORDERED: Enoxaparin Sodium 30 MG/0.3 ML SYRINGE SC SCH (09:00)
[2020-10-03] MEDS: Diclofenac 1% 100 GM GEL TP SCH ×2 (13:07→13:23)
[2020-10-03] MEDS ORDERED: Acetaminophen 650 MG/20.3 ML UDCUP PO PRN (15:09)
[2020-10-03] MEDS ORDERED: Diclofenac 1% 100 GM GEL TP PRN (16:40)
[2020-10-03] MEDS: Norepinephrine 8 MG/0.9% NS 250 ML IVPB SCH (21:30)
[2020-10-04 04:25] LABS: Anion Gap 18 mmol/L (10-20); BUN (Urea Nitrogen) 32 mg/dL (9.8-20.1); Calc. Creatinine Clearance 13 mL/min (70-130); Calcium 8.3 mg/dL (7.8-10.44); Carbon Dioxide 23 mmol/L (23-31); Chloride 102 mmol/L (98-107); Glucose 138 mg/dL (83-110); Potassium 3.4 mmol/L (3.5-5.1); Sodium 140 mmol/L (136-145)
[2020-10-04 04:32] LABS: Band 13 % (5-11); Hemoglobin 8.6 g/dL (12.0-16.0); Hypochromia SLIGHT = 6-15 cells (100X) (0-5/hpf); Lymphocytes 7 % (21-51); MDiff Complete? YES; Mean Corpuscular HGB CONC 30.8 g/dL (32.0-36.0); Mean Corpuscular Hemoglobin 29.5 pg (27.0-31.0); Mean Corpuscular Volume 95.9 fL (78.0-98.0); Mean Platelet Volume 8.6 fL (7.4-10.4); Neutrophil 80 % (42-75); Platelet Count 160 thou/uL (130-400); Platelet Morphology Comment Appears Adequate; Red Blood Cell (RBC) Count 2.93 mill/uL (4.20-5.40); White Blood Cell (WBC) Count 19.1 thou/uL (4.8-10.8)
[2020-10-04] MEDS: Piperacillin/Tazobactam 2.25 GM in Sodium Chloride 0.9% 100 ML IVPB SCH ×2 (05:57→17:17)
[2020-10-04] MEDS: Heparin 5,000 UNITS/ML VIAL SC SCH ×2 (08:33→21:11)
[2020-10-04] MEDS: Pantoprazole 40 MG VIAL IVP SCH (08:33)
[2020-10-04] MEDS: Modafinil 100 MG TAB PO SCH (08:58)
[2020-10-04] MEDS: Acetaminophen 325 MG TAB PO PRN (11:47)
[2020-10-04] MEDS: Norepinephrine 8 MG/0.9% NS 250 ML IVPB SCH (19:24)
[2020-10-04 21:30] LABS: HBSAg Index 0.15 S/CO (0-0.99); Hep B Surf Ag Non-Reactive S/CO (NonReactive)
[2020-10-05 04:23] LABS: #Lymphocytes 1.3 thou/uL (1.20-3.40); #Monocytes 0.6 thou/uL (0.11-0.59); %Eosinophils 0.2 % (0.0-10.0); %Lymphocytes 7.6 % (21.0-51.0); %Monocytes 3.5 % (0.0-10.0); %Neutrophils 88.7 % (42.0-75.0); Hemoglobin 8.3 g/dL (12.0-16.0); Mean Corpuscular Hemoglobin 29.9 pg (27.0-31.0); Mean Corpuscular Volume 93.2 fL (78.0-98.0); Mean Platelet Volume 8.2 fL (7.4-10.4); Platelet Count 148 thou/uL (130-400); RBC Distribution Width 15.1 % (11.5-14.5); Red Blood Cell (RBC) Count 2.79 mill/uL (4.20-5.40); White Blood Cell (WBC) Count 16.9 thou/uL (4.8-10.8)
[2020-10-05 04:53] LABS: Albumin 1.7 g/dL (3.4-4.8); Anion Gap 22 mmol/L (10-20); BUN (Urea Nitrogen) 33 mg/dL (9.8-20.1); BUN/Creatinine Ratio 6.12; Calc. Creatinine Clearance 12 mL/min (70-130); Calcium 8.6 mg/dL (7.8-10.44); Carbon Dioxide 20 mmol/L (23-31); Chloride 100 mmol/L (98-107); Glucose 149 mg/dL (83-110); Phosphorus 5.2 mg/dL (2.3-4.7); Potassium 3.2 mmol/L (3.5-5.1); Sodium 139 mmol/L (136-145)
[2020-10-05] MEDS: Piperacillin/Tazobactam 2.25 GM in Sodium Chloride 0.9% 100 ML IVPB SCH ×2 (05:06→18:00)
[2020-10-05] MEDS: Modafinil 100 MG TAB PO SCH (09:08)
[2020-10-05] MEDS: Albumin 25% 25 GM/100 ML BOT IVPB SCH ×3 (09:08→20:42)
[2020-10-05] MEDS: Heparin 5,000 UNITS/ML VIAL SC SCH ×2 (09:08→20:42)
[2020-10-05] MEDS: Pantoprazole 40 MG VIAL IVP SCH (09:09)
[2020-10-05] MEDS: Acetaminophen 325 MG TAB PO PRN (15:47)
[2020-10-06 04:56] LABS: #Lymphocytes 1.1 thou/uL (1.20-3.40); #Monocytes 0.5 thou/uL (0.11-0.59); #Neutrophils 10.2 thou/uL (1.40-6.50); %Basophils 0.1 % (0.0-1.0); %Eosinophils 0.4 % (0.0-10.0); %Lymphocytes 9.6 % (21.0-51.0); %Monocytes 3.9 % (0.0-10.0); %Neutrophils 86.1 % (42.0-75.0); Albumin 2.6 g/dL (3.4-4.8); Anion Gap 26 mmol/L (10-20); BUN (Urea Nitrogen) 32 mg/dL (9.8-20.1); Calc. Creatinine Clearance 13 mL/min (70-130); Calcium 8.6 mg/dL (7.8-10.44); Carbon Dioxide 19 mmol/L (23-31); Chloride 100 mmol/L (98-107); Glucose 120 mg/dL (83-110); Hemoglobin 6.3 g/dL (12.0-16.0); Mean Corpuscular HGB CONC 30.1 g/dL (32.0-36.0); Mean Corpuscular Hemoglobin 28.3 pg (27.0-31.0); Mean Corpuscular Volume 94.2 fL (78.0-98.0); Mean Platelet Volume 8.4 fL (7.4-10.4); Phosphorus 5.2 mg/dL (2.3-4.7); Platelet Count 82 thou/uL (130-400); RBC Distribution Width 15.1 % (11.5-14.5); Red Blood Cell (RBC) Count 2.21 mill/uL (4.20-5.40); Sodium 142 mmol/L (136-145); White Blood Cell (WBC) Count 11.8 thou/uL (4.8-10.8)
[2020-10-06 05:00] LABS: Potassium 2.8 mmol/L (3.5-5.1)
[2020-10-06] MEDS ORDERED: Potassium Chloride 40 MEQ in Premix Bag 1 BAG IVPB SCH (05:15)
[2020-10-06] MEDS: Piperacillin/Tazobactam 2.25 GM in Sodium Chloride 0.9% 100 ML IVPB SCH ×2 (05:38→17:34)
[2020-10-06] MEDS ORDERED: EPOETIN ALFA-EPBX (ESRD) 10,000 UNIT/ML VIAL SC SCH (06:30)
[2020-10-06] MEDS ORDERED: Epoetin (ESRD) 20,000 UNITS/ML SC SCH (06:30)
[2020-10-06] MEDS: Pantoprazole 40 MG VIAL IVP SCH (08:33)
[2020-10-06] MEDS: Albumin 25% 25 GM/100 ML BOT IVPB SCH ×3 (08:33→21:33)
[2020-10-06] MEDS: Midodrine HCl 5 MG TAB PO SCH ×3 (09:20→21:34)
[2020-10-06] MEDS: Modafinil 100 MG TAB PO SCH (09:20)
[2020-10-06 12:30] VITALS: BMI 31.6
[2020-10-06] MEDS: Acetaminophen 325 MG TAB PO PRN (15:10)
[2020-10-07] MEDS: Piperacillin/Tazobactam 2.25 GM in Sodium Chloride 0.9% 100 ML IVPB SCH ×2 (05:34→17:55)
[2020-10-07] MEDS: Pantoprazole 40 MG VIAL IVP SCH (08:43)
[2020-10-07] MEDS: Midodrine HCl 5 MG TAB PO SCH ×3 (08:43→20:40)
[2020-10-07 09:31] LABS: #Eosinphils 0.1 thou/uL (0.0-0.7); #Lymphocytes 1.5 thou/uL (1.20-3.40); #Monocytes 0.4 thou/uL (0.11-0.59); #Neutrophils 9.9 thou/uL (1.40-6.50); %Eosinophils 0.5 % (0.0-10.0); %Lymphocytes 12.3 % (21.0-51.0); %Monocytes 3.8 % (0.0-10.0); %Neutrophils 83.4 % (42.0-75.0); Hemoglobin 9.3 g/dL (12.0-16.0); Mean Corpuscular HGB CONC 31.8 g/dL (32.0-36.0); Mean Corpuscular Hemoglobin 28.8 pg (27.0-31.0); Mean Corpuscular Volume 90.4 fL (78.0-98.0); Mean Platelet Volume 9.3 fL (7.4-10.4); Platelet Count 61 thou/uL (130-400); RBC Distribution Width 17.3 % (11.5-14.5); Red Blood Cell (RBC) Count 3.21 mill/uL (4.20-5.40); White Blood Cell (WBC) Count 11.8 thou/uL (4.8-10.8)
[2020-10-07 09:33] LABS: Albumin 3.2 g/dL (3.4-4.8); Anion Gap 23 mmol/L (10-20); BUN (Urea Nitrogen) 29 mg/dL (9.8-20.1); BUN/Creatinine Ratio 5.59; Calc. Creatinine Clearance 13 mL/min (70-130); Calcium 8.8 mg/dL (7.8-10.44); Carbon Dioxide 20 mmol/L (23-31); Chloride 101 mmol/L (98-107); Glucose 98 mg/dL (83-110); Phosphorus 5.2 mg/dL (2.3-4.7); Potassium 3.3 mmol/L (3.5-5.1); Sodium 141 mmol/L (136-145)
[2020-10-07] MEDS: Modafinil 100 MG TAB PO SCH (10:59)
[2020-10-07] MEDS: D5 0.9% NS w/ 20 mEq KCl 1,000 ML IV SCH (16:51)
[2020-10-08] MEDS: Piperacillin/Tazobactam 2.25 GM in Sodium Chloride 0.9% 100 ML IVPB SCH ×2 (05:06→17:19)
[2020-10-08] MEDS: Midodrine HCl 5 MG TAB PO SCH ×2 (08:08→14:41)
[2020-10-08] MEDS: Pantoprazole 40 MG VIAL IVP SCH (08:09)
[2020-10-08] MEDS: D5 0.9% NS w/ 20 mEq KCl 1,000 ML IV SCH (17:18)
[2020-10-09] MEDS: Midodrine HCl 5 MG TAB PO SCH (01:34)
[2020-10-09 04:59] VITALS: BP 95/58; TEMP 99.1
[2020-10-09] MEDS: Piperacillin/Tazobactam 2.25 GM in Sodium Chloride 0.9% 100 ML IVPB SCH (05:46)
== END 2020-10-09 07:10 | disposition expired | DRG 871 ==
LOC: ERS 13:48 → CCU 17:14 → T4-B 10-06 16:40
PROVIDERS: ADMIT Internal Medicine; ATTEND Internal Medicine
PROC: 3E033XZ Introduction of Vasopressor into Peripheral Vein, Percutaneous Approach (ICD-10-PCS; 2020-10-02)
PROC: 05HM33Z Insertion of Infusion Device into Right Internal Jugular Vein, Percutaneous Approach (ICD-10-PCS; 2020-10-02)
PROC: 3E1M39Z Irrigation of Peritoneal Cavity using Dialysate, Percutaneous Approach (ICD-10-PCS; principal; 2020-10-03)
PROC: 5A09457 Assistance with Respiratory Ventilation, 24-96 Consecutive Hours, Continuous Positive Airway Pressure (ICD-10-PCS; 2020-10-03)
PROC: 30233N1 Transfusion of Nonautologous Red Blood Cells into Peripheral Vein, Percutaneous Approach (ICD-10-PCS; 2020-10-06)
DX: A41.9 Sepsis, unspecified organism (principal); N18.6 End stage renal disease; J96.01 Acute respiratory failure with hypoxia; J96.02 Acute respiratory failure with hypercapnia; R65.21 Severe sepsis with septic shock; G93.41 Metabolic encephalopathy; E43 Unspecified severe protein-calorie malnutrition; I12.0 Hypertensive chronic kidney disease with stage 5 chronic kidney disease or end stage renal disease; L03.314 Cellulitis of groin; L03.119 Cellulitis of unspecified part of limb; Z51.5 Encounter for palliative care; Z66 Do not resuscitate; E78.5 Hyperlipidemia, unspecified; I48.0 Paroxysmal atrial fibrillation; G47.33 Obstructive sleep apnea (adult) (pediatric); I25.10 Atherosclerotic heart disease of native coronary artery without angina pectoris; F41.9 Anxiety disorder, unspecified; E83.59 Other disorders of calcium metabolism; E87.6 Hypokalemia; E66.01 Morbid (severe) obesity due to excess calories; B96.20 Unspecified Escherichia coli [E. coli] as the cause of diseases classified elsewhere; E87.8 Other disorders of electrolyte and fluid balance, not elsewhere classified; R62.7 Adult failure to thrive; D64.9 Anemia, unspecified; K21.9 Gastro-esophageal reflux disease without esophagitis; Z91.19 Patient's noncompliance with other medical treatment and regimen; Z90.49 Acquired absence of other specified parts of digestive tract; Z86.711 Personal history of pulmonary embolism; Z86.73 Personal history of transient ischemic attack (TIA), and cerebral infarction without residual deficits; Z95.1 Presence of aortocoronary bypass graft; Z99.2 Dependence on renal dialysis; Z88.1 Allergy status to other antibiotic agents; Z91.041 Radiographic dye allergy status; Z79.82 Long term (current) use of aspirin; Z68.29 Body mass index [BMI] 29.0-29.9, adult; Z98.84 Bariatric surgery status; Z90.710 Acquired absence of both cervix and uterus; Z90.79 Acquired absence of other genital organ(s); Z90.721 Acquired absence of ovaries, unilateral
CPT/HCPCS: 0240U; 36415; 36416; 36430; 36556; 36600; 51702; 71045; 80048; 80053; 80069; 81003; 81015; 82533; 82550; 82553; 82805; 83605; 83735; 84145; 84484; 85007; 85025; 85027; 85610; 85730; 86850; 86900; 86901; 87040; 87070; 87077; 87086; 87186; 87205; 87340; 90935; 90945; 93005; 94660; 96365; 96367; C9113; G0257; J0696; J1644; J2543; J3370; J3480; J3490; P9016; P9047; Q5105